=== PATIENT | male | born 1955 | race Caucasian/White ===

== ENCOUNTER → 2016-12-01 | Outpatient (CLI) | payer OTHER ==
[~2016-12-01] MED LIST: ASPCH81X PO; AZIT-57 PO; CLBCRM30 TOP; FLUT0.15 NAE; FLUT1INH INH; GUAI1TAB75 PO; IPRA1AER2 INH; IPRASOL4 INH; LPT40 PO; MOME200A INH; MONT1TAB3 PO; MULT-884 PO; OMEG10007 PO; OXGN; PRD10 PO; SYMIN INH
--- NOTE | 2016-12-01 14:07 | DIAGNOSTIC IMAGING REPORT ---
CT LUNG SCREENING, LOW DOSE WITH COMPUTER-AIDED DETECTION (CAD) CLINICAL HISTORY: LOW DOSE LUNG SCREENING Tobacco history. COMPARISON STUDY: Chest x-ray dated 12/19/2015. Chest CT dated 10/26/2011. CT DOSE: 80.53 mGycm TECHNIQUE: Low-dose helical CT was acquired without intravenous contrast from lung apices to bases and reconstructed at 2.5 mm every 2 mm. CAD was utilized for this study. FINDINGS: Thyroid: Imaged portions of the thyroid gland are normal in appearance. Thoracic aorta: There is mild atherosclerotic calcification of the thoracic aorta, with is normal in caliber and demonstrates standard 3 vessel arch anatomy. Heart: The heart is enlarged and without pericardial effusion. The mitral annulus is densely calcified. The pulmonary trunk is dilated suggesting pulmonary artery hypertension. Lungs and pleural spaces: Mild emphysematous change is identified. There is no airspace consolidation or pleural effusion. Linear atelectasis versus scarring is noted in the right middle lobe. A punctate calcified granuloma is seen in the right upper lobe. No concerning pulmonary lesion is seen. The trachea and central airways are patent. Mediastinum: There is no mediastinal lymphadenopathy. Michelle: Not well assessed without IV contrast. Axilla: Clear. Upper abdomen: Upper abdominal viscera is not well assessed due to significant streak artifact. A large cyst is again seen arising from the upper pole of the left kidney. A tiny hiatal hernia is identified Skeletal structures: There are no lytic or blastic osseous lesions. IMPRESSION: 1. Cardiomegaly and mild emphysema. 2. No airspace consolidation or pleural effusion is identified. 3. No concerning pulmonary lesion is seen. See below. CAD FINDINGS: Overall Lung RADS Category: 1 Lung RADS Management Recommendation: Lung-RADS 1: Continue annual screening in 12 months. Lung RADS Follow Up Date: 2017-12-01 Electronically signed by: Phill Peña M.D. 12/01/2016 2:05 PM Dictated Date/Time: 12/01/2016 1:53 PM
== END | disposition home or self-care (01) ==
LOC: C.CTS 13:09
PROVIDERS: ATTEND Internal Medicine
DX: I51.7 Cardiomegaly (principal); Z87.891 Personal history of nicotine dependence

== ENCOUNTER → 2017-01-07 | Outpatient (CLI) | payer OTHER ==
[2017-01-07 16:09] LABS: ARTERIAL BLD GAS O2 SATURATION 89.3 % (90-95); ARTERIAL BLOOD GAS BASE EXCESS 5.9 mEq/L (-9-1.8); ARTERIAL BLOOD GAS HCO3 32 mmol/L (19-24); ARTERIAL BLOOD GAS PO2 58 mm/Hg (80-95); ARTERIAL BLOOD GAS pH 7.42 (7.35-7.45)
[2017-01-07 16:12] LABS: ALLEN TEST POS (POS); O2 ADMINISTRATION ROOM AIR
== END | disposition home or self-care (01) ==
LOC: C.LAB 15:44
PROVIDERS: ATTEND Internal Medicine Pulmonary Disease
DX: Z11.59 Encounter for screening for other viral diseases (principal); J44.9 Chronic obstructive pulmonary disease, unspecified

== ENCOUNTER 2017-03-26 10:15 | Inpatient (IN) | payer OTHER ==
[~2017-03-26] VITALS: Ht 180.3 cm; Wt 110.2 kg
[2017-03-26] VITALS (40 sets, daily range): BP systolic 91–146; BP diastolic 50–86; PULSE 64–81; TEMP 36.8–37; O2SAT 88–97; Ht 180.3 cm; Wt 110.2 kg
[~2017-03-26 10:15] MED LIST changes: -AZIT-57 PO; -FLUT1INH INH; -OXGN; -PRD10 PO; -SYMIN INH
[2017-03-26] MEDS ORDERED: FLUT1INH INH (10:45)
[2017-03-26 10:47] LABS: ISTAT CREATININE 0.7 mg/dl (0.6-1.3); ISTAT HEMOGLOBIN 18.4 g/dl (14.0-18.0); ISTAT IONIZED CALCIUM 1.07 mmol/l (1.12-1.32)
[2017-03-26 11:18] LABS: BASO % 0.3 %; BASO ABS # 0.04 K/uL (0-0.2); COMPLETE YES; EOS % 1.1 %; HEMATOCRIT 49.5 % (42-52); IG% 0.2 %; LYMPH % 19.3 %; MEAN CELL VOLUME 101.4 fL (80-100); MEAN CORPUSCULAR HGB CONC 31.5 g/dl (32-36); MEAN PLATELET VOLUME 9.6 fL (7.4-10.4); MONO % 14.3 %; NEUT % 64.8 %; PLATELET COUNT 270 K/uL (130-400); RED BLOOD COUNT 4.88 M/uL (4.7-6.1)
[2017-03-26 11:26] LABS: BUN/CREATININE RATIO 13.3 (10-20); CALCIUM 8.4 mg/dl (8.5-10.1); CREATININE 0.67 mg/dl (0.60-1.40); POTASSIUM 5.3 mmol/L (3.5-5.1)
[2017-03-26 11:29] LABS: INR 1.2 (0.9-1.1); PARTIAL THROMBOPLASTIN RATIO 1.2; PROTHROMBIN TIME (PATIENT) 12.7 SECONDS (9.0-12.0)
--- NOTE | 2017-03-26 11:33 | DIAGNOSTIC IMAGING REPORT ---
SINGLE VIEW CHEST CLINICAL HISTORY: Dyspnea. FINDINGS: An AP, portable, upright chest radiograph is compared to study dated 12/19/2015 and correlated with chest CT dated 12/01/2016. The examination is degraded by portable technique and patient rotation. The heart is markedly enlarged and there is atherosclerotic calcification of the thoracic aorta. There is pulmonary vascular congestion. Bibasilar atelectasis is noted. No large pleural effusion or pneumothorax is seen. The skeletal structures are osteopenic. The bony thorax is grossly intact. IMPRESSION: Cardiomegaly with evidence of congestive failure. Electronically signed by: Phill Peña M.D. 03/26/2017 11:32 AM Dictated Date/Time: 03/26/2017 11:31 AM
[2017-03-26 11:35] LABS: ALB/GLOB RATIO 0.9 (0.9-2)
[2017-03-26] MEDS ORDERED: FUROSEMIDE 40 MG/4 ML VIAL IV STA (11:36)
--- NOTE | 2017-03-26 12:02 | DIAGNOSTIC IMAGING REPORT ---
CT SCAN OF THE BRAIN WITHOUT IV CONTRAST CLINICAL HISTORY: Change in mental status. COMPARISON STUDY: No priors. TECHNIQUE: Unenhanced axial CT scan of the brain is performed from the vertex to the skull base. The patient was scanned twice due to motion artifact. The examination is significantly motion compromised. CT DOSE: 1124.11 mGy.cm FINDINGS: Brain parenchyma: There is minimal subcortical and periventricular microangiopathic change. There is no evidence of hemorrhage, mass effect, or acute territorial ischemia by CT criteria. Mcelroy-white matter is preserved. No extra-axial fluid collection is seen. Ventricles, sulci, cisterns: Prominent secondary to involutional change. Intracranial vasculature: There is atherosclerotic calcification of the cavernous carotid arteries. Calvarium: Unremarkable. Sinuses and mastoids: Mucosal thickening/fluid is seen within the right maxillary antrum, the right frontal sinus, and the ethmoid sinuses. The mastoid air cells are well pneumatized. Orbits: The bony orbits are grossly intact. IMPRESSION: There is no clear evidence of hemorrhage, mass effect, or acute territorial ischemia by CT criteria noting a significantly motion compromised examination. Electronically signed by: Phill Peña M.D. 03/26/2017 12:00 PM Dictated Date/Time: 03/26/2017 11:57 AM
[2017-03-26 12:34] LABS: ARTERIAL BLD GAS O2 SATURATION 92.3 % (90-95); ARTERIAL BLOOD GAS BASE EXCESS 7.6 mEq/L (-9-1.8); ARTERIAL BLOOD GAS HCO3 39 mmol/L (19-24); ARTERIAL BLOOD GAS PO2 72 mm/Hg (80-95); ARTERIAL BLOOD GAS pH 7.24 (7.35-7.45)
[2017-03-26 12:40] LABS: URINE APPEARANCE CLEAR (CLEAR); URINE BILIRUBIN NEG (NEG); URINE COLOR YELLOW; URINE EPITHELIAL CELL AUTO 0-5 /lpf (0-5); URINE NITRITE NEG (NEG); URINE SPECIFIC GRAVITY 1.015 (1.000-1.030); UROBILINOGEN NEG (NEG); ZZUR CULT IF INDIC CLEAN CATCH NO
[2017-03-26 12:40] LABS: ALLEN TEST POSITIVE (POS); O2 ADMINISTRATION 5 LITERS
[2017-03-26 12:41] LABS: MANUAL MICROSCOPIC REQUIRED? NO; REVIEW REQ? NO
--- NOTE | 2017-03-26 13:13 | DIAGNOSTIC IMAGING REPORT ---
(CHEST) THORAX WITHOUT CLINICAL HISTORY: acute respiratory failure with hypoxia and hypercapnia COMPARISON STUDY: 12/01/2016 CT DOSE: 686.10 mGy.cm TECHNIQUE: CT of the thorax was performed from the thoracic inlet to the lung bases. Images are reviewed in the axial, sagittal, and coronal planes. IV contrast was not administered for this examination. A dose lowering technique was utilized adhering to the principles of ALARA. FINDINGS: Thyroid: Imaged portions of the thyroid gland are normal in appearance. Thoracic aorta: The thoracic aorta is normal in course and caliber, noting standard 3 vessel arch anatomy. Heart: The heart is enlarged. There is enlargement of the central pulmonary arteries. Shunt vascularity cannot be excluded. Correlation with an echo if not diffusely performed is recommended. Lungs and pleural spaces: There is respiratory motion artifact. There is no focal pulmonary consolidation. There are dependent atelectatic changes. Mediastinum: There is no evidence of pathologic adenopathy by size criteria. Michelle: There is no evidence of pathologic adenopathy given the limitations of a noncontrast study Axilla: There is no evidence of pathologic adenopathy Upper abdomen: There is a 6.4 cm partially visualized left renal cyst. Skeletal structures: There are no lytic or blastic osseous lesions. A cortical step-off involving the sternum, likely is secondary to motion artifact given the absence of a traumatic history. IMPRESSION: 1. Cardiomegaly and dilated pulmonary arteries. An intracardiac shunt cannot be excluded. Correlation with echocardiography if not performed is recommended 2. No evidence of focal pulmonary consolidation. 3. Mild dependent atelectasis Electronically signed by: Gadiel Reddy M.D. 03/26/2017 1:12 PM Dictated Date/Time: 03/26/2017 1:01 PM
[2017-03-26] MEDS ORDERED: CEFTRIAXONE SOD INJ 1 GM in DEXTROSE 5% ADD-VANTAGE 50ML 50 ML IV STA (14:09)
[2017-03-26] MEDS ORDERED: METHYLPREDNISOLONE 125 MG VIAL IV STA (14:10)
[2017-03-26] MEDS ORDERED: LEVAQUIN 750MG / 150ML D5W IV ONE (14:15)
[2017-03-26] MEDS ORDERED: HEPARIN SOD 5000 UNIT/0.5 ML CARP SQ SCH (14:30)
[2017-03-26] MEDS ORDERED: LORAZEPAM 2 MG/ML 1 ML VIAL IV PRN (14:30)
[2017-03-26] MEDS ORDERED: MoRPHine SULFATE 2 MG/ML CARP IV PRN (14:30)
[2017-03-26] MEDS ORDERED: NITROGLYCERIN 0.4 MG SL PER TAB CHARGE SL PRN (14:30)
[2017-03-26] MEDS ORDERED: ENOXAPARIN 40 MG/0.4 ML SYR SQ SCH (14:30)
[2017-03-26] MEDS ORDERED: ACETAMINOPHEN 325 MG TAB PO PRN (14:30)
[2017-03-26] MEDS ORDERED: MIDAZOLAM 125MG/250ML D5W 250 ML IV PRN (14:33)
[2017-03-26] MEDS ORDERED: SUCCINYLCHOLINE CHLORIDE 20 MG/ML 10 ML VIAL IV STA (14:33)
[2017-03-26] MEDS ORDERED: FENTANYL CITRATE INJ 50 MCG/1 ML 2 ML VIAL ONE (14:36)
[2017-03-26] MEDS ORDERED: MIDAZOLAM HCL 5 MG/ML 2ML VIAL ONE (14:36)
[2017-03-26 14:37] LABS: ISTAT ARTERIAL BLOOD GAS HCO3 41 meq/L (19-24); ISTAT ARTERIAL BLOOD GAS PCO2 103 mmHg (35-46); ISTAT ARTERIAL BLOOD GAS PO2 84 mmHg (80-95); ISTAT ARTERIAL BLOOD GAS pH 7.21 (7.35-7.45); ISTAT CARBON DIOXIDE > 40 mEq/l (24-31)
[2017-03-26] MEDS ORDERED: RAPID SEQUENCE INDUCTION BAG ONE (14:37)
--- NOTE | 2017-03-26 14:43 | Medical Student: [facility] ---
Med Student History & Physical Date & Time of Service: Mar 26, 2017 at 14:43 Chief Complaint: Shortness Of Breath Primary Care Physician: Aristeo Vicente M.D. History of Present Illness Source: patient, family, hospital records Mr. Gaytan is a 61yo male, current 1 ppd smoker, with a history of COPD requiring home oxygen and diastolic heart failure who was sent to the ED by his PCP for shortness of breath. Oxygen saturation at his PCP office was 55%. Over the past 2 weeks he has been feeling generally unwell with difficulty breathing , fatigue and decreased appetite. His shortness of breath and fatigue worsened further over the past 2 days. He has copious sputum at baseline. He denies recent change in sputum. He denies fever, chills, headache, lightheadedness, cp , abdominal pain, diarrhea, numbness/tingling. No sick contacts. 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 He presents today with his sister at bedside. 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) Immunizations History of Influenza Vaccine: Yes Influenza Vaccine Date: Aug 04, 2011 History of Tetanus Vaccine?: Yes Tetanus Immunization Date: Aug 04, 2011 History of Pneumococcal: Yes Pneumococcal Date: Aug 04, 2011 History of Hepatitis B Vaccine: Unknown Allergies Coded Allergies: No Known Allergies (Verified , 04/29/16) Medications Aspirin (Aspirin Chewable), 81 MG PO QPM Atorvastatin (Atorvastatin Calcium), 40 MG PO HS Clobetasol Propionate (Clobetasol Propionate Cream 0.05%), 1 APPLN TOP BID Fish Oil (Gwinn-3), 1 CAP PO BID Fluticasone Furoate-Vilanterol (Breo Ellipta), 1 PUFF INH DAILY Fluticasone Propionate (Nasal) (Flonase Allergy Relief), 2 SPRAY RODRIGO QAM Guaifenesin La (Guaifenesin Er), 600 MG PO Q12H Ipratropium-Albuterol (Combivent Respimat), 2 PUFFS INH QID PRN for Shortness of Breath Ipratropium-Albuterol (Duoneb), 1 TREATMENT INH Q4H PRN for Shortness of Breath Mometasone Furoate-Formoterol (Dulera 200/5 Mcg), 2 PUFFS INH BID Montelukast Sodium (Singulair), 10 MG PO QPM Multiple Vitamin (Multi Vitamin Daily), 1 TAB PO QAM Review of Systems Constitutional: + sweats, + fatigue, No fever, No chills Eyes: No eye pain, No diplopia ENT: No sore throat, No trouble swallowing Respiratory: + cough, + sputum, + shortness of breath, No hemoptysis Cardiovascular: No chest pain, No orthopnea, No edema, No palpitations Abdomen: No pain, No nausea, No vomiting, No diarrhea, No constipation Musculoskeletal: No swelling, No calf pain Genitourinary - Male: No urinary frequency, No urinary incontinence Neurologic: No paralysis, No numbness/tingling Integumentary: No rash, No new/changing skin lesions Physical Exam Vital Signs (24 Hours) Date Time Temp Pulse Resp B/P (MAP) Pulse Ox O2 Delivery O2 Flow Rate FiO2 03/26/17 14:20 93 BiPAP 15.0 100 03/26/17 14:20 75 24 93 BiPAP 15.0 100 03/26/17 14:16 133/91 03/26/17 14:05 76 36 95 03/26/17 14:00 79 17 145/89 96 03/26/17 13:55 81 21 95 03/26/17 13:52 93 BiPAP 5.0 50 03/26/17 13:50 76 25 94 03/26/17 13:45 78 22 95 03/26/17 13:40 92 26 96 03/26/17 13:35 84 26 93 BiPAP 03/26/17 13:31 150/82 03/26/17 13:30 75 21 94 03/26/17 13:27 139/82 03/26/17 13:25 81 27 93 03/26/17 13:20 77 20 94 03/26/17 13:15 81 20 95 03/26/17 13:12 77 03/26/17 13:10 75 22 94 03/26/17 13:05 79 22 95 03/26/17 12:45 79 27 88 03/26/17 12:40 76 96 50 03/26/17 12:40 86 27 88 03/26/17 12:35 84 24 03/26/17 12:33 81 136/88 91 Nasal Cannula 5.0 03/26/17 12:30 76 16 136/88 87 03/26/17 12:25 78 26 86 03/26/17 12:20 76 23 89 03/26/17 12:15 82 26 86 03/26/17 12:10 84 28 87 03/26/17 12:05 84 19 93 03/26/17 12:00 73 25 127/82 89 03/26/17 11:43 74 14 145/90 90 Nasal Cannula 5.0 03/26/17 11:40 83 27 90 03/26/17 11:35 80 27 88 03/26/17 11:31 145/90 03/26/17 11:30 78 31 90 03/26/17 11:25 83 28 90 03/26/17 11:20 80 34 91 03/26/17 11:15 77 25 90 03/26/17 11:14 90 Nasal Cannula 5.0 03/26/17 11:13 90 Nasal Cannula 5.0 03/26/17 11:10 80 23 88 03/26/17 11:05 76 20 87 03/26/17 11:01 143/90 03/26/17 11:00 80 9 85 03/26/17 11:00 77 22 143/90 90 Nasal Cannula 5.0 03/26/17 10:55 74 9 85 03/26/17 10:50 79 25 90 03/26/17 10:45 81 18 90 03/26/17 10:40 80 25 91 03/26/17 10:35 77 31 93 03/26/17 10:33 94 Nasal Cannula 5.0 03/26/17 10:30 94 Nasal Cannula 5.0 03/26/17 10:30 85 29 94 03/26/17 10:29 156/93 03/26/17 10:29 80 03/26/17 10:26 37.2 83 24 156/93 85 Room Air General Appearance: + severe distress (diaphoretic, coughing frequently, unable to speak in full sentences), + obese Head: normocephalic, atraumatic Eyes: normal inspection, PERRL, EOMI ENT: + pertinent finding (dry mucus membranes, nasal cannula) Neck: supple, no adenopathy, no carotid bruits Respiratory/Chest: + respiratory distress, + crackles (all lung au), + wheezing, + pertinent finding (prolonged expiratory phase) Cardiovascular: normal peripheral pulses, + abnormal rhythm (abnormal irregular rhythm, unable to determine relationship to respiration) Abdomen/GI: normal bowel sounds, + distended Extremities/Musculoskelatal: no calf tenderness, normal capillary refill, + pedal edema (2+) Neurologic/Psych: + disoriented (unable to converse, frequently falls asleep) Skin: + rash (erythematous facial rash at forehead/upper orbits) Diagnostics Laboratory Results Results Past 24 Hours Test 03/26/17 10:25 03/26/17 10:34 03/26/17 11:14 03/26/17 12:10 Range/Units White Blood Count 11.90 4.8-10.8 K/uL Red Blood Count 4.88 4.7-6.1 M/uL Hemoglobin 15.6 14.0-18.0 g/dL Hematocrit 49.5 42-52 % Mean Corpuscular Volume 101.4 80-100 fL Mean Corpuscular Hemoglobin 32.0 25-34 pg Mean Corpuscular Hemoglobin Concent 31.5 32-36 g/dl Platelet Count 270 130-400 K/uL Mean Platelet Volume 9.6 7.4-10.4 fL Neutrophils (%) (Auto) 64.8 % Lymphocytes (%) (Auto) 19.3 % Monocytes (%) (Auto) 14.3 % Eosinophils (%) (Auto) 1.1 % Basophils (%) (Auto) 0.3 % Neutrophils # (Auto) 7.71 1.4-6.5 K/uL Lymphocytes # (Auto) 2.30 1.2-3.4 K/uL Monocytes # (Auto) 1.70 0.11-0.59 K/uL Eosinophils # (Auto) 0.13 0-0.5 K/uL Basophils # (Auto) 0.04 0-0.2 K/uL RDW Standard Deviation 55.4 36.4-46.3 fL RDW Coefficient of Variation 15.0 11.5-14.5 % Immature Granulocyte % (Auto) 0.2 % Immature Granulocyte # (Auto) 0.02 0.00-0.02 K/uL Prothrombin Time 12.7 9.0-12.0 SECONDS Prothromb Time International Ratio 1.2 0.9-1.1 Activated Partial Thromboplast Time 30.1 21.0-31.0 SECONDS Partial Thromboplastin Ratio 1.2 Sodium Level 128 136-145 mmol/L Potassium Level 5.3 3.5-5.1 mmol/L Chloride Level 90 98-107 mmol/L Carbon Dioxide Level 37 21-32 mmol/L Anion Gap 1.0 12.0 16-25 mmol/L Blood Urea Nitrogen 9 7-18 mg/dl Creatinine 0.67 0.60-1.40 mg/dl Est Creatinine Clear Calc Drug Dose 153.5 ml/min Estimated GFR () 121.0 Estimated GFR (Non- 104.4 BUN/Creatinine Ratio 13.3 10-20 Random Glucose 105 70-99 mg/dl Osmolality 273 280-300 mOsm/kg Calcium Level 8.4 8.5-10.1 mg/dl Total Bilirubin 1.3 0.2-1 mg/dl Aspartate Amino Transf (AST/SGOT) 21 15-37 U/L Alanine Aminotransferase (ALT/SGPT) 29 12-78 U/L Alkaline Phosphatase 102 45-117 U/L Troponin I < 0.015 0-0.045 ng/ml Pro-B-Type Natriuretic Peptide 423 0-900 pg/ml Total Protein 6.7 6.4-8.2 gm/dl Albumin 3.1 3.4-5.0 gm/dl Globulin 3.6 2.5-4.0 gm/dl Albumin/Globulin Ratio 0.9 0.9-2 Lyme Disease IgG Antibody NEG NEG Bedside Hemoglobin 18.4 14.0-18.0 g/dl Bedside Hematocrit 54 42-52 % Bedside Sodium 127 135-144 mEq/L Bedside Potassium 5.3 3.3-5.0 mEq/L Bedside Chloride 86 101-112 mEq/L Bedside Total CO2 35 24-31 mEq/l Bedside Blood Urea Nitrogen 10 7-18 mg/dl Bedside Creatinine 0.7 0.6-1.3 mg/dl Bedside Glucose (other) 110 70-99 mg/dl Bedside Ionized Calcium (Tamera) 1.07 1.12-1.32 mmol/l Bedside Troponin I < 0.030 0-0.045 ng/ml Urine Color YELLOW Urine Appearance CLEAR CLEAR Urine pH 6.0 4.5-7.5 Urine Specific [place] 1.015 1.000-1.030 Urine Protein NEG NEG Urine Glucose (UA) NEG NEG Urine Ketones NEG NEG Urine Occult Blood NEG NEG Urine Nitrite NEG NEG Urine Bilirubin NEG NEG Urine Urobilinogen NEG NEG Urine Leukocyte Esterase NEG NEG Urine WBC (Auto) 1-5 0-5 /hpf Urine RBC (Auto) 0-4 0-4 /hpf Urine Hyaline Casts (Auto) 1-5 0-5 /lpf Urine Epithelial Cells (Auto) 0-5 0-5 /lpf Urine Bacteria (Auto) NEG NEG Urine Osmolality 448 500-800 mOms/kg Test 03/26/17 12:13 03/26/17 14:23 Range/Units Arterial Blood pH 7.24 7.35-7.45 Arterial Blood Partial Pressure CO2 93 35-46 mmHg Arterial Blood Partial Pressure O2 72 80-95 mm/Hg Arterial Blood HCO3 39 19-24 mmol/L Arterial Blood Oxygen Saturation 92.3 90-95 % Arterial Blood Base Excess 7.6 -9-1.8 mEq/L Arterial Blood Gas Delivery 5 LITERS Primitivo Test POSITIVE POS Bedside Blood Gas pH (LAB) 7.21 7.35-7.45 Bedside Blood Gas pCO2 (LAB) 103 35-46 mmHg Bedside Blood Gas pO2 (LAB) 84 80-95 mmHg Bedside Blood Gas HCO3 (LAB) 41 19-24 meq/L Bedside Blood Gas Total CO2 > 40 24-31 mEq/l Bedside Blood Gas Base Excess (LAB) 13.0 -9-1.8 meq/L Bedside Blood Gas O2 Saturation 92.0 90-95 % Diagnostic Radiology (CHEST) THORAX WITHOUT CLINICAL HISTORY: acute respiratory failure with hypoxia and hypercapnia COMPARISON STUDY: 12/01/2016 CT DOSE: 686.10 mGy.cm TECHNIQUE: CT of the thorax was performed from the thoracic inlet to the lung bases. Images are reviewed in the axial, sagittal, and coronal planes. IV contrast was not administered for this examination. A dose lowering technique was utilized adhering to the principles of ALARA. FINDINGS: Thyroid: Imaged portions of the thyroid gland are normal in appearance. Thoracic aorta: The thoracic aorta is normal in course and caliber, noting standard 3 vessel arch anatomy. Heart: The heart is enlarged. There is enlargement of the central pulmonary arteries. Shunt vascularity cannot be excluded. Correlation with an echo if not diffusely performed is recommended. Lungs and pleural spaces: There is respiratory motion artifact. There is no focal pulmonary consolidation. There are dependent atelectatic changes. Mediastinum: There is no evidence of pathologic adenopathy by size criteria. Michelle: There is no evidence of pathologic adenopathy given the limitations of a noncontrast study Axilla: There is no evidence of pathologic adenopathy Upper abdomen: There is a 6.4 cm partially visualized left renal cyst. Skeletal structures: There are no lytic or blastic osseous lesions. A cortical step-off involving the sternum, likely is secondary to motion artifact given the absence of a traumatic history. IMPRESSION: 1. Cardiomegaly and dilated pulmonary arteries. An intracardiac shunt cannot be excluded. Correlation with echocardiography if not performed is recommended 2. No evidence of focal pulmonary consolidation. 3. Mild dependent atelectasis Electronically signed by: Gadiel Reddy M.D. 03/26/2017 1:12 PM Dictated Date/Time: 03/26/2017 1:01 PM SINGLE VIEW CHEST CLINICAL HISTORY: Dyspnea. FINDINGS: An AP, portable, upright chest radiograph is compared to study dated 12/19/2015 and correlated with chest CT dated 12/01/2016. The examination is degraded by portable technique and patient rotation. The heart is markedly enlarged and there is atherosclerotic calcification of the thoracic aorta. There is pulmonary vascular congestion. Bibasilar atelectasis is noted. No large pleural effusion or pneumothorax is seen. The skeletal structures are osteopenic. The bony thorax is grossly intact. IMPRESSION: Cardiomegaly with evidence of congestive failure. Electronically signed by: Phill Peña M.D. 03/26/2017 11:32 AM Dictated Date/Time: 03/26/2017 11:31 AM Impression Assessment and Plan This is a 61yo male, current 1 ppd smoker, with a history of COPD requiring home oxygen and diastolic heart failure who was sent to the ED by his PCP for worsening shortness of breath. CXR shows increased pulmonary markings and diffuse infiltrate. Chest CT corroborates with pulmonary hypertension found on CXR and is negative for signs of pulmonary infectious process. BNP 423 wnl. Troponins negative. Serum osm 248 and Na 127 indicating fluid overload. At this time patient will be admitted to telemetry for management of acute COPD exacerbation in the context of diastolic heart failure and possible pulmonary infection, yet undefined. Further pulmonary and cardiac workup will be done. Differential includes: exposure lung diseases such as sleeping bag filler's lung and zimmerman's lung as well as infectious lung diseases such as bird fancier's lung, histoplasmosis, blastomycosis, aspergillosis, cryptococcal pneumonia, and atypical bacterial pneumonia such as mycoplasma (facial rash) and legionella ( hyponatremia). Plan: Precautions: Fall 1. COPD exacerbation, current O2sat 93% on 5L NC (low of 55% at PCP office this AM) w/ associated pulmonary HTN -Admit to telemetry, high risk for arrhythmia -OOB with assistance only -vitals q2h -nebs q4h -consult ID -consult cardiology -consult pulmonology -BiPAP PEEP 7, FiO2 50%, Pinsp 14 -IV solumedrol, 60mg q6h (2mg/kg per day) -IV ceftriaxone 2g -IV levofloxacin 500mg -magnesium sulfate 2g -repeat ABG -AM CBC w/ diff -AM renal profile -AM magnesium level -consider diagnostic bronchoalveolar lavage -echocardiogram pending -nicotine patch -smoking cessation education -flu vaccine -pneumovax 2.DVT prophylaxis -lovenox 40mg SQ q24 3. Disposition -Location: home -Date:TBD Level of Care Telemetry Advanced Directives Existing Living Will: No Existing Power of Business Unit Controller: No DVT Prophylaxis enoxaparin (Lovenox) SQ, SCDs Social Service Consult None Apply
[2017-03-26] MEDS ORDERED: FENTANYL CITRATE INJ 50 MCG/1 ML 2 ML VIAL IV ONE (14:45)
--- NOTE | 2017-03-26 15:12 | EMERGENCY ROOM VISIT NOTE ---
History Report prepared by Eileen: Arlin Morgan Under the Supervision of: Dr. Wilton Deutsch D.O. First contact with patient: 11:14 Chief Complaint: SHORTNESS OF BREATH Stated Complaint: SHORTNESS OF BREATH History of Present Illness The patient is a 61 year old male who presents to the Emergency Room with complaints of worsening fatigue starting 2 weeks ago. [place] with his [place]. He is here with his sister. For the past 2 weeks, he has been fatigued and unable to work. He seems to have worsened last night and today. He saw his PCP today who sent him to the ED. The patient has had a rash on his head starting about when he started feeling unwell. He thought the rash and fatigue was due to the humidity and sweating outside. He denies any vomiting , cough, chest pain, SOB, or headache. His sister states that he does seem SOB. He denies any recent falls. The patient has not been eating well recently. He does smoke and has a history of COPD. He uses oxygen at night. The patient is not on Lasix. Source of History: patient, sibling Onset: 2 weeks ago Position: other (global) Quality: other (fatigue) Timing: worsening Associated Symptoms: + SOB, + rash, No headache, No cough, No chest pain, No vomiting Review of Systems See HPI for pertinent positives & negatives. A total of 10 systems reviewed and were otherwise negative. Past Medical & Surgical Medical Problems: (1) Acute respiratory failure with hypoxia and hypercapnia (2) COPD (chronic obstructive pulmonary disease) (3) COPD exacerbation (4) Emphysema of lung (5) Hyperlipidemia Surgical Problems: (1) [place] teeth extracted Family History Heart disease Hypertension Lung disease Social History Smoking Status: Current Every Day Smoker Drug Use: none Marital Status: single Housing Status: lives with family Occupation Status: employed Current/Historical Medications Scheduled Aspirin (Aspirin Chewable), 81 MG PO QPM Atorvastatin (Atorvastatin Calcium), 40 MG PO HS Clobetasol Propionate (Clobetasol Propionate Cream 0.05%), 1 APPLN TOP BID Fish Oil ([place]-3), 1 CAP PO BID Fluticasone Furoate-Vilanterol (Breo Ellipta), 1 PUFF INH DAILY Fluticasone Propionate (Nasal) (Flonase Allergy Relief), 2 SPRAY RODRIGO QAM Guaifenesin La (Guaifenesin Er), 600 MG PO Q12H Mometasone Furoate-Formoterol (Dulera 200/5 Mcg), 2 PUFFS INH BID Montelukast Sodium (Singulair), 10 MG PO QPM Multiple Vitamin (Multi Vitamin Daily), 1 TAB PO QAM Scheduled PRN Ipratropium-Albuterol (Combivent Respimat), 2 PUFFS INH QID PRN for Shortness of Breath Ipratropium-Albuterol (Duoneb), 1 TREATMENT INH Q4H PRN for Shortness of Breath Allergies Coded Allergies: No Known Allergies (Verified , 04/29/16) Physical Exam Vital Signs Date Time Temp Pulse Resp B/P (MAP) Pulse Ox O2 Delivery O2 Flow Rate FiO2 03/26/17 14:20 93 BiPAP 15.0 100 03/26/17 14:20 75 24 93 BiPAP 15.0 100 03/26/17 14:16 133/91 03/26/17 14:05 76 36 95 03/26/17 14:00 79 17 145/89 96 03/26/17 13:55 81 21 95 03/26/17 13:52 93 BiPAP 5.0 50 03/26/17 13:50 76 25 94 03/26/17 13:45 78 22 95 03/26/17 13:40 92 26 96 03/26/17 13:35 84 26 93 BiPAP 03/26/17 13:31 150/82 03/26/17 13:30 75 21 94 03/26/17 13:27 139/82 03/26/17 13:25 81 27 93 03/26/17 13:20 77 20 94 03/26/17 13:15 81 20 95 03/26/17 13:12 77 03/26/17 13:10 75 22 94 03/26/17 13:05 79 22 95 03/26/17 12:45 79 27 88 03/26/17 12:40 76 96 50 03/26/17 12:40 86 27 88 03/26/17 12:35 84 24 03/26/17 12:33 81 136/88 91 Nasal Cannula 5.0 03/26/17 12:30 76 16 136/88 87 03/26/17 12:25 78 26 86 03/26/17 12:20 76 23 89 03/26/17 12:15 82 26 86 03/26/17 12:10 84 28 87 03/26/17 12:05 84 19 93 03/26/17 12:00 73 25 127/82 89 03/26/17 11:43 74 14 145/90 90 Nasal Cannula 5.0 03/26/17 11:40 83 27 90 03/26/17 11:35 80 27 88 03/26/17 11:31 145/90 03/26/17 11:30 78 31 90 03/26/17 11:25 83 28 90 03/26/17 11:20 80 34 91 03/26/17 11:15 77 25 90 03/26/17 11:14 90 Nasal Cannula 5.0 03/26/17 11:13 90 Nasal Cannula 5.0 03/26/17 11:10 80 23 88 03/26/17 11:05 76 20 87 03/26/17 11:01 143/90 03/26/17 11:00 80 9 85 03/26/17 11:00 77 22 143/90 90 Nasal Cannula 5.0 03/26/17 10:55 74 9 85 03/26/17 10:50 79 25 90 03/26/17 10:45 81 18 90 03/26/17 10:40 80 25 91 03/26/17 10:35 77 31 93 03/26/17 10:33 94 Nasal Cannula 5.0 03/26/17 10:30 94 Nasal Cannula 5.0 03/26/17 10:30 85 29 94 03/26/17 10:29 156/93 03/26/17 10:29 80 03/26/17 10:26 37.2 83 24 156/93 85 Room Air Physical Exam CONSTITUTIONAL/VITAL SIGNS: Reviewed / noted above. GENERAL: Non-toxic in appearance. Arouses with verbal stimuli but falls asleep quickly and easily. INTEGUMENTARY: There is a rash in the bilateral forehead area just above the eyes with edema to the left eyelid. HEAD: Normocephalic. EYES: without scleral icterus or trauma. ENT/OROPHARYNX: clear and moist. LYMPHADENOPATHY/NECK: Is supple without lymphadenopathy or meningismus. RESPIRATORY: Lungs clear and equal. CARDIOVASCULAR: Regular rate and rhythm. GI/ABDOMEN: Soft and nontender. No organomegaly or pulsatile mass. No rebound or guarding. Normal bowel sounds. EXTREMITIES: Warm and well perfused. BACK: No CVA tenderness. NEUROLOGICAL: Intact without focal deficits. PSYCHIATRIC: normal affect. MUSCULOSKELETAL: Normally developed with good muscle tone. Medical Decision & Procedures ER Provider Diagnostic Interpretation: X ray results and stated below per my interpretation and radiology interpretation. Radiology results as stated below per my review and radiologist interpretation: SINGLE VIEW CHEST CLINICAL HISTORY: Dyspnea. FINDINGS: An AP, portable, upright chest radiograph is compared to study dated 12/19/2015 and correlated with chest CT dated 12/01/2016. The examination is degraded by portable technique and patient rotation. The heart is markedly enlarged and there is atherosclerotic calcification of the thoracic aorta. There is pulmonary vascular congestion. Bibasilar atelectasis is noted. No large pleural effusion or pneumothorax is seen. The skeletal structures are osteopenic. The bony thorax is grossly intact. IMPRESSION: Cardiomegaly with evidence of congestive failure. Electronically signed by: Phill Peña M.D. 03/26/2017 11:32 AM Dictated Date/Time: 03/26/2017 11:[address] SCAN OF THE BRAIN WITHOUT IV CONTRAST CLINICAL HISTORY: Change in mental status. COMPARISON STUDY: No priors. TECHNIQUE: Unenhanced axial CT scan of the brain is performed from the vertex to the skull base. The patient was scanned twice due to motion artifact. The examination is significantly motion compromised. CT DOSE: 1124.11 mGy.cm FINDINGS: Brain parenchyma: There is minimal subcortical and periventricular microangiopathic change. There is no evidence of hemorrhage, mass effect, or acute territorial ischemia by CT criteria. Mcelroy-white matter is preserved. No extra-axial fluid collection is seen. Ventricles, sulci, cisterns: Prominent secondary to involutional change. Intracranial vasculature: There is atherosclerotic calcification of the cavernous carotid arteries. Calvarium: Unremarkable. Sinuses and mastoids: Mucosal thickening/fluid is seen within the right maxillary antrum, the right frontal sinus, and the ethmoid sinuses. The mastoid air cells are well pneumatized. Orbits: The bony orbits are grossly intact. IMPRESSION: There is no clear evidence of hemorrhage, mass effect, or acute territorial ischemia by CT criteria noting a significantly motion compromised examination. Electronically signed by: Phill Peña M.D. 03/26/2017 12:00 PM Dictated Date/Time: 03/26/2017 11:57 AM Laboratory Results 03/26/17 10:25 Red Blood Count 4.88, Mean Corpuscular Volume 101.4, Mean Corpuscular Hemoglobin 32.0, Mean Corpuscular Hemoglobin Concent 31.5, Mean Platelet Volume 9.6, Neutrophils (%) (Auto) 64.8, Lymphocytes (%) (Auto) 19.3, Monocytes (%) ( Auto) 14.3, Eosinophils (%) (Auto) 1.1, Basophils (%) (Auto) 0.3, Neutrophils # (Auto) 7.71, Lymphocytes # (Auto) 2.30, Monocytes # (Auto) 1.70, Eosinophils # ( Auto) 0.13, Basophils # (Auto) 0.04 03/26/17 10:25 Test 03/26/17 10:25 03/26/17 10:34 03/26/17 11:14 03/26/17 12:10 White Blood Count 11.90 K/uL (4.8-10.8) Red Blood Count 4.88 M/uL (4.7-6.1) Hemoglobin 15.6 g/dL (14.0-18.0) Hematocrit 49.5 % (42-52) Mean Corpuscular Volume 101.4 fL (80-100) Mean Corpuscular Hemoglobin 32.0 pg (25-34) Mean Corpuscular Hemoglobin Concent 31.5 g/dl (32-36) Platelet Count 270 K/uL (130-400) Mean Platelet Volume 9.6 fL (7.4-10.4) Neutrophils (%) (Auto) 64.8 % Lymphocytes (%) (Auto) 19.3 % Monocytes (%) (Auto) 14.3 % Eosinophils (%) (Auto) 1.1 % Basophils (%) (Auto) 0.3 % Neutrophils # (Auto) 7.71 K/uL (1.4-6.5) Lymphocytes # (Auto) 2.30 K/uL (1.2-3.4) Monocytes # (Auto) 1.70 K/uL (0.11-0.59) Eosinophils # (Auto) 0.13 K/uL (0-0.5) Basophils # (Auto) 0.04 K/uL (0-0.2) RDW Standard Deviation 55.4 fL (36.4-46.3) RDW Coefficient of Variation 15.0 % (11.5-14.5) Immature Granulocyte % (Auto) 0.2 % Immature Granulocyte # (Auto) 0.02 K/uL (0.00-0.02) Prothrombin Time 12.7 SECONDS (9.0-12.0) Prothromb Time International Ratio 1.2 (0.9-1.1) Activated Partial Thromboplast Time 30.1 SECONDS (21.0-31.0) Partial Thromboplastin Ratio 1.2 Est Creatinine Clear Calc Drug Dose 153.5 ml/min Estimated GFR () 121.0 Estimated GFR (Non- 104.4 BUN/Creatinine Ratio 13.3 (10-20) Osmolality 273 mOsm/kg (280-300) Calcium Level 8.4 mg/dl (8.5-10.1) Total Bilirubin 1.3 mg/dl (0.2-1) Aspartate Amino Transf (AST/SGOT) 21 U/L (15-37) Alanine Aminotransferase (ALT/SGPT) 29 U/L (12-78) Alkaline Phosphatase 102 U/L (45-117) Troponin I < 0.015 ng/ml (0-0.045) Pro-B-Type Natriuretic Peptide 423 pg/ml (0-900) Total Protein 6.7 gm/dl (6.4-8.2) Albumin 3.1 gm/dl (3.4-5.0) Globulin 3.6 gm/dl (2.5-4.0) Albumin/Globulin Ratio 0.9 (0.9-2) Lyme Disease IgG Antibody NEG (NEG) Bedside Hemoglobin 18.4 g/dl (14.0-18.0) Bedside Hematocrit 54 % (42-52) Bedside Sodium 127 mEq/L (135-144) Bedside Potassium 5.3 mEq/L (3.3-5.0) Bedside Chloride 86 mEq/L (101-112) Bedside Total CO2 35 mEq/l (24-31) Anion Gap 12.0 mmol/L (16-25) Bedside Blood Urea Nitrogen 10 mg/dl (7-18) Bedside Creatinine 0.7 mg/dl (0.6-1.3) Bedside Glucose (other) 110 mg/dl (70-99) Bedside Ionized Calcium ([place]) 1.07 mmol/l (1.12-1.32) Bedside Troponin I < 0.030 ng/ml (0-0.045) Urine Color YELLOW Urine Appearance CLEAR (CLEAR) Urine pH 6.0 (4.5-7.5) Urine Specific [place] 1.015 (1.000-1.030) Urine Protein NEG (NEG) Urine Glucose (UA) NEG (NEG) Urine Ketones NEG (NEG) Urine Occult Blood NEG (NEG) Urine Nitrite NEG (NEG) Urine Bilirubin NEG (NEG) Urine Urobilinogen NEG (NEG) Urine Leukocyte Esterase NEG (NEG) Urine WBC (Auto) 1-5 /hpf (0-5) Urine RBC (Auto) 0-4 /hpf (0-4) Urine Hyaline Casts (Auto) 1-5 /lpf (0-5) Urine Epithelial Cells (Auto) 0-5 /lpf (0-5) Urine Bacteria (Auto) NEG (NEG) Urine Osmolality 448 mOms/kg (500-800) Test 03/26/17 12:13 03/26/17 14:23 Arterial Blood pH 7.24 (7.35-7.45) Arterial Blood Partial Pressure CO2 93 mmHg (35-46) Arterial Blood Partial Pressure O2 72 mm/Hg (80-95) Arterial Blood HCO3 39 mmol/L (19-24) Arterial Blood Oxygen Saturation 92.3 % (90-95) Arterial Blood Base Excess 7.6 mEq/L (-9-1.8) Arterial Blood Gas Delivery 5 LITERS Primitivo Test POSITIVE (POS) Bedside Blood Gas pH (LAB) 7.21 (7.35-7.45) Bedside Blood Gas pCO2 (LAB) 103 mmHg (35-46) Bedside Blood Gas pO2 (LAB) 84 mmHg (80-95) Bedside Blood Gas HCO3 (LAB) 41 meq/L (19-24) Bedside Blood Gas Total CO2 > 40 mEq/l (24-31) Bedside Blood Gas Base Excess (LAB) 13.0 meq/L (-9-1.8) Bedside Blood Gas O2 Saturation 92.0 % (90-95) Laboratory results as stated above per my review. Medications Administered Medications (Trade) Dose Ordered Sig/Les Route Start Time Stop Time Status Last Admin Dose Admin Furosemide (Lasix Inj) 40 mg NOW STAT IV 03/26/17 11:36 03/26/17 11:37 DC 03/26/17 11:43 40 MG Miscellaneous (Rapid Sequence Induction Bag) 1 ea STK-MED ONCE N/A 03/26/17 14:37 03/26/17 14:38 DC 03/26/17 14:37 1 EA Midazolam HCl 250 ml @ 0 mls/hr Q0M PRN IV 03/26/17 14:33 04/25/17 14:32 03/26/17 15:03 1 MLS/HR ECG Indication: SOB/dyspnea Rate (beats per minute): 80 Rhythm: sinus rhythm Findings: PAC, other (no acute injury) ED Course 1126: Previous medical records were reviewed. The patient was evaluated in room A4B. A complete history and physical examination was performed. 1136: Furosemide 40 mg IV. 1220: On reevaluation, the patient is stable. I discussed the results and findings with him and his sister. They verbalized agreement of the treatment plan. The patient will be evaluated for further management and care. 1239: I discussed the patient's case with Dr. Patton, [facility] hospitalist. The patient will be evaluated for further treatment and disposition. 1244: CPAP was ordered for the patient. Medical Decision Differential includes acute coronary syndrome, myocardial infarction, CVA, TIA, anemia, infection, pneumonia, UTI, pyelonephritis, poor nutrition, dehydration, electrolyte disturbance,hypoglycemia. This is a 61-year-old male who presents to the ED with a chief complaint of decreased energy and weakness. The patient has a history of COPD and high cholesterol. The patient is a every day smoker. 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 The patient does eyes any specific complaints although he falls asleep easily during conversation. His sister reports decreased by mouth intake, decreased energy and fatigue over the past couple of weeks. Patient is otherwise a poor historian because of his drowsiness. His vital signs are stable. Blood pressure was slightly elevated. The patient's exam is noted above. He has diminished breath sounds bilaterally. He has poor respiratory effort. The patient has a rash to the forehead area as well as some edema to the upper eyelids more so on the left. CBC was unremarkable. Sodium was 127. Potassium was 5.3. Troponin is negative. Chest x-ray reveals cardiomegaly and congestive heart failure. EKG shows a sinus rhythm at a rate of 80 with PACs. Lyme was negative. CT scan the brain was negative for acute disease. ABG reveals a respiratory acidosis with a PCO2 of 93 and a acid-base status of 7.24. The patient was placed on BiPAP. I spoke with Dr. Elaine, who will see the patient for further inpatient evaluation and care. He was given IV Lasix as well. 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 Decision was made to intubate the patient because of worsening. Medication Reconcilliation Current Medication List: was personally reviewed by me Blood Pressure Screening Patient's blood pressure: Normal blood pressure Blood pressure disposition: Did not require urgent referral Consults Time Called: 1230 Consulting Physician: Dr. Patton, [facility] hospitalist Returned Call: [phone] Discussed the patient's case. The patient will be evaluated for further treatment and disposition. Impression Primary Impression: Respiratory failure Additional Impressions: Hypercarbia Respiratory acidosis Hyponatremia CHF (congestive heart failure) Critical Care I have personally spent 30 minutes of critical care time in the direct management of this patient. This includes bedside care, interpretation of diagnostic studies, and testing, discussion with consultants, patient, and family members, and other required patient management activities. Scribe Attestation The scribe's documentation has been prepared under my direction and personally reviewed by me in its entirety. I confirm that the note above accurately reflects all work, treatment, procedures, and medical decision making performed by me. Departure Information Dispostion Being Evaluated By Hospitalist Referrals Aristeo Vicente M.D. (PCP) Patient Instructions My [facility] Problem Qualifiers
[2017-03-26] MEDS ORDERED: CEFTRIAXONE SOD INJ 1 GM ADDVIAL IV STA (15:15)
--- NOTE | 2017-03-26 15:15 | DIAGNOSTIC IMAGING REPORT ---
CHEST ONE VIEW PORTABLE CLINICAL HISTORY: copd exacerbation RESPIRATORY FAILURE COMPARISON STUDY: 03/26/2017 FINDINGS: The heart remains enlarged. There is stable vascular prominence.. There is no focal pulmonary consolidation. There is been interval placement of the endotracheal tube 38 mm above the joel.[ No significant pleural effusions are visualized. IMPRESSION: Interval placement of an endotracheal tube 38 mm above the joel. Persistent cardiomegaly and vascular prominence. Electronically signed by: Gadiel Reddy M.D. 03/26/2017 3:13 PM Dictated Date/Time: 03/26/2017 3:12 PM
--- NOTE | 2017-03-26 15:16 | Procedure Note ---
Procedure Note Procedure Date Mar 26, 2017. (Stephane Bustillos PA-C) I was present and assisted during the entire procedure. I achieved a grade 2 view with MAC-4 blade during second attempt. (Zaheer Wright D.ORuchi) Procedure Description Procedure Name: Endotracheal Intubation with Direct Visualization Procedure time out: patient ID confirmed, correct procedure Consent obtained: written, emergent consent implied Time of procedure: 14:30 Performed by: attending, physician external grinder Indications: therapeutic Contraindications: none Description: A timeout was completed their find correct patient, procedure, site, and position. Patient was evaluated and required intubation for acute hypercarbic respiratory failure. Sedative agents used: 100 g Fentanyl, 4 mg Versed. Paralysis agent used: 30 mg Succinylcholine. The patient was prepped in the appropriate fashion. A Mac 4 was used for direct visualization. On initial attempt, there was difficulty visualizing the cords and 8.0 [place] endotracheal tube would not pass. My attending physician was able to visualize anterior airway and place a 0.0 [place] endotracheal tube under direct visualization to 27 cm at the lip. Balloon inflated with 10 cc of air. Positive colorimetric change. Breath sounds appreciated bilaterally. Patient tolerated procedure well. No complications were met. Chest x-ray confirms placement of endotracheal tube 3.8 cm above the joel. Complications: none Patient tolerated procedure: well Post-procedure vital signs: reviewed and stable (Stephane Bustillos, BRYANT)
--- NOTE | 2017-03-26 15:44 | Cardiology Consultation ---
Cardiology Consultation Date of Consultation: Mar 26, 2017. Requesting Physician: Dr. Patton Reason for Consultation: Cardiomegaly, CHF Pt evaluation today including: conversation w/ patient, physical exam, lab review, review of studies, review of inpatient medication list, conversation w/ attending History of Present Illness This is a 61-year-old male who has a history of COPD but to my knowledge no cardiovascular history. He does smoke. He had an echocardiogram done 09/13/2015 which showed normal left ventricular size with mild left ventricular hypertrophy and hyperdynamic left ventricular function. He did have grade 2 diastolic dysfunction and a mildly dilated right ventricle with normal systolic function. His PA pressures were about 35 mmHg systolic based on echo measurements. He presented today with progressive difficulty with exertion which was worse in the last day or 2. History is of breath was observed by his family. In the emergency room he was hypoxic, and required intubation. As part of his evaluation chest x-ray suggested some congestive heart failure and on the portable chest x-rays cardiac size appeared enlarged, CT scanning suggested cardiac abnormalities as well. Electrocardiography was relatively unremarkable with no significant change from prior studies. Past Medical/Surgical History (1) COPD (chronic obstructive pulmonary disease) (2) Hyperlipidemia Family History Heart disease Hypertension Lung disease Social History Smoking Status: Current Every Day Smoker History of Alcohol Use: No Review of Systems Constitutional: No fever, No weight loss, No weakness Respiratory: + see HPI, + cough, + shortness of breath Cardiac: No chest pain, No orthopnea, No PND, No edema, No palpitations Abdomen: No pain, No nausea, No vomiting, No diarrhea, No GI bleeding Male : No urinary frequency, No nocturia more than once/night, No slowing stream, No sexual dysfunction Neurologic: No paralysis, No weakness, No numbness/tingling, No balance problems Heme: No abnormal bleeding/bruising, No clotting problems Endo: No fatigue Skin: No problem reported Review of systems is from the chart and family, the patient is intubated and cannot provide history All Other Systems: Reviewed and Negative Allergies Coded Allergies: No Known Allergies (Verified , 04/29/16) Medications Current Inpatient Medications Medications (Trade) Dose Ordered Sig/Les Route Start Time Stop Time Status Last Admin Dose Admin Ceftriaxone Sodium 1 gm/ Dextrose 50 ml @ 100 mls/hr ONE STAT IV 03/26/17 14:09 03/26/17 14:38 UNV Heparin Sodium (Porcine) (Heparin Sq 5000 Unit/0.5ml) 5,000 unit Q8H SQ 03/26/17 14:30 04/25/17 14:29 UNV Acetaminophen (Tylenol Tab) 650 mg Q4H PRN PO 03/26/17 14:30 04/25/17 14:29 Nitroglycerin (Nitrostat Tab) 0.4 mg UD PRN SL 03/26/17 14:30 04/25/17 14:29 Enoxaparin Sodium (Lovenox Inj) 40 mg Q24H SQ 03/26/17 14:30 04/25/17 14:29 UNV Lorazepam (Ativan Inj) 0.5 mg Q4H PRN IV 03/26/17 14:30 04/25/17 14:29 UNV Morphine Sulfate (MoRPHine SULFATE INJ) 2 mg Q2H PRN IV 03/26/17 14:30 04/09/17 14:29 UNV Midazolam HCl 250 ml @ 0 mls/hr Q0M PRN IV 03/26/17 14:33 04/25/17 14:32 Physical Exam Vital Signs Past 12 Hours Date Time Temp Pulse Resp B/P (MAP) Pulse Ox O2 Delivery O2 Flow Rate FiO2 03/26/17 14:20 93 BiPAP 15.0 100 03/26/17 14:20 75 24 93 BiPAP 15.0 100 03/26/17 14:16 133/91 03/26/17 14:05 76 36 95 03/26/17 14:00 79 17 145/89 96 03/26/17 13:55 81 21 95 03/26/17 13:52 93 BiPAP 5.0 50 03/26/17 13:50 76 25 94 03/26/17 13:45 78 22 95 03/26/17 13:40 92 26 96 03/26/17 13:35 84 26 93 BiPAP 03/26/17 13:31 150/82 03/26/17 13:30 75 21 94 03/26/17 13:27 139/82 03/26/17 13:25 81 27 93 03/26/17 13:20 77 20 94 03/26/17 13:15 81 20 95 03/26/17 13:12 77 03/26/17 13:10 75 22 94 03/26/17 13:05 79 22 95 03/26/17 12:45 79 27 88 03/26/17 12:40 76 96 50 03/26/17 12:40 86 27 88 03/26/17 12:35 84 24 03/26/17 12:33 81 136/88 91 Nasal Cannula 5.0 03/26/17 12:30 76 16 136/88 87 03/26/17 12:25 78 26 86 03/26/17 12:20 76 23 89 03/26/17 12:15 82 26 86 03/26/17 12:10 84 28 87 03/26/17 12:05 84 19 93 03/26/17 12:00 73 25 127/82 89 03/26/17 11:43 74 14 145/90 90 Nasal Cannula 5.0 03/26/17 11:40 83 27 90 03/26/17 11:35 80 27 88 03/26/17 11:31 145/90 03/26/17 11:30 78 31 90 03/26/17 11:25 83 28 90 03/26/17 11:20 80 34 91 03/26/17 11:15 77 25 90 03/26/17 11:14 90 Nasal Cannula 5.0 03/26/17 11:13 90 Nasal Cannula 5.0 03/26/17 11:10 80 23 88 03/26/17 11:05 76 20 87 03/26/17 11:01 143/90 03/26/17 11:00 80 9 85 03/26/17 11:00 77 22 143/90 90 Nasal Cannula 5.0 03/26/17 10:55 74 9 85 03/26/17 10:50 79 25 90 03/26/17 10:45 81 18 90 03/26/17 10:40 80 25 91 03/26/17 10:35 77 31 93 03/26/17 10:33 94 Nasal Cannula 5.0 03/26/17 10:30 94 Nasal Cannula 5.0 03/26/17 10:30 85 29 94 03/26/17 10:29 156/93 03/26/17 10:29 80 03/26/17 10:26 37.2 83 24 156/93 85 Room Air Constitutional: Level of Distress: acutely ill Head: normocephalic Eyes: EOM: EOMI Neck: supple, no masses Lungs: Respiratory effort: no dyspnea, good air movement Auscultation: breath sounds normal, no wheezing, decreased breath sounds Cardiovascular: Heart Auscultation: RRR, no murmurs, no rubs, no gallops Peripheral Pulses: Bruits: none appreciated Abdomen: Bowel Sounds: normal Inspection & Palpation: soft, no tenderness, guarding & rebound, no masses Extremities: no edema Patient is intubated Data Laboratory Results: Last 24 Hours Test 03/26/17 10:25 03/26/17 10:34 03/26/17 11:14 03/26/17 12:10 White Blood Count 11.90 K/uL Red Blood Count 4.88 M/uL Hemoglobin 15.6 g/dL Hematocrit 49.5 % Mean Corpuscular Volume 101.4 fL Mean Corpuscular Hemoglobin 32.0 pg Mean Corpuscular Hemoglobin Concent 31.5 g/dl Platelet Count 270 K/uL Mean Platelet Volume 9.6 fL Neutrophils (%) (Auto) 64.8 % Lymphocytes (%) (Auto) 19.3 % Monocytes (%) (Auto) 14.3 % Eosinophils (%) (Auto) 1.1 % Basophils (%) (Auto) 0.3 % Neutrophils # (Auto) 7.71 K/uL Lymphocytes # (Auto) 2.30 K/uL Monocytes # (Auto) 1.70 K/uL Eosinophils # (Auto) 0.13 K/uL Basophils # (Auto) 0.04 K/uL RDW Standard Deviation 55.4 fL RDW Coefficient of Variation 15.0 % Immature Granulocyte % (Auto) 0.2 % Immature Granulocyte # (Auto) 0.02 K/uL Prothrombin Time 12.7 SECONDS Prothromb Time International Ratio 1.2 Activated Partial Thromboplast Time 30.1 SECONDS Partial Thromboplastin Ratio 1.2 Sodium Level 128 mmol/L Potassium Level 5.3 mmol/L Chloride Level 90 mmol/L Carbon Dioxide Level 37 mmol/L Anion Gap 1.0 mmol/L 12.0 mmol/L Blood Urea Nitrogen 9 mg/dl Creatinine 0.67 mg/dl Est Creatinine Clear Calc Drug Dose 153.5 ml/min Estimated GFR () 121.0 Estimated GFR (Non- 104.4 BUN/Creatinine Ratio 13.3 Random Glucose 105 mg/dl Osmolality 273 mOsm/kg Calcium Level 8.4 mg/dl Total Bilirubin 1.3 mg/dl Aspartate Amino Transf (AST/SGOT) 21 U/L Alanine Aminotransferase (ALT/SGPT) 29 U/L Alkaline Phosphatase 102 U/L Troponin I < 0.015 ng/ml Pro-B-Type Natriuretic Peptide 423 pg/ml Total Protein 6.7 gm/dl Albumin 3.1 gm/dl Globulin 3.6 gm/dl Albumin/Globulin Ratio 0.9 Lyme Disease IgG Antibody NEG Bedside Hemoglobin 18.4 g/dl Bedside Hematocrit 54 % Bedside Sodium 127 mEq/L Bedside Potassium 5.3 mEq/L Bedside Chloride 86 mEq/L Bedside Total CO2 35 mEq/l Bedside Blood Urea Nitrogen 10 mg/dl Bedside Creatinine 0.7 mg/dl Bedside Glucose (other) 110 mg/dl Bedside Ionized Calcium (Tamera) 1.07 mmol/l Bedside Troponin I < 0.030 ng/ml Urine Color YELLOW Urine Appearance CLEAR Urine pH 6.0 Urine Specific [place] 1.015 Urine Protein NEG Urine Glucose (UA) NEG Urine Ketones NEG Urine Occult Blood NEG Urine Nitrite NEG Urine Bilirubin NEG Urine Urobilinogen NEG Urine Leukocyte Esterase NEG Urine WBC (Auto) 1-5 /hpf Urine RBC (Auto) 0-4 /hpf Urine Hyaline Casts (Auto) 1-5 /lpf Urine Epithelial Cells (Auto) 0-5 /lpf Urine Bacteria (Auto) NEG Urine Osmolality 448 mOms/kg Test 03/26/17 12:13 03/26/17 14:23 Arterial Blood pH 7.24 Arterial Blood Partial Pressure CO2 93 mmHg Arterial Blood Partial Pressure O2 72 mm/Hg Arterial Blood HCO3 39 mmol/L Arterial Blood Oxygen Saturation 92.3 % Arterial Blood Base Excess 7.6 mEq/L Arterial Blood Gas Delivery 5 LITERS Primitivo Test POSITIVE Bedside Blood Gas pH (LAB) 7.21 Bedside Blood Gas pCO2 (LAB) 103 mmHg Bedside Blood Gas pO2 (LAB) 84 mmHg Bedside Blood Gas HCO3 (LAB) 41 meq/L Bedside Blood Gas Total CO2 > 40 mEq/l Bedside Blood Gas Base Excess (LAB) 13.0 meq/L Bedside Blood Gas O2 Saturation 92.0 % Imaging: Chest x-ray shows cardiomegaly, possible congestive heart failure EKG: Sinus rhythm, probable left ventricular hypertrophy Telemetry reviewed: Sinus rhythm, no significant arrhythmia Echocardiogram reviewed at bedside: Formal interpretation pending. By my review at the bedside it appears to be left ventricular hypertrophy, normal left ventricular systolic function, right side appears normal, bubble injection shows no right to left shunt. Assessment & Plan #1. Congestive heart failure: He may have mild diastolic congestive heart failure, but there is no evidence that he has systolic heart failure and his left ventricular ejection fraction is normal. Diuresis would not be unreasonable , however I don't think that is a major component of his presentation. #2. Suggestion of intracardiac shunt: There is no evidence to support this, bubble study does not show any right to left shunt. Chamber sizes are not remarkable. I would not pursue this further. Thank you for allowing me to participate in his care.
--- NOTE | 2017-03-26 16:02 | Critical Care Consultation ---
Critical Care Consultation Date of Consultation: Mar 26, 2017. Attending Physician: Zaheer Wright MD Reason for Consultation: Acute Hypercapnic Resp. Failure History of Present Illness 61 yo M tobacco user, w. hx of COPD , on home Oxygen who presents with hx significant for worsening fatigue. Information taken from family and chart review. Patient was unable to give history to his severe drowsiness. For the last 2wks , patients had fatigue and SOB. He went into PCP today to be seen and according to family was sent immediately to ED for further evaluation and management. Patient arrived at Emergency Dept afebrile with oxygen saturation of 85%. He was initially placed on nasal cannula hand saturation improved. ABG was performed showing respiratory acidosis with PCO2 of 93, HCO3 of 39 PH of 7.24. Patient was subsequently placed on Bipap followed by Critical care consultation. Past Medical/Surgical History Past MedHx: COPD HLD PastSurgHX [place] teeth extraction Family History Heart disease Hypertension Lung disease Heart disease Hypertension Lung disease Social History Smoking Status: Current Every Day Smoker Drug Use: none Marital Status: single Housing Status: lives with family Occupation Status: employed Allergies Coded Allergies: No Known Allergies (Verified , 04/29/16) Home Medications Scheduled Aspirin (Aspirin Chewable), 81 MG PO QPM Atorvastatin (Atorvastatin Calcium), 40 MG PO HS Clobetasol Propionate (Clobetasol Propionate Cream 0.05%), 1 APPLN TOP BID Fish Oil ([place]ie-3), 1 CAP PO BID Fluticasone Furoate-Vilanterol (Breo Ellipta), 1 PUFF INH DAILY Fluticasone Propionate (Nasal) (Flonase Allergy Relief), 2 SPRAY RODRIGO QAM Guaifenesin La (Guaifenesin Er), 600 MG PO Q12H Mometasone Furoate-Formoterol (Dulera 200/5 Mcg), 2 PUFFS INH BID Montelukast Sodium (Singulair), 10 MG PO QPM Multiple Vitamin (Multi Vitamin Daily), 1 TAB PO QAM Scheduled PRN Ipratropium-Albuterol (Combivent Respimat), 2 PUFFS INH QID PRN for Shortness of Breath Ipratropium-Albuterol (Duoneb), 1 TREATMENT INH Q4H PRN for Shortness of Breath Current Inpatient Medications Current Inpatient Medications Medications (Trade) Dose Ordered Sig/Les Route Start Time Stop Time Status Last Admin Dose Admin Heparin Sodium (Porcine) (Heparin Sq 5000 Unit/0.5ml) 5,000 unit Q8H SQ 03/26/17 14:30 04/25/17 14:29 UNV Acetaminophen (Tylenol Tab) 650 mg Q4H PRN PO 03/26/17 14:30 04/25/17 14:29 Nitroglycerin (Nitrostat Tab) 0.4 mg UD PRN SL 03/26/17 14:30 04/25/17 14:29 Enoxaparin Sodium (Lovenox Inj) 40 mg Q24H SQ 03/26/17 14:30 04/25/17 14:29 UNV Lorazepam (Ativan Inj) 0.5 mg Q4H PRN IV 03/26/17 14:30 04/25/17 14:29 Morphine Sulfate (MoRPHine SULFATE INJ) 2 mg Q2H PRN IV 03/26/17 14:30 04/09/17 14:29 Midazolam HCl 250 ml @ 0 mls/hr Q0M PRN IV 03/26/17 14:33 04/25/17 14:32 03/26/17 15:03 1 MLS/HR Fentanyl Citrate (Fentanyl Inj) 100 mcg Q2H PRN IV 03/26/17 15:15 04/09/17 15:14 Review of Systems unable to assess ROS due to patient's level of consciousness Physical Exam Date Time Temp Pulse Resp B/P (MAP) Pulse Ox O2 Delivery O2 Flow Rate FiO2 03/26/17 14:20 93 BiPAP 15.0 100 03/26/17 14:20 75 24 93 BiPAP 15.0 100 03/26/17 14:16 133/91 03/26/17 14:05 76 36 95 03/26/17 14:00 79 17 145/89 96 03/26/17 13:55 81 21 95 03/26/17 13:52 93 BiPAP 5.0 50 03/26/17 13:50 76 25 94 03/26/17 13:45 78 22 95 03/26/17 13:40 92 26 96 03/26/17 13:35 84 26 93 BiPAP 03/26/17 13:31 150/82 03/26/17 13:30 75 21 94 03/26/17 13:27 139/82 03/26/17 13:25 81 27 93 03/26/17 13:20 77 20 94 03/26/17 13:15 81 20 95 03/26/17 13:12 77 03/26/17 13:10 75 22 94 03/26/17 13:05 79 22 95 03/26/17 12:45 79 27 88 03/26/17 12:40 76 96 50 03/26/17 12:40 86 27 88 03/26/17 12:35 84 24 03/26/17 12:33 81 136/88 91 Nasal Cannula 5.0 03/26/17 12:30 76 16 136/88 87 03/26/17 12:25 78 26 86 03/26/17 12:20 76 23 89 03/26/17 12:15 82 26 86 03/26/17 12:10 84 28 87 03/26/17 12:05 84 19 93 03/26/17 12:00 73 25 127/82 89 03/26/17 11:43 74 14 145/90 90 Nasal Cannula 5.0 03/26/17 11:40 83 27 90 03/26/17 11:35 80 27 88 03/26/17 11:31 145/90 03/26/17 11:30 78 31 90 03/26/17 11:25 83 28 90 03/26/17 11:20 80 34 91 03/26/17 11:15 77 25 90 03/26/17 11:14 90 Nasal Cannula 5.0 03/26/17 11:13 90 Nasal Cannula 5.0 03/26/17 11:10 80 23 88 03/26/17 11:05 76 20 87 03/26/17 11:01 143/90 03/26/17 11:00 80 9 85 03/26/17 11:00 77 22 143/90 90 Nasal Cannula 5.0 03/26/17 10:55 74 9 85 03/26/17 10:50 79 25 90 03/26/17 10:45 81 18 90 03/26/17 10:40 80 25 91 03/26/17 10:35 77 31 93 03/26/17 10:33 94 Nasal Cannula 5.0 03/26/17 10:30 94 Nasal Cannula 5.0 03/26/17 10:30 85 29 94 03/26/17 10:29 156/93 03/26/17 10:29 80 03/26/17 10:26 37.2 83 24 156/93 85 Room Air GENERAL: sedated well nourished, no distress, non-toxic EYE EXAM: normal conjunctiva, PERRL and EOM's grossly intact OROPHARYNX: s/p ET intubation NECK: supple, no nuchal rigidity, no adenopathy, non-tender LUNGS: Clear to auscultation. Normal chest wall mechanics HEART: no murmurs, S1 normal and S2 normal ABDOMEN: abdomen soft, non-tender, normo-active bowel sounds, no masses, no rebound or guarding. SKIN: no rashes and no bruising UPPER EXTREMITIES: palpable radial pulses yaron. upper extremities are grossly normal. LOWER EXTREMITIES: Cold, dec'd pulses (Dorsalis pedis, post. tibial) NEURO EXAM: sedated/intubated, could not complete Laboratory Results Last 24 Hours Test 03/26/17 10:25 03/26/17 10:34 03/26/17 11:14 03/26/17 12:10 White Blood Count 11.90 K/uL Red Blood Count 4.88 M/uL Hemoglobin 15.6 g/dL Hematocrit 49.5 % Mean Corpuscular Volume 101.4 fL Mean Corpuscular Hemoglobin 32.0 pg Mean Corpuscular Hemoglobin Concent 31.5 g/dl Platelet Count 270 K/uL Mean Platelet Volume 9.6 fL Neutrophils (%) (Auto) 64.8 % Lymphocytes (%) (Auto) 19.3 % Monocytes (%) (Auto) 14.3 % Eosinophils (%) (Auto) 1.1 % Basophils (%) (Auto) 0.3 % Neutrophils # (Auto) 7.71 K/uL Lymphocytes # (Auto) 2.30 K/uL Monocytes # (Auto) 1.70 K/uL Eosinophils # (Auto) 0.13 K/uL Basophils # (Auto) 0.04 K/uL RDW Standard Deviation 55.4 fL RDW Coefficient of Variation 15.0 % Immature Granulocyte % (Auto) 0.2 % Immature Granulocyte # (Auto) 0.02 K/uL Prothrombin Time 12.7 SECONDS Prothromb Time International Ratio 1.2 Activated Partial Thromboplast Time 30.1 SECONDS Partial Thromboplastin Ratio 1.2 Sodium Level 128 mmol/L Potassium Level 5.3 mmol/L Chloride Level 90 mmol/L Carbon Dioxide Level 37 mmol/L Anion Gap 1.0 mmol/L 12.0 mmol/L Blood Urea Nitrogen 9 mg/dl Creatinine 0.67 mg/dl Est Creatinine Clear Calc Drug Dose 153.5 ml/min Estimated GFR () 121.0 Estimated GFR (Non- 104.4 BUN/Creatinine Ratio 13.3 Random Glucose 105 mg/dl Osmolality 273 mOsm/kg Calcium Level 8.4 mg/dl Total Bilirubin 1.3 mg/dl Aspartate Amino Transf (AST/SGOT) 21 U/L Alanine Aminotransferase (ALT/SGPT) 29 U/L Alkaline Phosphatase 102 U/L Troponin I < 0.015 ng/ml Pro-B-Type Natriuretic Peptide 423 pg/ml Total Protein 6.7 gm/dl Albumin 3.1 gm/dl Globulin 3.6 gm/dl Albumin/Globulin Ratio 0.9 Procalcitonin < 0.05 ng/ml Lyme Disease IgG Antibody NEG Bedside Hemoglobin 18.4 g/dl Bedside Hematocrit 54 % Bedside Sodium 127 mEq/L Bedside Potassium 5.3 mEq/L Bedside Chloride 86 mEq/L Bedside Total CO2 35 mEq/l Bedside Blood Urea Nitrogen 10 mg/dl Bedside Creatinine 0.7 mg/dl Bedside Glucose (other) 110 mg/dl Bedside Ionized Calcium (Tamera) 1.07 mmol/l Bedside Troponin I < 0.030 ng/ml Urine Color YELLOW Urine Appearance CLEAR Urine pH 6.0 Urine Specific [place] 1.015 Urine Protein NEG Urine Glucose (UA) NEG Urine Ketones NEG Urine Occult Blood NEG Urine Nitrite NEG Urine Bilirubin NEG Urine Urobilinogen NEG Urine Leukocyte Esterase NEG Urine WBC (Auto) 1-5 /hpf Urine RBC (Auto) 0-4 /hpf Urine Hyaline Casts (Auto) 1-5 /lpf Urine Epithelial Cells (Auto) 0-5 /lpf Urine Bacteria (Auto) NEG Urine Osmolality 448 mOms/kg Test 03/26/17 12:13 03/26/17 14:23 Arterial Blood pH 7.24 Arterial Blood Partial Pressure CO2 93 mmHg Arterial Blood Partial Pressure O2 72 mm/Hg Arterial Blood HCO3 39 mmol/L Arterial Blood Oxygen Saturation 92.3 % Arterial Blood Base Excess 7.6 mEq/L Arterial Blood Gas Delivery 5 LITERS Primitivo Test POSITIVE Bedside Blood Gas pH (LAB) 7.21 Bedside Blood Gas pCO2 (LAB) 103 mmHg Bedside Blood Gas pO2 (LAB) 84 mmHg Bedside Blood Gas HCO3 (LAB) 41 meq/L Bedside Blood Gas Total CO2 > 40 mEq/l Bedside Blood Gas Base Excess (LAB) 13.0 meq/L Bedside Blood Gas O2 Saturation 92.0 % Assessment & Plan 61 yo M smoker with hx of COPD presenting with worsening fatigue hyopoxia with ABG consistent with Hypercapnic resp failure likely secondary to COPD exacerbation [employer] HAND/Neuro: Pupils: Pinpoint, reactive, Sedation/pain control: Fentanyl, Versed during intubation/PRN Morphine for pain CT head dated 03/26/17: unremarkable Respiratory: Hypercapnic Resp Failure likely secondary to COPD exacerbation PH 7.24 CO2 93, HCO3 39 initially placed on non-nvasive BIPAP subsequently intubated with ET tube in the ED Vent Settings: BIPAP, rate 22, tidal volume 400, PEEP 5, FiO2 80% Chest X-ray: Cardiomegaly with evidence of congestive heart failure Repeat CXR confirmed ET tube placement Cardiovascular: Cardiomegaly consistent with CHF however BNP unremarkable. unlikely to be primary contributor to respiratory failure. CV drips: off vasoactive medications Rhythm: Sinus EKG: NS with PAC's 03/26/17 ECHO: Echo dated 2014 : EF >70% RV dilated, RV systolic fxn nl, mild RVH mod. concentric LVH Bedside Echo Today: Nrml LV, Norml RV, no R to L shunt present Fluids/Renal: IV Fluids: Fluids from intravenous medications Meyer: Present GI/Nutrition: Feeding: NPO Endocrine: Last 24 hour glucose: 105 Hematology: Hemoglobin 15.6 DVT prophylaxis: Heparin 5000 3 times a day Infectious Disease/Immunology: Tmax: 37.2 Antimicrobials: day 1 Rocephin day 08/29 Levaquin day 08/27 DVT prophylaxis: Heparin q8H Resident Physician Supervision Note: Dr. Zarco was resident physician during care of patient. I separately evaluated patient and did history and exam. I discussed the case with the resident and generally agree with the findings and plan. Resp: Nebs, A-line, possible bronchoscopy. 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 This is a life/limb threatening event. This includes time spent evaluating patient, direct bedside care, chart review, placing orders, interpretation of diagnostic studies, discussion with consultants, patient, and family members, as well as other required patient management activities. This time is exclusive of all separately billable procedures, and teaching time and separate from and in addition to any other critical care service time. Documented By: Zaheer Wright DO
[2017-03-26] MEDS ORDERED: CEFTRIAXONE SOD INJ 1000 MG in DEXTROSE 5% 50ML IV ONE (16:30)
[2017-03-26] MEDS ORDERED: METHYLPREDNISOLONE 125 MG in SYRINGE 0 ML IV ONE (16:30)
[2017-03-26] MEDS ORDERED: LEVOFLOXACIN 750MG / D5W IV ONE (16:30)
[2017-03-26] MEDS ORDERED: SODIUM CHLORIDE 0.9% 1000ML 1,000 ML IV ONE (17:30)
[2017-03-26] MEDS: FENTANYL CITRATE INJ 50 MCG/1 ML 2 ML VIAL IV PRN ×2 (17:43→20:43)
[2017-03-26 19:46] LABS: CALCIUM 8.4 mg/dl (8.5-10.1); CREATININE 0.84 mg/dl (0.60-1.40); MAGNESIUM 1.9 mg/dl (1.8-2.4); PHOSPHORUS 4.1 mg/dl (2.5-4.9); POTASSIUM 5.2 mmol/L (3.5-5.1)
--- NOTE | 2017-03-26 19:49 | History and Physical ---
History & Physical Date & Time of Service: Mar 26, 2017 at 19:49 Chief Complaint: Copd Exacerbation Primary Care Physician: Aristeo Vicente M.D. History of Present Illness Source: patient, family, hospital records The patient is a 61-year-old male who presents emergency department with worsening fatigue and shortness of breath that began about 2 weeks ago, and particular worsening over the past 24 hours. His sister is with him and emergency department, and provides the history of present illness, is a patient who was initially responsive for staph became unresponsive. She reports that he has not been able to work over the past few weeks due to being so fatigued and short of breath, and has not had any interval such as this before. When initially presents emergency department he was able to indicate part of the above symptoms and had denied any vomiting, cough, chest pain, headache, change in bowel or bladder function, blood in urine or stool, lightheadedness, dizziness, rash, recent travel or sick exposures. He does smoke, has history of COPD, and uses oxygen at nighttime. His sister also reports that the patient has not been eating well recently. 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) Immunizations History of Influenza Vaccine: Yes Influenza Vaccine Date: Aug 04, 2011 History of Tetanus Vaccine?: Yes Tetanus Immunization Date: Aug 04, 2011 History of Pneumococcal: Yes Pneumococcal Date: Aug 04, 2011 History of Hepatitis B Vaccine: Unknown Multi-Drug Resistant Organisms History of MDRO: No Allergies Coded Allergies: No Known Allergies (Verified , 04/29/16) Home Medications Scheduled Aspirin (Aspirin Chewable), 81 MG PO QPM Atorvastatin (Atorvastatin Calcium), 40 MG PO HS Clobetasol Propionate (Clobetasol Propionate Cream 0.05%), 1 APPLN TOP BID Fish Oil ([place]-3), 1 CAP PO BID Fluticasone Furoate-Vilanterol (Breo Ellipta), 1 PUFF INH DAILY Fluticasone Propionate (Nasal) (Flonase Allergy Relief), 2 SPRAY RODRIGO QAM Guaifenesin La (Guaifenesin Er), 600 MG PO Q12H Mometasone Furoate-Formoterol (Dulera 200/5 Mcg), 2 PUFFS INH BID Montelukast Sodium (Singulair), 10 MG PO QPM Multiple Vitamin (Multi Vitamin Daily), 1 TAB PO QAM Scheduled PRN Ipratropium-Albuterol (Combivent Respimat), 2 PUFFS INH QID PRN for Shortness of Breath Ipratropium-Albuterol (Duoneb), 1 TREATMENT INH Q4H PRN for Shortness of Breath Review of Systems His review of systems is primarily completed by his sister as noted above, at the time of my visit, as the patient has become more lethargic and nonresponsive while wearing a BiPAP mask that I had ordered remotely when her to the patient's changing status. Physical Exam Vital Signs Date Time Temp Pulse Resp B/P (MAP) Pulse Ox O2 Delivery O2 Flow Rate FiO2 03/26/17 18:50 78 22 116/68 (84) 91 03/26/17 18:45 81 22 112/73 (86) 93 03/26/17 18:44 79 16 94 03/26/17 18:40 75 22 117/82 (94) 95 03/26/17 18:35 72 22 128/75 (92) 95 03/26/17 18:30 75 22 133/80 (97) 95 03/26/17 18:15 71 22 123/83 (89) 94 03/26/17 18:00 75 22 129/76 (90) 95 03/26/17 17:45 75 22 141/82 (97) 89 03/26/17 17:30 72 22 127/80 (89) 90 03/26/17 17:15 75 22 128/77 (88) 95 03/26/17 16:46 71 22 112/63 (67) 90 03/26/17 16:30 79 19 142/86 (99) 88 03/26/17 16:29 80 03/26/17 16:15 69 22 109/60 (74) 94 03/26/17 16:01 75 23 91/50 (72) 95 03/26/17 16:00 80 03/26/17 16:00 Mechanical Ventilator 80 03/26/17 16:00 37.0 03/26/17 15:59 37.2 92 16 101/62 95 03/26/17 15:25 92 95 Mechanical Ventilator 80 03/26/17 15:20 62 16 94 03/26/17 15:16 79/67 03/26/17 15:15 71 18 96 03/26/17 15:10 73 22 95 03/26/17 15:09 80 03/26/17 15:05 78 22 95 03/26/17 15:01 113/76 03/26/17 15:00 78 12 95 03/26/17 14:55 77 21 96 03/26/17 14:50 80 95 03/26/17 14:45 73 146/92 96 03/26/17 14:40 81 96 03/26/17 14:35 74 96 03/26/17 14:30 76 150/83 96 03/26/17 14:25 74 96 03/26/17 14:20 93 BiPAP 15.0 100 03/26/17 14:20 75 24 93 BiPAP 15.0 100 03/26/17 14:16 133/91 03/26/17 14:05 76 36 95 03/26/17 14:00 79 17 145/89 96 03/26/17 13:55 81 21 95 03/26/17 13:52 93 BiPAP 5.0 50 03/26/17 13:50 76 25 94 03/26/17 13:45 78 22 95 03/26/17 13:40 92 26 96 03/26/17 13:35 84 26 93 BiPAP 03/26/17 13:31 150/82 03/26/17 13:30 75 21 94 03/26/17 13:27 139/82 03/26/17 13:25 81 27 93 03/26/17 13:20 77 20 94 03/26/17 13:15 81 20 95 03/26/17 13:12 77 8 13:10 75 22 94 03/26/17 13:05 79 22 95 03/26/17 12:45 79 27 88 03/26/17 12:40 76 96 50 03/26/17 12:40 86 27 88 03/26/17 12:35 84 24 03/26/17 12:33 81 136/88 91 Nasal Cannula 5.0 03/26/17 12:30 76 16 136/88 87 03/26/17 12:25 78 26 86 03/26/17 12:20 76 23 89 03/26/17 12:15 82 26 86 03/26/17 12:10 84 28 87 03/26/17 12:05 84 19 93 03/26/17 12:00 73 25 127/82 89 03/26/17 11:43 74 14 145/90 90 Nasal Cannula 5.0 03/26/17 11:40 83 27 90 03/26/17 11:35 80 27 88 03/26/17 11:31 145/90 03/26/17 11:30 78 31 90 03/26/17 11:25 83 28 90 03/26/17 11:20 80 34 91 03/26/17 11:15 77 25 90 03/26/17 11:14 90 Nasal Cannula 5.0 03/26/17 11:13 90 Nasal Cannula 5.0 03/26/17 11:10 80 23 88 03/26/17 11:05 76 20 87 03/26/17 11:01 143/90 03/26/17 11:00 80 9 85 03/26/17 11:00 77 22 143/90 90 Nasal Cannula 5.0 03/26/17 10:55 74 9 85 03/26/17 10:50 79 25 90 03/26/17 10:45 81 18 90 03/26/17 10:40 80 25 91 03/26/17 10:35 77 31 93 03/26/17 10:33 94 Nasal Cannula 5.0 03/26/17 10:30 94 Nasal Cannula 5.0 03/26/17 10:30 85 29 94 03/26/17 10:29 156/93 03/26/17 10:29 80 03/26/17 10:26 37.2 83 24 156/93 85 Room Air The patient is nonresponsive, has BiPAP mask in place, with moderate respiratory distress and accessory muscle use. HEENT--PERRL, mucous membranes and oropharynx dry. Neck--supple, + JVD , no bruits. thyroid normal, trachea midline, no adenopathy. Heart--normal S1 and S2, with PACs. no murmurs, rubs or gallops. Lungs--coarse breath sounds and wheezes bilaterally, moderate respiratory distress and accessory muscle use. Abdomen--normal bowel sounds and soft, nontender and nondistended, no hernias or masses, no organomegaly. Extremities--no cyanosis, clubbing. There is bilaterally pretibially 1+ pitting edema. There are good distal pulses b/l. Dermatologic--normal skin turgor, normal color, warm and dry, no abnormal lymph nodes, no rash. Neurologic--cranial nerves II through XII grossly intact. Rheumatologic--deferred due to nonresponsive state Psychiatric--nonresponsive Diagnostics Laboratory Results Results Past 24 Hours Test 03/26/17 10:25 03/26/17 10:34 03/26/17 11:14 03/26/17 12:10 Range/Units White Blood Count 11.90 4.8-10.8 K/uL Red Blood Count 4.88 4.7-6.1 M/uL Hemoglobin 15.6 14.0-18.0 g/dL Hematocrit 49.5 42-52 % Mean Corpuscular Volume 101.4 80-100 fL Mean Corpuscular Hemoglobin 32.0 25-34 pg Mean Corpuscular Hemoglobin Concent 31.5 32-36 g/dl Platelet Count 270 130-400 K/uL Mean Platelet Volume 9.6 7.4-10.4 fL Neutrophils (%) (Auto) 64.8 % Lymphocytes (%) (Auto) 19.3 % Monocytes (%) (Auto) 14.3 % Eosinophils (%) (Auto) 1.1 % Basophils (%) (Auto) 0.3 % Neutrophils # (Auto) 7.71 1.4-6.5 K/uL Lymphocytes # (Auto) 2.30 1.2-3.4 K/uL Monocytes # (Auto) 1.70 0.11-0.59 K/uL Eosinophils # (Auto) 0.13 0-0.5 K/uL Basophils # (Auto) 0.04 0-0.2 K/uL RDW Standard Deviation 55.4 36.4-46.3 fL RDW Coefficient of Variation 15.0 11.5-14.5 % Immature Granulocyte % (Auto) 0.2 % Immature Granulocyte # (Auto) 0.02 0.00-0.02 K/uL Prothrombin Time 12.7 9.0-12.0 SECONDS Prothromb Time International Ratio 1.2 0.9-1.1 Activated Partial Thromboplast Time 30.1 21.0-31.0 SECONDS Partial Thromboplastin Ratio 1.2 Sodium Level 128 136-145 mmol/L Potassium Level 5.3 3.5-5.1 mmol/L Chloride Level 90 98-107 mmol/L Carbon Dioxide Level 37 21-32 mmol/L Anion Gap 1.0 12.0 16-25 mmol/L Blood Urea Nitrogen 9 7-18 mg/dl Creatinine 0.67 0.60-1.40 mg/dl Est Creatinine Clear Calc Drug Dose 153.5 ml/min Estimated GFR () 121.0 Estimated GFR (Non- 104.4 BUN/Creatinine Ratio 13.3 10-20 Random Glucose 105 70-99 mg/dl Osmolality 273 280-300 mOsm/kg Calcium Level 8.4 8.5-10.1 mg/dl Total Bilirubin 1.3 0.2-1 mg/dl Aspartate Amino Transf (AST/SGOT) 21 15-37 U/L Alanine Aminotransferase (ALT/SGPT) 29 12-78 U/L Alkaline Phosphatase 102 45-117 U/L Troponin I < 0.015 0-0.045 ng/ml Pro-B-Type Natriuretic Peptide 423 0-900 pg/ml Total Protein 6.7 6.4-8.2 gm/dl Albumin 3.1 3.4-5.0 gm/dl Globulin 3.6 2.5-4.0 gm/dl Albumin/Globulin Ratio 0.9 0.9-2 Procalcitonin < 0.05 0-0.5 ng/ml Lyme Disease IgG Antibody NEG NEG Bedside Hemoglobin 18.4 14.0-18.0 g/dl Bedside Hematocrit 54 42-52 % Bedside Sodium 127 135-144 mEq/L Bedside Potassium 5.3 3.3-5.0 mEq/L Bedside Chloride 86 101-112 mEq/L Bedside Total CO2 35 24-31 mEq/l Bedside Blood Urea Nitrogen 10 7-18 mg/dl Bedside Creatinine 0.7 0.6-1.3 mg/dl Bedside Glucose (other) 110 70-99 mg/dl Bedside Ionized Calcium ([place]) 1.07 1.12-1.32 mmol/l Bedside Troponin I < 0.030 0-0.045 ng/ml Urine Color YELLOW Urine Appearance CLEAR CLEAR Urine pH 6.0 4.5-7.5 Urine Specific [place] 1.015 1.000-1.030 Urine Protein NEG NEG Urine Glucose (UA) NEG NEG Urine Ketones NEG NEG Urine Occult Blood NEG NEG Urine Nitrite NEG NEG Urine Bilirubin NEG NEG Urine Urobilinogen NEG NEG Urine Leukocyte Esterase NEG NEG Urine WBC (Auto) 1-5 0-5 /hpf Urine RBC (Auto) 0-4 0-4 /hpf Urine Hyaline Casts (Auto) 1-5 0-5 /lpf Urine Epithelial Cells (Auto) 0-5 0-5 /lpf Urine Bacteria (Auto) NEG NEG Urine Osmolality 448 500-800 mOms/kg Test 03/26/17 12:13 03/26/17 14:23 03/26/17 17:10 03/26/17 19:09 Range/Units Arterial Blood pH 7.24 7.35-7.45 Arterial Blood Partial Pressure CO2 93 35-46 mmHg Arterial Blood Partial Pressure O2 72 80-95 mm/Hg Arterial Blood HCO3 39 19-24 mmol/L Arterial Blood Oxygen Saturation 92.3 90-95 % Arterial Blood Base Excess 7.6 -9-1.8 mEq/L Arterial Blood Gas Delivery 5 LITERS Primitivo Test POSITIVE POS Bedside Blood Gas pH (LAB) 7.21 7.35-7.45 Bedside Blood Gas pCO2 (LAB) 103 35-46 mmHg Bedside Blood Gas pO2 (LAB) 84 80-95 mmHg Bedside Blood Gas HCO3 (LAB) 41 19-24 meq/L Bedside Blood Gas Total CO2 > 40 24-31 mEq/l Bedside Blood Gas Base Excess (LAB) 13.0 -9-1.8 meq/L Bedside Blood Gas O2 Saturation 92.0 90-95 % Bedside Glucose 125 70-99 mg/dl Sodium Level 129 136-145 mmol/L Potassium Level 5.2 3.5-5.1 mmol/L Chloride Level 89 98-107 mmol/L Carbon Dioxide Level 38 21-32 mmol/L Anion Gap 2.0 3-11 mmol/L Blood Urea Nitrogen 13 7-18 mg/dl Creatinine 0.84 0.60-1.40 mg/dl Est Creatinine Clear Calc Drug Dose 123.3 ml/min Estimated GFR () 110.3 Estimated GFR (Non- 95.2 BUN/Creatinine Ratio 16.0 10-20 Random Glucose 129 70-99 mg/dl Calcium Level 8.4 8.5-10.1 mg/dl Phosphorus Level 4.1 2.5-4.9 mg/dl Magnesium Level 1.9 1.8-2.4 mg/dl Microbiology Results 03/26/17 Fungal Smear, Received Pending 03/26/17 Fungal Culture, Received Pending 03/26/17 Acid Fast Stain, Received Pending 03/26/17 Mycobacterial Culture, Received Pending 03/26/17 Gram Stain, Received Pending 03/26/17 Bronchoalveolar Lavage Culture, Received Pending Diagnostic Radiology Patient Name: ROBERTO ADAMS Unit Number: [id number] Dictated: 03/26/171130 Transcribed: 03/26/171130 EV Printed Date/Time: [~ rep prt dt]/[~ rep prt tm] [~ rep ct labl] - [~ rep ct ivnm] [facility] [place] [address] Dictated: 03/26/171130 Transcribed: 03/26/171130 EV Printed Date/Time: [~ rep prt dt]/[~ rep prt tm] [~ rep ct labl] - [~ rep ct ivnm] SINGLE VIEW CHEST CLINICAL HISTORY: Dyspnea. FINDINGS: An AP, portable, upright chest radiograph is compared to study dated 12/19/2015 and correlated with chest CT dated 12/01/2016. The examination is degraded by portable technique and patient rotation. The heart is markedly enlarged and there is atherosclerotic calcification of the thoracic aorta. There is pulmonary vascular congestion. Bibasilar atelectasis is noted. No large pleural effusion or pneumothorax is seen. The skeletal structures are osteopenic. The bony thorax is grossly intact. IMPRESSION: Cardiomegaly with evidence of congestive failure. Electronically signed by: Phill Peña M.D. 03/26/2017 11:32 AM Dictated Date/Time: 03/26/2017 11:31 AM The status of this report is Signed. Draft = Not yet reviewed or approved by Radiologist. Signed = Reviewed and approved by Radiologist. <AttendingPhy></AttendingPhy> <FamilyPhy>Aristeo Vicente M.D.</FamilyPhy > <PrimaryPhy>Aristeo Vicente M.D.</PrimaryPhy> <UnitNumber>[id number]</ UnitNumber> <VisitNumber>[id number]</VisitNumber> <PatientName>WILLYHERSONLevyROBERTO</PatientName> <DateOfBirth>1955</DateOfBirth> <Location>[facility]</ Location> <ServiceDate>03/26/17</ServiceDate> <MNE>ESINDI</MNE> <OrderingPhy>ED , PROTOCOL</OrderingPhy> <OrderingPhyMNE>f rep ord dr dillon</OrderingPhyMNE> < DictatingPhyMNE>f rep dict dr dillon</DictatingPhyMNE> <CCListMNE>f rep ct mne</ CCListMNE> <AdmittingPhyMNE>f pt admit dr dillon</AdmittingPhyMNE> <AttendingPhyMNE >f pt attend dr dillon</AttendingPhyMNE> <ConsultingPhyMNE>f pt consult dr dillon</ConsultingPhyMNE> <FamilyPhyMNE>f pt fam dr dillon</FamilyPhyMNE> <OtherPhyMNE>f pt other dr dillon</OtherPhyMNE> < PrimaryPhyMNE>f pt prim care dr dillon</PrimaryPhyMNE> <ReferringPhyMNE>f pt referring dr dillon</ReferringPhyMNE> Patient Name: BRYANROBERTO Perez Unit Number: [id number] Dictated: 03/26/171156 Transcribed: 03/26/171156 EV Printed Date/Time: [~ rep prt dt]/[~ rep prt tm] [~ rep ct labl] - [~ rep ct ivnm] [facility] [place] [address] Dictated: 03/26/171156 Transcribed: 03/26/171156 EV Printed Date/Time: [~ rep prt dt]/[~ rep prt tm] [~ rep ct labl] - [~ rep ct ivnm] [~ rep ct add3]] CT SCAN OF THE BRAIN WITHOUT IV CONTRAST CLINICAL HISTORY: Change in mental status. COMPARISON STUDY: No priors. TECHNIQUE: Unenhanced axial CT scan of the brain is performed from the vertex to the skull base. The patient was scanned twice due to motion artifact. The examination is significantly motion compromised. CT DOSE: 1124.11 mGy.cm FINDINGS: Brain parenchyma: There is minimal subcortical and periventricular microangiopathic change. There is no evidence of hemorrhage, mass effect, or acute territorial ischemia by CT criteria. Mcelroy-white matter is preserved. No extra-axial fluid collection is seen. Ventricles, sulci, cisterns: Prominent secondary to involutional change. Intracranial vasculature: There is atherosclerotic calcification of the cavernous carotid arteries. Calvarium: Unremarkable. Sinuses and mastoids: Mucosal thickening/fluid is seen within the right maxillary antrum, the right frontal sinus, and the ethmoid sinuses. The mastoid air cells are well pneumatized. Orbits: The bony orbits are grossly intact. IMPRESSION: There is no clear evidence of hemorrhage, mass effect, or acute territorial ischemia by CT criteria noting a significantly motion compromised examination. Electronically signed by: Phill Peña M.D. 03/26/2017 12:00 PM Dictated Date/Time: 03/26/2017 11:57 AM The status of this report is Signed. Draft = Not yet reviewed or approved by Radiologist. Signed = Reviewed and approved by Radiologist. <AttendingPhy></AttendingPhy> <FamilyPhy>Aristeo Vicente M.D.</FamilyPhy > <PrimaryPhy>Aristeo Vicente M.D.</PrimaryPhy> <UnitNumber>[id number]</ UnitNumber> <VisitNumber>[id number]</VisitNumber> <PatientName>ROBERTO ADAMS</PatientName> <DateOfBirth>1955</DateOfBirth> <Location>[facility]</ Location> <ServiceDate>03/26/17</ServiceDate> <MNE>ESINDI</MNE> <OrderingPhy> Wilton Deutsch D.O.</OrderingPhy> <OrderingPhyMNE>f rep ord dr dillon</ OrderingPhyMNE> <DictatingPhyMNE>f rep dict dr dillon</DictatingPhyMNE> <CCListMNE> f rep ct mne</CCListMNE> <AdmittingPhyMNE>f pt admit dr dillon</AdmittingPhyMNE> < AttendingPhyMNE>f pt attend dr dillon</AttendingPhyMNE> <ConsultingPhyMNE>f pt consult dr dillon</ConsultingPhyMNE> <FamilyPhyMNE>f pt fam dr dillon</FamilyPhyMNE> <OtherPhyMNE>f pt other dr dillon</OtherPhyMNE> < PrimaryPhyMNE>f pt prim care dr dillon</PrimaryPhyMNE> <ReferringPhyMNE>f pt referring dr dillon</ReferringPhyMNE> Patient Name: ROBERTO ADAMS Unit Number: [id number] Dictated: 03/26/171300 Transcribed: 03/26/171300 ARG Printed Date/Time: [~ rep prt dt]/[~ rep prt tm] [~ rep ct labl] - [~ rep ct ivnm] [facility] [place] [address] Dictated: 03/26/171300 Transcribed: 03/26/171300 ARG Printed Date/Time: [~ rep prt dt]/[~ rep prt tm] [~ rep ct labl] - [~ rep ct ivnm] [~ rep ct add3]] (CHEST) THORAX WITHOUT CLINICAL HISTORY: acute respiratory failure with hypoxia and hypercapnia COMPARISON STUDY: 12/01/2016 CT DOSE: 686.10 mGy.cm TECHNIQUE: CT of the thorax was performed from the thoracic inlet to the lung bases. Images are reviewed in the axial, sagittal, and coronal planes. IV contrast was not administered for this examination. A dose lowering technique was utilized adhering to the principles of ALARA. FINDINGS: Thyroid: Imaged portions of the thyroid gland are normal in appearance. Thoracic aorta: The thoracic aorta is normal in course and caliber, noting standard 3 vessel arch anatomy. Heart: The heart is enlarged. There is enlargement of the central pulmonary arteries. Shunt vascularity cannot be excluded. Correlation with an echo if not diffusely performed is recommended. Lungs and pleural spaces: There is respiratory motion artifact. There is no focal pulmonary consolidation. There are dependent atelectatic changes. Mediastinum: There is no evidence of pathologic adenopathy by size criteria. Michelle: There is no evidence of pathologic adenopathy given the limitations of a noncontrast study Axilla: There is no evidence of pathologic adenopathy Upper abdomen: There is a 6.4 cm partially visualized left renal cyst. Skeletal structures: There are no lytic or blastic osseous lesions. A cortical step-off involving the sternum, likely is secondary to motion artifact given the absence of a traumatic history. IMPRESSION: 1. Cardiomegaly and dilated pulmonary arteries. An intracardiac shunt cannot be excluded. Correlation with echocardiography if not performed is recommended 2. No evidence of focal pulmonary consolidation. 3. Mild dependent atelectasis Electronically signed by: Gadiel Reddy M.D. 03/26/2017 1:12 PM Dictated Date/Time: 03/26/2017 1:01 PM The status of this report is Signed. Draft = Not yet reviewed or approved by Radiologist. Signed = Reviewed and approved by Radiologist. <AttendingPhy></AttendingPhy> <FamilyPhy>Aristeo Vicente M.D.</FamilyPhy > <PrimaryPhy>Aristeo Vicente M.D.</PrimaryPhy> <UnitNumber>[id number]</ UnitNumber> <VisitNumber>[id number]</VisitNumber> <PatientName>ROBERTO ADAMS</PatientName> <DateOfBirth>1955</DateOfBirth> <Location>[facility]</ Location> <ServiceDate>03/26/17</ServiceDate> <MNE>ESINDI</MNE> <OrderingPhy> Chuck Patton M.D.</OrderingPhy> <OrderingPhyMNE>f rep ord dr dillon</ OrderingPhyMNE> <DictatingPhyMNE>f rep dict dr dillon</DictatingPhyMNE> <CCListMNE> f rep ct kime</CCListMNE> <AdmittingPhyMNE>f pt admit dr dillon</AdmittingPhyMNE> < AttendingPhyMNE>f pt attend dr dillon</AttendingPhyMNE> <ConsultingPhyMNE>f pt consult dr dillon</ConsultingPhyMNE> <FamilyPhyMNE>f pt fam dr dillon</FamilyPhyMNE> <OtherPhyMNE>f pt other dr dillon</OtherPhyMNE> < PrimaryPhyMNE>f pt prim care dr dillon</PrimaryPhyMNE> <ReferringPhyMNE>f pt referring dr dillon</ReferringPhyMNE> EKG EKG shows normal sinus rhythm at 80 bpm, PACs, no acute ST-T changes. Impression Assessment and Plan Acute respiratory failure with hypoxia and hypercapnia secondary to acute CHF, pneumonia and COPD exacerbation--patient will be admitted to ICU. His ABG shows a pH is 7.2, PCO2 of 93 and PO2 of 73, and the patient become less responsive while emergency department. Dr. Wright from the ICU was contacted , for possible admission, and he agreed that the patient should be brought to the ICU, however, he was first intubated while emergency department. Acute CHF patient did receive Lasix 40 mg IV in the emergency department, and with an albumin of 3.1, could receive combination of albumin with Lasix doses if need be. Acute COPD exacerbation/pneumonia--the patient is a former, so would be concerned regarding the usual organisms but also would like into testing for Legionella, mycoplasma, chlamydia, histoplasmosis and chlamydia psittacaie. His selection of antibiotics and possible antifungal medications will be left up to the ICU team. Level of Care Critical Care Advanced Directives Existing Advance Directive: No Existing Living Will: No Existing Power of Molding Sander: No Resuscitation Status FULL RESUSCITATION VTE Prophylaxis VTE Risk Assessment Done? Y/N: Yes Risk Level: Moderate Given or contraindicated: Enoxaparin (Lovenox)SQ, SCD's Note Total Time: Critical Care 30 - 74 minutes
[2017-03-26] MEDS: NORMOSOL R 1,000 ML IV SCH (20:16)
[2017-03-26] MEDS: ENOXAPARIN 40 MG/0.4 ML SYR SQ SCH (20:17)
[2017-03-26] MEDS: METHYLPREDNISOLONE IV 40 MG in SYRINGE 0 ML IV SCH (23:43)
[2017-03-27] VITALS (19 sets, daily range): BP systolic 93–161; BP diastolic 47–98; PULSE 70–105; TEMP 36.2–36.9; O2SAT 87–98
[2017-03-27] MEDS: NORMOSOL R 1,000 ML IV SCH ×2 (03:50→15:22)
[2017-03-27] MEDS ORDERED: NURSING VERBAL MED ORDER ONE (05:00)
[2017-03-27] MEDS: PANTOprazole INJ 40 MG in SYRINGE 0 ML IV SCH ×2 (05:19→20:08)
[2017-03-27 06:02] LABS: COMPLETE YES; EOS % 0.1 %; HEMATOCRIT 50.3 % (42-52); IG% 0.1 %; LYMPH % 10.5 %; LYMPH ABS # 0.71 K/uL (1.2-3.4); MEAN CELL VOLUME 97.9 fL (80-100); MEAN CORPUSCULAR HEMOGLOBIN 31.7 pg (25-34); MEAN CORPUSCULAR HGB CONC 32.4 g/dl (32-36); MONO % 4.9 %; NEUT % 84.4 %; PLATELET COUNT 270 K/uL (130-400); RED BLOOD COUNT 5.14 M/uL (4.7-6.1); WHITE BLOOD COUNT 6.78 K/uL (4.8-10.8)
[2017-03-27 06:20] LABS: INR 1.3 (0.9-1.1); PARTIAL THROMBOPLASTIN RATIO 1.1; PROTHROMBIN TIME (PATIENT) 14.2 SECONDS (9.0-12.0)
[2017-03-27 06:24] LABS: ISTAT ALLEN TEST Pass; ISTAT ARTERIAL BLOOD GAS HCO3 41 meq/L (19-24); ISTAT ARTERIAL BLOOD GAS PCO2 68 mmHg (35-46); ISTAT ARTERIAL BLOOD GAS PO2 82 mmHg (80-95); ISTAT ARTERIAL BLOOD GAS pH 7.38 (7.35-7.45); ISTAT CARBON DIOXIDE > 40 mEq/l (24-31); ISTAT DELIVERY SYSTEM Ventilator; ISTAT FIO2 60 %; ISTAT PEEP 8; ISTAT SITE R Radial
[2017-03-27 06:40] LABS: ALT/SGPT 24 U/L (12-78); AST/SGOT 17 U/L (15-37); BLOOD UREA NITROGEN 19 mg/dl (7-18); BUN/CREATININE RATIO 23.6 (10-20); CALCIUM 8.5 mg/dl (8.5-10.1); CARBON DIOXIDE 37 mmol/L (21-32); CHLORIDE 88 mmol/L (98-107); GLUCOSE 118 mg/dl (70-99); POTASSIUM 4.2 mmol/L (3.5-5.1); SODIUM 130 mmol/L (136-145)
[2017-03-27 06:42] LABS: ALKALINE PHOSPHATASE 98 U/L (45-117); CKMB/CK RATIO 2.9 (0-3.0); PHOSPHORUS 3.8 mg/dl (2.5-4.9)
--- NOTE | 2017-03-27 07:24 | DIAGNOSTIC IMAGING REPORT ---
CHEST ONE VIEW PORTABLE CLINICAL HISTORY: respiratory failure COMPARISON STUDY: 03/26/2017 FINDINGS: The endotracheal tube is 24 mm above the joel. The heart is mildly enlarged. There is suspected mild pulmonary venous hypertension. There are bibasilar opacities, likely atelectatic.[ IMPRESSION: Endotracheal tube 24 mm above the joel. Mild bibasal atelectasis. Cardiomegaly and suspected pulmonary venous hypertension Electronically signed by: Gadiel Reddy M.D. 03/27/2017 7:22 AM Dictated Date/Time: 03/27/2017 7:22 AM
[2017-03-27] MEDS: METHYLPREDNISOLONE IV 40 MG in SYRINGE 0 ML IV SCH ×3 (08:17→23:45)
--- NOTE | 2017-03-27 08:39 | Critical Care Progress Note ---
Critical Care Progress Note Date of Service Mar 27, 2017. ICU Day ICU Day Number: [address] Wright Subjective CPAP trial was attempted overnight but patient did not awaken sufficiently for NIF. ABG performed this morning showing, improved pH 7.38 Bicarb of 41 pCO2 of 68. He was placed back on AC subsequently. Patient is sedated. Objective GENERAL: sedated, intubated EYE EXAM: PERRL OROPHARYNX: s/p intubation NECK: supple, no nuchal rigidity, no adenopathy, non-tender LUNGS: Clear to auscultation. Normal chest wall mechanics HEART: no murmurs, S1 normal and S2 normal ABDOMEN: abdomen soft, non-tender, normo-active bowel sounds, no masses, no rebound or guarding. SKIN: erythematous macular rash on forehead UPPER EXTREMITIES: upper extremities are grossly normal. LOWER EXTREMITIES: palpable distal pulses. No pitting edema. 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 Pupils: Pinpoint, reactive, Sedation/pain control: Hold Sedation today prior to weening trial CT head dated 03/26/17: unremarkable Respiratory: Hypercapnic Resp Failure likely secondary to COPD exacerbation in the setting of Chronic Resp acidosis PH 7.38 CO2 68, HCO3 41 PO2 82 8/: initially placed on non-nvasive BIPAP subsequently intubated with ET tube in the ED Had CPAP trial overnight, patient was unable to arouse sufficiently for NIF , placed back on CPAP Current Vent Settings:AC, rate 22, tidal volume 600, PEEP 8, FiO2 80% Chest X-ray: Cardiomegaly with evidence of congestive heart failure Repeat CXR confirmed ET tube placement Plan to reattempt weening trial today Hold sedation Continue IV Solumedrol, Duo nebs, IV Levaquin, Ceftriaxone s/p Bronchioalveolar lavage 03/27, Pending cx's Hx Tobacco use: Nicotine patch orders Cardiovascular: Cardiomegaly consistent with CHF however BNP unremarkable, LVH on Echo, less likely to be a major contributor to resp distress CV drips: off vasoactive medications Rhythm: Sinus EKG: NS with PAC's 03/26/17 ECHO: Echo dated 2014 : EF >70% RV dilated, RV systolic fxn nl, mild RVH mod. concentric LVH Bedside Echo 03/26: Nrml LV, Nrml RV, no R to L shunt present Fluids/Renal: Hyponatremia likely euvolemic, hypervolemia possible though unlikely given level of Hb (16.3) F/u Urine NA, calculate FENA IV Fluids: Fluids from intravenous medications Meyer: Present GI/Nutrition: Feeding: NPO 700 ml output from NG tube Endocrine: Last 24 hour glucose: 105 -129 F/u cortisol Hematology: Hemoglobin 16.3 DVT prophylaxis: Lovenox 40 q24 INR 1.3 Infectious Disease/Immunology: Tmax: 36.7, While ct resolved. Antimicrobials: day 2 D/C Rocephin Levaquin day 2/5 Facial rash: suspected Tinea V., Start PO Ketoconazole x1 300 mg, will need repeat dose in 3 wks F/u Bronchial washing cx's Resident Physician Supervision Note: Dr. Mi Justin was resident physician during care of patient. I separately evaluated patient and did history and exam. I discussed the case with the resident and generally agree with the findings and plan. Documented By: Zaheer Wright DO Reason Critically Ill: Acute on chronic hypercarbic respiratory failure PLAN: Neuro: Sedation held, was able to follow complex commands and was successfully extubated Resp: COPD, unclear what severity, chronic retention secondary to bicarbonate elevation in mid 30s CV: No evidence of cardiac shunting, troponin and BMP largely unremarkable, upper limit normal of H&H likely euvolemic Fluids/Renal: Hyponatremia, check TSH and cortisol, secondary to dehydration versus hypervolemia versus reset osmostat ID: Discontinued Rocephin, continue Levaquin, procalcitonin unremarkable GI/Nutrition: May allow food later this afternoon Heme: Lovenox for prophylaxis Endocrine: On steroids presently, trend blood sugars Skin: Patient's sister reports that he has had a recently appearing rash on the face. It is consistent with red macules appearing most consistent with tinea versicolor. I will treat with 300 mg ketoconazole 1 patient should follow-up in 2 weeks with primary care provider for repeat treatment. I have personally spent 40 minutes of critical care time in the direct management of this patient. This is a life/limb threatening event. This includes time spent evaluating patient, direct bedside care, chart review, placing orders, interpretation of diagnostic studies, discussion with consultants, patient, and family members, as well as other required patient management activities. This time is exclusive of all separately billable procedures, and teaching time and separate from and in addition to any other critical care service time. Consults & Procedures Consultants: Cardiology Procedures: Intubation Bronchoscopy Data Medications: Current Inpatient Medications Medications (Trade) Dose Ordered Sig/Les Route Start Time Stop Time Status Last Admin Dose Admin Acetaminophen (Tylenol Tab) 650 mg Q4H PRN PO 03/26/17 14:30 04/25/17 14:29 Nitroglycerin (Nitrostat Tab) 0.4 mg UD PRN SL 03/26/17 14:30 04/25/17 14:29 Lorazepam (Ativan Inj) 0.5 mg Q4H PRN IV 03/26/17 14:30 04/25/17 14:29 Morphine Sulfate (MoRPHine SULFATE INJ) 2 mg Q2H PRN IV 03/26/17 14:30 04/09/17 14:29 Midazolam HCl 250 ml @ 0 mls/hr Q0M PRN IV 03/26/17 14:33 04/25/17 14:32 03/26/17 15:03 1 MLS/HR Fentanyl Citrate (Fentanyl Inj) 100 mcg Q2H PRN IV 03/26/17 15:15 04/09/17 15:14 03/26/17 20:43 100 MCG Enoxaparin Sodium (Lovenox Inj) 40 mg Q24H SQ 03/26/17 21:00 04/25/17 20:59 03/26/17 20:17 40 MG Levofloxacin 750 mg/Prmx 150 ml @ 100 mls/hr Q24H IV 03/27/17 16:00 04/01/17 17:29 Ceftriaxone Sodium 1 gm/ Dextrose 50 ml @ 100 mls/hr Q24H IV 03/27/17 16:00 04/01/17 16:29 Methylprednisolone Sodium Succinate 40 mg/Syringe 0.64 ml @ 1.5 mls/min Q8H IV 03/27/17 00:00 04/26/17 00:00 03/26/17 23:43 1.5 MLS/MIN Parenteral Electrolyte Solution 1,000 ml @ 100 mls/hr Q10H IV 03/26/17 18:15 04/25/17 18:14 03/27/17 03:50 100 MLS/HR Pantoprazole Sodium 40 mg/ Syringe 10 ml @ 5 mls/min BID@09,21 IV 03/27/17 05:15 04/26/17 05:14 03/27/17 05:19 5 MLS/MIN Vital Signs: Date Time Temp Pulse Resp B/P (MAP) Pulse Ox O2 Delivery O2 Flow Rate FiO2 03/27/17 07:35 50 03/27/17 06:16 80 03/27/17 06:00 93 18 141/94 (110) 96 03/27/17 05:27 50 03/27/17 05:00 91 22 137/89 (105) 93 03/27/17 04:00 80 03/27/17 04:00 95 Mechanical Ventilator 15.0 80 03/27/17 04:00 36.7 90 22 146/91 (109) 92 03/27/17 03:00 80 03/27/17 03:00 86 22 149/95 (113) 92 03/27/17 02:00 74 22 145/90 (108) 97 03/27/17 01:00 82 22 148/87 (107) 97 03/27/17 00:30 80 03/27/17 00:00 36.5 70 22 145/86 (105) 96 03/27/17 00:00 80 03/27/17 00:00 95 Mechanical Ventilator 15.0 80 03/26/17 23:00 72 22 141/81 (101) 96 03/26/17 22:00 68 22 146/84 (104) 96 03/26/17 21:00 69 22 128/85 (99) 97 03/26/17 20:30 67 22 129/73 (91) 96 03/26/17 20:25 69 22 132/79 (96) 96 03/26/17 20:20 71 22 132/77 (95) 96 03/26/17 20:15 65 22 136/73 (94) 96 03/26/17 20:10 64 22 134/71 (92) 95 03/26/17 20:05 64 22 120/76 (91) 95 03/26/17 20:00 36.8 65 22 127/76 (93) 95 03/26/17 20:00 80 03/26/17 20:00 95 Mechanical Ventilator 15.0 80 03/26/17 19:55 71 22 130/74 (92) 95 03/26/17 19:50 70 22 133/75 (94) 95 03/26/17 19:45 67 22 121/73 (89) 95 03/26/17 19:40 71 23 118/72 (87) 94 03/26/17 19:35 67 22 121/71 (88) 93 03/26/17 19:30 76 22 123/69 (87) 94 03/26/17 19:25 68 22 115/73 (87) 93 03/26/17 19:20 65 22 128/70 (89) 92 03/26/17 19:15 70 22 121/74 (90) 93 03/26/17 19:10 75 22 130/71 (90) 92 03/26/17 19:05 75 22 122/77 (92) 92 03/26/17 19:00 80 03/26/17 19:00 76 23 118/70 (86) 92 03/26/17 18:50 78 22 116/68 (84) 91 03/26/17 18:45 81 22 112/73 (86) 93 03/26/17 18:44 79 16 94 03/26/17 18:40 75 22 117/82 (94) 95 03/26/17 18:35 72 22 128/75 (92) 95 03/26/17 18:30 75 22 133/80 (97) 95 03/26/17 18:15 71 22 123/83 (89) 94 03/26/17 18:00 75 22 129/76 (90) 95 03/26/17 17:45 75 22 141/82 (97) 89 03/26/17 17:30 72 22 127/80 (89) 90 03/26/17 17:15 75 22 128/77 (88) 95 03/26/17 16:46 71 22 112/63 (67) 90 03/26/17 16:30 79 19 142/86 (99) 88 03/26/17 16:29 80 03/26/17 16:15 69 22 109/60 (74) 94 03/26/17 16:01 75 23 91/50 (72) 95 03/26/17 16:00 80 03/26/17 16:00 Mechanical Ventilator 80 03/26/17 16:00 37.0 03/26/17 15:59 37.2 92 16 101/62 95 03/26/17 15:25 92 95 Mechanical Ventilator 80 03/26/17 15:20 62 16 94 03/26/17 15:16 79/67 03/26/17 15:15 71 18 96 03/26/17 15:10 73 22 95 03/26/17 15:09 80 03/26/17 15:05 78 22 95 03/26/17 15:01 113/76 03/26/17 15:00 78 12 95 03/26/17 14:55 77 21 96 03/26/17 14:50 80 95 03/26/17 14:45 73 146/92 96 03/26/17 14:40 81 96 03/26/17 14:35 74 96 03/26/17 14:30 76 150/83 96 03/26/17 14:25 74 96 03/26/17 14:20 93 BiPAP 15.0 100 03/26/17 14:20 75 24 93 BiPAP 15.0 100 03/26/17 14:16 133/91 03/26/17 14:05 76 36 95 03/26/17 14:00 79 17 145/89 96 03/26/17 13:55 81 21 95 03/26/17 13:52 93 BiPAP 5.0 50 03/26/17 13:50 76 25 94 03/26/17 13:45 78 22 95 03/26/17 13:40 92 26 96 03/26/17 13:35 84 26 93 BiPAP 03/26/17 13:31 150/82 03/26/17 13:30 75 21 94 03/26/17 13:27 139/82 03/26/17 13:25 81 27 93 03/26/17 13:20 77 20 94 03/26/17 13:15 81 20 95 03/26/17 13:12 77 03/26/17 13:10 75 22 94 03/26/17 13:05 79 22 95 03/26/17 12:45 79 27 88 03/26/17 12:40 76 96 50 03/26/17 12:40 86 27 88 03/26/17 12:35 84 24 03/26/17 12:33 81 136/88 91 Nasal Cannula 5.0 03/26/17 12:30 76 16 136/88 87 03/26/17 12:25 78 26 86 03/26/17 12:20 76 23 89 03/26/17 12:15 82 26 86 03/26/17 12:10 84 28 87 03/26/17 12:05 84 19 93 03/26/17 12:00 73 25 127/82 89 03/26/17 11:43 74 14 145/90 90 Nasal Cannula 5.0 03/26/17 11:40 83 27 90 03/26/17 11:35 80 27 88 03/26/17 11:31 145/90 03/26/17 11:30 78 31 90 03/26/17 11:25 83 28 90 03/26/17 11:20 80 34 91 03/26/17 11:15 77 25 90 03/26/17 11:14 90 Nasal Cannula 5.0 03/26/17 11:13 90 Nasal Cannula 5.0 03/26/17 11:10 80 23 88 03/26/17 11:05 76 20 87 03/26/17 11:01 143/90 03/26/17 11:00 80 9 85 03/26/17 11:00 77 22 143/90 90 Nasal Cannula 5.0 03/26/17 10:55 74 9 85 03/26/17 10:50 79 25 90 03/26/17 10:45 81 18 90 03/26/17 10:40 80 25 91 03/26/17 10:35 77 31 93 03/26/17 10:33 94 Nasal Cannula 5.0 03/26/17 10:30 94 Nasal Cannula 5.0 03/26/17 10:30 85 29 94 03/26/17 10:29 156/93 03/26/17 10:29 80 03/26/17 10:26 37.2 83 24 156/93 85 Room Air Laboratory Results: Last 24 Hours Test 03/26/17 10:25 03/26/17 10:34 03/26/17 11:14 03/26/17 12:10 White Blood Count 11.90 K/uL Red Blood Count 4.88 M/uL Hemoglobin 15.6 g/dL Hematocrit 49.5 % Mean Corpuscular Volume 101.4 fL Mean Corpuscular Hemoglobin 32.0 pg Mean Corpuscular Hemoglobin Concent 31.5 g/dl Platelet Count 270 K/uL Mean Platelet Volume 9.6 fL Neutrophils (%) (Auto) 64.8 % Lymphocytes (%) (Auto) 19.3 % Monocytes (%) (Auto) 14.3 % Eosinophils (%) (Auto) 1.1 % Basophils (%) (Auto) 0.3 % Neutrophils # (Auto) 7.71 K/uL Lymphocytes # (Auto) 2.30 K/uL Monocytes # (Auto) 1.70 K/uL Eosinophils # (Auto) 0.13 K/uL Basophils # (Auto) 0.04 K/uL RDW Standard Deviation 55.4 fL RDW Coefficient of Variation 15.0 % Immature Granulocyte % (Auto) 0.2 % Immature Granulocyte # (Auto) 0.02 K/uL Prothrombin Time 12.7 SECONDS Prothromb Time International Ratio 1.2 Activated Partial Thromboplast Time 30.1 SECONDS Partial Thromboplastin Ratio 1.2 Sodium Level 128 mmol/L Potassium Level 5.3 mmol/L Chloride Level 90 mmol/L Carbon Dioxide Level 37 mmol/L Anion Gap 1.0 mmol/L 12.0 mmol/L Blood Urea Nitrogen 9 mg/dl Creatinine 0.67 mg/dl Est Creatinine Clear Calc Drug Dose 153.5 ml/min Estimated GFR () 121.0 Estimated GFR (Non- 104.4 BUN/Creatinine Ratio 13.3 Random Glucose 105 mg/dl Osmolality 273 mOsm/kg Calcium Level 8.4 mg/dl Total Bilirubin 1.3 mg/dl Aspartate Amino Transf (AST/SGOT) 21 U/L Alanine Aminotransferase (ALT/SGPT) 29 U/L Alkaline Phosphatase 102 U/L Troponin I < 0.015 ng/ml Pro-B-Type Natriuretic Peptide 423 pg/ml Total Protein 6.7 gm/dl Albumin 3.1 gm/dl Globulin 3.6 gm/dl Albumin/Globulin Ratio 0.9 Procalcitonin < 0.05 ng/ml Lyme Disease IgG Antibody NEG Bedside Hemoglobin 18.4 g/dl Bedside Hematocrit 54 % Bedside Sodium 127 mEq/L Bedside Potassium 5.3 mEq/L Bedside Chloride 86 mEq/L Bedside Total CO2 35 mEq/l Bedside Blood Urea Nitrogen 10 mg/dl Bedside Creatinine 0.7 mg/dl Bedside Glucose (other) 110 mg/dl Bedside Ionized Calcium ([place]) 1.07 mmol/l Bedside Troponin I < 0.030 ng/ml Urine Color YELLOW Urine Appearance CLEAR Urine pH 6.0 Urine Specific [place] 1.015 Urine Protein NEG Urine Glucose (UA) NEG Urine Ketones NEG Urine Occult Blood NEG Urine Nitrite NEG Urine Bilirubin NEG Urine Urobilinogen NEG Urine Leukocyte Esterase NEG Urine WBC (Auto) 1-5 /hpf Urine RBC (Auto) 0-4 /hpf Urine Hyaline Casts (Auto) 1-5 /lpf Urine Epithelial Cells (Auto) 0-5 /lpf Urine Bacteria (Auto) NEG Urine Osmolality 448 mOms/kg Test 03/26/17 12:13 03/26/17 14:23 03/26/17 17:10 03/26/17 19:09 Arterial Blood pH 7.24 Arterial Blood Partial Pressure CO2 93 mmHg Arterial Blood Partial Pressure O2 72 mm/Hg Arterial Blood HCO3 39 mmol/L Arterial Blood Oxygen Saturation 92.3 % Arterial Blood Base Excess 7.6 mEq/L Arterial Blood Gas Delivery 5 LITERS Primitivo Test POSITIVE Bedside Blood Gas pH (LAB) 7.21 Bedside Blood Gas pCO2 (LAB) 103 mmHg Bedside Blood Gas pO2 (LAB) 84 mmHg Bedside Blood Gas HCO3 (LAB) 41 meq/L Bedside Blood Gas Total CO2 > 40 mEq/l Bedside Blood Gas Base Excess (LAB) 13.0 meq/L Bedside Blood Gas O2 Saturation 92.0 % Bedside Glucose 125 mg/dl Sodium Level 129 mmol/L Potassium Level 5.2 mmol/L Chloride Level 89 mmol/L Carbon Dioxide Level 38 mmol/L Anion Gap 2.0 mmol/L Blood Urea Nitrogen 13 mg/dl Creatinine 0.84 mg/dl Est Creatinine Clear Calc Drug Dose 123.3 ml/min Estimated GFR () 110.3 Estimated GFR (Non- 95.2 BUN/Creatinine Ratio 16.0 Random Glucose 129 mg/dl Calcium Level 8.4 mg/dl Phosphorus Level 4.1 mg/dl Magnesium Level 1.9 mg/dl Test 03/26/17 21:05 03/26/17 22:25 03/27/17 05:08 03/27/17 05:51 Total Creatine Kinase 113 U/L 105 U/L Creatine Kinase MB 3.4 ng/ml 3.0 ng/ml Creatine Kinase MB Ratio 3.0 2.9 Troponin I < 0.015 ng/ml < 0.015 ng/ml White Blood Count 6.78 K/uL Red Blood Count 5.14 M/uL Hemoglobin 16.3 g/dL Hematocrit 50.3 % Mean Corpuscular Volume 97.9 fL Mean Corpuscular Hemoglobin 31.7 pg Mean Corpuscular Hemoglobin Concent 32.4 g/dl Platelet Count 270 K/uL Mean Platelet Volume 10.0 fL Neutrophils (%) (Auto) 84.4 % Lymphocytes (%) (Auto) 10.5 % Monocytes (%) (Auto) 4.9 % Eosinophils (%) (Auto) 0.1 % Basophils (%) (Auto) 0.0 % Neutrophils # (Auto) 5.72 K/uL Lymphocytes # (Auto) 0.71 K/uL Monocytes # (Auto) 0.33 K/uL Eosinophils # (Auto) 0.01 K/uL Basophils # (Auto) 0.00 K/uL RDW Standard Deviation 53.3 fL RDW Coefficient of Variation 14.8 % Immature Granulocyte % (Auto) 0.1 % Immature Granulocyte # (Auto) 0.01 K/uL Nucleated RBC Absolute Count (auto) 0.02 K/uL Nucleated Red Blood Cells % 0.3 % Prothrombin Time 14.2 SECONDS Prothromb Time International Ratio 1.3 Activated Partial Thromboplast Time 28.2 SECONDS Partial Thromboplastin Ratio 1.1 Sodium Level 130 mmol/L Potassium Level 4.2 mmol/L Chloride Level 88 mmol/L Carbon Dioxide Level 37 mmol/L Anion Gap 5.0 mmol/L Blood Urea Nitrogen 19 mg/dl Creatinine 0.80 mg/dl Est Creatinine Clear Calc Drug Dose 126.6 ml/min Estimated GFR () 112.5 Estimated GFR (Non- 97.1 BUN/Creatinine Ratio 23.6 Random Glucose 118 mg/dl Calcium Level 8.5 mg/dl Phosphorus Level 3.8 mg/dl Magnesium Level 2.0 mg/dl Total Bilirubin 1.4 mg/dl Direct Bilirubin 0.3 mg/dl Aspartate Amino Transf (AST/SGOT) 17 U/L Alanine Aminotransferase (ALT/SGPT) 24 U/L Alkaline Phosphatase 98 U/L Total Protein 6.4 gm/dl Albumin 2.8 gm/dl Bedside Glucose 125 mg/dl Test 03/27/17 06:09 Blood Gas Sample Site R Radial Bedside Blood Gas pH (LAB) 7.38 Bedside Blood Gas pCO2 (LAB) 68 mmHg Bedside Blood Gas pO2 (LAB) 82 mmHg Bedside Blood Gas HCO3 (LAB) 41 meq/L Bedside Blood Gas Total CO2 > 40 mEq/l Bedside Blood Gas Base Excess (LAB) 16.0 meq/L Bedside Blood Gas O2 Saturation 96.0 % Primitivo Test Pass Oxygen Delivery Device Ventilator Bedside FiO2 60 % Blood Gas PEEP 8 Resident Tracking Resident Involvement: Resident Care Provided Care Provided: Adult Hospital Medicine
--- NOTE | 2017-03-27 10:16 | Cardiology Follow-Up ---
Subjective Date of Service: Mar 27, 2017. Pt evaluation today including: conversation w/ patient, conversation w/ family , physical exam, lab review, review of studies, review of inpatient medication list History of Present Illness This is a 61-year-old male who has a history of COPD but to my knowledge no cardiovascular history. He does smoke. He had an echocardiogram done 09/13/2015 which showed normal left ventricular size with mild left ventricular hypertrophy and hyperdynamic left ventricular function. He did have grade 2 diastolic dysfunction and a mildly dilated right ventricle with normal systolic function. His PA pressures were about 35 mmHg systolic based on echo measurements. He presented today with progressive difficulty with exertion which was worse in the prior day or 2. History is of shortness breath was observed by his family. In the emergency room he was hypoxic, and required intubation. As part of his evaluation chest x-ray suggested some congestive heart failure and on the portable chest x-rays cardiac size appeared enlarged, CT scanning suggested cardiac abnormalities as well. Electrocardiography was relatively unremarkable with no significant change from prior studies. Echocardiography on admission also suggested normal cardiac function with no intracardiac shunt. He remains intubated and sedated. Social History Smoking Status: Current Every Day Smoker (1+ppd) History of Alcohol Use: No Review of Systems Respiratory: + see HPI, + cough, + shortness of breath Cardiac: No chest pain, No orthopnea, No PND, No edema, No palpitations Review of systems is from the chart and family, the patient is intubated and cannot provide history Medications Cardiovascular: Item Value Date Time Enoxaparin Sodium 40 mg 03/26/17 2100 (Lovenox Inj) Q24H/SQ 03/26/172016 Objective Vital Signs Past 12 Hours Date Time Temp Pulse Resp B/P (MAP) Pulse Ox O2 Delivery O2 Flow Rate FiO2 03/27/17 10:00 84 22 148/92 (110) 94 Mechanical Ventilator 60 03/27/17 08:00 92 Mechanical Ventilator 60 03/27/17 08:00 60 03/27/17 08:00 36.9 96 22 153/92 (112) 92 Mechanical Ventilator 60 03/27/17 07:35 50 03/27/17 06:16 80 03/27/17 06:00 93 18 141/94 (110) 96 03/27/17 05:27 50 03/27/17 05:00 91 22 137/89 (105) 93 8/5/17 04:00 80 03/27/17 04:00 95 Mechanical Ventilator 15.0 80 03/27/17 04:00 36.7 90 22 146/91 (109) 92 03/27/17 03:00 80 03/27/17 03:00 86 22 149/95 (113) 92 03/27/17 02:00 74 22 145/90 (108) 97 03/27/17 01:00 82 22 148/87 (107) 97 03/27/17 00:30 80 03/27/17 00:00 36.5 70 22 145/86 (105) 96 03/27/17 00:00 80 03/27/17 00:00 95 Mechanical Ventilator 15.0 80 03/26/17 23:00 72 22 141/81 (101) 96 Last Recorded Weight-Kilograms: 115.000 Physical Exam Constitutional: Level of Distress: acutely ill Lungs: Auscultation: breath sounds normal, no wheezing, decreased breath sounds Cardiovascular: Heart Auscultation: RRR, no murmurs, no rubs, no gallops Peripheral Pulses: Bruits: none appreciated Extremities: no edema Patient is intubated Data Laboratory Results: Last 24 Hours Test 03/26/17 10:25 03/26/17 10:34 03/26/17 11:14 03/26/17 12:10 White Blood Count 11.90 K/uL Red Blood Count 4.88 M/uL Hemoglobin 15.6 g/dL Hematocrit 49.5 % Mean Corpuscular Volume 101.4 fL Mean Corpuscular Hemoglobin 32.0 pg Mean Corpuscular Hemoglobin Concent 31.5 g/dl Platelet Count 270 K/uL Mean Platelet Volume 9.6 fL Neutrophils (%) (Auto) 64.8 % Lymphocytes (%) (Auto) 19.3 % Monocytes (%) (Auto) 14.3 % Eosinophils (%) (Auto) 1.1 % Basophils (%) (Auto) 0.3 % Neutrophils # (Auto) 7.71 K/uL Lymphocytes # (Auto) 2.30 K/uL Monocytes # (Auto) 1.70 K/uL Eosinophils # (Auto) 0.13 K/uL Basophils # (Auto) 0.04 K/uL RDW Standard Deviation 55.4 fL RDW Coefficient of Variation 15.0 % Immature Granulocyte % (Auto) 0.2 % Immature Granulocyte # (Auto) 0.02 K/uL Prothrombin Time 12.7 SECONDS Prothromb Time International Ratio 1.2 Activated Partial Thromboplast Time 30.1 SECONDS Partial Thromboplastin Ratio 1.2 Sodium Level 128 mmol/L Potassium Level 5.3 mmol/L Chloride Level 90 mmol/L Carbon Dioxide Level 37 mmol/L Anion Gap 1.0 mmol/L 12.0 mmol/L Blood Urea Nitrogen 9 mg/dl Creatinine 0.67 mg/dl Est Creatinine Clear Calc Drug Dose 153.5 ml/min Estimated GFR () 121.0 Estimated GFR (Non- 104.4 BUN/Creatinine Ratio 13.3 Random Glucose 105 mg/dl Osmolality 273 mOsm/kg Calcium Level 8.4 mg/dl Total Bilirubin 1.3 mg/dl Aspartate Amino Transf (AST/SGOT) 21 U/L Alanine Aminotransferase (ALT/SGPT) 29 U/L Alkaline Phosphatase 102 U/L Troponin I < 0.015 ng/ml Pro-B-Type Natriuretic Peptide 423 pg/ml Total Protein 6.7 gm/dl Albumin 3.1 gm/dl Globulin 3.6 gm/dl Albumin/Globulin Ratio 0.9 Procalcitonin < 0.05 ng/ml Lyme Disease IgG Antibody NEG Bedside Hemoglobin 18.4 g/dl Bedside Hematocrit 54 % Bedside Sodium 127 mEq/L Bedside Potassium 5.3 mEq/L Bedside Chloride 86 mEq/L Bedside Total CO2 35 mEq/l Bedside Blood Urea Nitrogen 10 mg/dl Bedside Creatinine 0.7 mg/dl Bedside Glucose (other) 110 mg/dl Bedside Ionized Calcium (Tamera) 1.07 mmol/l Bedside Troponin I < 0.030 ng/ml Urine Color YELLOW Urine Appearance CLEAR Urine pH 6.0 Urine Specific [place] 1.015 Urine Protein NEG Urine Glucose (UA) NEG Urine Ketones NEG Urine Occult Blood NEG Urine Nitrite NEG Urine Bilirubin NEG Urine Urobilinogen NEG Urine Leukocyte Esterase NEG Urine WBC (Auto) 1-5 /hpf Urine RBC (Auto) 0-4 /hpf Urine Hyaline Casts (Auto) 1-5 /lpf Urine Epithelial Cells (Auto) 0-5 /lpf Urine Bacteria (Auto) NEG Urine Osmolality 448 mOms/kg Test 03/26/17 12:13 03/26/17 14:23 03/26/17 17:10 03/26/17 19:09 Arterial Blood pH 7.24 Arterial Blood Partial Pressure CO2 93 mmHg Arterial Blood Partial Pressure O2 72 mm/Hg Arterial Blood HCO3 39 mmol/L Arterial Blood Oxygen Saturation 92.3 % Arterial Blood Base Excess 7.6 mEq/L Arterial Blood Gas Delivery 5 LITERS Primitivo Test POSITIVE Bedside Blood Gas pH (LAB) 7.21 Bedside Blood Gas pCO2 (LAB) 103 mmHg Bedside Blood Gas pO2 (LAB) 84 mmHg Bedside Blood Gas HCO3 (LAB) 41 meq/L Bedside Blood Gas Total CO2 > 40 mEq/l Bedside Blood Gas Base Excess (LAB) 13.0 meq/L Bedside Blood Gas O2 Saturation 92.0 % Bedside Glucose 125 mg/dl Sodium Level 129 mmol/L Potassium Level 5.2 mmol/L Chloride Level 89 mmol/L Carbon Dioxide Level 38 mmol/L Anion Gap 2.0 mmol/L Blood Urea Nitrogen 13 mg/dl Creatinine 0.84 mg/dl Est Creatinine Clear Calc Drug Dose 123.3 ml/min Estimated GFR () 110.3 Estimated GFR (Non- 95.2 BUN/Creatinine Ratio 16.0 Random Glucose 129 mg/dl Calcium Level 8.4 mg/dl Phosphorus Level 4.1 mg/dl Magnesium Level 1.9 mg/dl Test 03/26/17 21:05 03/26/17 22:25 03/27/17 05:08 03/27/17 05:51 Total Creatine Kinase 113 U/L 105 U/L Creatine Kinase MB 3.4 ng/ml 3.0 ng/ml Creatine Kinase MB Ratio 3.0 2.9 Troponin I < 0.015 ng/ml < 0.015 ng/ml White Blood Count 6.78 K/uL Red Blood Count 5.14 M/uL Hemoglobin 16.3 g/dL Hematocrit 50.3 % Mean Corpuscular Volume 97.9 fL Mean Corpuscular Hemoglobin 31.7 pg Mean Corpuscular Hemoglobin Concent 32.4 g/dl Platelet Count 270 K/uL Mean Platelet Volume 10.0 fL Neutrophils (%) (Auto) 84.4 % Lymphocytes (%) (Auto) 10.5 % Monocytes (%) (Auto) 4.9 % Eosinophils (%) (Auto) 0.1 % Basophils (%) (Auto) 0.0 % Neutrophils # (Auto) 5.72 K/uL Lymphocytes # (Auto) 0.71 K/uL Monocytes # (Auto) 0.33 K/uL Eosinophils # (Auto) 0.01 K/uL Basophils # (Auto) 0.00 K/uL RDW Standard Deviation 53.3 fL RDW Coefficient of Variation 14.8 % Immature Granulocyte % (Auto) 0.1 % Immature Granulocyte # (Auto) 0.01 K/uL Nucleated RBC Absolute Count (auto) 0.02 K/uL Nucleated Red Blood Cells % 0.3 % Prothrombin Time 14.2 SECONDS Prothromb Time International Ratio 1.3 Activated Partial Thromboplast Time 28.2 SECONDS Partial Thromboplastin Ratio 1.1 Sodium Level 130 mmol/L Potassium Level 4.2 mmol/L Chloride Level 88 mmol/L Carbon Dioxide Level 37 mmol/L Anion Gap 5.0 mmol/L Blood Urea Nitrogen 19 mg/dl Creatinine 0.80 mg/dl Est Creatinine Clear Calc Drug Dose 126.6 ml/min Estimated GFR () 112.5 Estimated GFR (Non- 97.1 BUN/Creatinine Ratio 23.6 Random Glucose 118 mg/dl Calcium Level 8.5 mg/dl Phosphorus Level 3.8 mg/dl Magnesium Level 2.0 mg/dl Total Bilirubin 1.4 mg/dl Direct Bilirubin 0.3 mg/dl Aspartate Amino Transf (AST/SGOT) 17 U/L Alanine Aminotransferase (ALT/SGPT) 24 U/L Alkaline Phosphatase 98 U/L Total Protein 6.4 gm/dl Albumin 2.8 gm/dl Bedside Glucose 125 mg/dl Test 03/27/17 06:09 Blood Gas Sample Site R Radial Bedside Blood Gas pH (LAB) 7.38 Bedside Blood Gas pCO2 (LAB) 68 mmHg Bedside Blood Gas pO2 (LAB) 82 mmHg Bedside Blood Gas HCO3 (LAB) 41 meq/L Bedside Blood Gas Total CO2 > 40 mEq/l Bedside Blood Gas Base Excess (LAB) 16.0 meq/L Bedside Blood Gas O2 Saturation 96.0 % Primitivo Test Pass Oxygen Delivery Device Ventilator Bedside FiO2 60 % Blood Gas PEEP 8 Telemetry reviewed: Sinus rhythm with premature atrial beats, controlled heart rate Assessment and Plan #1. Congestive heart failure: He may have mild diastolic congestive heart failure, but there is no evidence that he has systolic heart failure and his left ventricular ejection fraction is normal. Diuresis would not be unreasonable , however I don't think that is a major component of his presentation. #2. Suggestion of intracardiac shunt: There is no evidence to support this, bubble study does not show any right to left shunt. Chamber sizes are not remarkable. If this remains a consideration we can do a transesophageal echocardiogram when he is improved, but this point I do not seen any indication to do so. Thank you for allowing me to participate in his care.
--- NOTE | 2017-03-27 10:30 | Progress Note ---
Subjective Date of Service: Mar 27, 2017. Subjective Pt evaluation today including: conversation w/ patient (no HPI or ROS obtainable) sedated in ICU on vent. inside sales consultant input appreciated. management primarily by ICU team at this time Problem List Medical Problems: (1) Blood bacterial culture positive Status: Acute (2) CHF (congestive heart failure) Status: Acute (3) Hypercarbia Status: Acute (4) Hyponatremia Status: Acute (5) Respiratory acidosis Status: Acute (6) Respiratory failure Status: Acute Review of Systems ROS otherwise unobtainable except for as above Objective Vital Signs Date Time Temp Pulse Resp B/P (MAP) Pulse Ox O2 Delivery O2 Flow Rate FiO2 03/27/17 10:00 84 22 148/92 (110) 94 Mechanical Ventilator 60 03/27/17 08:00 92 Mechanical Ventilator 60 03/27/17 08:00 60 03/27/17 08:00 36.9 96 22 153/92 (112) 92 Mechanical Ventilator 60 03/27/17 07:35 50 03/27/17 06:16 80 03/27/17 06:00 93 18 141/94 (110) 96 03/27/17 05:27 50 03/27/17 05:00 91 22 137/89 (105) 93 03/27/17 04:00 80 03/27/17 04:00 95 Mechanical Ventilator 15.0 80 03/27/17 04:00 36.7 90 22 146/91 (109) 92 03/27/17 03:00 80 03/27/17 03:00 86 22 149/95 (113) 92 03/27/17 02:00 74 22 145/90 (108) 97 03/27/17 01:00 82 22 148/87 (107) 97 03/27/17 00:30 80 03/27/17 00:00 36.5 70 22 145/86 (105) 96 03/27/17 00:00 80 03/27/17 00:00 95 Mechanical Ventilator 15.0 80 03/26/17 23:00 72 22 141/81 (101) 96 03/26/17 22:00 68 22 146/84 (104) 96 03/26/17 21:00 69 22 128/85 (99) 97 03/26/17 20:30 67 22 129/73 (91) 96 03/26/17 20:25 69 22 132/79 (96) 96 03/26/17 20:20 71 22 132/77 (95) 96 03/26/17 20:15 65 22 136/73 (94) 96 03/26/17 20:10 64 22 134/71 (92) 95 03/26/17 20:05 64 22 120/76 (91) 95 03/26/17 20:00 36.8 65 22 127/76 (93) 95 03/26/17 20:00 80 03/26/17 20:00 95 Mechanical Ventilator 15.0 80 03/26/17 19:55 71 22 130/74 (92) 95 03/26/17 19:50 70 22 133/75 (94) 95 03/26/17 19:45 67 22 121/73 (89) 95 03/26/17 19:40 71 23 118/72 (87) 94 03/26/17 19:35 67 22 121/71 (88) 93 03/26/17 19:30 76 22 123/69 (87) 94 03/26/17 19:25 68 22 115/73 (87) 93 03/26/17 19:20 65 22 128/70 (89) 92 03/26/17 19:15 70 22 121/74 (90) 93 03/26/17 19:10 75 22 130/71 (90) 92 03/26/17 19:05 75 22 122/77 (92) 92 03/26/17 19:00 80 03/26/17 19:00 76 23 118/70 (86) 92 03/26/17 18:50 78 22 116/68 (84) 91 03/26/17 18:45 81 22 112/73 (86) 93 03/26/17 18:44 79 16 94 03/26/17 18:40 75 22 117/82 (94) 95 03/26/17 18:35 72 22 128/75 (92) 95 03/26/17 18:30 75 22 133/80 (97) 95 03/26/17 18:15 71 22 123/83 (89) 94 03/26/17 18:00 75 22 129/76 (90) 95 03/26/17 17:45 75 22 141/82 (97) 89 03/26/17 17:30 72 22 127/80 (89) 90 03/26/17 17:15 75 22 128/77 (88) 95 03/26/17 16:46 71 22 112/63 (67) 90 03/26/17 16:30 79 19 142/86 (99) 88 03/26/17 16:29 80 03/26/17 16:15 69 22 109/60 (74) 94 03/26/17 16:01 75 23 91/50 (72) 95 03/26/17 16:00 80 03/26/17 16:00 Mechanical Ventilator 80 03/26/17 16:00 37.0 03/26/17 15:59 37.2 92 16 101/62 95 03/26/17 15:25 92 95 Mechanical Ventilator 80 03/26/17 15:20 62 16 94 03/26/17 15:16 79/67 03/26/17 15:15 71 18 96 03/26/17 15:10 73 22 95 03/26/17 15:09 80 03/26/17 15:05 78 22 95 03/26/17 15:01 113/76 03/26/17 15:00 78 12 95 03/26/17 14:55 77 21 96 03/26/17 14:50 80 95 03/26/17 14:45 73 146/92 96 03/26/17 14:40 81 96 03/26/17 14:35 74 96 03/26/17 14:30 76 150/83 96 03/26/17 14:25 74 96 03/26/17 14:20 93 BiPAP 15.0 100 03/26/17 14:20 75 24 93 BiPAP 15.0 100 03/26/17 14:16 133/91 03/26/17 14:05 76 36 95 03/26/17 14:00 79 17 145/89 96 03/26/17 13:55 81 21 95 03/26/17 13:52 93 BiPAP 5.0 50 03/26/17 13:50 76 25 94 03/26/17 13:45 78 22 95 03/26/17 13:40 92 26 96 03/26/17 13:35 84 26 93 BiPAP 03/26/17 13:31 150/82 03/26/17 13:30 75 21 94 03/26/17 13:27 139/82 03/26/17 13:25 81 27 93 03/26/17 13:20 77 20 94 03/26/17 13:15 81 20 95 03/26/17 13:12 77 03/26/17 13:10 75 22 94 03/26/17 13:05 79 22 95 03/26/17 12:45 79 27 88 03/26/17 12:40 76 96 50 03/26/17 12:40 86 27 88 03/26/17 12:35 84 24 03/26/17 12:33 81 136/88 91 Nasal Cannula 5.0 03/26/17 12:30 76 16 136/88 87 03/26/17 12:25 78 26 86 03/26/17 12:20 76 23 89 03/26/17 12:15 82 26 86 03/26/17 12:10 84 28 87 03/26/17 12:05 84 19 93 03/26/17 12:00 73 25 127/82 89 03/26/17 11:43 74 14 145/90 90 Nasal Cannula 5.0 03/26/17 11:40 83 27 90 03/26/17 11:35 80 27 88 03/26/17 11:31 145/90 03/26/17 11:30 78 31 90 03/26/17 11:25 83 28 90 03/26/17 11:20 80 34 91 03/26/17 11:15 77 25 90 03/26/17 11:14 90 Nasal Cannula 5.0 03/26/17 11:13 90 Nasal Cannula 5.0 03/26/17 11:10 80 23 88 03/26/17 11:05 76 20 87 03/26/17 11:01 143/90 03/26/17 11:00 80 9 85 03/26/17 11:00 77 22 143/90 90 Nasal Cannula 5.0 03/26/17 10:55 74 9 85 03/26/17 10:50 79 25 90 03/26/17 10:45 81 18 90 03/26/17 10:40 80 25 91 03/26/17 10:35 77 31 93 03/26/17 10:33 94 Nasal Cannula 5.0 Physical Exam General Appearance: no apparent distress (sedated on ventilator) Respiratory/Chest: no respiratory distress, no accessory muscle use, + pertinent finding (coarse but overall clear on vent) Cardiovascular: regular rate, rhythm 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 (no focal deficits) Skin: normal color, warm/dry Laboratory Results Last 24 Hours Test 03/26/17 10:34 03/26/17 11:14 03/26/17 12:10 03/26/17 12:13 Bedside Hemoglobin 18.4 g/dl Bedside Hematocrit 54 % Bedside Sodium 127 mEq/L Bedside Potassium 5.3 mEq/L Bedside Chloride 86 mEq/L Bedside Total CO2 35 mEq/l Anion Gap 12.0 mmol/L Bedside Blood Urea Nitrogen 10 mg/dl Bedside Creatinine 0.7 mg/dl Bedside Glucose (other) 110 mg/dl Bedside Ionized Calcium (Tamera) 1.07 mmol/l Bedside Troponin I < 0.030 ng/ml Urine Color YELLOW Urine Appearance CLEAR Urine pH 6.0 Urine Specific [place] 1.015 Urine Protein NEG Urine Glucose (UA) NEG Urine Ketones NEG Urine Occult Blood NEG Urine Nitrite NEG Urine Bilirubin NEG Urine Urobilinogen NEG Urine Leukocyte Esterase NEG Urine WBC (Auto) 1-5 /hpf Urine RBC (Auto) 0-4 /hpf Urine Hyaline Casts (Auto) 1-5 /lpf Urine Epithelial Cells (Auto) 0-5 /lpf Urine Bacteria (Auto) NEG Urine Osmolality 448 mOms/kg Arterial Blood pH 7.24 Arterial Blood Partial Pressure CO2 93 mmHg Arterial Blood Partial Pressure O2 72 mm/Hg Arterial Blood HCO3 39 mmol/L Arterial Blood Oxygen Saturation 92.3 % Arterial Blood Base Excess 7.6 mEq/L Arterial Blood Gas Delivery 5 LITERS Primitivo Test POSITIVE Test 03/26/17 14:23 03/26/17 17:10 03/26/17 19:09 03/26/17 21:05 Bedside Blood Gas pH (LAB) 7.21 Bedside Blood Gas pCO2 (LAB) 103 mmHg Bedside Blood Gas pO2 (LAB) 84 mmHg Bedside Blood Gas HCO3 (LAB) 41 meq/L Bedside Blood Gas Total CO2 > 40 mEq/l Bedside Blood Gas Base Excess (LAB) 13.0 meq/L Bedside Blood Gas O2 Saturation 92.0 % Bedside Glucose 125 mg/dl Sodium Level 129 mmol/L Potassium Level 5.2 mmol/L Chloride Level 89 mmol/L Carbon Dioxide Level 38 mmol/L Anion Gap 2.0 mmol/L Blood Urea Nitrogen 13 mg/dl Creatinine 0.84 mg/dl Est Creatinine Clear Calc Drug Dose 123.3 ml/min Estimated GFR () 110.3 Estimated GFR (Non- 95.2 BUN/Creatinine Ratio 16.0 Random Glucose 129 mg/dl Calcium Level 8.4 mg/dl Phosphorus Level 4.1 mg/dl Magnesium Level 1.9 mg/dl Test 03/26/17 22:25 03/27/17 05:08 03/27/17 05:51 03/27/17 06:09 Total Creatine Kinase 113 U/L 105 U/L Creatine Kinase MB 3.4 ng/ml 3.0 ng/ml Creatine Kinase MB Ratio 3.0 2.9 Troponin I < 0.015 ng/ml < 0.015 ng/ml White Blood Count 6.78 K/uL Red Blood Count 5.14 M/uL Hemoglobin 16.3 g/dL Hematocrit 50.3 % Mean Corpuscular Volume 97.9 fL Mean Corpuscular Hemoglobin 31.7 pg Mean Corpuscular Hemoglobin Concent 32.4 g/dl Platelet Count 270 K/uL Mean Platelet Volume 10.0 fL Neutrophils (%) (Auto) 84.4 % Lymphocytes (%) (Auto) 10.5 % Monocytes (%) (Auto) 4.9 % Eosinophils (%) (Auto) 0.1 % Basophils (%) (Auto) 0.0 % Neutrophils # (Auto) 5.72 K/uL Lymphocytes # (Auto) 0.71 K/uL Monocytes # (Auto) 0.33 K/uL Eosinophils # (Auto) 0.01 K/uL Basophils # (Auto) 0.00 K/uL RDW Standard Deviation 53.3 fL RDW Coefficient of Variation 14.8 % Immature Granulocyte % (Auto) 0.1 % Immature Granulocyte # (Auto) 0.01 K/uL Nucleated RBC Absolute Count (auto) 0.02 K/uL Nucleated Red Blood Cells % 0.3 % Prothrombin Time 14.2 SECONDS Prothromb Time International Ratio 1.3 Activated Partial Thromboplast Time 28.2 SECONDS Partial Thromboplastin Ratio 1.1 Sodium Level 130 mmol/L Potassium Level 4.2 mmol/L Chloride Level 88 mmol/L Carbon Dioxide Level 37 mmol/L Anion Gap 5.0 mmol/L Blood Urea Nitrogen 19 mg/dl Creatinine 0.80 mg/dl Est Creatinine Clear Calc Drug Dose 126.6 ml/min Estimated GFR () 112.5 Estimated GFR (Non- 97.1 BUN/Creatinine Ratio 23.6 Random Glucose 118 mg/dl Calcium Level 8.5 mg/dl Phosphorus Level 3.8 mg/dl Magnesium Level 2.0 mg/dl Total Bilirubin 1.4 mg/dl Direct Bilirubin 0.3 mg/dl Aspartate Amino Transf (AST/SGOT) 17 U/L Alanine Aminotransferase (ALT/SGPT) 24 U/L Alkaline Phosphatase 98 U/L Total Protein 6.4 gm/dl Albumin 2.8 gm/dl Bedside Glucose 125 mg/dl Blood Gas Sample Site R Radial Bedside Blood Gas pH (LAB) 7.38 Bedside Blood Gas pCO2 (LAB) 68 mmHg Bedside Blood Gas pO2 (LAB) 82 mmHg Bedside Blood Gas HCO3 (LAB) 41 meq/L Bedside Blood Gas Total CO2 > 40 mEq/l Bedside Blood Gas Base Excess (LAB) 16.0 meq/L Bedside Blood Gas O2 Saturation 96.0 % Primitivo Test Pass Oxygen Delivery Device Ventilator Bedside FiO2 60 % Blood Gas PEEP 8 Test 03/27/17 10:20 Assessment and Plan Acute respiratory failure with hypoxia and hypercapnia secondary to acute CHF, pneumonia and COPD exacerbation-- -on ventilator -continue supportive care -continue levaquin for presumed pneumonia -continue steroids -ongoing diuresis when/if needed DVT proph -lovenox nutrition -TPN started
[2017-03-27 11:06] LABS: THYROID STIMULATING HORMONE 0.436 uIu/ml (0.300-4.500)
[2017-03-27] MEDS ORDERED: SODIUM CHLORIDE 0.9% 10ML FLUSH IV ONE (14:33)
[2017-03-27] MEDS ORDERED: SUCCINYLCHOLINE CHLORIDE 20 MG/ML 10 ML VIAL IV ONE (14:33)
[2017-03-27] MEDS ORDERED: FENTANYL CITRATE 100 MCG 2 ML CARP IV ONE (14:33)
--- NOTE | 2017-03-27 15:11 | ECHOCARDIOGRAM REPORT ---
*NOTICE TO RECEIVING LIBERTARIAN AGENCY This information is strictly Confidential and protected under [place] law. [place] law prohibits you from making any further disclosure of this information unless further disclosure is expressly permitted by the written consent of the person to whom it pertains or is authorized by law. A general authorization for the release of medical or other information is not sufficient for this purpose. Hospital accepts no responsibility if the information is made available to any other person, INCLUDING THE PATIENT. Interpretation Summary * Name: ROBERTO ADAMS Study Date: 03/26/2017 04:28 PM BP: 101/62 mmHg * Patient Location: .[facility]\S\E109\S\1 HR: 57 * : 1955 (M/d/yyy) Gender: Male Height: 71 in * Age: 61 yrs Ethnicity: CA Weight: 264 lb * Ordering Physician: Chuck Patton * Referring Physician: Self, Referred * Performed By: Bambi Meyers RCS * * Reason For Study: PULMONARY HTN * BSA: 2.4 m2 * -- Conclusions -- * Left ventricular systolic function is normal. * No regional wall motion abnormalities noted. * Ejection Fraction = 65-70%. * There is mild tricuspid regurgitation. * Right ventricular systolic pressure is elevated at 30-40mmHg. * Dilated inferior vena cava with reduced collapsability with sniff indicates an elevated right atrial pressure of 15 mmHg * Grade I diastolic dysfunction, (abnormal relaxation pattern). Procedure Details * A complete two-dimensional transthoracic echocardiogram was performed (2D, M-mode, Doppler and color flow Doppler). * A saline contrast injection was performed to assess for cardiac shunting. * The injection was performed through an intravenous line in the right arm. * The attending nurse who injected the saline contrast was SCOTT KOTHARI RN. * A total of 30 cc of agitated saline was given. * A contrast injection of Definity was performed to improve assessment of LV function. * Contrast was injected into an intravenous site in the right arm. * One vial of Definity ultrasound contrast was diluted in normal saline to a total volume of 10 ml. A total of '2' ml of solution was administered during imaging. * Lot # [id number] of Definity utilized for procedure. * Expiration date APR 09. * The attending nurse who injected the contrast agent was SCOTT KOTHARI RN. * The study was technically difficult. * There were technical limitations due to patient'ssupine positioning while on mechanical ventilation Left Ventricle * The left ventricle is normal in size. * There is moderate concentric left ventricular hypertrophy. * Left ventricular systolic function is normal. * Ejection Fraction = 65-70%. * No regional wall motion abnormalities noted. Right Ventricle * The right ventricle is normal size. * The right ventricular systolic function is normal as assessed by tricuspid annular plane systolic excursion (TAPSE) (normal >1.5 cm). Atria * The left atrium is mildly dilated. * The right atrium is mildly dilated. * Injection of contrast documented no interatrial shunt. Mitral Valve * The mitral valve is grossly normal. * There is no mitral valve stenosis. * Significant mitral regurgitation is absent. Tricuspid Valve * The tricuspid valve is not well visualized, but is grossly normal. * There is mild tricuspid regurgitation. * Right ventricular systolic pressure is elevated at 30-40mmHg. Aortic Valve * The aortic valve is not well visualized. * The aortic valve opens well. * No hemodynamically significant valvular aortic stenosis. * There is no significant aortic regurgitation. Pulmonic Valve * The pulmonary valve is not well seen, but the Doppler examination is normal without significant regurgitation or stenosis. Great Vessels * The aortic root is normal size. * The pulmonary is not well visualized. Pericardium/Pleural * There is no pericardial effusion. Great Vessels * Dilated inferior vena cava with reduced collapsability with sniff indicates an elevated right atrial pressure of 15 mmHg Left Ventricular Diastolic Function * Grade I diastolic dysfunction, (abnormal relaxation pattern). MMode 2D Measurements and Calculations IVSd 1.9 cm IVSs 2.3 cm LVIDd 5.5 cm LVIDs 3.9 cm LVPWd 2.0 cm LVPWs 1.8 cm IVS/LVPW 0.98 FS 29.3 % EDV(Teich) 146.6 ml ESV(Teich) 65.1 ml EF(Teich) 55.6 % EDV(cubed) 165.1 ml ESV(cubed) 58.4 ml EF(cubed) 64.6 % % IVS thick 19.2 % % LVPW thick -7.98 % LV mass(C)d 558.0 grams LV mass(C)dI 235.1 grams/m\S\2 LV mass(C)s 382.2 grams LV mass(C)sI 161.1 grams/m\S\2 SV(Teich) 81.5 ml SI(Teich) 34.3 ml/m\S\2 SV(cubed) 106.8 ml SI(cubed) 45.0 ml/m\S\2 Ao root diam 3.8 cm Ao root area 11.2 cm\S\2 ACS 1.8 cm LA dimension 3.5 cm LA/Ao 0.92 LVOT diam 2.1 cm LVOT area 3.4 cm\S\2 Doppler Measurements and Calculations MV E max christainne 77.4 cm/sec MV A max christianne 84.2 cm/sec MV E/A 0.92 MV P1/2t max christianne 78.8 cm/sec MV P1/2t 67.8 msec MVA(P1/2t) 3.2 cm\S\2 MV dec slope 340.2 cm/sec\S\2 MV dec time 0.25 sec Ao V2 max 123.6 cm/sec Ao max PG 6.1 mmHg Ao max PG (full) 3.3 mmHg SIRI(V,A) 2.3 cm\S\2 SIRI(V,D) 2.3 cm\S\2 LV V1 max PG 2.8 mmHg LV V1 max 83.2 cm/sec PA V2 max 122.4 cm/sec PA max PG 6.0 mmHg PI max christianne 233.1 cm/sec PI max PG 21.7 mmHg PI dec slope 135.3 cm/sec\S\2 PI P1/2t 504.6 msec TR max christianne 253.7 cm/sec
[2017-03-27] MEDS: LEVOFLOXACIN / D5W 750 MG in PREMIXED IN D5W 150 ML IV SCH (15:30)
[2017-03-27] MEDS: NICOTINE 14 MG/24 HR TDSY TD SCH (15:30)
[2017-03-27] MEDS ORDERED: CEFTRIAXONE SOD INJ 1 GM in DEXTROSE 5% ADD-VANTAGE 50ML 50 ML IV SCH (16:00)
[2017-03-27] MEDS: ENOXAPARIN 40 MG/0.4 ML SYR SQ SCH (20:08)
[2017-03-28] VITALS (24 sets, daily range): BP systolic 119–154; BP diastolic 68–100; PULSE 79–95; TEMP 36.6–37.7; O2SAT 88–98
[2017-03-28 05:17] LABS: ISTAT ALLEN TEST Pass; ISTAT ARTERIAL BLOOD GAS HCO3 44 meq/L (19-24); ISTAT ARTERIAL BLOOD GAS PCO2 63 mmHg (35-46); ISTAT ARTERIAL BLOOD GAS PO2 46 mmHg (80-95); ISTAT ARTERIAL BLOOD GAS pH 7.45 (7.35-7.45); ISTAT CARBON DIOXIDE > 40 mEq/l (24-31); ISTAT DELIVERY SYSTEM Room Air; ISTAT SITE L Radial
[2017-03-28 05:56] LABS: BASO % 0.1 %; BASO ABS # 0.01 K/uL (0-0.2); HEMATOCRIT 49.6 % (42-52); IG% 0.2 %; LYMPH % 3.6 %; LYMPH ABS # 0.53 K/uL (1.2-3.4); MEAN CORPUSCULAR HEMOGLOBIN 32.3 pg (25-34); MEAN CORPUSCULAR HGB CONC 32.3 g/dl (32-36); MEAN PLATELET VOLUME 9.5 fL (7.4-10.4); MONO % 3.5 %; NEUT % 92.6 %; PLATELET COUNT 277 K/uL (130-400); RED BLOOD COUNT 4.96 M/uL (4.7-6.1); WHITE BLOOD COUNT 14.65 K/uL (4.8-10.8)
[2017-03-28 06:07] LABS: INR 1.3 (0.9-1.1); PARTIAL THROMBOPLASTIN RATIO 1.1; PROTHROMBIN TIME (PATIENT) 14.5 SECONDS (9.0-12.0)
[2017-03-28 06:21] LABS: BUN/CREATININE RATIO 23.5 (10-20); CALCIUM 8.4 mg/dl (8.5-10.1); CREATININE 0.76 mg/dl (0.60-1.40); MAGNESIUM 2.4 mg/dl (1.8-2.4); POTASSIUM 4.7 mmol/L (3.5-5.1)
[2017-03-28 06:23] LABS: PHOSPHORUS 3.7 mg/dl (2.5-4.9)
[2017-03-28 06:26] LABS: COMPLETE YES
[2017-03-28] MEDS: METHYLPREDNISOLONE IV 40 MG in SYRINGE 0 ML IV SCH ×3 (07:51→23:51)
[2017-03-28] MEDS: PANTOprazole INJ 40 MG in SYRINGE 0 ML IV SCH (07:52)
--- NOTE | 2017-03-28 08:53 | DIAGNOSTIC IMAGING REPORT ---
CHEST ONE VIEW PORTABLE HISTORY: respiratory failure COMPARISON: Chest 03/27/2017. FINDINGS: The endotracheal tube is been removed. The heart remains mildly enlarged. No pleural effusions. No pneumothorax. Mild pulmonary vascular congestion without overt edema. Left retrocardiac opacity is again noted. IMPRESSION: 1. Mild pulmonary vascular congestion without overt edema. 2. No change in the left retrocardiac airspace opacity. This may represent atelectasis or pneumonia. Electronically signed by: Deniz Barkley M.D. 03/28/2017 8:51 AM Dictated Date/Time: 03/28/2017 8:50 AM
[2017-03-28] MEDS ORDERED: KETOCONAZOLE 200 MG TAB PO ONE (09:00)
--- NOTE | 2017-03-28 10:57 | Critical Care Progress Note ---
Critical Care Progress Note Date of Service Mar 28, 2017. Attending Dr. Wright Subjective Patient reports cough with difficulty bringing up mucus despite feeling congested. He denies SOB, CP, fevers, chills, N/V Patient was taken off bipap and repeat ABG showed Objective GENERAL: awake, extubated EYE EXAM: PERRL OROPHARYNX: s/p Extubation NECK: supple, no nuchal rigidity, no adenopathy, non-tender LUNGS: Clear to auscultation. Normal chest wall mechanics HEART: no murmurs, S1 normal and S2 normal ABDOMEN: abdomen soft, non-tender, normo-active bowel sounds, no masses, no rebound or guarding. SKIN: erythematous macular rash on forehead UPPER EXTREMITIES: upper extremities are grossly normal. LOWER EXTREMITIES: palpable distal pulses. No pitting edema. 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 Pupils: Pinpoint, reactive, Sedation/pain control: off sedation, s/p extubation CT head dated 03/26/17: unremarkable Respiratory: Hypercapnic Resp Failure likely secondary to COPD exacerbation in the setting of Chronic Resp acidosis , pH normalized after taken off bipap however PO2 dec'd significantly to 46 , HCO3 44, PCo2 63 03/27: PH 7.458 CO2 68, HCO3 41 PO2 82 will likely need home bipap along with Oxygen, F/u with Case management Convert Solumedrol to PO Prednisone daily 40 mg , Duo nebs, IV Levaquin, s/p Bronchioalveolar lavage 03/27, Pending cx's Hx Tobacco use: Nicotine patch orders Cardiovascular: Cardiomegaly consistent with CHF however BNP unremarkable, LVH on Echo, less likely to be a major contributor to resp distress CV drips: off vasoactive medications Rhythm: Sinus EKG: NS with PAC's 03/26/17 ECHO: Echo dated 2014 : EF >70% RV dilated, RV systolic fxn nl, mild RVH mod. concentric LVH Bedside Echo 03/26: Nrml LV, Nrml RV, no R to L shunt present CXR today: mild pulm vasc congestion, w/o overt edema, Echo today Fluids/Renal: Hyponatremia likely euvolemic, hypervolemia possible though unlikely given level of Hb (16) Na level improved Urine Na 24 Serum Cr .76 Serum Na 133, F/u Urine Cr IV Fluids: Fluids from intravenous medications Meyer: D/C today GI/Nutrition: Feeding:AHA diet Endocrine: Last 24 hour glucose: 118-144 cortisol: 15 Hematology: Hemoglobin 16.3 DVT prophylaxis: Lovenox 40 q24 INR 1.3 Infectious Disease/Immunology: Tmax: 36.8, While ct resolved. Antimicrobials: day 3 Levaquin day 10/25 Facial rash: suspected Tinea V., s/p PO Ketoconazole x1 300 mg on 03/27 , will need repeat dose in 3 wks Bronchial washing showing normal zeferino, f/u acid fast and fungal cx Resident Physician Supervision Note: Dr. Justin was resident physician during care of patient. I separately evaluated patient and did history and exam. I discussed the case with the resident and generally agree with the findings and plan. Patient remained stable overnight, case management working on approval of BiPAP for home use. Stable for downgraded out of ICU Documented By: Zaheer Wright DO Consults & Procedures Consultants: Cardiology Procedures: Intubation Bronchoscopy Data Medications: Current Inpatient Medications Medications (Trade) Dose Ordered Sig/Les Route Start Time Stop Time Status Last Admin Dose Admin Acetaminophen (Tylenol Tab) 650 mg Q4H PRN PO 03/26/17 14:30 04/25/17 14:29 Nitroglycerin (Nitrostat Tab) 0.4 mg UD PRN SL 03/26/17 14:30 04/25/17 14:29 Lorazepam (Ativan Inj) 0.5 mg Q4H PRN IV 03/26/17 14:30 04/25/17 14:29 Morphine Sulfate (MoRPHine SULFATE INJ) 2 mg Q2H PRN IV 03/26/17 14:30 04/09/17 14:29 Enoxaparin Sodium (Lovenox Inj) 40 mg Q24H SQ 03/26/17 21:00 04/25/17 20:59 03/27/17 20:08 40 MG Levofloxacin 750 mg/Prmx 150 ml @ 100 mls/hr Q24H IV 03/27/17 16:00 04/01/17 17:29 03/27/17 15:30 100 MLS/HR Methylprednisolone Sodium Succinate 40 mg/Syringe 0.64 ml @ 1.5 mls/min Q8H IV 03/27/17 00:00 04/26/17 00:00 03/28/17 07:51 1.5 MLS/MIN Nicotine (Nicoderm Cq 14MG Patch) 1 patch QAM TD 03/28/17 09:00 04/27/17 08:59 03/27/17 15:30 1 PATCH Miscellaneous (Remove Nicoderm Patch) 1 ea HS N/A 03/27/17 21:00 04/26/17 20:59 03/27/17 20:09 1 EA Vital Signs: Date Time Temp Pulse Resp B/P (MAP) Pulse Ox O2 Delivery O2 Flow Rate FiO2 03/28/17 10:00 95 22 123/76 (92) 88 Nasal Cannula 6.0 03/28/17 08:00 92 Nasal Cannula 6.0 03/28/17 08:00 36.8 93 22 133/88 (103) 92 Nasal Cannula 6.0 03/28/17 06:00 86 17 147/96 (113) 92 03/28/17 05:00 87 18 123/78 (93) 89 03/28/17 04:05 98 Oxyhood 9.0 03/28/17 04:00 36.7 85 23 133/70 (91) 93 03/28/17 03:00 88 20 126/73 (90) 93 03/28/17 02:00 85 17 119/68 (85) 92 BiPAP 81 03/28/17 01:00 81 23 130/78 (95) 93 BiPAP 85 03/28/17 00:21 98 Oxyhood 9.0 03/28/17 00:00 36.6 88 16 125/83 (97) 94 BiPAP 03/27/17 23:00 92 12 125/77 (93) 94 BiPAP 03/27/17 22:09 75 94 50 03/27/17 22:00 92 19 134/83 (100) 92 03/27/17 21:00 92 28 119/65 (83) 87 Oxyhood 03/27/17 20:00 36.7 89 20 143/77 (99) 98 Oxyhood 03/27/17 20:00 98 Oxyhood 9.0 03/27/17 19:00 92 22 128/79 (95) 96 Oxyhood 03/27/17 18:00 95 22 93/47 (62) 93 Oxyhood 9.0 03/27/17 16:00 89 Oxyhood 9.0 03/27/17 16:00 36.2 94 22 118/69 (85) 89 Oxyhood 9.0 03/27/17 14:00 105 22 133/84 (100) 92 Oxyhood 9.0 03/27/17 12:00 36.8 102 20 161/98 (119) 92 Oxyhood 9.0 03/27/17 12:00 92 Oxymask 9.0 Laboratory Results: Last 24 Hours Test 03/28/17 05:05 03/28/17 05:41 Blood Gas Sample Site L Radial Bedside Blood Gas pH (LAB) 7.45 Bedside Blood Gas pCO2 (LAB) 63 mmHg Bedside Blood Gas pO2 (LAB) 46 mmHg Bedside Blood Gas HCO3 (LAB) 44 meq/L Bedside Blood Gas Total CO2 > 40 mEq/l Bedside Blood Gas Base Excess (LAB) 20.0 meq/L Bedside Blood Gas O2 Saturation 83.0 % Primitivo Test Pass Oxygen Delivery Device Room Air White Blood Count 14.65 K/uL Red Blood Count 4.96 M/uL Hemoglobin 16.0 g/dL Hematocrit 49.6 % Mean Corpuscular Volume 100.0 fL Mean Corpuscular Hemoglobin 32.3 pg Mean Corpuscular Hemoglobin Concent 32.3 g/dl Platelet Count 277 K/uL Mean Platelet Volume 9.5 fL Neutrophils (%) (Auto) 92.6 % Lymphocytes (%) (Auto) 3.6 % Monocytes (%) (Auto) 3.5 % Eosinophils (%) (Auto) 0.0 % Basophils (%) (Auto) 0.1 % Neutrophils # (Auto) 13.57 K/uL Lymphocytes # (Auto) 0.53 K/uL Monocytes # (Auto) 0.51 K/uL Eosinophils # (Auto) 0.00 K/uL Basophils # (Auto) 0.01 K/uL RDW Standard Deviation 54.9 fL RDW Coefficient of Variation 14.9 % Immature Granulocyte % (Auto) 0.2 % Immature Granulocyte # (Auto) 0.03 K/uL Red Blood Cell Morphology Unremarkable Prothrombin Time 14.5 SECONDS Prothromb Time International Ratio 1.3 Activated Partial Thromboplast Time 27.3 SECONDS Partial Thromboplastin Ratio 1.1 Sodium Level 133 mmol/L Potassium Level 4.7 mmol/L Chloride Level 92 mmol/L Carbon Dioxide Level 40 mmol/L Anion Gap 1.0 mmol/L Blood Urea Nitrogen 18 mg/dl Creatinine 0.76 mg/dl Est Creatinine Clear Calc Drug Dose 130.5 ml/min Estimated GFR () 114.9 Estimated GFR (Non- 99.2 BUN/Creatinine Ratio 23.5 Random Glucose 144 mg/dl Calcium Level 8.4 mg/dl Phosphorus Level 3.7 mg/dl Magnesium Level 2.4 mg/dl Total Bilirubin 1.2 mg/dl Direct Bilirubin 0.3 mg/dl Aspartate Amino Transf (AST/SGOT) 17 U/L Alanine Aminotransferase (ALT/SGPT) 24 U/L Alkaline Phosphatase 94 U/L Total Protein 6.2 gm/dl Albumin 2.7 gm/dl Resident Tracking Resident Involvement: Resident Care Provided Care Provided: Adult Hospital Medicine
[2017-03-28] MEDS: LEVOFLOXACIN / D5W 750 MG in PREMIXED IN D5W 150 ML IV SCH (15:34)
--- NOTE | 2017-03-28 17:34 | Progress Note ---
Subjective Date of Service: Mar 28, 2017. Subjective Pt evaluation today including: conversation w/ patient, conversation w/ family , physical exam, chart review, lab review, conversation w/ exchange consultant, review of inpatient medication list feeling better breathing better no f/c/s oob in chair, RN weaning O2 Problem List Medical Problems: (1) Blood bacterial culture positive Status: Acute (2) CHF (congestive heart failure) Status: Acute (3) Hypercarbia Status: Acute (4) Hyponatremia Status: Acute (5) Respiratory acidosis Status: Acute (6) Respiratory failure Status: Acute Review of Systems all other ROS otherwise negative except for as above Objective Vital Signs Date Time Temp Pulse Resp B/P (MAP) Pulse Ox O2 Delivery O2 Flow Rate FiO2 03/28/17 16:00 37.7 79 20 126/76 (93) 92 Nasal Cannula 6.0 03/28/17 16:00 92 Nasal Cannula 6.0 03/28/17 14:00 87 18 133/81 (98) 93 Nasal Cannula 6.0 03/28/17 12:00 90 Nasal Cannula 6.0 03/28/17 12:00 37.1 89 20 132/81 (98) 90 Nasal Cannula 6.0 03/28/17 10:00 95 22 123/76 (92) 88 Nasal Cannula 6.0 03/28/17 08:00 92 Nasal Cannula 6.0 03/28/17 08:00 36.8 93 22 133/88 (103) 92 Nasal Cannula 6.0 03/28/17 06:00 86 17 147/96 (113) 92 03/28/17 05:00 87 18 123/78 (93) 89 03/28/17 04:05 98 Oxyhood 9.0 03/28/17 04:00 36.7 85 23 133/70 (91) 93 03/28/17 03:00 88 20 126/73 (90) 93 03/28/17 02:00 85 17 119/68 (85) 92 BiPAP 81 03/28/17 01:00 81 23 130/78 (95) 93 BiPAP 85 03/28/17 00:21 98 Oxyhood 9.0 03/28/17 00:00 36.6 88 16 125/83 (97) 94 BiPAP 03/27/17 23:00 92 12 125/77 (93) 94 BiPAP 03/27/17 22:09 75 94 50 03/27/17 22:00 92 19 134/83 (100) 92 03/27/17 21:00 92 28 119/65 (83) 87 Oxyhood 03/27/17 20:00 36.7 89 20 143/77 (99) 98 Oxyhood 03/27/17 20:00 98 Oxyhood 9.0 03/27/17 19:00 92 22 128/79 (95) 96 Oxyhood 03/27/17 18:00 95 22 93/47 (62) 93 Oxyhood 9.0 Physical Exam General Appearance: no apparent distress Eyes: EOMI ENT: hearing grossly normal Neck: trachea midline Respiratory/Chest: no respiratory distress, no accessory muscle use, + decreased breath sounds (faint base rale L>R) Cardiovascular: regular rate, rhythm Extremities: normal range of motion, no pedal edema, no calf tenderness 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, alert, normal mood/affect Skin: normal color, warm/dry Laboratory Results Last 24 Hours Test 03/28/17 05:05 03/28/17 05:41 03/28/17 11:40 Blood Gas Sample Site L Radial Bedside Blood Gas pH (LAB) 7.45 Bedside Blood Gas pCO2 (LAB) 63 mmHg Bedside Blood Gas pO2 (LAB) 46 mmHg Bedside Blood Gas HCO3 (LAB) 44 meq/L Bedside Blood Gas Total CO2 > 40 mEq/l Bedside Blood Gas Base Excess (LAB) 20.0 meq/L Bedside Blood Gas O2 Saturation 83.0 % Primitivo Test Pass Oxygen Delivery Device Room Air White Blood Count 14.65 K/uL Red Blood Count 4.96 M/uL Hemoglobin 16.0 g/dL Hematocrit 49.6 % Mean Corpuscular Volume 100.0 fL Mean Corpuscular Hemoglobin 32.3 pg Mean Corpuscular Hemoglobin Concent 32.3 g/dl Platelet Count 277 K/uL Mean Platelet Volume 9.5 fL Neutrophils (%) (Auto) 92.6 % Lymphocytes (%) (Auto) 3.6 % Monocytes (%) (Auto) 3.5 % Eosinophils (%) (Auto) 0.0 % Basophils (%) (Auto) 0.1 % Neutrophils # (Auto) 13.57 K/uL Lymphocytes # (Auto) 0.53 K/uL Monocytes # (Auto) 0.51 K/uL Eosinophils # (Auto) 0.00 K/uL Basophils # (Auto) 0.01 K/uL RDW Standard Deviation 54.9 fL RDW Coefficient of Variation 14.9 % Immature Granulocyte % (Auto) 0.2 % Immature Granulocyte # (Auto) 0.03 K/uL Red Blood Cell Morphology Unremarkable Prothrombin Time 14.5 SECONDS Prothromb Time International Ratio 1.3 Activated Partial Thromboplast Time 27.3 SECONDS Partial Thromboplastin Ratio 1.1 Sodium Level 133 mmol/L Potassium Level 4.7 mmol/L Chloride Level 92 mmol/L Carbon Dioxide Level 40 mmol/L Anion Gap 1.0 mmol/L Blood Urea Nitrogen 18 mg/dl Creatinine 0.76 mg/dl Est Creatinine Clear Calc Drug Dose 130.5 ml/min Estimated GFR () 114.9 Estimated GFR (Non- 99.2 BUN/Creatinine Ratio 23.5 Random Glucose 144 mg/dl Calcium Level 8.4 mg/dl Phosphorus Level 3.7 mg/dl Magnesium Level 2.4 mg/dl Total Bilirubin 1.2 mg/dl Direct Bilirubin 0.3 mg/dl Aspartate Amino Transf (AST/SGOT) 17 U/L Alanine Aminotransferase (ALT/SGPT) 24 U/L Alkaline Phosphatase 94 U/L Total Protein 6.2 gm/dl Albumin 2.7 gm/dl Urine Random Creatinine 45.0 mg/dl Assessment and Plan Acute respiratory failure with hypoxia and hypercapnia secondary to acute CHF, pneumonia and COPD exacerbation-- -off vent, O2 being weaned -continue supportive care -continue levaquin for presumed pneumonia -continue steroids wean as possible -ongoing diuresis when/if needed - appearing reasonably well compensated now possible OHS/LAMAR -will need to follow overnight pulse ox and ABG vs if needed get arminda outpt sleep study DVT proph -lovenox
[2017-03-28] MEDS: ENOXAPARIN 40 MG/0.4 ML SYR SQ SCH (20:27)
[2017-03-29] VITALS (22 sets, daily range): BP systolic 116–142; BP diastolic 62–85; PULSE 54–108; TEMP 36.6–37; O2SAT 89–96
[2017-03-29 05:45] LABS: COMPLETE YES; HEMATOCRIT 51.9 % (42-52); IG% 0.2 %; LYMPH % 3.8 %; LYMPH ABS # 0.55 K/uL (1.2-3.4); MEAN CORPUSCULAR HEMOGLOBIN 30.3 pg (25-34); MEAN CORPUSCULAR HGB CONC 30.3 g/dl (32-36); MEAN PLATELET VOLUME 9.6 fL (7.4-10.4); MONO % 4.4 %; NEUT % 91.6 %; PLATELET COUNT 272 K/uL (130-400); RED BLOOD COUNT 5.19 M/uL (4.7-6.1); WHITE BLOOD COUNT 14.48 K/uL (4.8-10.8)
[2017-03-29 05:57] LABS: INR 1.3 (0.9-1.1); PROTHROMBIN TIME (PATIENT) 13.9 SECONDS (9.0-12.0)
[2017-03-29 06:20] LABS: BUN/CREATININE RATIO 27.1 (10-20); CALCIUM 8.2 mg/dl (8.5-10.1); CREATININE 0.7 mg/dl (0.60-1.40); MAGNESIUM 2.5 mg/dl (1.8-2.4); POTASSIUM 4.9 mmol/L (3.5-5.1)
[2017-03-29 06:22] LABS: PHOSPHORUS 3.5 mg/dl (2.5-4.9)
--- NOTE | 2017-03-29 07:25 | Progress Note ---
Subjective Date of Service: Mar 29, 2017. 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, still with high oxygen requirements Problem List Medical Problems: (1) Blood bacterial culture positive Status: Acute (2) CHF (congestive heart failure) Status: Acute (3) Hypercarbia Status: Acute (4) Hyponatremia Status: Acute (5) Respiratory acidosis Status: Acute (6) Respiratory failure Status: Acute Review of Systems Constitutional: + fever, + chills, + weakness Respiratory: + shortness of breath, + dyspnea on exertion, No cough, No sputum , No wheezing Cardiac: No chest pain, No orthopnea Abdomen: No pain, No nausea Musculoskeletal: No joint pain, No muscle pain Neurologic: No memory loss, No paralysis Psychiatric: No depression symptoms, No anhedonism Objective Vital Signs Date Time Temp Pulse Resp B/P (MAP) Pulse Ox O2 Delivery O2 Flow Rate FiO2 03/29/17 06:00 67 17 142/85 (104) 94 03/29/17 05:01 36.8 61 15 126/66 (86) 94 03/29/17 05:00 77 15 94 03/29/17 04:03 92 Nasal Cannula 6.0 03/29/17 04:00 64 19 129/81 (97) 93 03/29/17 03:00 65 16 123/73 (90) 93 03/29/17 02:00 64 17 129/69 (89) 94 03/29/17 01:00 68 15 122/66 (84) 95 03/29/17 00:50 92 Nasal Cannula 6.0 03/29/17 00:00 36.6 79 14 116/76 (89) 93 78 03/28/17 23:01 81 15 119/70 (86) 94 81 03/28/17 23:00 88 16 95 88 03/28/17 22:01 85 18 146/100 (115) 94 03/28/17 22:00 80 15 94 03/28/17 22:00 80 94 50 03/28/17 21:12 21 152/94 (113) 91 03/28/17 21:00 19 93 03/28/17 20:30 19 154/95 (114) 92 03/28/17 20:00 92 Nasal Cannula 6.0 8/6/17 20:00 37.3 20 93 03/28/17 19:01 22 134/94 (107) 03/28/17 19:00 19 03/28/17 18:00 86 20 92 Nasal Cannula 6.0 03/28/17 16:00 37.7 79 20 126/76 (93) 92 Nasal Cannula 6.0 03/28/17 16:00 92 Nasal Cannula 6.0 03/28/17 14:00 87 18 133/81 (98) 93 Nasal Cannula 6.0 03/28/17 12:00 90 Nasal Cannula 6.0 03/28/17 12:00 37.1 89 20 132/81 (98) 90 Nasal Cannula 6.0 03/28/17 10:00 95 22 123/76 (92) 88 Nasal Cannula 6.0 03/28/17 08:00 92 Nasal Cannula 6.0 03/28/17 08:00 36.8 93 22 133/88 (103) 92 Nasal Cannula 6.0 Physical Exam General Appearance: WD/WN, + mild distress Eyes: PERRL, EOMI Neck: supple, no JVD Respiratory/Chest: chest non-tender, lungs clear, normal breath sounds Cardiovascular: regular rate, rhythm, no murmur Abdomen: normal bowel sounds, non tender, soft Extremities: no pedal edema, no calf tenderness Neurologic/Psychiatric: alert, oriented x 3 Laboratory Results Last 24 Hours Test 03/28/17 11:40 03/29/17 05:32 Urine Random Creatinine 45.0 mg/dl White Blood Count 14.48 K/uL Red Blood Count 5.19 M/uL Hemoglobin 15.7 g/dL Hematocrit 51.9 % Mean Corpuscular Volume 100.0 fL Mean Corpuscular Hemoglobin 30.3 pg Mean Corpuscular Hemoglobin Concent 30.3 g/dl Platelet Count 272 K/uL Mean Platelet Volume 9.6 fL Neutrophils (%) (Auto) 91.6 % Lymphocytes (%) (Auto) 3.8 % Monocytes (%) (Auto) 4.4 % Eosinophils (%) (Auto) 0.0 % Basophils (%) (Auto) 0.0 % Neutrophils # (Auto) 13.27 K/uL Lymphocytes # (Auto) 0.55 K/uL Monocytes # (Auto) 0.63 K/uL Eosinophils # (Auto) 0.00 K/uL Basophils # (Auto) 0.00 K/uL RDW Standard Deviation 54.9 fL RDW Coefficient of Variation 15.0 % Immature Granulocyte % (Auto) 0.2 % Immature Granulocyte # (Auto) 0.03 K/uL Nucleated RBC Absolute Count (auto) 0.03 K/uL Nucleated Red Blood Cells % 0.2 % Prothrombin Time 13.9 SECONDS Prothromb Time International Ratio 1.3 Activated Partial Thromboplast Time 26.0 SECONDS Partial Thromboplastin Ratio 1.0 Sodium Level 136 mmol/L Potassium Level 4.9 mmol/L Chloride Level 96 mmol/L Carbon Dioxide Level 39 mmol/L Anion Gap 1.0 mmol/L Blood Urea Nitrogen 19 mg/dl Creatinine 0.70 mg/dl Est Creatinine Clear Calc Drug Dose 142.0 ml/min Estimated GFR () 118.9 Estimated GFR (Non- 102.6 BUN/Creatinine Ratio 27.1 Random Glucose 128 mg/dl Calcium Level 8.2 mg/dl Phosphorus Level 3.5 mg/dl Magnesium Level 2.5 mg/dl Total Bilirubin 1.2 mg/dl Direct Bilirubin 0.3 mg/dl Aspartate Amino Transf (AST/SGOT) 14 U/L Alanine Aminotransferase (ALT/SGPT) 24 U/L Alkaline Phosphatase 82 U/L Total Protein 5.7 gm/dl Albumin 2.7 gm/dl Assessment and Plan 61 M with Acute hypoxic and hypercarbic respiratory failure, pneumonia and acute on chronic diastolic heart failure Acute respiratory failure, extubated, weaning oxygen as needed, not clear if underlying lung diffusion issue to require high oxygen supplementation Pneumonia, appears atypical in pattern, will use levaquin to cover atypical and gram negative organisms as has history of copd COPD exacerbation, steroids wean as possible, inhaled medications Acute on chronic diastolic heart failure-ongoing diuresis as needed possible OHS/LAMAR, nocturnal oxymetry to determine if oxygen is needed, outpt sleep study DVT proph -lovenox
--- NOTE | 2017-03-29 09:11 | Cardiology Follow-Up ---
Subjective Date of Service: Mar 29, 2017. Pt evaluation today including: conversation w/ patient, physical exam, lab review, review of studies, review of inpatient medication list History of Present Illness This is a 61-year-old male who has a history of COPD but to my knowledge no cardiovascular history. He does smoke. He had an echocardiogram done 09/13/2015 which showed normal left ventricular size with mild left ventricular hypertrophy and hyperdynamic left ventricular function. He did have grade 2 diastolic dysfunction and a mildly dilated right ventricle with normal systolic function. His PA pressures were about 35 mmHg systolic based on echo measurements. He presented today with progressive difficulty with exertion which was worse in the prior day or two. History is of shortness breath was observed by his family. In the emergency room he was hypoxic, and required intubation. As part of his evaluation chest x-ray suggested some congestive heart failure and on the portable chest x-rays cardiac size appeared enlarged, CT scanning suggested cardiac abnormalities as well. Electrocardiography was relatively unremarkable with no significant change from prior studies. Echocardiography on admission also suggested normal cardiac function with no intracardiac shunt. He is now extubated, feels considerably better and has no cardiovascular complaints.. Social History Smoking Status: Current Every Day Smoker (1+ppd) History of Alcohol Use: No Review of Systems Respiratory: + see HPI, + cough, + shortness of breath Cardiac: No chest pain, No orthopnea, No PND, No edema, No palpitations Review of systems is from the chart and family, the patient is intubated and cannot provide history Medications Cardiovascular: Item Value Date Time Enoxaparin Sodium 40 mg 03/26/17 2100 (Lovenox Inj) Q24H/SQ 03/28/172026 Objective Vital Signs Past 12 Hours Date Time Temp Pulse Resp B/P (MAP) Pulse Ox O2 Delivery O2 Flow Rate FiO2 03/29/17 08:01 36.9 92 24 120/80 (93) 92 Nasal Cannula 6.0 03/29/17 08:00 Nasal Cannula 6.0 03/29/17 06:00 67 17 142/85 (104) 94 03/29/17 05:01 36.8 61 15 126/66 (86) 94 03/29/17 05:00 77 15 94 03/29/17 04:03 92 Nasal Cannula 6.0 03/29/17 04:00 64 19 129/81 (97) 93 03/29/17 03:00 65 16 123/73 (90) 93 03/29/17 02:00 64 17 129/69 (89) 94 03/29/17 01:00 68 15 122/66 (84) 95 03/29/17 00:50 92 Nasal Cannula 6.0 03/29/17 00:00 36.6 79 14 116/76 (89) 93 78 03/28/17 23:01 81 15 119/70 (86) 94 81 03/28/17 23:00 88 16 95 88 03/28/17 22:01 85 18 146/100 (115) 94 03/28/17 22:00 80 15 94 03/28/17 22:00 80 94 50 03/28/17 21:12 21 152/94 (113) 91 Last Recorded Weight-Kilograms: 110.700 Physical Exam Constitutional: Level of Distress: mild distress Lungs: Auscultation: breath sounds normal, decreased breath sounds, inspiratory wheezing, expiratory wheezing Cardiovascular: Heart Auscultation: RRR, no murmurs, no rubs, no gallops Peripheral Pulses: Bruits: none appreciated Extremities: no edema Data Laboratory Results: Last 24 Hours Test 03/28/17 11:40 03/29/17 05:32 Urine Random Creatinine 45.0 mg/dl White Blood Count 14.48 K/uL Red Blood Count 5.19 M/uL Hemoglobin 15.7 g/dL Hematocrit 51.9 % Mean Corpuscular Volume 100.0 fL Mean Corpuscular Hemoglobin 30.3 pg Mean Corpuscular Hemoglobin Concent 30.3 g/dl Platelet Count 272 K/uL Mean Platelet Volume 9.6 fL Neutrophils (%) (Auto) 91.6 % Lymphocytes (%) (Auto) 3.8 % Monocytes (%) (Auto) 4.4 % Eosinophils (%) (Auto) 0.0 % Basophils (%) (Auto) 0.0 % Neutrophils # (Auto) 13.27 K/uL Lymphocytes # (Auto) 0.55 K/uL Monocytes # (Auto) 0.63 K/uL Eosinophils # (Auto) 0.00 K/uL Basophils # (Auto) 0.00 K/uL RDW Standard Deviation 54.9 fL RDW Coefficient of Variation 15.0 % Immature Granulocyte % (Auto) 0.2 % Immature Granulocyte # (Auto) 0.03 K/uL Nucleated RBC Absolute Count (auto) 0.03 K/uL Nucleated Red Blood Cells % 0.2 % Prothrombin Time 13.9 SECONDS Prothromb Time International Ratio 1.3 Activated Partial Thromboplast Time 26.0 SECONDS Partial Thromboplastin Ratio 1.0 Sodium Level 136 mmol/L Potassium Level 4.9 mmol/L Chloride Level 96 mmol/L Carbon Dioxide Level 39 mmol/L Anion Gap 1.0 mmol/L Blood Urea Nitrogen 19 mg/dl Creatinine 0.70 mg/dl Est Creatinine Clear Calc Drug Dose 142.0 ml/min Estimated GFR () 118.9 Estimated GFR (Non- 102.6 BUN/Creatinine Ratio 27.1 Random Glucose 128 mg/dl Calcium Level 8.2 mg/dl Phosphorus Level 3.5 mg/dl Magnesium Level 2.5 mg/dl Total Bilirubin 1.2 mg/dl Direct Bilirubin 0.3 mg/dl Aspartate Amino Transf (AST/SGOT) 14 U/L Alanine Aminotransferase (ALT/SGPT) 24 U/L Alkaline Phosphatase 82 U/L Total Protein 5.7 gm/dl Albumin 2.7 gm/dl Telemetry reviewed: Sinus rhythm, frequent PACs, no significant arrhythmia Assessment and Plan #1. Congestive heart failure: He may have mild diastolic congestive heart failure, but there is no evidence that he has systolic heart failure and his left ventricular ejection fraction is normal. I believe he has had some diuresis , although I don't think his weights can be trusted, they show a 10 kg weight loss since admission but his eye now has been negative as well so perhaps it is true. #2. Suggestion of intracardiac shunt: There is no evidence to support this, bubble study does not show any right to left shunt. Chamber sizes are not remarkable. If this remains a consideration we can do a transesophageal echocardiogram when he is improved, but this point I do not seen any indication to do so. I don't think he has a significant cardiac abnormality therefore I will sign off , however have be happy to see him if I can be any further help in his care. Thank you for allowing me to participate in his care.
[2017-03-29] MEDS: METHYLPREDNISOLONE IV 40 MG in SYRINGE 0 ML IV SCH ×3 (09:15→20:23)
[2017-03-29] MEDS: NICOTINE 14 MG/24 HR TDSY TD SCH (09:15)
[2017-03-29 11:07] LABS: LEGIONELLA ANTIGEN NOT DETECTED (NOT DETECTED)
[2017-03-29] MEDS: ALBUT/IPRATROP 3MG/0.5MG NEB 3 ML VIAL INH SCH ×3 (11:35→19:36)
--- NOTE | 2017-03-29 11:57 | Critical Care Progress Note ---
Critical Care Progress Note Date of Service Mar 29, 2017. ICU Day ICU Day Number: [address] Ruano Subjective Overnight Patient awakened while on BIPAP requesting its removal. HE was then placed on 6L NC , then Saturation dropped to 86 % after which he was placed on 9L oxymask. He is current back on 6L NC and maintaining saturation >90%. HE reports productive cough and reports occasional use of incentive spirometry Objective GENERAL: awake, alert EYE EXAM: PERRL NECK: supple, no nuchal rigidity, no adenopathy, non-tender LUNGS: Inspiratory/Expiratory wheezing. Normal chest wall mechanics HEART: no murmurs, S1 normal and S2 normal ABDOMEN: abdomen soft, non-tender, normo-active bowel sounds, no masses, no rebound or guarding. SKIN: erythematous macular rash on forehead, improving UPPER EXTREMITIES: upper extremities are grossly normal. LOWER EXTREMITIES: palpable distal pulses. No pitting edema. 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, alert Pupils: Pinpoint, reactive, CT head dated 03/26/17: unremarkable Respiratory: Hypercapnic Resp Failure likely secondary to COPD exacerbation in the setting of Chronic Resp acidosis 03/27: PH 7.45 CO2 63, HCO3 44 PO2 46 ( on room air) will likely need home bipap along with Oxygen, F/u with Case management COPD/ Wheezing: Duo nebs, Consider conversion to PO Steroids, Start Symbicort s/p Bronchioalveolar lavage 03/27, Cx positive for Daja Albicans Hx Tobacco use: Nicotine patch orders D/c Levoquin, Start Azithromycin x 5 days Cardiovascular: Cardiomegaly consistent with CHF however BNP unremarkable, LVH on Echo, less likely to be a major contributor to resp distress CV drips: off vasoactive medications Rhythm: Sinus EKG: NS with PAC's 03/26/17 ECHO: Echo dated 2014 : EF >70% RV dilated, RV systolic fxn nl, mild RVH mod. concentric LVH, EF 65-70%, mild tricuspid regurg Bedside Echo 03/26: Nrml LV, Nrml RV, no R to L shunt present CXR 03/28: mild pulm vasc congestion, w/o overt edema, Fluids/Renal: Hyponatremia resolved IV Fluids: Fluids from intravenous medications Meyer: None GI/Nutrition: Feeding:AHA diet Endocrine: Last 24 hour glucose: 128-144 Hematology: Hemoglobin 15.7, stable DVT prophylaxis: Lovenox 40 q24 INR 1.3 Infectious Disease/Immunology: Tmax: 36.8, afebrile, While ct resolved. Antimicrobials: day 4 D/c'd Levaquin, Start Azithomycin x 5 days Facial rash: suspected Tinea V., s/p PO Ketoconazole x1 300 mg on 03/27 , will need repeat dose in 3 wks from medication Bronchial washing: positive: Daja Albicans Attending add, the pt seen and examined , Agree with Dr. Justin plan. 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 his resp status is more stable, sat 92 % on 6 lpm, no JVP. S1S2 RRR, lungs with scattered rhonchi. abdomen is benign, no edema. Echo and CXR and Ct chest all reviewed, significant for dilated PA, Tree in bud appearance, emphysematous changes, small basilar fibrotic changes. Plan: 1- continue with steroids and adjust the dose to 40 mg IV solu q6h. 2- change quinolone to Macrolides , ( myopathy while on steroids). 3- add LABA and Duoneb. 4- oral intake. 5- phlebotomize two units of blood. 6- although the pt has tree in bud appearance this could be related to MAC or just rutledge bronchiolitis. 7- no need to treat daja in the bronch specimen. 8- accept sat just above 85%. 9- appreciate Dr. Zhao acceptance of this case to the [facility]. case discussed with the staff on rounds, images reviewed personally, CCT 45 min. Consults & Procedures Consultants: Cardiology Procedures: Intubation Bronchoscopy Data Medications: Current Inpatient Medications Medications (Trade) Dose Ordered Sig/Les Route Start Time Stop Time Status Last Admin Dose Admin Acetaminophen (Tylenol Tab) 650 mg Q4H PRN PO 03/26/17 14:30 04/25/17 14:29 Nitroglycerin (Nitrostat Tab) 0.4 mg UD PRN SL 03/26/17 14:30 04/25/17 14:29 Lorazepam (Ativan Inj) 0.5 mg Q4H PRN IV 03/26/17 14:30 04/25/17 14:29 Morphine Sulfate (MoRPHine SULFATE INJ) 2 mg Q2H PRN IV 03/26/17 14:30 04/09/17 14:29 Enoxaparin Sodium (Lovenox Inj) 40 mg Q24H SQ 03/26/17 21:00 04/25/17 20:59 03/28/17 20:27 40 MG Nicotine (Nicoderm Cq 14MG Patch) 1 patch QAM TD 03/28/17 09:00 04/27/17 08:59 03/29/17 09:15 1 PATCH Miscellaneous (Remove Nicoderm Patch) 1 ea HS N/A 03/27/17 21:00 04/26/17 20:59 03/28/17 20:26 1 EA Methylprednisolone Sodium Succinate 40 mg/Syringe 0.64 ml @ 1.5 mls/min Q6H IV 03/29/17 14:00 04/28/17 13:59 Albuterol/ Ipratropium (Duoneb) 3 ml Q4RWA INH 03/29/17 12:00 04/28/17 11:59 Budesonide/ Formoterol Fumarate (Symbicort 160/ 4.5 Inh) 2 puffs BID INH 03/29/17 21:00 04/28/17 20:59 Azithromycin (Zithromax Tab) 500 mg QAM PO 03/30/17 09:00 04/03/17 05:00 Vital Signs: Date Time Temp Pulse Resp B/P (MAP) Pulse Ox O2 Delivery O2 Flow Rate FiO2 03/29/17 08:01 36.9 92 24 120/80 (93) 92 Nasal Cannula 6.0 03/29/17 08:00 Nasal Cannula 6.0 03/29/17 06:00 67 17 142/85 (104) 94 03/29/17 05:01 36.8 61 15 126/66 (86) 94 03/29/17 05:00 77 15 94 03/29/17 04:03 92 Nasal Cannula 6.0 03/29/17 04:00 64 19 129/81 (97) 93 03/29/17 03:00 65 16 123/73 (90) 93 03/29/17 02:00 64 17 129/69 (89) 94 03/29/17 01:00 68 15 122/66 (84) 95 03/29/17 00:50 92 Nasal Cannula 6.0 03/29/17 00:00 36.6 79 14 116/76 (89) 93 78 03/28/17 23:01 81 15 119/70 (86) 94 81 03/28/17 23:00 88 16 95 88 03/28/17 22:01 85 18 146/100 (115) 94 03/28/17 22:00 80 15 94 03/28/17 22:00 80 94 50 03/28/17 21:12 21 152/94 (113) 91 03/28/17 21:00 19 93 03/28/17 20:30 19 154/95 (114) 92 03/28/17 20:00 92 Nasal Cannula 6.0 03/28/17 20:00 37.3 20 93 03/28/17 19:01 22 134/94 (107) 03/28/17 19:00 19 03/28/17 18:00 86 20 92 Nasal Cannula 6.0 03/28/17 16:00 37.7 79 20 126/76 (93) 92 Nasal Cannula 6.0 03/28/17 16:00 92 Nasal Cannula 6.0 03/28/17 14:00 87 18 133/81 (98) 93 Nasal Cannula 6.0 03/28/17 12:00 90 Nasal Cannula 6.0 03/28/17 12:00 37.1 89 20 132/81 (98) 90 Nasal Cannula 6.0 Laboratory Results: Last 24 Hours Test 03/28/17 11:40 03/29/17 05:32 Urine Random Creatinine 45.0 mg/dl White Blood Count 14.48 K/uL Red Blood Count 5.19 M/uL Hemoglobin 15.7 g/dL Hematocrit 51.9 % Mean Corpuscular Volume 100.0 fL Mean Corpuscular Hemoglobin 30.3 pg Mean Corpuscular Hemoglobin Concent 30.3 g/dl Platelet Count 272 K/uL Mean Platelet Volume 9.6 fL Neutrophils (%) (Auto) 91.6 % Lymphocytes (%) (Auto) 3.8 % Monocytes (%) (Auto) 4.4 % Eosinophils (%) (Auto) 0.0 % Basophils (%) (Auto) 0.0 % Neutrophils # (Auto) 13.27 K/uL Lymphocytes # (Auto) 0.55 K/uL Monocytes # (Auto) 0.63 K/uL Eosinophils # (Auto) 0.00 K/uL Basophils # (Auto) 0.00 K/uL RDW Standard Deviation 54.9 fL RDW Coefficient of Variation 15.0 % Immature Granulocyte % (Auto) 0.2 % Immature Granulocyte # (Auto) 0.03 K/uL Nucleated RBC Absolute Count (auto) 0.03 K/uL Nucleated Red Blood Cells % 0.2 % Prothrombin Time 13.9 SECONDS Prothromb Time International Ratio 1.3 Activated Partial Thromboplast Time 26.0 SECONDS Partial Thromboplastin Ratio 1.0 Sodium Level 136 mmol/L Potassium Level 4.9 mmol/L Chloride Level 96 mmol/L Carbon Dioxide Level 39 mmol/L Anion Gap 1.0 mmol/L Blood Urea Nitrogen 19 mg/dl Creatinine 0.70 mg/dl Est Creatinine Clear Calc Drug Dose 142.0 ml/min Estimated GFR () 118.9 Estimated GFR (Non- 102.6 BUN/Creatinine Ratio 27.1 Random Glucose 128 mg/dl Calcium Level 8.2 mg/dl Phosphorus Level 3.5 mg/dl Magnesium Level 2.5 mg/dl Total Bilirubin 1.2 mg/dl Direct Bilirubin 0.3 mg/dl Aspartate Amino Transf (AST/SGOT) 14 U/L Alanine Aminotransferase (ALT/SGPT) 24 U/L Alkaline Phosphatase 82 U/L Total Protein 5.7 gm/dl Albumin 2.7 gm/dl Resident Tracking Resident Involvement: Resident Care Provided Care Provided: Adult [facility]
[2017-03-29] MEDS: BUDESONIDE/FORMOTEROL FUMARATE 160/4.5 60 PUFFS/INHALER INH SCH (20:23)
[2017-03-29] MEDS: ENOXAPARIN 40 MG/0.4 ML SYR SQ SCH (21:06)
[2017-03-30] VITALS (10 sets, daily range): BP systolic 123–160; BP diastolic 75–89; PULSE 61–120; TEMP 36.3–37.5; O2SAT 92–95
[2017-03-30] MEDS: METHYLPREDNISOLONE IV 40 MG in SYRINGE 0 ML IV SCH ×4 (02:00→20:33)
[2017-03-30] MEDS: ALBUT/IPRATROP 3MG/0.5MG NEB 3 ML VIAL INH SCH ×4 (07:10→20:17)
[2017-03-30] MEDS: AZITHROMYCIN 250 MG TAB PO SCH (08:16)
[2017-03-30 08:17] LABS: COMPLETE YES; HEMATOCRIT 49.5 % (42-52); IG% 0.2 %; LYMPH % 4.4 %; LYMPH ABS # 0.58 K/uL (1.2-3.4); MEAN CELL VOLUME 99.8 fL (80-100); MEAN CORPUSCULAR HEMOGLOBIN 31.7 pg (25-34); MEAN CORPUSCULAR HGB CONC 31.7 g/dl (32-36); MEAN PLATELET VOLUME 9.6 fL (7.4-10.4); MONO % 4.4 %; PLATELET COUNT 277 K/uL (130-400); RED BLOOD COUNT 4.96 M/uL (4.7-6.1)
[2017-03-30] MEDS: BUDESONIDE/FORMOTEROL FUMARATE 160/4.5 60 PUFFS/INHALER INH SCH ×2 (08:17→20:32)
[2017-03-30] MEDS: NICOTINE 14 MG/24 HR TDSY TD SCH (08:17)
[2017-03-30 08:27] LABS: INR 1.2 (0.9-1.1); PROTHROMBIN TIME (PATIENT) 13.3 SECONDS (9.0-12.0)
[2017-03-30 08:42] LABS: BUN/CREATININE RATIO 22.4 (10-20); CALCIUM 8.7 mg/dl (8.5-10.1); CREATININE 0.79 mg/dl (0.60-1.40); MAGNESIUM 2.5 mg/dl (1.8-2.4)
--- NOTE | 2017-03-30 16:22 | Progress Note ---
Subjective Date of Service: Mar 30, 2017. Subjective pt is slowly getting better each day, still with cough and don Problem List Medical Problems: (1) Blood bacterial culture positive Status: Acute (2) CHF (congestive heart failure) Status: Acute (3) Hypercarbia Status: Acute (4) Hyponatremia Status: Acute (5) Respiratory acidosis Status: Acute (6) Respiratory failure Status: Acute Review of Systems Constitutional: No fever, No chills Respiratory: + cough, + shortness of breath, + dyspnea on exertion, No sputum Cardiac: No chest pain, No edema Abdomen: No pain, No nausea, No vomiting, No diarrhea Neurologic: No memory loss, No paralysis Psychiatric: No depression symptoms, No anhedonism, No anxiety Objective Vital Signs Date Time Temp Pulse Resp B/P (MAP) Pulse Ox O2 Delivery O2 Flow Rate FiO2 03/30/17 16:03 37.5 98 18 149/79 (102) 94 Nasal Cannula 4.0 03/30/17 15:24 72 18 94 Nasal Cannula 4.0 03/30/17 14:33 101 20 160/86 (110) 95 Nasal Cannula 4.0 03/30/17 14:14 74 137/84 (101) 94 Room Air 03/30/17 14:00 61 123/89 (100) 03/30/17 13:55 153/76 (101) 03/30/17 11:26 72 18 93 Nasal Cannula 4.0 03/30/17 08:20 Nasal Cannula 5.0 03/30/17 07:25 36.3 120 16 129/75 (93) 93 BiPAP 03/30/17 07:10 100 18 92 Nasal Cannula 4.0 03/30/17 00:25 Nasal Cannula 5.0 03/29/17 23:58 36.8 70 18 127/71 (89) 96 Room Air 03/29/17 22:14 62 94 50 03/29/17 19:38 54 18 91 Nasal Cannula 5.0 Physical Exam General Appearance: WD/WN, + moderate distress Neck: supple, no JVD Respiratory/Chest: + decreased breath sounds, + accessory muscle use, + rales, + rhonchi Cardiovascular: regular rate, rhythm, no murmur Abdomen: normal bowel sounds, non tender, soft Extremities: no pedal edema, no calf tenderness Neurologic/Psychiatric: alert, oriented x 3 Laboratory Results Last 24 Hours Test 03/30/17 07:22 White Blood Count 13.30 K/uL Red Blood Count 4.96 M/uL Hemoglobin 15.7 g/dL Hematocrit 49.5 % Mean Corpuscular Volume 99.8 fL Mean Corpuscular Hemoglobin 31.7 pg Mean Corpuscular Hemoglobin Concent 31.7 g/dl Platelet Count 277 K/uL Mean Platelet Volume 9.6 fL Neutrophils (%) (Auto) 91.0 % Lymphocytes (%) (Auto) 4.4 % Monocytes (%) (Auto) 4.4 % Eosinophils (%) (Auto) 0.0 % Basophils (%) (Auto) 0.0 % Neutrophils # (Auto) 12.11 K/uL Lymphocytes # (Auto) 0.58 K/uL Monocytes # (Auto) 0.59 K/uL Eosinophils # (Auto) 0.00 K/uL Basophils # (Auto) 0.00 K/uL RDW Standard Deviation 55.0 fL RDW Coefficient of Variation 15.1 % Immature Granulocyte % (Auto) 0.2 % Immature Granulocyte # (Auto) 0.02 K/uL Prothrombin Time 13.3 SECONDS Prothromb Time International Ratio 1.2 Activated Partial Thromboplast Time 25.2 SECONDS Partial Thromboplastin Ratio 1.0 Sodium Level 136 mmol/L Potassium Level 5.0 mmol/L Chloride Level 95 mmol/L Carbon Dioxide Level 39 mmol/L Anion Gap 2.0 mmol/L Blood Urea Nitrogen 18 mg/dl Creatinine 0.79 mg/dl Est Creatinine Clear Calc Drug Dose 125.9 ml/min Estimated GFR () 113.1 Estimated GFR (Non- 97.6 BUN/Creatinine Ratio 22.4 Random Glucose 124 mg/dl Calcium Level 8.7 mg/dl Phosphorus Level 4.0 mg/dl Magnesium Level 2.5 mg/dl Total Bilirubin 1.6 mg/dl Direct Bilirubin 0.3 mg/dl Aspartate Amino Transf (AST/SGOT) 15 U/L Alanine Aminotransferase (ALT/SGPT) 28 U/L Alkaline Phosphatase 75 U/L Total Protein 6.2 gm/dl Albumin 2.9 gm/dl Assessment and Plan 61 M with Acute hypoxic and hypercarbic respiratory failure, pneumonia and acute on chronic diastolic heart failure Acute respiratory failure, unable to completely wean oxygen, not clear if underlying lung diffusion issue to require high oxygen supplementation, will need pulmonary follow up Pneumonia, appears atypical in pattern, improving with levaquin COPD exacerbation, continue to wean steroids as possible Acute on chronic diastolic heart failure stable possible OHS/LAMAR, nocturnal oxymetry and 5 am abg to see if qualifies for trilogy or to determine if oxygen is needed, consider outpt sleep study DVT proph -lovenox
[2017-03-30 17:39] LABS: LEGIONELLA PNEUMOPHILA IGG AB <1:64 TITER
[2017-03-30] MEDS: ENOXAPARIN 40 MG/0.4 ML SYR SQ SCH (20:34)
[2017-03-31 00:13] VITALS: BP 118/70; PULSE 84; TEMP 37; O2SAT 94
[2017-03-31] MEDS: METHYLPREDNISOLONE IV 40 MG in SYRINGE 0 ML IV SCH ×2 (02:21→08:18)
[2017-03-31 07:14] LABS: ARTERIAL BLD GAS O2 SATURATION 94.1 % (90-95); ARTERIAL BLOOD GAS BASE EXCESS 5.2 mEq/L (-9-1.8); ARTERIAL BLOOD GAS HCO3 31 mmol/L (19-24); ARTERIAL BLOOD GAS PO2 72 mm/Hg (80-95); ARTERIAL BLOOD GAS pH 7.41 (7.35-7.45)
[2017-03-31 07:21] LABS: ALLEN TEST POS (POS)
[2017-03-31 07:24] LABS: O2 ADMINISTRATION 2 LITERS
[2017-03-31 07:26] VITALS: PULSE 63; O2SAT 96
[2017-03-31] MEDS: ALBUT/IPRATROP 3MG/0.5MG NEB 3 ML VIAL INH SCH ×2 (07:26→11:07)
[2017-03-31 07:40] LABS: BUN/CREATININE RATIO 25.8 (10-20); CALCIUM 8.4 mg/dl (8.5-10.1); CREATININE 0.65 mg/dl (0.60-1.40); MAGNESIUM 2.4 mg/dl (1.8-2.4); POTASSIUM 4.6 mmol/L (3.5-5.1)
[2017-03-31 07:42] LABS: PHOSPHORUS 3.5 mg/dl (2.5-4.9)
[2017-03-31 08:15] VITALS: BP 157/74; PULSE 91; TEMP 36.7; O2SAT 92
[2017-03-31] MEDS: BUDESONIDE/FORMOTEROL FUMARATE 160/4.5 60 PUFFS/INHALER INH SCH (08:18)
[2017-03-31] MEDS: AZITHROMYCIN 250 MG TAB PO SCH (08:18)
[2017-03-31 08:22] LABS: INR 1.3 (0.9-1.1); PARTIAL THROMBOPLASTIN RATIO 0.9; PROTHROMBIN TIME (PATIENT) 13.5 SECONDS (9.0-12.0)
[2017-03-31] MEDS: NICOTINE 14 MG/24 HR TDSY TD SCH (08:22)
[2017-03-31 11:08] VITALS: PULSE 75; O2SAT 95
[2017-03-31 11:10] VITALS: O2SAT 92
[2017-03-31] MEDS ORDERED: IPRA1AER2 INH (12:18)
[2017-03-31] MEDS ORDERED: PRD10 PO (12:18)
[2017-03-31] MEDS ORDERED: IPRASOL4 INH (12:18)
[2017-03-31] MEDS ORDERED: FLUT1INH INH (12:18)
[2017-03-31] MEDS ORDERED: ZTHM250 PO (12:18)
[2017-03-31] MEDS ORDERED: OXGN ×2 (12:19→13:39)
--- NOTE | 2017-03-31 12:20 | Discharge Instructions ---
Discharge Instructions Date of Service Mar 31, 2017. Admission Reason for Admission: Copd Exacerbation Discharge Discharge Diagnosis / Problem: copd exacerbation requiring mechanical ventilation Discharge Goals Goal(s): Diagnostic testing, Therapeutic intervention Activity Recommendations Activity Limitations: resume your previous activity Lifting Limitations: gradually increase as tolerated . Current Hospital Diet Patient's current hospital diet: AHA Diet (Heart Healthy) Discharge Diet Recommended Diet: Regular Diet Pending Studies Studies pending at discharge: no Medical Emergencies . Who to Call and When: Medical Emergencies: If at any time you feel your situation is an emergency, please call 911 immediately. . Non-Emergent Contact Non-Emergency issues call your: Primary Care Provider Call Non-Emergent contact if: temperature is above 101, your pain is unusual for you . . "Provider Documentation" section prepared by Art Zhao. . VTE Core Measure Inpt VTE Proph given/why not?: Enoxaparin (Lovenox)SQ, SCD's
[2017-03-31] MEDS ORDERED: SYMIN INH (13:39)
[2017-03-31 14:17] VITALS: BP 157/74; PULSE 75; TEMP 36.7; O2SAT 92
--- NOTE | 2017-04-01 08:01 | Discharge Summary ---
Discharge Summary Date of Service Mar 31, 2017. Discharge Summary Admission Date: Mar 26, 2017 at 14:31 Discharge Date: Mar 31, 2017 Discharge Disposition: Home Principal Diagnosis: copd exacerbation, ventilator support Immunizations: Have You Had Influenza Vaccine: Yes Influenza Vaccine Date: Aug 04, 2011 History of Tetanus Vaccine?: Yes Tetanus Immunization Date: Aug 04, 2011 History of Pneumococcal: Yes Pneumococcal Date: Aug 04, 2011 History of Hepatitis B Vaccine: Unknown Medication Reconciliation New Medications: Home O2 Therapy (Oxygen) Gas 2 LITERS NA UD PRN for Shortness of Breath, #1 pt requires 2 liters with exertion, please supply concentration unit Prednisone (Prednisone) 10 Mg Tab 10 MG PO UD, #42 DOSE 4 pills a day x 4 days then 3 pills a day x 4 days then 2 pills a day x 4 days then 1 pill a day Azithromycin (Azithromycin) 250 Mg Tab 500 MG PO QAM, #6 TAB Budesonide/Formoterol Fumarate (Symbicort 160-4.5 Mcg/Act) 60 Puffs/Inhaler Aero 2 PUFFS INH BID, #1 INHA 3 Refills Changed Medications: Ipratropium-Albuterol (Combivent Respimat) 1 Aer Aer 2 PUFFS INH QID PRN for Shortness of Breath, #1 INH 2 Refills (Changed from: Refills: ) j44.1 Ipratropium-Albuterol (Duoneb) 3 Ml Nebu 1 TREATMENT INH QID, #120 INHA 4 Refills (Changed from: Q4H; Removed Reason; Refills: ) j44.1 Continued Medications: Aspirin (Aspirin Chewable) 81 Mg Chew 81 MG PO QPM Atorvastatin (Atorvastatin Calcium) 40 Mg Tab 40 MG PO HS Clobetasol Propionate (Clobetasol Propionate Cream 0.05%) 90 Appln/30 Gm Cr 1 APPLN TOP BID, 0 Refills USE DIRECTED ON HANDS Fish Oil ([place]-3) 1 Ea Cap 1 CAP PO BID, CAP Fluticasone Furoate-Vilanterol (Breo Ellipta) 1 Inh Inh 1 PUFF INH DAILY, #1 INHALER 2 Refills (This prescription has been renewed) Fluticasone Propionate (Nasal) (Flonase Allergy Relief) 50 Mcg/Act Spr 2 SPRAY RODRIGO QAM Guaifenesin La (Guaifenesin Er) 600 Mg Tabcr 600 MG PO Q12H, TAB Montelukast Sodium (Singulair) 10 Mg Tab 10 MG PO QPM, TAB Multiple Vitamin (Multi Vitamin Daily) 1 Tab Tab 1 TAB PO QAM Discontinued Medications: Mometasone Furoate-Formoterol (Dulera 200/5 Mcg) 1 Aer Aer 2 PUFFS INH BID for 30 Days, #13 GM 5 Refills Discharge Exam Review of Systems: Constitutional: No fever, No chills Respiratory: No cough, No sputum, No shortness of breath, No dyspnea on exertion Abdomen: No pain, No nausea Physical Exam: General Appearance: WD/WN, no apparent distress Neck: supple, no JVD Respiratory/Chest: chest non-tender, lungs clear, normal breath sounds Cardiovascular: regular rate, rhythm, no murmur Hospital Course 61 M with Acute hypoxic and hypercarbic respiratory failure, pneumonia and acute on chronic diastolic heart failure Acute respiratory failure, able to completely wean oxygen, 2 step did not show need for supplemental oxygen, will need pulmonary follow up Pneumonia,will complete home azithromycin COPD exacerbation, taper po steroids, use home nebulizer, switch to symbicort Acute on chronic diastolic heart failure stable DVT proph -lovenox Total Time Spent: Greater than 30 minutes This includes examination of the patient, discharge planning, medication reconciliation, and communication with other providers. Discharge Instructions Please refer to the electronic Patient Visit Report (Discharge Instructions) for additional information.
--- NOTE | 2017-04-16 05:40 | EDITING REQUIRED CODING QUERY ---
CODING QUERY To promote full compliance with coding requirements relating to patient care, provider participation is requested in all cases of icd 9 coder uncertainty. Please assist us with the question(s) below: Coding Question: I see documentation and a path report that a bronchial lavage was done on 03/26, but I don't see a report on the procedure. Can you please dictate a procedure if it was done? Thank you so much for your help! Physician's Response(s): done 04/19/17 Thank you! Becca Luque Principal Diagnosis: "_that condition established after study, to be chiefly responsible for occasioning the admission of the patient to the hospital for care." Co-Existing Principal Diagnosis: "_when two or more diagnoses equally meet the criteria for principal diagnosis as determined by the circumstances of admission, diagnostic work up, and/or therapy provided, and the Alphabetic Index, Tabular List, or another coding guideline does not provide sequencing direction, any one of the diagnoses may be sequenced first." "When the physician has documented what appears to be a current diagnosis in the body of the record, but has not included the diagnosis in the final diagnostic statement, the physician should be asked whether the diagnosis should be added." (Source Coding Clinic 2 QTR90. p3-4)
--- NOTE | 2017-04-19 06:48 | Procedure Note ---
Procedure Note Date of Service Mar 26, 2017. delayed chart entry Procedure Note Procedure date: 03/26/2017 Procedure: fiberoptic bronchoscopy Pre-procedure Diagnosis: respiratory failure Post-procedure Diagnosis: same as above Prior to Procedure: Informed Consent: The risks, benefits, indications, potential complications, and alternatives were explained to the patient/family and informed consent obtained. Attending Staff: Red Wright DO Resident/APC: Rose Marie Bustillos Skin Prep: Not applicable Anesthesia: IV sedation and 1% lidocaine Indications: Patient is a 61 y/o male with longstanding COPD and hx of MAC would required intubation for acute respiratory failure. The identity of the patient was confirmed and a bedside time out was performed. Description of Procedure: Fiberoptic bronchoscopy was performed via endotracheal tube. Bronchioalveolar lavage of the right middle lobe was performed. Findings included: minimal muco-purulent secreations Complications: None Specimens: Bronchial washings sent for culture and Gram stain, cytology, fungal elements, and AFB stain and culture. Estimated blood loss: Zero
== END 2017-03-31 14:41 | disposition home or self-care (01) | DRG 166 ==
LOC: EDBD 10:15 → C.EDA 10:17 → C.MSICU 14:31 → ENRESERV 14:45 → C.4E 03-29 12:32
PROVIDERS: ADMIT Hospitalist; ATTEND Internal Medicine
PROC: 0B9D8ZX Drainage of Right Middle Lung Lobe, Via Natural or Artificial Opening Endoscopic, Diagnostic (ICD-10-PCS; principal; 2017-03-26)
PROC: 5A1935Z Respiratory Ventilation, Less than 24 Consecutive Hours (ICD-10-PCS; principal; 2017-03-26)
PROC: 0BH17EZ Insertion of Endotracheal Airway into Trachea, Via Natural or Artificial Opening (ICD-10-PCS; principal; 2017-03-26)
DX: J96.02 Acute respiratory failure with hypercapnia (principal); J18.9 Pneumonia, unspecified organism; I50.33 Acute on chronic diastolic (congestive) heart failure; J44.1 Chronic obstructive pulmonary disease with (acute) exacerbation; E87.2 Acidosis; E87.1 Hypo-osmolality and hyponatremia; J96.01 Acute respiratory failure with hypoxia; R21 Rash and other nonspecific skin eruption; E78.5 Hyperlipidemia, unspecified; F17.200 Nicotine dependence, unspecified, uncomplicated; Z79.82 Long term (current) use of aspirin; Z79.899 Other long term (current) drug therapy

== ENCOUNTER → 2017-05-18 | Outpatient (CLI) | payer OTHER ==
[~2017-05-18] MED LIST changes: +FLUT1INH INH; -MOME200A INH; +OXGN; +PRD10 PO; +SYMIN INH; +ZTHM250 PO
--- NOTE | 2017-05-25 15:46 | Sleep Study ---
Sleep Study Report Date of Service: 05/18/2017 Sleep Study Report Clinical data: The patient is a 61-year-old male with a history of severe COPD. He recently had respiratory failure. Sleep apnea was suspected. He had very high levels of pCO2. His BMI is 36.97. On the evening of 05/18/2017 the patient had a home sleep apnea test performed using a GetGlue type 3 monitor. Recording results: Total recording time was 10 hours. The estimated sleep time was 5.8 hours. Respiratory data: Patient had a total of 16 respiratory events including 1 central apnea and 15 hypopneas. Hypopneas were scored according to the 4 percent desaturation rule. The SIERRA was 2.8. This would be within the limits of normal. The maximum respiratory event was 29 seconds. Oximetry data: The mean saturation for the night was 85 percent. The minimum saturation was 66 percent. There were 314 minutes with saturations less than 89 percent. Heart rate data: The lowest heart rate was 43 beats per minute. The mean heart rate was 66 beats per minute. Snoring data: The patient snored throughout the night. Impressions: 1. No evidence of significant obstructive sleep apnea Comments: This study did not show definite evidence of obstructive sleep apnea. The study was somewhat limited. The manometer technician reported that it was a difficult test to score. The equipment was placed on by the patient at 12:28 a.m. but the pulse oximeter did not record properly until about 2:44 a.m.. The manometer technician does not believe the pulse oximeter was on the patient's finger optimally. The study did reveal very few hypopneas and apneas. Recommendations: 1. Consideration might be given to a repeat study done in the sleep lab if the patient were agreeable. In the past he has refused an in-lab sleep study. 2. The patient should continue wearing his nocturnal oxygen on a nightly basis. Copies To 1: Kavin Vogt DO; Aristeo Vicente M.D.; Poppy King PA -C
== END | disposition home or self-care (01) ==
LOC: C.NEUR 14:25
PROVIDERS: ATTEND Physician Assistant Medical
DX: G47.33 Obstructive sleep apnea (adult) (pediatric) (principal); J44.9 Chronic obstructive pulmonary disease, unspecified

== ENCOUNTER → 2017-05-31 | Outpatient (CLI) | payer OTHER ==
[2017-05-31 12:18] LABS: BASO % 0.5 %; BASO ABS # 0.05 K/uL (0-0.2); COMPLETE YES; EOS % 5.1 %; HEMATOCRIT 48.6 % (42-52); IG% 0.2 %; LYMPH % 27.6 %; LYMPH ABS # 2.76 K/uL (1.2-3.4); MEAN CELL VOLUME 96.6 fL (80-100); MEAN CORPUSCULAR HEMOGLOBIN 31.4 pg (25-34); MEAN CORPUSCULAR HGB CONC 32.5 g/dl (32-36); MEAN PLATELET VOLUME 10.2 fL (7.4-10.4); MONO % 11.1 %; NEUT % 55.5 %; PLATELET COUNT 223 K/uL (130-400); RED BLOOD COUNT 5.03 M/uL (4.7-6.1)
[2017-05-31 12:33] LABS: URINE APPEARANCE CLEAR (CLEAR); URINE BILIRUBIN NEG (NEG); URINE COLOR ORANGE; URINE EPITHELIAL CELL AUTO 0-5 /lpf (0-5); URINE NITRITE NEG (NEG); URINE SPECIFIC GRAVITY 1.015 (1.000-1.030); UROBILINOGEN NEG (NEG); ZZUR CULT IF INDIC CLEAN CATCH NO
[2017-05-31 12:36] LABS: MANUAL MICROSCOPIC REQUIRED? NO; REVIEW REQ? NO
[2017-05-31 13:23] LABS: ALT/SGPT 32 U/L (12-78); BLOOD UREA NITROGEN 9 mg/dl (7-18); BUN/CREATININE RATIO 11.7 (10-20); CALCIUM 9.1 mg/dl (8.5-10.1); CARBON DIOXIDE 29 mmol/L (21-32); CHLORIDE 102 mmol/L (98-107); CHOLESTEROL 99 mg/dl (0-200); CREATININE 0.78 mg/dl (0.60-1.40); GLUCOSE 100 mg/dl (70-99); POTASSIUM 4.4 mmol/L (3.5-5.1); SODIUM 137 mmol/L (136-145)
[2017-05-31 13:33] LABS: ALKALINE PHOSPHATASE 87 U/L (45-117); AST/SGOT 21 U/L (15-37); CHOLESTEROL/HDL RATIO 2.1; HDL CHOLESTEROL 47 mg/dl; LDL CHOLESTEROL CALCULATED 38 mg/dl; PROSTATE SPECIFIC ANTIGEN 0.352 ng/ml (0.000-4.000); TRIGLYCERIDES 71 mg/dl (0-150); VERY LOW DENSITY LIPOPROT CALC 14 mg/dl
== END | disposition home or self-care (01) ==
LOC: C.LABBFT 09:03
PROVIDERS: ATTEND Internal Medicine
DX: J44.9 Chronic obstructive pulmonary disease, unspecified (principal); E78.5 Hyperlipidemia, unspecified; N40.1 Benign prostatic hyperplasia with lower urinary tract symptoms

== ENCOUNTER → 2017-12-10 | Outpatient (CLI) | payer OTHER ==
[~2017-12-10] MED LIST changes: +AZIT-57 PO; -ZTHM250 PO
--- NOTE | 2017-12-10 14:45 | DIAGNOSTIC IMAGING REPORT ---
CT LUNG SCREENING, LOW DOSE WITH COMPUTER-AIDED DETECTION (CAD) CLINICAL HISTORY: Tobacco use. COMPARISON STUDY: Chest CT lung screening for 1117. CT DOSE: 79.39 mGycm TECHNIQUE: Low-dose helical CT was acquired without intravenous contrast from lung apices to bases and reconstructed at 2.5 mm every 2 mm. CAD was utilized for this study. A dose lowering technique was utilized adhering to the principles of ALARA. FINDINGS: Trace mucoid material within the bronchus intermedius. No pneumothorax. Mild emphysema. No suspicious pulmonary nodules. A few linear scarlike densities within the right middle lobe. No suspicious lytic or blastic osseous lesions. No mediastinal or hilar lymphadenopathy. Mitral annulus calcifications. A 6.4 cm hypodense lesion within the upper pole the left kidney is again noted. This is difficult to characterize on this low-dose noncontrast study. The visualized spleen and liver are unremarkable. Normal caliber thoracic aorta. IMPRESSION: No suspicious pulmonary nodules. CAD FINDINGS: Overall Lung RADS Category: 1 Lung RADS Management Recommendation: Continue annual lung cancer screening. Lung RADS Follow Up Date: 2018-12-10 Lung RADS Nodule ID: Electronically signed by: Deniz Barkley M.D. 12/10/2017 2:43 PM Dictated Date/Time: 12/10/2017 2:37 PM
== END | disposition home or self-care (01) ==
LOC: C.CTS 13:58
PROVIDERS: ATTEND Internal Medicine
DX: Z87.891 Personal history of nicotine dependence (principal)

== ENCOUNTER 2019-04-30 13:32 | Inpatient (IN) ==
[2019-04-30] MEDS ORDERED: methylPREDNISolone 125 MG/2 ML VIAL IV STA (13:49)
[2019-04-30] MEDS ORDERED: ALBUT/IPRATROP 3MG/0.5MG NEB 3 ML VIAL NEB ONE (13:49)
[2019-04-30 14:00] LABS: Basophils # (auto) 0.02 K/uL (0-0.2); Basophils % (auto) 0.2 %; Eosinophils # (auto) 0.18 K/uL (0-0.5); Eosinophils % (auto) 2.1 %; Hemoglobin 16.6 g/dL (14.0-18.0); Immature Granulocytes # (auto) 0.01 K/uL (0.00-0.02); Immature Granulocytes % (auto) 0.1 %; Lymphocytes # (auto) 2.05 K/uL (1.2-3.4); Lymphocytes % (auto) 23.9 %; Mean Corpuscular Hgb Conc 33.2 g/dL (32-36); Mean Corpuscular Volume 101.6 fL (80-100); Mean Platelet Volume 9.7 fL (7.4-10.4); Monocytes # (auto) 1.05 K/uL (0.11-0.59); Monocytes % (auto) 12.2 %; Neutrophils # (auto) 5.27 K/uL (1.4-6.5); Neutrophils % (auto) 61.5 %; Platelet Count 155 K/uL (130-400); RDW Coefficient of Variation 15.6 % (11.5-14.5); RDW Standard Deviation 57.9 fL (36.4-46.3); Red Blood Count 4.92 M/uL (4.7-6.1); White Blood Count 8.58 K/uL (4.8-10.8)
[2019-04-30 14:09] LABS: Base Excess VBG 6.1 mEq/L; Oxygen Saturation VBG 88.6 %; pH VBG 7.35 (7.36-7.41)
[2019-04-30 14:11] LABS: INR 1.3 (0.9-1.1); Partial Thromboplastin Ratio 1.2; Partial Thromboplastin Time 31.3 Seconds (21.0-31.0)
[2019-04-30 14:17] LABS: Alanine Aminotransferase 30 U/L (12-78); Albumin Level 3.2 gm/dl (3.4-5.0); Aspartate Aminotransferase 16 U/L (15-37); BUN Creatinine Ratio 10.3 (10-20); Blood Urea Nitrogen 8 mg/dl (7-18); Calcium 8.6 mg/dl (8.5-10.1); Carbon Dioxide 33 mmol/L (21-32); Chloride 99 mmol/L (98-107); Creatinine Clr Calc Pharmacy 126.2 ml/min; Est GFR (African American) 113.9; Est GFR (Non-African American) 98.3; Glucose 101 mg/dl (70-99); Magnesium 2.1 mg/dl (1.8-2.4); Potassium 4.7 mmol/L (3.5-5.1); Sodium 139 mmol/L (136-145)
[2019-04-30 14:22] LABS: Albumin Globulin Ratio 0.9 (0.9-2); Alkaline Phosphatase 89 U/L (45-117); Bilirubin,Total 1.3 mg/dl (0.2-1); Globulin 3.8 gm/dl (2.5-4.0); Troponin I < 0.015 ng/ml (0-0.045)
--- NOTE | 2019-04-30 14:28 | Emergency Department Note ---
Entered by Cynthia Rincon acting as a scribe for Kong Ernst DO History of Present Illness General Chief complaint: Shortness of Breath/Dyspnea Stated complaint: DIFFICULTY BREATHING- HX COPD Source: patient Limitations: no limitations History of Present Illness Provider complaint: Shortness of breath Onset (ago): day(s) 3 Location: chest Radiation: non-radiation Pain Consistency: + constant Maximum Pain Intensity: 0 Relieved By: + none Exacerbated By: + none Associated symptoms: + shortness of breath and + other (-weight gain, - lower ext swelling, -diarrhea); no chest pain and no fever/chills Treatments prior to arrival: other (oxygen) The patient is a 63-year-old male who presented to the emergency department for evaluation of shortness of breath. The patient noticed shortness of breath which was slowly progressed over the last 2 to 3 days. He does wear oxygen at night but does not wear oxygen 24 hours a day. The patient notices worsening shortness of breath with exertion. He is noticed a cough which is nonproducti ve. He has not noticed any hemoptysis or chest pain. The patient has not noticed any weight gain or lower extremity swelling. He does have some shortness of breath with lying flat but states that this is not new for him. The patient denies having any recent trips or procedures. The patient states that he has a history of COPD and 1 month ago was treated with a steroid as well as Levaquin. He has not seen a provider for this shortness of breath at this time. He denies having any abdominal pain. He denies having any recent diarrhea or recent febrile illnesses. The patient presented to the emergency department with his significant other. Home Medications Home Medications Medication Instructions Recorded Confirmed Type Breo Ellipta 1 inh INHALATION QAM 07/16/18 04/30/19 History Combivent Respimat 1 puff INHALATION QID PRN 07/16/18 04/30/19 History atorvastatin 40 mg PO HS 07/16/18 04/30/19 History clobetasol [Temovate] 1 applic TOPICAL BID 07/16/18 04/30/19 History montelukast 10 mg PO HS 07/16/18 04/30/19 History apixaban 5 mg tablet 5 mg PO BID #60 tab 04/05/19 04/30/19 History diltiazem CD 180 mg 360 mg PO QAM #180 cap 04/05/19 04/30/19 History capsule,extended release 24 hr fluticasone propionate 50 2 sprays INTRANASAL QAM #1 gm 04/05/19 04/30/19 History mcg/actuation nasal spray,suspension guaifenesin ER 600 mg tablet, 600 mg PO BID tab 04/05/19 04/30/19 History extended release 12 hr multivitamin with minerals tablet 1 tab PO QAM tab 04/05/19 04/30/19 History omega-3 fatty acids 1,000 mg 1,000 mg PO BID 04/05/19 04/30/19 History capsule ipratropium-albuterol 0.5 mg-3 3 ml INHALATION QID #180 ml 04/07/19 04/30/19 Rx mg(2.5 mg base)/3 mL nebulization soln Allergies Allergy/AdvReac Type Severity Reaction Status Date / Time No Known Allergies Allergy Verified 04/30/19 14:02 Past Med/Surg History Medical History Dependence on nocturnal oxygen therapy Atrial flutter with rapid ventricular response Current smoker Acute and chronic respiratory failure with hypoxia CHF (congestive heart failure) Atrial fibrillation, new onset (Acute) COPD (chronic obstructive pulmonary disease) (Chronic) Emphysema of lung (Chronic) Hyperlipidemia (Chronic) Chronic respiratory failure with hypercapnia (Chronic) Family History Father CHF (congestive heart failure) Social History Preferred Language: Kyrgyz Communication Ability: Effective Die Set Up Worker Required: No Beliefs That Will Affect Care: None Current Living Situation: Family Current Living Situation Comment: lives with sister Other Information That Helps Us Care for You: No Feels Safe at Home: Yes Safety Concerns: Feels Safe At This Time Smoking Status: Never smoker Tobacco Type: cigarettes ; Cigarettes Per Day: 10 ; Do You Dip or Chew Tobacco: No ; Second Hand Exposure: No ; Tobacco Cessation Education Requested by Patient: No Hx Alcohol Use: No Hx Substance Use: No Review of Systems See HPI for pertinent positives & negatives. and A total of 10 systems reviewed and were otherwise negative Physical Exam Vital Signs Vital Signs - 24 hr 04/30/19 16:10 04/30/19 16:20 04/30/19 16:30 Pulse Rate 94 H 95 H 112 H Pulse Rate from SpO2 Sensor 101 H 101 H 97 H Respiratory Rate 24 23 24 Blood Pressure 122/77 Blood Pressure Mean 92 Pulse Oximetry 92 90 89 L Oxygen Delivery Method Oxygen Flow Rate 04/30/19 16:40 04/30/19 16:50 04/30/19 17:00 Pulse Rate 89 93 H 86 Pulse Rate from SpO2 Sensor 91 H 97 H 90 Respiratory Rate 18 27 H 19 Blood Pressure Blood Pressure Mean Pulse Oximetry 90 90 89 L Oxygen Delivery Method Oxygen Flow Rate 04/30/19 17:10 04/30/19 17:20 04/30/19 17:30 Pulse Rate 88 91 H 99 H Pulse Rate from SpO2 Sensor 86 90 102 H Respiratory Rate 25 H 22 17 Blood Pressure 136/74 Blood Pressure Mean 94 Pulse Oximetry 90 90 93 Oxygen Delivery Method Nasal Cannula Oxygen Flow Rate 4 04/30/19 17:40 04/30/19 17:50 04/30/19 18:00 Pulse Rate 94 H 91 H 94 H Pulse Rate from SpO2 Sensor 90 94 H 93 H Respiratory Rate 23 12 25 H Blood Pressure 128/82 Blood Pressure Mean 97 Pulse Oximetry 90 91 89 L Oxygen Delivery Method Oxygen Flow Rate 04/30/19 18:10 04/30/19 18:20 04/30/19 18:30 Pulse Rate 107 H 96 H 108 H Pulse Rate from SpO2 Sensor 101 H Respiratory Rate 21 19 19 Blood Pressure 145/85 H Blood Pressure Mean 105 Pulse Oximetry 90 Oxygen Delivery Method Oxygen Flow Rate 04/30/19 18:40 Pulse Rate 99 H Pulse Rate from SpO2 Sensor 106 H Respiratory Rate 23 Blood Pressure Blood Pressure Mean Pulse Oximetry 91 Oxygen Delivery Method Nasal Cannula Oxygen Flow Rate 4 GENERAL: Patient is awake alert in no acute distress patient is resting comfortably and showing no signs of anxiety EYES: The conjunctivae are clear. The pupils are round and reactive. EARS, NOSE, MOUTH AND THROAT: The nose is without any evidence of any deformity. Mucous membranes are moist tongue is midline NECK: The neck is nontender and supple. RESPIRATORY: Diminished breath sounds were noted throughout. There was significant tachypnea and conversational dyspnea. There were rales at both bases. CARDIOVASCULAR: Regular rate and rhythm noted there no murmurs rubs or gallops normal S1 normal S2 GASTROINTESTINAL: The abdomen is soft. Bowel sounds are present in all quadrants. Abdomen is nontender MUSCULOSKELETAL/EXTREMITIES: There is no evidence of gross deformity full range of motion is noted in the hips and shoulders SKIN: There is no obvious evidence of any rash. Pedal edema was noted bilaterally peer NEUROLOGIC: Patient is awake alert and oriented x3. Course 1350: Medical records reviewed. The patient was seen in room C1B, a physical examination was performed. 1453: I spoke to Dr. Coon, [facility] Hospitalist, about the patients case and she agreed to accept the patient for further evaluation. 1500: The patient was admitted. Administered Medications Albuterol (Duoneb) 3 ml INH QIDR JAYLA Stop: 05/30/19 20:59 Last Admin: 05/01/19 15:59 Dose: 3 ml Documented by: [id number] Admin: 05/01/19 11:07 Dose: 3 ml Documented by: [id number] Admin: 05/01/19 07:06 Dose: 3 ml Documented by: [id number] Admin: 04/30/19 20:35 Dose: 3 ml Documented by: [id number] Albuterol (Combivent Respimat) 1 puffs INH QID PRN PRN Reason: Shortness Of Breath Stop: 05/30/19 19:37 Last Admin: 05/01/19 08:07 Dose: 1 puffs Documented by: [id number] Apixaban (Eliquis) 5 mg PO BID JAYLA Stop: 05/30/19 20:59 Last Admin: 05/01/19 08:06 Dose: 5 mg Documented by: [id number] Admin: 04/30/19 21:26 Dose: 5 mg Documented by: [id number] Atorvastatin Calcium (Lipitor) 40 mg PO HS JAYLA Stop: 05/30/19 20:59 Last Admin: 04/30/19 21:25 Dose: 40 mg Documented by: [id number] Diltiazem HCl (Cardizem Cd) 360 mg PO QAM JAYLA Stop: 05/31/19 08:59 Last Admin: 05/01/19 08:06 Dose: 360 mg Documented by: [id number] Doxycycline Hyclate (Vibramycin) 100 mg PO BID JAYLA Stop: 05/08/19 09:14 Last Admin: 05/01/19 10:29 Dose: 100 mg Documented by: [id number] Fish Oil (Camak-3 (Purified Fish Oil)) 1 gm PO BID JAYLA Stop: 05/30/19 20:59 Last Admin: 05/01/19 08:06 Dose: 1 gm Documented by: [id number] Admin: 04/30/19 21:26 Dose: 1 gm Documented by: [id number] Fluticasone Propionate (Flonase) 2 sprays NA QAM JAYLA Stop: 05/31/19 08:59 Last Admin: 05/01/19 08:07 Dose: 2 sprays Documented by: [id number] Guaifenesin (Mucinex) 600 mg PO BID JAYLA Stop: 05/30/19 20:59 Last Admin: 05/01/19 08:05 Dose: 600 mg Documented by: [id number] Admin: 04/30/19 21:25 Dose: 600 mg Documented by: [id number] Methylprednisolone 60 mg/ (Syringe) 0.96 mls @ 1.5 mls/min IV Q8H JAYLA Stop: 05/31/19 07:59 Last Admin: 05/01/19 08:39 Dose: 1.5 mls/min Documented by: [id number] Miscellaneous (Order Awaiting Action) 1 ea N/A QS [facility] Stop: 05/31/19 00:00 Last Admin: 05/01/19 01:34 Dose: Not Given Documented by: [id number] Miscellaneous (Order Awaiting Action) 1 ea N/A QS [facility] Stop: 05/31/19 00:00 Last Admin: 05/01/19 01:34 Dose: Not Given Documented by: [id number] Montelukast Sodium (Singulair) 10 mg PO HS JAYLA Stop: 05/30/19 20:59 Last Admin: 04/30/19 21:25 Dose: 10 mg Documented by: [id number] Multivitamins/Minerals (Multivitamin W/ Minerals Tab) 1 tab PO QAM JAYLA Stop: 05/31/19 08:59 Last Admin: 05/01/19 08:05 Dose: 1 tab Documented by: [id number] Discontinued Medications Albuterol (Duoneb) 12 ml NEB ONE ONE Stop: 04/30/19 13:50 Last Admin: 04/30/19 13:58 Dose: 12 ml Documented by: [id number] Aspirin (Aspirin Chew) 324 mg PO NOW STA Stop: 04/30/19 19:39 Last Admin: 04/30/19 21:28 Dose: 324 mg Documented by: [id number] Furosemide (Lasix) Confirm Administered Dose 40 mg IV .STK-MED ONE Stop: 04/30/19 15:23 Last Admin: 04/30/19 15:30 Dose: Not Given Documented by: [id number] Furosemide 20 mg/ Syringe 2 mls @ 4 mls/min IV ONE ONE Stop: 04/30/19 14:57 Last Admin: 04/30/19 15:30 Dose: 4 mls/min Documented by: [id number] Methylprednisolone (Solumedrol) 125 mg IV NOW STA Stop: 04/30/19 13:50 Last Admin: 04/30/19 14:04 Dose: 125 mg Documented by: [id number] Medical Decision Making Differential Diagnosis Etiologies such as pneumonia, COPD, reactive airway disease, CHF, cardiac ischemia, pulmonary embolism, pneumothorax, musculoskeletal, infections, gastrointestinal, as well as others were entertained. Medical Records Attestation: I reviewed the patient's medical records. Home Medications Current Medication List: was personally reviewed by me Laboratory Data Attestation: I reviewed the patient's lab results. Result diagrams: 05/01/19 07:27 05/01/19 07:27 Lab Results 04/30/19 04/30/19 04/30/19 Range/Units 13:52 13:52 13:52 WBC 8.58 (4.8-10.8) K/uL RBC 4.92 (4.7-6.1) M/uL Hgb 16.6 (14.0-18.0) g/dL Hct 50.0 (42-52) % MCV 101.6 H (80-100) fL MCH 33.7 (25-34) pg MCHC 33.2 (32-36) g/dL RDW Std Deviation 57.9 H (36.4-46.3) fL RDW Coeff of Malik 15.6 H (11.5-14.5) % Plt Count 155 (130-400) K/uL MPV 9.7 (7.4-10.4) fL Immature Gran % (Auto) 0.1 % Neut % (Auto) 61.5 % Lymph % (Auto) 23.9 % [place] % (Auto) 12.2 % Eos % (Auto) 2.1 % Baso % (Auto) 0.2 % Immature Gran # (Auto) 0.01 (0.00-0.02) K/uL Neut # (Auto) 5.27 (1.4-6.5) K/uL Lymph # (Auto) 2.05 (1.2-3.4) K/uL [place] # (Auto) 1.05 H (0.11-0.59) K/uL Eos # (Auto) 0.18 (0-0.5) K/uL Baso # (Auto) 0.02 (0-0.2) K/uL PT 13.0 H (9.0-12.0) Seconds INR 1.3 H (0.9-1.1) APTT 31.3 H (21.0-31.0) Seconds PTT Ratio 1.2 VBG pH (7.36-7.41) VBG pCO2 (38-50) mmHg VBG pO2 mmHg VBG HCO3 mmol/L VBG O2 Saturation % VBG Base Excess mEq/L Barometric Pressure mm/Hg Sodium 139 (136-145) mmol/L Potassium 4.7 (3.5-5.1) mmol/L Chloride 99 (98-107) mmol/L Carbon Dioxide 33 H (21-32) mmol/L Anion Gap 7.0 (3-11) BUN 8 (7-18) mg/dl Creatinine 0.75 (0.6-1.4) mg/dl Est Cr Clr Drug Dosing 126.2 ml/min Est GFR ( Amer) 113.9 Est GFR (Non-Af Amer) 98.3 BUN/Creatinine Ratio 10.3 (10-20) Glucose 101 H (70-99) mg/dl Calcium 8.6 (8.5-10.1) mg/dl Magnesium 2.1 (1.8-2.4) mg/dl Total Bilirubin 1.3 H (0.2-1) mg/dl AST 16 (15-37) U/L ALT 30 (12-78) U/L Alkaline Phosphatase 89 (45-117) U/L Troponin I < 0.015 (0-0.045) ng/ml Total Protein 7.0 (6.4-8.2) gm/dl Albumin 3.2 L (3.4-5.0) gm/dl Globulin 3.8 (2.5-4.0) gm/dl Albumin/Globulin Ratio 0.9 (0.9-2) Urine Color Urine Appearance (Clear) Urine pH (4.5-7.5) Ur Specific [place] (1.000-1.030) Urine Protein (Negative) Urine Glucose (UA) (Negative) Urine Ketones (Negative) Urine Blood (Negative) Urine Nitrite (Negative) Urine Bilirubin (Negative) Urine Urobilinogen (Negative) Ur Leukocyte Esterase (Negative) 04/30/19 04/30/19 Range/Units 14:00 15:32 WBC (4.8-10.8) K/uL RBC (4.7-6.1) M/uL Hgb (14.0-18.0) g/dL Hct (42-52) % MCV (80-100) fL MCH (25-34) pg MCHC (32-36) g/dL RDW Std Deviation (36.4-46.3) fL RDW Coeff of Malik (11.5-14.5) % Plt Count (130-400) K/uL MPV (7.4-10.4) fL Immature Gran % (Auto) % Neut % (Auto) % Lymph % (Auto) % [place] % (Auto) % Eos % (Auto) % Baso % (Auto) % Immature Gran # (Auto) (0.00-0.02) K/uL Neut # (Auto) (1.4-6.5) K/uL Lymph # (Auto) (1.2-3.4) K/uL [place] # (Auto) (0.11-0.59) K/uL Eos # (Auto) (0-0.5) K/uL Baso # (Auto) (0-0.2) K/uL PT (9.0-12.0) Seconds INR (0.9-1.1) APTT (21.0-31.0) Seconds PTT Ratio VBG pH 7.35 L (7.36-7.41) VBG pCO2 63 H (38-50) mmHg VBG pO2 56 mmHg VBG HCO3 34 mmol/L VBG O2 Saturation 88.6 % VBG Base Excess 6.1 mEq/L Barometric Pressure 733.7 mm/Hg Sodium (136-145) mmol/L Potassium (3.5-5.1) mmol/L Chloride (98-107) mmol/L Carbon Dioxide (21-32) mmol/L Anion Gap (3-11) BUN (7-18) mg/dl Creatinine (0.6-1.4) mg/dl Est Cr Clr Drug Dosing ml/min Est GFR ( Amer) Est GFR (Non-Af Amer) BUN/Creatinine Ratio (10-20) Glucose (70-99) mg/dl Calcium (8.5-10.1) mg/dl Magnesium (1.8-2.4) mg/dl Total Bilirubin (0.2-1) mg/dl AST (15-37) U/L ALT (12-78) U/L Alkaline Phosphatase (45-117) U/L Troponin I (0-0.045) ng/ml Total Protein (6.4-8.2) gm/dl Albumin (3.4-5.0) gm/dl Globulin (2.5-4.0) gm/dl Albumin/Globulin Ratio (0.9-2) Urine Color Yellow Urine Appearance Clear (Clear) Urine pH 7.5 (4.5-7.5) Ur Specific [place] 1.010 (1.000-1.030) Urine Protein Negative (Negative) Urine Glucose (UA) Negative (Negative) Urine Ketones Negative (Negative) Urine Blood Negative (Negative) Urine Nitrite Negative (Negative) Urine Bilirubin Negative (Negative) Urine Urobilinogen Negative (Negative) Ur Leukocyte Esterase Negative (Negative) Imaging Data Radiologist's Impression: Radiology results as stated below per my review and the radiologist's interpretation: SINGLE VIEW CHEST CLINICAL HISTORY: Dyspnea. FINDINGS: An AP, portable, upright chest radiograph is compared to study dated 04/05/2019. The heart is markedly enlarged noting atherosclerotic calcification of the thoracic aorta. There is pulmonary vascular congestion. No airspace consolidation or large pleural effusion is identified. There is bibasilar atelectasis. No pneumothorax is seen. The skeletal structures are osteopenic. The bony thorax is grossly intact. IMPRESSION: Cardiomegaly with evidence of mild congestive failure. Electronically signed by: Phill Peña M.D. 04/30/2019 2:30 PM ECG Data Attestation: I personally reviewed and interpreted this ECG as follows: Indication: SOB/dyspnea Rate (beats per minute): 98 Rhythm: atrial fibrillation Findings: + other (no acute ST segments); no PVC Comparison ECG Date: from (08/28/18) Change: no significant change Blood Pressure Blood Pressure Findings: Normal blood pressure MDM Narrative The patient is a 63-year-old male who presented to the emergency department for an evaluation of shortness of breath. The patient was hypoxic. His history and physical exam did appear to be consistent with his COPD given his lung sounds in his presentation. He was treated with bronchodilator therapy as well as IV steroids. He was placed on submental oxygen. The patient had significant improvement of his symptoms. I discussed the patient's laboratory and radiographic studies with him. Given his presentation I also discussed his case with the on-call [facility] hospitalist. They have agreed to evaluate the patient in the emergency department for further management disposition. At the request the patient was also treated with a small dose of IV Lasix. The patient was feeling much better on subsequent reevaluation. Impression & Plan COPD exacerbation, Hypoxia, MCMILLAN (dyspnea on exertion) Discharge Plan Visit Data *Final* Discharge Date/Time: 04/30/19 19:31 Chief Complaint: Shortness of Breath/Dyspnea Stated Complaint: DIFFICULTY BREATHING- HX COPD ED Provider: Kong Ernst Discharge Problem: COPD exacerbation, Hypoxia, MCMILLAN (dyspnea on exertion) Patient Disposition: Admitted As Inpatient Discharge Instructions Interventions: ED Discharge Assessment Last Done: 04/30/19 19:31 The scribe's documentation has been prepared under my direction and personally reviewed by me in its entirety. I confirm that the note above accurately reflects all work, treatment, procedures, and medical decision making performed by me.
--- NOTE | 2019-04-30 14:32 | XRay Report ---
SINGLE VIEW CHEST CLINICAL HISTORY: Dyspnea. FINDINGS: An AP, portable, upright chest radiograph is compared to study dated 04/05/2019. The heart i s markedly enlarged noting atherosclerotic calcification of the thoracic aorta. There is pulmonary va scular congestion. No airspace consolidation or large pleural effusion is identified. There is bibasi lar atelectasis. No pneumothorax is seen. The skeletal structures are osteopenic. The bony thorax is grossly intact. IMPRESSION: Cardiomegaly with evidence of mild congestive failure. Electronically signed by: Phill Peña M.D. 04/30/2019 2:30 PM
[2019-04-30] MEDS ORDERED: FUROSEMIDE 20 MG in SYRINGE 0 ML IV ONE (14:56)
[2019-04-30] MEDS ORDERED: FUROSEMIDE 40 MG/4 ML VIAL IV ONE (15:22)
[2019-04-30 16:27] LABS: Appearance Urine Clear (Clear); Bilirubin Urine Negative (Negative); Blood Urine Negative (Negative); Color Urine Yellow; Glucose Urine UA Negative (Negative); Ketones Urine Negative (Negative); Leukocyte Esterase Urine Negative (Negative); Nitrite Urine Negative (Negative); Protein Urine Negative (Negative); Urobilinogen Urine Negative (Negative); pH Urine 7.5 (4.5-7.5)
--- NOTE | 2019-04-30 18:39 | History & Physical Report ---
Date of Service April 30, 2019 Assessment & Plan (1) COPD exacerbation: Admit to PCU on telemetry for observation Vital signs every 4 hours BNP pending CBC CMP daily Troponin every 6 hours since ER physician was concerned about cardiomegaly EKG every 6 hours x2 Solu-Medrol 30 every 8 hours and taper down Duo nebs every 4 hours as needed for shortness of breath Started doxycycline IV 100 mg twice daily then switched to p.o. for COPD Present on Admission?: Yes (2) Hypoxia: On supplemental oxygen as needed especially at night at least 2 L. Patient required 5 L in the ER. Present on Admission?: Yes (3) Tobacco abuse: Patient recommended to stop smoking. Offered nicotine patch which he refused. Present on Admission?: Yes (4) Chronic diastolic congestive heart failure: Continue home medicine. Will do TTE tomorrow. Continue following on telemetry. Troponin every 6 hours x2. EKH x 2 Monitor in and out Daily weight Reassess patient if needs to repeat doses of Lasix. For now on Lasix 20 mg IV BNP pending For A. fib's continue with diltiazem 180 mg extended release, and apixaban 5 mg p.o. twice daily. Present on Admission?: Yes (5) Hyperlipidemia: Continue atorvastatin 40 mg p.o. nightly Present on Admission?: Yes (6) Cardiomegaly: We will do TTE Consider consulting cardiology to be seen TTE results Present on Admission?: Yes History of Present Illness Chief Complaint: Shortness of breath Primary Care Provider: Aristeo Vicente MD Patient is a 63 years old male with past medical history of COPD, congestive heart failure(chronic diastolic), atrial fibrillation, current smoker half pack per day, emphysema of the lungs, hyperlipidemia who presents to the emergency department for evaluation of shortness of breath. Patient noticed shortness of breath which was slowly progressed over the past 2 to 3days he does wear oxygen at night but does not wear 24 7. Patient said at night he was only 2 L of oxygen. Patient still smokes approximately half pack per day patient noticed worsening shortness of breath with exertion. His cough is nonproductive. Patient denies fever chills chest pain abdominal pain frequency hemoptysis hematemesis dysuria hematuria. Patient denies recent trips or procedure. Patient states that he has history of COPD and months ago he was treated with steroids as well as Levaquin. Labs are reviewed and shows: White blood cell 8.58 hemoglobin 16 hematocrit 50 platelets 155, PT 13 INR 1.3, APTT 31.3, sodium 139, potassium 4.7, chloride 99 anion gap 7 BUN 8 creatinine 0.75 GFR 98.3, magnesium 2.1 total bili 1.3, AST 16 ALT 30 alkaline phosphatase 89, albumin 3.2 troponin 0 0.015, urine clear, chest x-ray is cardiomegaly with evidence with mild congestive failure. BNP pending. Decision was made to admit patient for observation on telemetry and to rule out ACS. Allergies Allergy/AdvReac Type Severity Reaction Status Date / Time No Known Allergies Allergy Verified 04/30/19 14:02 Home Medications Home Medications Medication Instructions Recorded Confirmed Type Breo Ellipta 1 inh INHALATION QAM 07/16/18 04/30/19 History Combivent Respimat 1 puff INHALATION QID PRN 07/16/18 04/30/19 History atorvastatin 40 mg PO HS 07/16/18 04/30/19 History clobetasol [Temovate] 1 applic TOPICAL BID 07/16/18 04/30/19 History montelukast 10 mg PO HS 07/16/18 04/30/19 History apixaban 5 mg tablet 5 mg PO BID #60 tab 04/05/19 04/30/19 History diltiazem CD 180 mg 360 mg PO QAM #180 cap 04/05/19 04/30/19 History capsule,extended release 24 hr fluticasone propionate 50 2 sprays INTRANASAL QAM #1 gm 04/05/19 04/30/19 History mcg/actuation nasal spray,suspension guaifenesin ER 600 mg tablet, 600 mg PO BID tab 04/05/19 04/30/19 History extended release 12 hr multivitamin with minerals tablet 1 tab PO QAM tab 04/05/19 04/30/19 History omega-3 fatty acids 1,000 mg 1,000 mg PO BID 04/05/19 04/30/19 History capsule ipratropium-albuterol 0.5 mg-3 3 ml INHALATION QID #180 ml 04/07/19 04/30/19 Rx mg(2.5 mg base)/3 mL nebulization soln Past Med/Surg History Medical History Atrial flutter with rapid ventricular response Current smoker Acute and chronic respiratory failure with hypoxia CHF (congestive heart failure) Atrial fibrillation, new onset (Acute) COPD (chronic obstructive pulmonary disease) (Chronic) Emphysema of lung (Chronic) Hyperlipidemia (Chronic) Chronic respiratory failure with hypercapnia (Chronic) Family History Father CHF (congestive heart failure) Social History Preferred Language: Divehi Communication Ability: Effective [employer] Required: No Beliefs That Will Affect Care: None Current Living Situation: Family Current Living Situation Comment: lives with sister Feels Safe at Home: Yes Smoking Status: Current every day smoker Tobacco Type: cigarettes ; Cigarettes Per Day: 10 ; Second Hand Exposure: No ; Hx Alcohol Use: No Hx Substance Use: No Review of Systems Review of Systems: All systems reviewed & are unremarkable except as noted in HPI & below Physical Exam Constitutional: WD/WN, vitals as above well developed Eyes: PERRL, conjunctivae normal, anicteric sclerae ENMT: external ear and nose normal, oropharynx normal Neck: trachea midline, no thyromegaly Respiratory: Auscultation: + crackles and + wheezes Cardiovascular: Heart Sounds: normal S1 and normal S2 Palpation: + palpable S3 Vessels: + JVD and dorsalis pedis pulses present Extremities: + pedal edema Gastrointestinal (Abdomen): normal bowel sounds, soft, nontender, no hepatosplenomegaly Musculoskeletal: no cyanosis or clubbing, extremities motor strength 5/5 Skin: no rashes, warm and dry Neurologic: patellar DTR's 2+ bilat, sensation intact Psychiatric: A+Ox3, euthymic affect Lymphatic: no cervical or axillary lymphadenopathy Results & Data Vital Signs (Past 12 Hours) Vital Signs Temp Pulse Pulse Resp BP Pulse Ox 04/30/19 17:00 86 19 89 L 04/30/19 16:50 93 H 27 H 90 04/30/19 16:40 89 18 90 04/30/19 16:30 112 H 24 122/77 89 L 04/30/19 16:20 95 H 23 90 04/30/19 16:10 94 H 24 92 04/30/19 16:00 97 H 22 131/80 92 04/30/19 15:50 93 H 15 88 L 04/30/19 15:40 101 H 21 88 L 04/30/19 15:30 93 H 15 136/79 85 L 04/30/19 15:20 93 H 22 95 04/30/19 15:10 98 H 16 95 04/30/19 15:00 98 H 22 117/69 94 04/30/19 14:50 101 H 24 96 04/30/19 14:40 119 H 19 96 04/30/19 14:30 89 23 102/71 96 04/30/19 14:20 106 H 17 96 04/30/19 14:10 83 18 94 04/30/19 14:02 89 23 93 04/30/19 14:01 92 H 17 104/65 95 04/30/19 14:00 87 17 91 04/30/19 13:59 94 H 18 90 04/30/19 13:51 91 H 26 H 96/64 L 91 04/30/19 13:50 90 21 91 04/30/19 13:49 94 H 23 90 04/30/19 13:42 90 04/30/19 13:36 36.9 C 91 H 24 123/73 80 L Code Status & VTE Plan Code Status Full code VTE Prophylaxis Plan VTE Prophylaxis will be ordered: Yes PG Care Time/CCT Total # of Minutes Spent Total Time Spent with Patient: Total time spent is greater than 50% in coordination of care (as documented) at patient's floor/unit and/or counseling patient: (1) Hyperlipidemia Hyperlipidemia type: unspecified Qualified Code(s): E78.5 - Hyperlipidemia, unspecified
[2019-04-30] MEDS ORDERED: ACETAMINOPHEN 325 MG TAB PO PRN (19:38)
[2019-04-30] MEDS ORDERED: NITROGLYCERIN SL 0.4 MG/TAB TAB SL PRN (19:38)
[2019-04-30] MEDS ORDERED: IPRATROPIUM BROMIDE/ALBUTEROL respimat INH INH PRN (19:38)
[2019-04-30] MEDS ORDERED: ZOLPIDEM TARTRATE 5 MG TAB PO PRN (19:38)
[2019-04-30] MEDS ORDERED: ALUMINUM/MAGNESIUM SUSP 30 ML UDC PO PRN (19:38)
[2019-04-30] MEDS ORDERED: ASPIRIN 81 MG CHEW PO STA (19:38)
[2019-04-30] MEDS ORDERED: POLYETHYLENE (MIRALAX) 17 GM PACK PO PRN (19:38)
[2019-04-30] MEDS ORDERED: MAGNESIUM HYDROXIDE SUSP 30 ML UDC PO PRN (19:38)
[2019-04-30 20:29] LABS: NT Pro B Type Natriuretic Pept 635 pg/ml (0-900); Troponin I < 0.015 ng/ml (0-0.045)
[2019-04-30] MEDS: ALBUT/IPRATROP 3MG/0.5MG NEB 3 ML VIAL INH SCH (20:35)
[2019-04-30] MEDS: ATORVASTATIN 40 MG TAB PO SCH (21:25)
[2019-04-30] MEDS: guaiFENesin 600 MG TABCR PO SCH (21:25)
[2019-04-30] MEDS: MONTELUKAST SODIUM 10 MG TABLET PO SCH (21:25)
[2019-04-30] MEDS: APIXABAN 5 MG TABLET PO SCH (21:26)
[2019-04-30] MEDS: OMEGA-3 (PURIFIED FISH OIL) 1 GM CAP PO SCH (21:26)
[2019-05-01] MEDS: ALBUT/IPRATROP 3MG/0.5MG NEB 3 ML VIAL INH SCH ×4 (07:06→19:57)
[2019-05-01 07:57] LABS: Hematocrit (blood only) 51.6 % (42-52); Immature Granulocytes # (auto) 0.02 K/uL (0.00-0.02); Immature Granulocytes % (auto) 0.2 %; Lymphocytes # (auto) 0.81 K/uL (1.2-3.4); Lymphocytes % (auto) 8.4 %; Mean Corpuscular Hgb Conc 32.9 g/dL (32-36); Mean Corpuscular Volume 100.8 fL (80-100); Mean Platelet Volume 9.9 fL (7.4-10.4); Monocytes # (auto) 0.23 K/uL (0.11-0.59); Monocytes % (auto) 2.4 %; Neutrophils # (auto) 8.57 K/uL (1.4-6.5); Platelet Count 170 K/uL (130-400); RDW Coefficient of Variation 15.2 % (11.5-14.5); RDW Standard Deviation 55.6 fL (36.4-46.3); Red Blood Count 5.12 M/uL (4.7-6.1); White Blood Count 9.63 K/uL (4.8-10.8)
[2019-05-01] MEDS: guaiFENesin 600 MG TABCR PO SCH (08:05)
[2019-05-01] MEDS: CEROVITE ADV FORMULA TAB PO SCH (08:05)
[2019-05-01] MEDS: APIXABAN 5 MG TABLET PO SCH ×2 (08:06→20:16)
[2019-05-01] MEDS: dilTIAZem HCL 180 MG CAPCR PO SCH (08:06)
[2019-05-01] MEDS: OMEGA-3 (PURIFIED FISH OIL) 1 GM CAP PO SCH ×2 (08:06→20:15)
[2019-05-01] MEDS: FLUTICASONE PROPIONATE NA SPR 16 GM BTL SCH (08:07)
[2019-05-01 08:09] LABS: INR 1.3 (0.9-1.1); Partial Thromboplastin Ratio 1.1; Partial Thromboplastin Time 29.6 Seconds (21.0-31.0); Prothrombin Time 13.3 Seconds (9.0-12.0)
[2019-05-01] MEDS: methylPREDNISolone 60 MG in SYRINGE 0 ML IV SCH ×3 (08:39→23:14)
--- NOTE | 2019-05-01 09:12 | Family Medicine Progress Note ---
Date of Service May 01, 2019 Assessment & Plan (1) MCMILLAN (dyspnea on exertion): 63M here for MCMILLAN PMH inc atrial fibrillation on eliquis, BPH with obstruction/lower urinary tract symptoms, chronic respiratory failure, severe COPD GOLD 2, current tobacco use, history of MAC/IDA infection, hyperlipidemia, HFpEF, obstructive sleep apnea dependent on nocturnal O2. Recent outpatient records reviewed: COPD exac in March, and hospitalized for the same Aug 2018. 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 -scheduled duonebs, with PRN -doxy 100 BID for 10 day course. -cont home guiafenasin. -may req 2 step upon dc for proper adjustment of O2 script FEN/GI: cautious with fluids. HH, low sod diet DVT ppx: on eliquis CODE STATUS: FULL DISPO: med tele. Other ongoing medical issues: Atrial fibrillation: continue diltiazem and eliquis HLD: cont atorvastatin 40mg Allergic rhinitis: cont home singulair (2) Dependence on nocturnal oxygen therapy: (3) COPD exacerbation: (4) Hypoxia: (5) Cardiomegaly: (6) Tobacco abuse: (7) Chronic diastolic congestive heart failure: (8) Atrial fibrillation: Supervising Physician Co-Signing Physician Notes Attending attestation Pt seen and examined in concert with Dr. Truong. In agreement with the documented findings as noted in the resident documentation with any exceptions or additions as noted here. Gradual improvement in shortness of breath without other complaint at present. Strongly considering smoking cessation at present. On examination, S1/S2 nl, no MCG. Diffusely decreased breath sounds with rales and rhonchi. Shortness of breath - likely 2/2 COPD with exacerbation - monitor I/O/weights. Continue steroids IV with gradual taper, neb therapy. Patient of Dr. Vogt - partially, this admission is 2/2 broken nebulizer at home with exacerbation of sx, will need new neb prior to discharge. AF - rate controlled on diltiazem. Patrica for AC. Would eschew guaifenesin if possible. Else see resident documentation as noted. Subjective Examined pt at the bedside says he feels his breathing is easier this morning compared to yesterday tolerating po denies chest pain, productive cough, abdominal pain or dysuria Review of Systems Review of Systems: All systems reviewed & are unremarkable except as noted in HPI & below Physical Exam Physical Exam: Vitals noted and within normal limits. rate 91, 90% on 4L GENERAL: Awake, alert to person, place, and time, nontoxic-appearing, in no distress. HENT: Normocephalic, atraumatic. Nasal cannula in place. EYES: Normal conjunctiva. Sclera non-icteric. EOMI. NECK: Supple. Full range of motion. No JVD. RESPIRATORY: Clear to auscultation. Normal work of breathing. + end expiratory wheezing bilaterally LT>>RT CARDIAC: irregularly irregular rate rhythm, rate 90s. Extremities warm and well perfused, ABDOMEN: Soft, non-distended. No tenderness to palpation. Bowel sounds are normal. LOWER EXTREMITIES: Inspection of calves reveal equal size bilaterally. They are non-tender. No edema. No discoloration. NEURO: No gross focal motor deficits noted. Sensation in tact. CN II-XII grossly in tact. . SKIN: Rash not present. No jaundice noted. PSYCH: Appropriate mood and affect. Cooperative. Exam as done by Arianna Truong MD, [facility]. Results & Data Vital Signs (Past 12 Hours) Vital Signs Temp Pulse Resp BP Pulse Ox 05/01/19 07:15 36.4 C L 91 H 20 135/76 90 05/01/19 07:06 89 18 90 05/01/19 04:00 36.4 C L 92 H 20 130/82 93 05/01/19 00:06 36.6 C 89 16 135/80 91 Laboratory Results 05/01/19 05/01/19 05/01/19 Range/Units 07:27 07:27 07:27 WBC (4.8-10.8) K/uL RBC (4.7-6.1) M/uL Hgb (14.0-18.0) g/dL Hct (42-52) % MCV (80-100) fL MCH (25-34) pg MCHC (32-36) g/dL RDW Std Deviation (36.4-46.3) fL RDW Coeff of Malik (11.5-14.5) % Plt Count (130-400) K/uL MPV (7.4-10.4) fL Immature Gran % (Auto) % Neut % (Auto) % Lymph % (Auto) % [place] % (Auto) % Eos % (Auto) % Baso % (Auto) % Immature Gran # (Auto) (0.00-0.02) K/uL Neut # (Auto) (1.4-6.5) K/uL Lymph # (Auto) (1.2-3.4) K/uL [place] # (Auto) (0.11-0.59) K/uL Eos # (Auto) (0-0.5) K/uL Baso # (Auto) (0-0.2) K/uL PT 13.3 H (9.0-12.0) Seconds INR 1.3 H (0.9-1.1) APTT 29.6 (21.0-31.0) Seconds PTT Ratio 1.1 VBG pH (7.36-7.41) VBG pCO2 (38-50) mmHg VBG pO2 mmHg VBG HCO3 mmol/L VBG O2 Saturation % VBG Base Excess mEq/L Barometric Pressure mm/Hg Sodium Pending (136-145) mmol/L Potassium Pending (3.5-5.1) mmol/L Chloride Pending (98-107) mmol/L Carbon Dioxide Pending (21-32) mmol/L Anion Gap Pending (3-11) BUN Pending (7-18) mg/dl Creatinine Pending (0.6-1.4) mg/dl Est Cr Clr Drug Dosing Pending ml/min Est GFR ( Amer) Pending Est GFR (Non-Af Amer) Pending BUN/Creatinine Ratio Pending (10-20) Glucose Pending (70-99) mg/dl Calcium Pending (8.5-10.1) mg/dl Magnesium (1.8-2.4) mg/dl Total Bilirubin Pending (0.2-1) mg/dl AST Pending (15-37) U/L ALT Pending (12-78) U/L Alkaline Phosphatase Pending (45-117) U/L Troponin I (0-0.045) ng/ml NT-Pro-B Natriuret Pep (0-900) pg/ml Total Protein Pending (6.4-8.2) gm/dl Albumin Pending (3.4-5.0) gm/dl Globulin Pending (2.5-4.0) gm/dl Albumin/Globulin Ratio Pending (0.9-2) Urine Color Urine Appearance (Clear) Urine pH (4.5-7.5) Ur Specific [place] (1.000-1.030) Urine Protein (Negative) Urine Glucose (UA) (Negative) Urine Ketones (Negative) Urine Blood (Negative) Urine Nitrite (Negative) Urine Bilirubin (Negative) Urine Urobilinogen (Negative) Ur Leukocyte Esterase (Negative) Hepatitis C Ab Screen Pending 05/01/19 04/30/19 04/30/19 Range/Units 07:27 19:51 15:32 WBC 9.63 (4.8-10.8) K/uL RBC 5.12 (4.7-6.1) M/uL Hgb 17.0 (14.0-18.0) g/dL Hct 51.6 (42-52) % MCV 100.8 H (80-100) fL MCH 33.2 (25-34) pg MCHC 32.9 (32-36) g/dL RDW Std Deviation 55.6 H (36.4-46.3) fL RDW Coeff of Malik 15.2 H (11.5-14.5) % Plt Count 170 (130-400) K/uL MPV 9.9 (7.4-10.4) fL Immature Gran % (Auto) 0.2 % Neut % (Auto) 89.0 % Lymph % (Auto) 8.4 % [place] % (Auto) 2.4 % Eos % (Auto) 0.0 % Baso % (Auto) 0.0 % Immature Gran # (Auto) 0.02 (0.00-0.02) K/uL Neut # (Auto) 8.57 H (1.4-6.5) K/uL Lymph # (Auto) 0.81 L (1.2-3.4) K/uL [place] # (Auto) 0.23 (0.11-0.59) K/uL Eos # (Auto) 0.00 (0-0.5) K/uL Baso # (Auto) 0.00 (0-0.2) K/uL PT (9.0-12.0) Seconds INR (0.9-1.1) APTT (21.0-31.0) Seconds PTT Ratio VBG pH (7.36-7.41) VBG pCO2 (38-50) mmHg VBG pO2 mmHg VBG HCO3 mmol/L VBG O2 Saturation % VBG Base Excess mEq/L Barometric Pressure mm/Hg Sodium (136-145) mmol/L Potassium (3.5-5.1) mmol/L Chloride (98-107) mmol/L Carbon Dioxide (21-32) mmol/L Anion Gap (3-11) BUN (7-18) mg/dl Creatinine (0.6-1.4) mg/dl Est Cr Clr Drug Dosing ml/min Est GFR ( Amer) Est GFR (Non-Af Amer) BUN/Creatinine Ratio (10-20) Glucose (70-99) mg/dl Calcium (8.5-10.1) mg/dl Magnesium (1.8-2.4) mg/dl Total Bilirubin (0.2-1) mg/dl AST (15-37) U/L ALT (12-78) U/L Alkaline Phosphatase (45-117) U/L Troponin I < 0.015 (0-0.045) ng/ml NT-Pro-B Natriuret Pep 635 (0-900) pg/ml Total Protein (6.4-8.2) gm/dl Albumin (3.4-5.0) gm/dl Globulin (2.5-4.0) gm/dl Albumin/Globulin Ratio (0.9-2) Urine Color Yellow Urine Appearance Clear (Clear) Urine pH 7.5 (4.5-7.5) Ur Specific [place] 1.010 (1.000-1.030) Urine Protein Negative (Negative) Urine Glucose (UA) Negative (Negative) Urine Ketones Negative (Negative) Urine Blood Negative (Negative) Urine Nitrite Negative (Negative) Urine Bilirubin Negative (Negative) Urine Urobilinogen Negative (Negative) Ur Leukocyte Esterase Negative (Negative) Hepatitis C Ab Screen 04/30/19 04/30/19 04/30/19 Range/Units 14:00 13:52 13:52 WBC (4.8-10.8) K/uL RBC (4.7-6.1) M/uL Hgb (14.0-18.0) g/dL Hct (42-52) % MCV (80-100) fL MCH (25-34) pg MCHC (32-36) g/dL RDW Std Deviation (36.4-46.3) fL RDW Coeff of Malik (11.5-14.5) % Plt Count (130-400) K/uL MPV (7.4-10.4) fL Immature Gran % (Auto) % Neut % (Auto) % Lymph % (Auto) % [place] % (Auto) % Eos % (Auto) % Baso % (Auto) % Immature Gran # (Auto) (0.00-0.02) K/uL Neut # (Auto) (1.4-6.5) K/uL Lymph # (Auto) (1.2-3.4) K/uL [place] # (Auto) (0.11-0.59) K/uL Eos # (Auto) (0-0.5) K/uL Baso # (Auto) (0-0.2) K/uL PT 13.0 H (9.0-12.0) Seconds INR 1.3 H (0.9-1.1) APTT 31.3 H (21.0-31.0) Seconds PTT Ratio 1.2 VBG pH 7.35 L (7.36-7.41) VBG pCO2 63 H (38-50) mmHg VBG pO2 56 mmHg VBG HCO3 34 mmol/L VBG O2 Saturation 88.6 % VBG Base Excess 6.1 mEq/L Barometric Pressure 733.7 mm/Hg Sodium 139 (136-145) mmol/L Potassium 4.7 (3.5-5.1) mmol/L Chloride 99 (98-107) mmol/L Carbon Dioxide 33 H (21-32) mmol/L Anion Gap 7.0 (3-11) BUN 8 (7-18) mg/dl Creatinine 0.75 (0.6-1.4) mg/dl Est Cr Clr Drug Dosing 126.2 ml/min Est GFR ( Amer) 113.9 Est GFR (Non-Af Amer) 98.3 BUN/Creatinine Ratio 10.3 (10-20) Glucose 101 H (70-99) mg/dl Calcium 8.6 (8.5-10.1) mg/dl Magnesium 2.1 (1.8-2.4) mg/dl Total Bilirubin 1.3 H (0.2-1) mg/dl AST 16 (15-37) U/L ALT 30 (12-78) U/L Alkaline Phosphatase 89 (45-117) U/L Troponin I < 0.015 (0-0.045) ng/ml NT-Pro-B Natriuret Pep (0-900) pg/ml Total Protein 7.0 (6.4-8.2) gm/dl Albumin 3.2 L (3.4-5.0) gm/dl Globulin 3.8 (2.5-4.0) gm/dl Albumin/Globulin Ratio 0.9 (0.9-2) Urine Color Urine Appearance (Clear) Urine pH (4.5-7.5) Ur Specific [place] (1.000-1.030) Urine Protein (Negative) Urine Glucose (UA) (Negative) Urine Ketones (Negative) Urine Blood (Negative) Urine Nitrite (Negative) Urine Bilirubin (Negative) Urine Urobilinogen (Negative) Ur Leukocyte Esterase (Negative) Hepatitis C Ab Screen 04/30/19 Range/Units 13:52 WBC 8.58 (4.8-10.8) K/uL RBC 4.92 (4.7-6.1) M/uL Hgb 16.6 (14.0-18.0) g/dL Hct 50.0 (42-52) % MCV 101.6 H (80-100) fL MCH 33.7 (25-34) pg MCHC 33.2 (32-36) g/dL RDW Std Deviation 57.9 H (36.4-46.3) fL RDW Coeff of Malik 15.6 H (11.5-14.5) % Plt Count 155 (130-400) K/uL MPV 9.7 (7.4-10.4) fL Immature Gran % (Auto) 0.1 % Neut % (Auto) 61.5 % Lymph % (Auto) 23.9 % [place] % (Auto) 12.2 % Eos % (Auto) 2.1 % Baso % (Auto) 0.2 % Immature Gran # (Auto) 0.01 (0.00-0.02) K/uL Neut # (Auto) 5.27 (1.4-6.5) K/uL Lymph # (Auto) 2.05 (1.2-3.4) K/uL [place] # (Auto) 1.05 H (0.11-0.59) K/uL Eos # (Auto) 0.18 (0-0.5) K/uL Baso # (Auto) 0.02 (0-0.2) K/uL PT (9.0-12.0) Seconds INR (0.9-1.1) APTT (21.0-31.0) Seconds PTT Ratio VBG pH (7.36-7.41) VBG pCO2 (38-50) mmHg VBG pO2 mmHg VBG HCO3 mmol/L VBG O2 Saturation % VBG Base Excess mEq/L Barometric Pressure mm/Hg Sodium (136-145) mmol/L Potassium (3.5-5.1) mmol/L Chloride (98-107) mmol/L Carbon Dioxide (21-32) mmol/L Anion Gap (3-11) BUN (7-18) mg/dl Creatinine (0.6-1.4) mg/dl Est Cr Clr Drug Dosing ml/min Est GFR ( Amer) Est GFR (Non-Af Amer) BUN/Creatinine Ratio (10-20) Glucose (70-99) mg/dl Calcium (8.5-10.1) mg/dl Magnesium (1.8-2.4) mg/dl Total Bilirubin (0.2-1) mg/dl AST (15-37) U/L ALT (12-78) U/L Alkaline Phosphatase (45-117) U/L Troponin I (0-0.045) ng/ml NT-Pro-B Natriuret Pep (0-900) pg/ml Total Protein (6.4-8.2) gm/dl Albumin (3.4-5.0) gm/dl Globulin (2.5-4.0) gm/dl Albumin/Globulin Ratio (0.9-2) Urine Color Urine Appearance (Clear) Urine pH (4.5-7.5) Ur Specific [place] (1.000-1.030) Urine Protein (Negative) Urine Glucose (UA) (Negative) Urine Ketones (Negative) Urine Blood (Negative) Urine Nitrite (Negative) Urine Bilirubin (Negative) Urine Urobilinogen (Negative) Ur Leukocyte Esterase (Negative) Hepatitis C Ab Screen Medications Administered Current Inpatient Medications Acetaminophen (Tylenol) 650 mg PO Q4H PRN PRN Reason: Pain or Fever Stop: 05/30/19 19:37 Al Hydrox/Mg Hydrox/Simethicone (Maalox) 15 ml PO Q4H PRN PRN Reason: Dyspepsia Stop: 05/30/19 19:37 Albuterol (Duoneb) 3 ml INH QIDR [facility] Stop: 05/30/19 20:59 Last Admin: 05/01/19 07:06 Dose: 3 ml Documented by: Albuterol (Combivent Respimat) 1 puffs INH QID PRN PRN Reason: Shortness Of Breath Stop: 05/30/19 19:37 Last Admin: 05/01/19 08:07 Dose: 1 puffs Documented by: Apixaban (Eliquis) 5 mg PO BID [facility] Stop: 05/30/19 20:59 Last Admin: 05/01/19 08:06 Dose: 5 mg Documented by: Atorvastatin Calcium (Lipitor) 40 mg PO HS [facility] Stop: 05/30/19 20:59 Last Admin: 04/30/19 21:25 Dose: 40 mg Documented by: Diltiazem HCl (Cardizem Cd) 360 mg PO QAM [facility] Stop: 05/31/19 08:59 Last Admin: 05/01/19 08:06 Dose: 360 mg Documented by: Fish Oil ([place]-3 (Purified Fish Oil)) 1 gm PO BID [facility] Stop: 05/30/19 20:59 Last Admin: 05/01/19 08:06 Dose: 1 gm Documented by: Fluticasone Propionate (Flonase) 2 sprays NA QAM [facility] Stop: 05/31/19 08:59 Last Admin: 05/01/19 08:07 Dose: 2 sprays Documented by: Guaifenesin (Mucinex) 600 mg PO BID [facility] Stop: 05/30/19 20:59 Last Admin: 05/01/19 08:05 Dose: 600 mg Documented by: Methylprednisolone 60 mg/ (Syringe) 0.96 mls @ 1.5 mls/min IV Q8H JAYLA Stop: 05/31/19 07:59 Last Admin: 05/01/19 08:39 Dose: 1.5 mls/min Documented by: Magnesium Hydroxide (Milk Of Magnesia) 30 ml PO Q12H PRN PRN Reason: Constipation Stop: 05/30/19 19:37 Miscellaneous (Order Awaiting Action) 1 ea N/A QS JAYLA Stop: 05/31/19 00:00 Last Admin: 05/01/19 01:34 Dose: Not Given Documented by: Miscellaneous (Order Awaiting Action) 1 ea N/A QS JAYLA Stop: 05/31/19 00:00 Last Admin: 05/01/19 01:34 Dose: Not Given Documented by: Montelukast Sodium (Singulair) 10 mg PO HS JAYLA Stop: 05/30/19 20:59 Last Admin: 04/30/19 21:25 Dose: 10 mg Documented by: Multivitamins/Minerals (Multivitamin W/ Minerals Tab) 1 tab PO QAM JAYLA Stop: 05/31/19 08:59 Last Admin: 05/01/19 08:05 Dose: 1 tab Documented by: Nitroglycerin (Nitrostat) 0.4 mg SL UD PRN PRN Reason: Chest Pain Stop: 05/30/19 19:37 Polyethylene Glycol (Miralax Powder Packet) 17 gm PO DAILY PRN PRN Reason: Constipation Stop: 05/30/19 19:37 Zolpidem Tartrate (Ambien) 5 mg PO HS PRN PRN Reason: Sleep Stop: 05/30/19 19:37 PG Care Time/CCT Total # of Minutes Spent Total Time Spent with Patient: Total time spent is greater than 50% in coordination of care (as documented) at patient's floor/unit and/or counseling patient: Resident Activity Tracking Resident Involvement: Resident Care Provided Care Provided: Adult Hospital Medicine
[2019-05-01 09:15] LABS: Albumin Level 3.1 gm/dl (3.4-5.0); BUN Creatinine Ratio 15.8 (10-20); Calcium 8.4 mg/dl (8.5-10.1); Creatinine Clr Calc Pharmacy 116.1 ml/min; Est GFR (African American) 110.4; Est GFR (Non-African American) 95.3; Potassium 4.7 mmol/L (3.5-5.1)
[2019-05-01 09:17] LABS: Albumin Globulin Ratio 0.8 (0.9-2); Bilirubin,Total 1.6 mg/dl (0.2-1); Total Protein 7.1 gm/dl (6.4-8.2)
[2019-05-01] MEDS: DOXYCYCLINE HYCLATE 100 MG CAP PO SCH ×2 (10:29→20:16)
[2019-05-01] MEDS: MONTELUKAST SODIUM 10 MG TABLET PO SCH (20:15)
[2019-05-01] MEDS: ATORVASTATIN 40 MG TAB PO SCH (20:16)
[2019-05-02] MEDS: ALBUT/IPRATROP 3MG/0.5MG NEB 3 ML VIAL INH SCH ×2 (07:09→11:14)
[2019-05-02] MEDS: APIXABAN 5 MG TABLET PO SCH ×2 (08:47→21:30)
[2019-05-02] MEDS: methylPREDNISolone 60 MG in SYRINGE 0 ML IV SCH (08:47)
[2019-05-02] MEDS: CEROVITE ADV FORMULA TAB PO SCH (08:47)
[2019-05-02] MEDS: DOXYCYCLINE HYCLATE 100 MG CAP PO SCH ×2 (08:48→21:31)
[2019-05-02] MEDS: dilTIAZem HCL 180 MG CAPCR PO SCH (08:48)
[2019-05-02] MEDS: OMEGA-3 (PURIFIED FISH OIL) 1 GM CAP PO SCH ×2 (08:49→21:30)
[2019-05-02] MEDS: FLUTICASONE PROPIONATE NA SPR 16 GM BTL SCH (08:49)
[2019-05-02] MEDS ORDERED: ALBUT/IPRATROP 3MG/0.5MG NEB 3 ML VIAL INH PRN (13:46)
--- NOTE | 2019-05-02 13:48 | Family Medicine Progress Note ---
Date of Service May 02, 2019 Assessment & Plan (1) MCMILLAN (dyspnea on exertion): 63M here for MCMILLAN PMH inc atrial fibrillation on eliquis, BPH with obstruction/lower urinary tract symptoms, chronic respiratory failure, severe COPD GOLD 2, borderline 3, current tobacco use, history of MAC/IDA infection, hyperlipidemia, HFpEF, obstructive sleep apnea dependent on nocturnal O2. Recent outpatient records reviewed: COPD exac in March, and hospitalized for the same Aug 2018. 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 -switch duonebs to PRN -doxy 100 BID for 10 day course. -hold home guaiafenasin given minimal benefit in light of worsening arrhythmia. -will req 2 step upon dc for proper adjustment of O2 script FEN/GI: cautious with fluids. HH, low sod diet DVT ppx: on eliquis CODE STATUS: FULL DISPO: med tele. Other ongoing medical issues: Atrial fibrillation: continue diltiazem and eliquis HLD: cont atorvastatin 40mg Allergic rhinitis: cont home singulair (2) Dependence on nocturnal oxygen therapy: (3) COPD exacerbation: (4) Hypoxia: (5) Cardiomegaly: (6) Tobacco abuse: (7) Chronic diastolic congestive heart failure: (8) Atrial fibrillation: Supervising Physician Co-Signing Physician Notes Attending attestation Pt seen and examined in concert with Dr. Truong. In agreement with the documented findings as noted in the resident documentation with any exceptions or additions as noted here. 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 Smoking hx. On examination, improved but diminished lung sounds throughout with mild wheezing scattered throughout with forced expiration. COPD exacerbation - improvement. Continue steroid taper. Complete course of doxy (transition to PO). Duoneb therapy, and also for discharge. Will likely require O2 at home. Allergic rhinitis/bronchitis(?) - continue singulair Atrial fibrillation - continue diltiazem and eliquis. Currently on telemetry. Else see resident documentation as noted. Subjective Says he is breathing easier today, still on O2. Ambulating to the bathroom without significant dyspnea, denies chest pain. Tolerating PO. Remains afebrile. Review of Systems Review of Systems: All systems reviewed & are unremarkable except as noted in HPI & below Physical Exam Physical Exam: Vitals noted and within normal limits GENERAL: Awake, alert to person, place, and time, nontoxic-appearing, in no distress. HENT: Normocephalic, atraumatic. Nasal cannula in place. EYES: Normal conjunctiva. Sclera non-icteric. EOMI. NECK: Supple. Full range of motion. RESPIRATORY: Diminished breath sounds, no wheezing or rales. Normal work of breathing. CARDIAC: afib on monitor, rate in 80s-90s. Extremities warm and well perfused, ABDOMEN: Soft, non-distended. No tenderness to palpation. LOWER EXTREMITIES: Inspection of calves reveal equal size bilaterally. They are non-tender. No edema. No discoloration. NEURO: No gross focal motor deficits noted. Sensation in tact. CN II-XII grossly in tact. . SKIN: Rash not present. No jaundice noted. Significant lesions not present. PSYCH: Appropriate mood and affect. Cooperative. Exam as done by Arianna Truong MD, [employer]. Results & Data Vital Signs (Past 12 Hours) Vital Signs Temp Pulse Pulse Resp BP Pulse Ox 05/02/19 11:17 90 18 93 05/02/19 11:02 36.7 C 95 H 19 117/75 95 05/02/19 07:10 83 83 16 93 05/02/19 02:44 36.4 C L 89 20 118/80 92 Medications Administered Current Inpatient Medications Acetaminophen (Tylenol) 650 mg PO Q4H PRN PRN Reason: Pain or Fever Stop: 05/30/19 19:37 Al Hydrox/Mg Hydrox/Simethicone (Maalox) 15 ml PO Q4H PRN PRN Reason: Dyspepsia Stop: 05/30/19 19:37 Albuterol (Combivent Respimat) 1 puffs INH QID PRN PRN Reason: Shortness Of Breath Stop: 05/30/19 19:37 Last Admin: 05/01/19 08:07 Dose: 1 puffs Documented by: Albuterol (Duoneb) 3 ml INH Q4H PRN PRN Reason: Wheezing Stop: 06/01/19 13:43 Apixaban (Eliquis) 5 mg PO BID [facility] Stop: 05/30/19 20:59 Last Admin: 05/02/19 08:47 Dose: 5 mg Documented by: Atorvastatin Calcium (Lipitor) 40 mg PO HS [facility] Stop: 05/30/19 20:59 Last Admin: 05/01/19 20:16 Dose: 40 mg Documented by: Diltiazem HCl (Cardizem Cd) 360 mg PO QAM [facility] Stop: 05/31/19 08:59 Last Admin: 05/02/19 08:48 Dose: 360 mg Documented by: Doxycycline Hyclate (Vibramycin) 100 mg PO BID [facility] Stop: 05/08/19 09:14 Last Admin: 05/02/19 08:48 Dose: 100 mg Documented by: Fish Oil ([place]-3 (Purified Fish Oil)) 1 gm PO BID [facility] Stop: 05/30/19 20:59 Last Admin: 05/02/19 08:49 Dose: 1 gm Documented by: Fluticasone Propionate (Flonase) 2 sprays NA QAM [facility] Stop: 05/31/19 08:59 Last Admin: 05/02/19 08:49 Dose: 2 sprays Documented by: Guaifenesin (Mucinex) 600 mg PO BID [facility] Stop: 05/30/19 20:59 Last Admin: 05/01/19 08:05 Dose: 600 mg Documented by: Methylprednisolone 40 mg/ (Syringe) 0.64 mls @ 1.5 mls/min IV Q8H [facility] Stop: 06/01/19 15:59 Magnesium Hydroxide (Milk Of Magnesia) 30 ml PO Q12H PRN PRN Reason: Constipation Stop: 05/30/19 19:37 Miscellaneous (Order Awaiting Action) 1 ea N/A QS [facility] Stop: 05/31/19 00:00 Last Admin: 05/01/19 23:02 Dose: Not Given Documented by: Miscellaneous (Order Awaiting Action) 1 ea N/A QS [facility] Stop: 05/31/19 00:00 Last Admin: 05/01/19 23:02 Dose: Not Given Documented by: Montelukast Sodium (Singulair) 10 mg PO HS [facility] Stop: 05/30/19 20:59 Last Admin: 05/01/19 20:15 Dose: 10 mg Documented by: Multivitamins/Minerals (Multivitamin W/ Minerals Tab) 1 tab PO QAM [facility] Stop: 05/31/19 08:59 Last Admin: 05/02/19 08:47 Dose: 1 tab Documented by: Nitroglycerin (Nitrostat) 0.4 mg SL UD PRN PRN Reason: Chest Pain Stop: 05/30/19 19:37 Polyethylene Glycol (Miralax Powder Packet) 17 gm PO DAILY PRN PRN Reason: Constipation Stop: 05/30/19 19:37 Zolpidem Tartrate (Ambien) 5 mg PO HS PRN PRN Reason: Sleep Stop: 05/30/19 19:37 PG Care Time/CCT Total # of Minutes Spent Total Time Spent with Patient: Total time spent is greater than 50% in coordination of care (as documented) at patient's floor/unit and/or counseling patient: Resident Activity Tracking Resident Involvement: Resident Care Provided Care Provided: Adult Hospital Medicine
[2019-05-02] MEDS: methylPREDNISolone 40 MG in SYRINGE 0 ML IV SCH ×2 (16:20→23:58)
[2019-05-02] MEDS: MONTELUKAST SODIUM 10 MG TABLET PO SCH (21:30)
[2019-05-02] MEDS: ATORVASTATIN 40 MG TAB PO SCH (22:34)
[2019-05-03] MEDS: methylPREDNISolone 40 MG in SYRINGE 0 ML IV SCH (08:31)
[2019-05-03] MEDS: APIXABAN 5 MG TABLET PO SCH (08:32)
[2019-05-03] MEDS: CEROVITE ADV FORMULA TAB PO SCH (08:32)
[2019-05-03] MEDS: dilTIAZem HCL 180 MG CAPCR PO SCH (08:32)
[2019-05-03] MEDS: OMEGA-3 (PURIFIED FISH OIL) 1 GM CAP PO SCH (08:32)
[2019-05-03] MEDS: DOXYCYCLINE HYCLATE 100 MG CAP PO SCH (08:32)
[2019-05-03] MEDS: FLUTICASONE PROPIONATE NA SPR 16 GM BTL SCH (08:34)
[2019-05-03] MEDS ORDERED: ALBUT/IPRATROP 3MG/0.5MG NEB 3 ML VIAL INH SCH (11:00)
--- NOTE | 2019-05-03 12:20 | Discharge Summary ---
Date of Service May 03, 2019 Admission HPI Per Admitting Provider Patient is a 63 years old male with past medical history of COPD, congestive heart failure(chronic diastolic), atrial fibrillation, current smoker half pack per day, emphysema of the lungs, hyperlipidemia who presents to the emergency department for evaluation of shortness of breath. Patient noticed shortness of breath which was slowly progressed over the past 2 to 3days he does wear oxygen at night but does not wear 24 7. Patient said at night he was only 2 L of oxygen. Patient still smokes approximately half pack per day patient noticed worsening shortness of breath with exertion. His cough is nonproductive. Patient denies fever chills chest pain abdominal pain frequency hemoptysis hematemesis dysuria hematuria. Patient denies recent trips or procedure. Patient states that he has history of COPD and months ago he was treated with steroids as well as Levaquin. Labs are reviewed and shows: White blood cell 8.58 hemoglobin 16 hematocrit 50 platelets 155, PT 13 INR 1.3, APTT 31.3, sodium 139, potassium 4.7, chloride 99 anion gap 7 BUN 8 creatinine 0.75 GFR 98.3, magnesium 2.1 total bili 1.3, AST 16 ALT 30 alkaline phosphatase 89, albumin 3.2 troponin 0 0.015, urine clear, chest x-ray is cardiomegaly with evidence with mild congestive failure. BNP pending. Decision was made to admit patient for observation on telemetry and to rule out ACS. Principal Diagnosis COPD EXACERBATION Discharge Exam Vitals noted and within normal limits GENERAL: Awake, alert to person, place, and time, nontoxic-appearing, in no distress. HENT: Normocephalic, atraumatic. Nasal cannula in place. EYES: Normal conjunctiva. Sclera non-icteric. EOMI. NECK: Supple. Full range of motion. RESPIRATORY: Diminished breath sounds, no wheezing or rales. Normal work of breathing. CARDIAC: afib on monitor, rate in 80s-90s. Extremities warm and well perfused, ABDOMEN: Soft, non-distended. No tenderness to palpation. LOWER EXTREMITIES: Inspection of calves reveal equal size bilaterally. They are non-tender. No edema. No discoloration. NEURO: No gross focal motor deficits noted. Sensation in tact. CN II-XII grossly in tact. . SKIN: Rash not present. No jaundice noted. Significant lesions not present. PSYCH: Appropriate mood and affect. Cooperative. Exam as done by Arianna Truong MD, Super[employer]. Discharge Data Allergies Allergy/AdvReac Type Severity Reaction Status Date / Time No Known Allergies Allergy Verified 04/30/19 14:02 Consultations 04/30/19 14:50 ED Decision to Admit Stat Hospital Course (1) MCMILLAN (dyspnea on exertion): 63M here for MCMILLAN PMH inc atrial fibrillation on eliquis, BPH with obstruction/lower urinary tract symptoms, chronic respiratory failure, severe COPD GOLD 2, borderline 3, current tobacco use, history of MAC/IDA infection, hyperlipidemia, HFpEF, obstructive sleep apnea dependent on nocturnal O2. Recent outpatient records reviewed: COPD exac in March, and hospitalized for the same Aug 2018. 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 -duonebs scheduled and PRN -doxy 100 BID for 10 day course. -hold home guaiafenasin given minimal benefit in light of worsening arrhythmia. -2 step on discharge RECOMMEND: -CONTINUE NEBULIZER TREATMENTS FOUR TIMES A DAY FOR AT LEAST THE NEXT 2 WEEKS, AND THEN EVERY 2 HOURS NEEDED FOR WHEEZING OR COUGH OR SHORTNESS OF BREATH. ORDER SENT FOR NEBULIZER MACHINE TO BE REPLACED FORMER ONE REPORTEDLY DISFUNCTIONAL. -PER 2-STEP BY RESPIRATORY THERAPY, RECOMMEND OXYGEN WITH AMBULATION (2L). ORDER SENT FOR THIS. -FINISH DOXYCYCLINE -FINISH PREDNISONE TAPER -PLEASE REVIEW GUAIFENESIN USE PT HAS UNDERLYING ATRIAL FIBRILLATION WHICH MAY BE WORSENED BY THIS MEDICATION Other ongoing medical issues: Atrial fibrillation: continue diltiazem and eliquis HLD: cont atorvastatin 40mg Allergic rhinitis: cont home singulair (2) Dependence on nocturnal oxygen therapy: (3) COPD exacerbation: (4) Hypoxia: (5) Cardiomegaly: (6) Tobacco abuse: (7) Chronic diastolic congestive heart failure: (8) Atrial fibrillation: Total Time Total Time Spent Total Time Spent (In Minutes): 30 Discharge Plan Discharge Items Patient Disposition: Home - Self-Care Reason For Visit: COPD EXACERBATION Discharge Diagnosis: copd exacerbation Condition on Discharge: Good Activity: Per Instructions section Lifting: Gradually increase as tolerated Bathing: No limitations Exercise/Sports: Gradually increase as tolerated Non-emergency contact: Primary Care Provider and Microcomputer Support Specialist Call non-emergency contact if: you have any medication questions, your symptoms worsen and your temperature is above 101.5 Follow-up/Referrals: Peewee Vicente MD [Primary Care Provider] - 05/10/19 2:30 pm (Please, follow up with Dr. Vicente on WednesdayMay 10 at 2:30 pm. *If you you need to change this appointment, call the office at [phone].) Kavin Vogt DO [Physician] - 05/22/19 1:00 pm (Please, follow up at [facility] Pulmonology Office with Dr. Vogt's visual merchandising assistant, Tiera Chase PA-C, on WednesdayMay 22 at 1:00 pm. *If you need to change this appointment, call the office at [phone].) Diet: Heart Healthy Addtl Attending Provider Instructions: You were admitted due to breathing difficulties, and were found to have an acute flare up of your COPD lung disease. We treated this with steroids, antibiotics, nebulizer treatments and oxygen. Respiratory therapy worked with you, and by their evaluation, you need at least 2L of oxygen with any exercise or exertion. Please finish the DOXYCYCLINE as prescribed, and also the PREDNISONE. Take these medicines with food, and a full glass of water. The script for your oxygen is being arranged so that you have enough. Please wear it at any time you are exerting yourself. You will need to follow up with your lung doctor's office in the next 2-3 weeks as well. Addtl Supervisor Inspection Department Provider Instructions: see above. Pending Studies at Discharge: No Stand-Alone Forms: My [facility] Medications and DC Order Prescriptions: New doxycycline hyclate 100 mg Capsule 100 mg PO BID Qty: 6 RF: 0 prednisone 10 mg tablet 10 mg PO DAILY Qty: 100 RF: 0 Continued ipratropium-albuterol 0.5 mg-3 mg(2.5 mg base)/3 mL solution for nebulization 3 ml INHALATION QID Qty: 180 RF: 5 nebulizers [facility] [id number] .MEDSUPPLY Qty: 1 RF: 0 omega-3 fatty acids [Fish Oil Concentrate] 1,000 mg capsule 1,000 mg PO BID RF: 0 multivitamin with minerals [Men's One Daily] tablet 1 tab PO QAM RF: 0 guaifenesin 600 mg tablet extended release 12hr 600 mg PO BID RF: 0 apixaban 5 mg tablet 5 mg PO BID Qty: 60 RF: 0 diltiazem HCl 180 mg capsule,extended release 24hr 360 mg PO QAM Qty: 180 RF: 0 fluticasone propionate 50 mcg/actuation spray,suspension 2 sprays intranasal QAM Qty: 1 RF: 0 atorvastatin 40 mg Tablet 40 mg PO HS RF: 0 clobetasol [Temovate] 0.05 % cream 1 applic Topical BID RF: 0 montelukast 10 mg Tablet 10 mg PO HS RF: 0 Breo Ellipta 100-25 mcg/dose Blister With Device 1 inh INHALATION QAM RF: 0 Combivent Respimat 20-100 mcg/actuation Mist 1 puff INHALATION QID PRN (Reason: Shortness Of Breath) RF: 0 Discharge Orders: Discharge Order (Routine); Ordered 05/03/19 Ordered By: Arianna Truong Admission Data Admit Date/Time: 04/30/19 19:04 Attending Provider: Peewee Arreola Admit Provider: Davis Coon Primary Care Provider: Peewee Vicente Other Providers: Davis Coon ; Arianna Truong Other Interventions: Discharge Summary Assessment (RN) Last Done: 05/03/19 13:32 DC Date/Time DO NOT enter until pt leaves facility: 05/03/19 14:35 Supervising Physician Co-Signing Physician Notes Attending attestation Pt seen and examined in concert with Dr. Truong. In agreement with the documented findings as noted in the resident documentation with any exceptions or additions as noted here. Continuing improvement in SOB with no O2 at rest. Mild nonproductive cough. Contemplating smoking cessation. On examination, minimal scattered wheeze with diffusely decreased breath sounds. S1/S2 nl no MCG. CTAB COPD exacerbation - Complete steroid taper and course of PO doxycycline. Strongly encourage smoking cessation and work related exposure avoidance. Duoneb therapy, and also for discharge. Ambulatory O2 at home. Allergic rhinitis/bronchitis - continue singulair on discharge to prevent further exacerbation Atrial fibrillation - continue diltiazem and eliquis. Else see resident documentation as noted. Resident Activity Tracking Resident Involvement: Resident Care Provided Care Provided: Adult Hospital Medicine
== END 2019-05-03 14:35 | disposition home or self-care (01) | DRG 191 ==
LOC: ED 13:32 → 2S 19:04 → SUATTDRO 19:04 → 2S 19:31

== ENCOUNTER 2019-07-26 18:07 | Inpatient (IN) ==
[2019-07-26] MEDS ORDERED: methylPREDNISolone 125 MG/2 ML VIAL IV STA (18:36)
[2019-07-26] MEDS ORDERED: ALBUT/IPRATROP 3MG/0.5MG NEB 3 ML VIAL INH STA (18:36)
[2019-07-26 18:59] LABS: Basophils # (auto) 0.01 K/uL (0-0.2); Basophils % (auto) 0.1 %; Eosinophils # (auto) 0.12 K/uL (0-0.5); Eosinophils % (auto) 1.1 %; Hematocrit (blood only) 51.8 % (42-52); Hemoglobin 16.1 g/dL (14.0-18.0); Immature Granulocytes # (auto) 0.02 K/uL (0.00-0.02); Immature Granulocytes % (auto) 0.2 %; Lymphocytes # (auto) 1.59 K/uL (1.2-3.4); Lymphocytes % (auto) 15.2 %; Mean Corpuscular Hemoglobin 32.7 pg (25-34); Mean Corpuscular Hgb Conc 31.1 g/dL (32-36); Mean Corpuscular Volume 105.3 fL (80-100); Mean Platelet Volume 9.5 fL (7.4-10.4); Monocytes # (auto) 1.66 K/uL (0.11-0.59); Monocytes % (auto) 15.9 %; Neutrophils # (auto) 7.06 K/uL (1.4-6.5); Neutrophils % (auto) 67.5 %; Platelet Count 156 K/uL (130-400); RDW Coefficient of Variation 16.2 % (11.5-14.5); RDW Standard Deviation 62.3 fL (36.4-46.3); Red Blood Count 4.92 M/uL (4.7-6.1); White Blood Count 10.46 K/uL (4.8-10.8)
[2019-07-26 19:14] LABS: INR 1.3 (0.9-1.1); Partial Thromboplastin Time 27.9 Seconds (21.0-31.0); Prothrombin Time 13.4 Seconds (9.0-12.0)
[2019-07-26 19:17] LABS: Alanine Aminotransferase 35 U/L (12-78); Albumin Level 3.1 gm/dl (3.4-5.0); Aspartate Aminotransferase 12 U/L (15-37); BUN Creatinine Ratio 12.1 (10-20); Blood Urea Nitrogen 9 mg/dl (7-18); Calcium 8.9 mg/dl (8.5-10.1); Carbon Dioxide 36 mmol/L (21-32); Chloride 99 mmol/L (98-107); Est GFR (African American) 113.2; Est GFR (Non-African American) 97.6; Glucose 78 mg/dl (70-99); Potassium 4.4 mmol/L (3.5-5.1); Sodium 137 mmol/L (136-145)
[2019-07-26 19:20] LABS: Albumin Globulin Ratio 0.9 (0.9-2); Alkaline Phosphatase 75 U/L (45-117); Bilirubin,Total 1.7 mg/dl (0.2-1); Globulin 3.4 gm/dl (2.5-4.0); Total Protein 6.5 gm/dl (6.4-8.2)
[2019-07-26] MEDS ORDERED: MAGNESIUM SULFATE / D5W 1 GM/100 ML BAG IV ONE (20:54)
--- NOTE | 2019-07-26 23:13 | History & Physical Report ---
Date of Service July 26, 2019 Assessment & Plan (1) Acute and chronic respiratory failure with hypoxia: Admit to tele Oxymask - titrate or wean oxygen as needed. I am comfortable with 88% pox or above. Treat COPD exacerbation as below Consult pulmonology (2) COPD exacerbation: Duonebs Q6 scheduled Albuterol nebs Q 4 hours prn Loading Solu medrol in the ED 125mg I ordered 40mg IV Q 6 Rocephin and Zithromax to cover the usual offenders. Continue montelukast Smoking cessation strongly encouraged. (3) Atrial fibrillation: Continue Eliquis tele monitoring Continue Cardizem CD 360mg daily for rate control. (4) Hyperlipidemia: Continue atorvastatin History of Present Illness 64 y/o male presented to the ED with increasing SOB over the past 2 weeks. He has had a dry cough, but no F/C, chest pain, N/V/D, or flu-like symptoms. 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 He has reduced smoking, but is still at 1/4-1/3 PPD. He was actually to have a CXR ordered by his chief service observer and felt poorly and just came to the ED. He uses oxygen at home on a prn basis and through his CPAP at night. Primary Care Provider: Aristeo Vicente MD Allergies Allergy/AdvReac Type Severity Reaction Status Date / Time No Known Allergies Allergy Verified 07/26/19 21:26 Home Medications Home Medications Medication Instructions Recorded Confirmed Type Breo Ellipta 1 inh INHALATION QAM 07/16/18 07/26/19 History clobetasol [Temovate] 1 applic TOPICAL BID PRN 07/16/18 07/26/19 History apixaban 5 mg tablet 5 mg PO BID #60 tab 04/05/19 07/26/19 History diltiazem HCl 180 mg 360 mg PO QAM #180 cap 04/05/19 07/26/19 History capsule,extended release 24 hr guaifenesin 600 mg tablet, 600 mg PO BID tab 04/05/19 07/26/19 History extended release 12 hr multivitamin with minerals 1 tab PO QAM tab 04/05/19 07/26/19 History omega-3 fatty acids 1,000 mg 1,000 mg PO BID 04/05/19 07/26/19 History capsule nebulizers #1 ea 05/01/19 07/26/19 Rx BiPap Supplies #1 ea 05/22/19 07/26/19 Rx fluticasone propionate 50 2 sprays INTRANASAL DAILY #16 gm 06/19/19 07/26/19 Rx mcg/actuation nasal spray,suspension atorvastatin 40 mg tablet 40 mg PO HS #30 tab 07/10/19 07/26/19 Rx ipratropium-albuterol 0.5 mg-3 3 ml INHALATION QID #360 ml 07/12/19 07/26/19 Rx mg(2.5 mg base)/3 mL nebulization soln montelukast 10 mg tablet 10 mg PO HS #30 tab 07/12/19 07/26/19 Rx ipratropium 20 mcg-albuterol 100 1 puff INHALATION QID PRN #4 gm 07/18/19 07/26/19 Rx mcg/actuation mist for inhalation Past Med/Surg History Medical History Acute and chronic respiratory failure with hypoxia Atrial fibrillation, new onset (Acute) follows with Dr. Irwin--on eliquis daily Atrial flutter with rapid ventricular response CHF (congestive heart failure) Chronic respiratory failure with hypercapnia (Chronic) COPD (chronic obstructive pulmonary disease) (Chronic) inhaler daily/prn, nebulizer daily Current smoker Dependence on nocturnal oxygen therapy 2L at night through CPAP Emphysema of lung (Chronic) History of colon polyps Hyperlipidemia (Chronic) On anticoagulant therapy eliquis daily Surgical History History of bronchoscopy History of colonoscopy History of tooth extraction all top teeth and some lower teeth removed Family History Father CHF (congestive heart failure) Other No family history of adverse response to anesthesia Social History Preferred Language: Lao Communication Ability: Effective Pourer Off Required: No Beliefs That Will Affect Care: None Current Living Situation: Family Current Living Situation Comment: Sister and Mother Feels Safe at Home: Yes Smoking Status: Current every day smoker Tobacco Type: cigarettes ; packs per d ay: 0.25 ; Cigarettes Per Day: less than 10 a day ; Second Hand Exposure: Yes ; Tobacco Cessation Education Requested by Patient: No Hx Alcohol Use: No Hx Substance Use: No Review of Systems Review of Systems: All systems reviewed & are unremarkable except as noted in HPI & below Physical Exam Physical Exam: General- adult male, NAD. Head- atraumatic Eyes- PERRL, EOMI, anicteric ENT- oropharynx clear Neck- supple, no JVD, no adenopathy, no thyromegaly. Lungs- significantly decreased breath sounds at the bases b/l R>L with expiratory wheezes noted in the mid to upper lung au. Heart- regular rhythm; no murmur, no gallop, no rub appreciated Abdomen- normal bowel sounds, soft, nontender. Extremities- no pretibial edema, no calf tenderness; peripheral pulses intact Neuro- alert, oriented x 3; PERRL, EOMI; coding spec II-XII grossly intact, non-focal. Skin- warm & dry Results & Data Vital Signs (Past 12 Hours) Vital Signs Temp Pulse Pulse Resp BP Pulse Ox 07/26/19 23:00 104 H 14 128/99 89 L 07/26/19 22:00 96 H 23 184/98 H 90 07/26/19 21:50 107 H 18 89 L 07/26/19 21:40 106 H 19 88 L 07/26/19 21:30 102 H 23 154/85 H 87 L 07/26/19 21:20 103 H 20 87 L 07/26/19 21:10 111 H 18 87 L 07/26/19 21:01 91 H 20 86 L 07/26/19 21:00 104 H 20 168/101 H 86 L 07/26/19 20:50 103 H 21 07/26/19 20:40 103 H 18 91 07/26/19 20:30 99 H 23 152/91 H 86 L 07/26/19 20:20 105 H 17 94 07/26/19 20:10 98 H 24 94 07/26/19 20:00 95 H 23 178/104 H 94 07/26/19 19:30 89 32 H 145/91 H 96 07/26/19 19:20 95 H 26 H 96 07/26/19 19:10 99 H 19 96 07/26/19 19:01 95 H 12 94 07/26/19 19:00 93 H 24 150/89 H 93 07/26/19 18:51 99 H 20 90 07/26/19 18:50 99 H 12 90 07/26/19 18:49 94 07/26/19 18:47 87 16 122/84 07/26/19 18:40 97 H 19 94 07/26/19 18:39 92 H 13 94 07/26/19 18:24 37.2 C 101 H 30 H 133/79 73 L Laboratory Results Laboratory Results WBC 10.46 K/uL (4.8-10.8) 07/26/19 18:44 RBC 4.92 M/uL (4.7-6.1) 07/26/19 18:44 Hgb 16.1 g/dL (14.0-18.0) 07/26/19 18:44 Hct 51.8 % (42-52) 07/26/19 18:44 MCV 105.3 fL (80-100) H 07/26/19 18:44 MCH 32.7 pg (25-34) 07/26/19 18:44 MCHC 31.1 g/dL (32-36) L 07/26/19 18:44 RDW Std Deviation 62.3 fL (36.4-46.3) H 07/26/19 18:44 RDW Coeff of Malik 16.2 % (11.5-14.5) H 07/26/19 18:44 Plt Count 156 K/uL (130-400) 07/26/19 18:44 MPV 9.5 fL (7.4-10.4) 07/26/19 18:44 Immature Gran % (Auto) 0.2 % 07/26/19 18:44 Neut % (Auto) 67.5 % 07/26/19 18:44 Lymph % (Auto) 15.2 % 07/26/19 18:44 Hernando % (Auto) 15.9 % 07/26/19 18:44 Eos % (Auto) 1.1 % 07/26/19 18:44 Baso % (Auto) 0.1 % 07/26/19 18:44 Immature Gran # (Auto) 0.02 K/uL (0.00-0.02) 07/26/19 18:44 Neut # (Auto) 7.06 K/uL (1.4-6.5) H 07/26/19 18:44 Lymph # (Auto) 1.59 K/uL (1.2-3.4) 07/26/19 18:44 Hernando # (Auto) 1.66 K/uL (0.11-0.59) H 07/26/19 18:44 Eos # (Auto) 0.12 K/uL (0-0.5) 07/26/19 18:44 Baso # (Auto) 0.01 K/uL (0-0.2) 07/26/19 18:44 PT 13.4 Seconds (9.0-12.0) H 07/26/19 18:44 INR 1.3 (0.9-1.1) H 07/26/19 18:44 APTT 27.9 Seconds (21.0-31.0) 07/26/19 18:44 PTT Ratio 1.0 07/26/19 18:44 Sodium 137 mmol/L (136-145) 07/26/19 18:44 Potassium 4.4 mmol/L (3.5-5.1) 07/26/19 18:44 Chloride 99 mmol/L (98-107) 07/26/19 18:44 Carbon Dioxide 36 mmol/L (21-32) H 07/26/19 18:44 Anion Gap 2.0 (3-11) L 07/26/19 18:44 BUN 9 mg/dl (7-18) 07/26/19 18:44 Creatinine 0.75 mg/dl (0.6-1.4) 07/26/19 18:44 Est Cr Clr Drug Dosing Not Reportable 07/26/19 18:44 Est GFR ( Amer) 113.2 07/26/19 18:44 Est GFR (Non-Af Amer) 97.6 07/26/19 18:44 BUN/Creatinine Ratio 12.1 (10-20) 07/26/19 18:44 Glucose 78 mg/dl (70-99) 07/26/19 18:44 Calcium 8.9 mg/dl (8.5-10.1) 07/26/19 18:44 Total Bilirubin 1.7 mg/dl (0.2-1) H 07/26/19 18:44 AST 12 U/L (15-37) L 07/26/19 18:44 ALT 35 U/L (12-78) 07/26/19 18:44 Alkaline Phosphatase 75 U/L (45-117) 07/26/19 18:44 POC Troponin I < 0.03 ng/ml (0-0.045) 07/26/19 18:52 Total Protein 6.5 gm/dl (6.4-8.2) 07/26/19 18:44 Albumin 3.1 gm/dl (3.4-5.0) L 07/26/19 18:44 Globulin 3.4 gm/dl (2.5-4.0) 07/26/19 18:44 Albumin/Globulin Ratio 0.9 (0.9-2) 07/26/19 18:44 Code Status & VTE Plan VTE Prophylaxis Plan VTE Prophylaxis will be ordered: Yes PG Care Time/CCT Total # of Minutes Spent Total Time Spent: 55 Total Time Spent with Patient: Total time spent is greater than 50% in coordination of care (as documented) at patient's floor/unit and/or counseling patient: (1) Hyperlipidemia Hyperlipidemia type: unspecified Qualified Code(s): E78.5 - Hyperlipidemia, unspecified
[2019-07-27] MEDS ORDERED: ACETAMINOPHEN 325 MG TAB PO PRN (00:01)
[2019-07-27] MEDS ORDERED: ONDANSETRON INJ 2 MG/ML 2 ML VIAL IV PRN (00:01)
[2019-07-27] MEDS ORDERED: ALBUTEROL 0.083% NEBU SOLN 3 ML VIAL NEB PRN (00:01)
[2019-07-27] MEDS: cefTRIAXone SODIUM 2,000 MG in DEXTROSE 5% 50 ML/50 ML BAG IV SCH (00:36)
[2019-07-27] MEDS: ALBUT/IPRATROP 3MG/0.5MG NEB 3 ML VIAL NEB SCH ×4 (00:53→19:05)
--- NOTE | 2019-07-27 01:05 | Emergency Department Note ---
Entered by Phuong Thrasher acting as a scribe for Art Mccormack MD History of Present Illness General Chief complaint: Shortness of Breath/Dyspnea Stated complaint: HARD TIME BREATHING Time Seen by Provider: 07/26/19 18:31 Source: patient History of Present Illness Onset (ago): week(s) (2) Location: chest Pain Consistency: + other (worsening) Maximum Pain Intensity: 0 Quality: + other (shortness of breath) Associated symptoms: + denies other symptoms (leg swelling) and + cough; no chest pain, no fever/chills and no nausea/vomiting The patient is a 64 year old male who presents to the Emergency Room with complaints of worsening shortness of breath beginning about 2 weeks ago. The patient states the prednisone from his recent pulmonology visit helped a little. He reports a productive cough with clear phlegm. The patient denies fever, chest pain, vomiting, and leg swelling. The patient states he is on 2L of oxygen at night. He states he used a nebulizer twice today about 8 hours ago and then 4.5 hours ago. The patient reports smoking 1/4 to 1/2 pack of cigarettes per day, but states he is trying to quit. He was in radiology getting an x-ray of his chest which was ordered by his property underwriter. He did not feel well and so decided to come to the emergency department. Home Medications Home Medications Medication Instructions Recorded Confirmed Type Breo Ellipta 1 inh INHALATION QAM 07/16/18 07/26/19 History clobetasol [Temovate] 1 applic TOPICAL BID PRN 07/16/18 07/26/19 History apixaban 5 mg tablet 5 mg PO BID #60 tab 04/05/19 07/26/19 History diltiazem HCl 180 mg 360 mg PO QAM #180 cap 04/05/19 07/26/19 History capsule,extended release 24 hr guaifenesin 600 mg tablet, 600 mg PO BID tab 04/05/19 07/26/19 History extended release 12 hr multivitamin with minerals 1 tab PO QAM tab 04/05/19 07/26/19 History omega-3 fatty acids 1,000 mg 1,000 mg PO BID 04/05/19 07/26/19 History capsule nebulizers #1 ea 05/01/19 07/26/19 Rx BiPap Supplies #1 ea 05/22/19 07/26/19 Rx fluticasone propionate 50 2 sprays INTRANASAL DAILY #16 gm 06/19/19 07/26/19 Rx mcg/actuation nasal spray,suspension atorvastatin 40 mg tablet 40 mg PO HS #30 tab 07/10/19 07/26/19 Rx ipratropium-albuterol 0.5 mg-3 3 ml INHALATION QID #360 ml 07/12/19 07/26/19 Rx mg(2.5 mg base)/3 mL nebulization soln montelukast 10 mg tablet 10 mg PO HS #30 tab 07/12/19 07/26/19 Rx ipratropium 20 mcg-albuterol 100 1 puff INHALATION QID PRN #4 gm 07/18/19 07/26/19 Rx mcg/actuation mist for inhalation Allergies Allergy/AdvReac Type Severity Reaction Status Date / Time No Known Allergies Allergy Verified 07/26/19 21:26 Past Med/Surg History Medical History Acute and chronic respiratory failure with hypoxia Atrial fibrillation, new onset (Acute) follows with Dr. Irwin--on eliquis daily Atrial flutter with rapid ventricular response CHF (congestive heart failure) Chronic respiratory failure with hypercapnia (Chronic) COPD (chronic obstructive pulmonary disease) (Chronic) inhaler daily/prn, nebulizer daily Current smoker Dependence on nocturnal oxygen therapy 2L at night through CPAP Emphysema of lung (Chronic) History of colon polyps Hyperlipidemia (Chronic) On anticoagulant therapy eliquis daily Surgical History History of bronchoscopy History of colonoscopy History of tooth extraction all top teeth and some lower teeth removed Family History Father CHF (congestive heart failure) Other No family history of adverse response to anesthesia Social History Preferred Language: Slovak Communication Ability: Effective Acid Dipper Required: No Beliefs That Will Affect Care: None Current Living Situation: Family Current Living Situation Comment: Sister and Mother Feels Safe at Home: Yes Smoking Status: Current every day smoker Tobacco Type: cigarettes ; packs per day: 0.25 ; Cigarettes Per Day: less than 10 a day ; Second Hand Exposure: Yes ; Tobacco Cessation Education Requested by Patient: No Hx Alcohol Use: No Hx Substance Use: No Review of Systems See HPI for pertinent positives & negatives. and A total of 10 systems reviewed and were otherwise negative Physical Exam Vital Signs Vital Signs - 24 hr 07/26/19 18:24 07/26/19 18:39 07/26/19 18:40 Temperature 37.2 C Temperature Source Oral Pulse Rate 101 H 92 H 97 H Pulse Rate [Right Finger] Pulse Rate from SpO2 Sensor 93 H 98 H Pulse Rhythm Regular Pulse Strength Normal Respiratory Rate 30 H 13 19 Respiratory Effort / Characteristics Non-Labored Respiratory Depth Normal Respiratory Pattern Regular Blood Pressure 133/79 Blood Pressure Mean 97 Blood Pressure Position Sitting Pulse Oximetry 73 L 94 94 Oxygen Delivery Method Room Air Oxygen Flow Rate Sepsis Recent Fever Within 48 Hours No Sepsis Action Taken by Nursing No Action Required 07/26/19 18:47 07/26/19 18:49 07/26/19 18:50 Temperature Temperature Source Pulse Rate 87 99 H Pulse Rate [Right Finger] Pulse Rate from SpO2 Sensor 93 H Pulse Rhythm Pulse Strength Respiratory Rate 16 12 Respiratory Effort / Characteristics Respiratory Depth Respiratory Pattern Blood Pressure 122/84 Blood Pressure Mean 89 Blood Pressure Position Pulse Oximetry 94 90 Oxygen Delivery Method Oxymask Oxygen Flow Rate 4 Sepsis Recent Fever Within 48 Hours Sepsis Action Taken by Nursing 07/26/19 18:51 07/26/19 19:00 07/26/19 19:01 Temperature Temperature Source Pulse Rate 93 H 95 H Pulse Rate [Right Finger] 99 H Pulse Rate from SpO2 Sensor 94 H 96 H Pulse Rhythm Pulse Strength Respiratory Rate 20 24 12 Respiratory Effort / Characteristics Spontaneous Respiratory Depth Respiratory Pattern Blood Pressure 150/89 H Blood Pressure Mean 118 Blood Pressure Position Pulse Oximetry 90 93 94 Oxygen Delivery Method Oxymask Oxygen Flow Rate 4 Sepsis Recent Fever Within 48 Hours Sepsis Action Taken by Nursing 07/26/19 19:10 07/26/19 19:20 07/26/19 19:30 Temperature Temperature Source Pulse Rate 99 H 95 H 89 Pulse Rate [Right Finger] Pulse Rate from SpO2 Sensor 98 H 89 91 H Pulse Rhythm Pulse Strength Respiratory Rate 19 26 H 32 H Respiratory Effort / Characteristics Respiratory Depth Respiratory Pattern Blood Pressure 145/91 H Blood Pressure Mean 110 Blood Pressure Position Pulse Oximetry 96 96 96 Oxygen Delivery Method Oxygen Flow Rate Sepsis Recent Fever Within 48 Hours Sepsis Action Taken by Nursing 07/26/19 20:00 07/26/19 20:10 07/26/19 20:20 Temperature Temperature Source Pulse Rate 95 H 98 H 105 H Pulse Rate [Right Finger] Pulse Rate from SpO2 Sensor 98 H 97 H 101 H Pulse Rhythm Pulse Strength Respiratory Rate 23 24 17 Respiratory Effort / Characteristics Respiratory Depth Respiratory Pattern Blood Pressure 178/104 H Blood Pressure Mean 120 Blood Pressure Position Pulse Oximetry 94 94 94 Oxygen Delivery Method Nebulizer Oxygen Flow Rate Sepsis Recent Fever Within 48 Hours Sepsis Action Taken by Nursing 07/26/19 20:30 07/26/19 20:40 07/26/19 20:50 Temperature Temperature Source Pulse Rate 99 H 103 H 103 H Pulse Rate [Right Finger] Pulse Rate from SpO2 Sensor 148 H 107 H 108 H Pulse Rhythm Pulse Strength Respiratory Rate 23 18 21 Respiratory Effort / Characteristics Respiratory Depth Respiratory Pattern Blood Pressure 152/91 H Blood Pressure Mean 115 Blood Pressure Position Pulse Oximetry 86 L 91 Oxygen Delivery Method Oxygen Flow Rate Sepsis Recent Fever Within 48 Hours Sepsis Action Taken by Nursing 07/26/19 21:00 07/26/19 21:01 07/26/19 21:10 Temperature Temperature Source Pulse Rate 104 H 91 H 111 H Pulse Rate [Right Finger] Pulse Rate from SpO2 Sensor 102 H 93 H 108 H Pulse Rhythm Pulse Strength Respiratory Rate 20 20 18 Respiratory Effort / Characteristics Respiratory Depth Respiratory Pattern Blood Pressure 168/101 H Blood Pressure Mean 134 Blood Pressure Position Pulse Oximetry 86 L 86 L 87 L Oxygen Delivery Method Nasal Cannula Nasal Cannula Oxymask Oxygen Flow Rate 3 4 Sepsis Recent Fever Within 48 Hours Sepsis Action Taken by Nursing 07/26/19 21:20 07/26/19 21:30 07/26/19 21:40 Temperature Temperature Source Pulse Rate 103 H 102 H 106 H Pulse Rate [Right Finger] Pulse Rate from SpO2 Sensor 104 H 108 H 104 H Pulse Rhythm Pulse Strength Respiratory Rate 20 23 19 Respiratory Effort / Characteristics Respiratory Depth Respiratory Pattern Blood Pressure 154/85 H Blood Pressure Mean 116 Blood Pressure Position Pulse Oximetry 87 L 87 L 88 L Oxygen Delivery Method Oxygen Flow Rate Sepsis Recent Fever Within 48 Hours Sepsis Action Taken by Nursing 07/26/19 21:50 07/26/19 22:00 07/26/19 23:00 Temperature Temperature Source Pulse Rate 107 H 96 H 104 H Pulse Rate [Right Finger] Pulse Rate from SpO2 Sensor 106 H 105 H 105 H Pulse Rhythm Pulse Strength Respiratory Rate 18 23 14 Respiratory Effort / Characteristics Respiratory Depth Respiratory Pattern Blood Pressure 184/98 H 128/99 Blood Pressure Mean 117 106 Blood Pressure Position Pulse Oximetry 89 L 90 89 L Oxygen Delivery Method Oxymask Oxygen Flow Rate 4 Sepsis Recent Fever Within 48 Hours Sepsis Action Taken by Nursing Constitutional: Vital signs reviewed and showed tachypnea, tachycardia, heavy breathing. Eyes: Pupils are equal round reactive to light. Conjunctiva are noninjected. ENT: Pharynx is clear without erythema or exudate. Mucous membranes are moist. Neck supple without meningeal signs. Respiratory: Diminished breath sounds bilaterally. Poor air movement. Cardiovascular: Tachycardic rate of 101. Regular rhythm. No rubs or gallops. GI: Soft, nondistended and nontender. Bowel sounds are present. Musculoskeletal: No peripheral edema. No lower extremity tenderness. Integumentary: No cyanosis. Neurological: The patient is awake and alert. No focal deficits. Psychiatric: Normal affect. Course Course 1829: Past medical records reviewed. The patient was evaluated in room B11B. A complete history and physical exam was performed. 1845: Upon reevaluation, the patient's oxygen was titrated down to 4L via mask. Respiratory is on their way. I discussed his x-ray results with him. 1931: Upon reevaluation, the patient is feeling better. His air entry has improved on the nebulizer, but bilateral wheezing is still present. I discussed the test results with the patient. 2049: Upon reevaluation, the patient is feeling much better but is still wheezing. His O2 saturation drops quickly into the low 80s while off of oxygen. I recommended he stay. 2099: Upon reevaluation, I discussed findings and results with the patient. He verbalized agreement of the treatment plan. I spoke with Dr. Elizabeth of the [facility] Hospitalist Service. The patient will be evaluated for further management and care. 2109: Attempted to ween the patient down to a nasal cannula. The patient's O2 saturation is only 86% on nasal cannula. Administered Medications Albuterol (Duoneb) 3 ml NEB Q6R JAYLA Stop: 08/26/19 00:59 Last Admin: 07/27/19 00:53 Dose: 3 ml Documented by: [id number] Ceftriaxone Sodium 2,000 mg/ (Dextrose) 50 ml in 70 mls @ 100 mls/hr IV Q24H JAYLA Stop: 08/03/19 00:00 Last Admin: 07/27/19 00:36 Dose: 100 mls/hr Documented by: [id number] Discontinued Medications Albuterol (Duoneb) 12 ml INH ONE STA Stop: 07/26/19 18:37 Last Admin: 07/26/19 18:50 Dose: 12 ml Documented by: [id number] Magnesium Sulfate/Dextrose (Magnesium Sulfate / D5w) 1 gm in 100 mls @ 100 mls/hr IV ONE ONE Stop: 07/26/19 21:53 Last Infusion: 07/26/19 22:35 Dose: 0 mls/hr Documented by: [id number] Admin: 07/26/19 21:19 Dose: 100 mls/hr Documented by: [id number] Methylprednisolone (Solumedrol) 125 mg IV NOW STA Stop: 07/26/19 18:37 Last Admin: 07/26/19 18:56 Dose: 125 mg Documented by: [id number] Critical Care Time Critical Care Time: Yes Total Critical Care Time: 35 I have personally spent 35 minutes of critical care time in the direct management of this patient. This includes bedside care, interpretation of diagnostic studies, and testing, discussion with consultants, patient, and family members, and other required patient management activities. This 35 minutes is in excess of all separately billable procedures. Medical Decision Making Differential Diagnosis Differential diagnosis: COPD exacerbation, pneumothorax, pneumonia, hypercapnia, respiratory failure Medical Records Attestation: I reviewed the patient's medical records. I did perform a limited focused review of portions of the patient's old chart on the electronic medical record. The patient was seen by pulmonology on July 17 for COPD and was placed on prednisone for 5 days. The patient's chest x-ray from earlier today showed cardiomegaly, no evidence of lobar consolidation, and no pneumonia. Home Medications Current Medication List: was personally reviewed by me Laboratory Data Attestation: I reviewed the patient's lab results. Result diagrams: 07/26/19 18:44 07/26/19 18:44 Lab Results 07/26/19 07/26/19 07/26/19 Range/Units 18:44 18:44 18:44 WBC 10.46 (4.8-10.8) K/uL RBC 4.92 (4.7-6.1) M/uL Hgb 16.1 (14.0-18.0) g/dL Hct 51.8 (42-52) % MCV 105.3 H (80-100) fL MCH 32.7 (25-34) pg MCHC 31.1 L (32-36) g/dL RDW Std Deviation 62.3 H (36.4-46.3) fL RDW Coeff of Malik 16.2 H (11.5-14.5) % Plt Count 156 (130-400) K/uL MPV 9.5 (7.4-10.4) fL Immature Gran % (Auto) 0.2 % Neut % (Auto) 67.5 % Lymph % (Auto) 15.2 % Mccormick % (Auto) 15.9 % Eos % (Auto) 1.1 % Baso % (Auto) 0.1 % Immature Gran # (Auto) 0.02 (0.00-0.02) K/uL Neut # (Auto) 7.06 H (1.4-6.5) K/uL Lymph # (Auto) 1.59 (1.2-3.4) K/uL Mccormick # (Auto) 1.66 H (0.11-0.59) K/uL Eos # (Auto) 0.12 (0-0.5) K/uL Baso # (Auto) 0.01 (0-0.2) K/uL PT 13.4 H (9.0-12.0) Seconds INR 1.3 H (0.9-1.1) APTT 27.9 (21.0-31.0) Seconds PTT Ratio 1.0 Sodium 137 (136-145) mmol/L Potassium 4.4 (3.5-5.1) mmol/L Chloride 99 (98-107) mmol/L Carbon Dioxide 36 H (21-32) mmol/L Anion Gap 2.0 L (3-11) BUN 9 (7-18) mg/dl Creatinine 0.75 (0.6-1.4) mg/dl Est Cr Clr Drug Dosing Not Reportable Est GFR ( Amer) 113.2 Est GFR (Non-Af Amer) 97.6 BUN/Creatinine Ratio 12.1 (10-20) Glucose 78 (70-99) mg/dl Calcium 8.9 (8.5-10.1) mg/dl Total Bilirubin 1.7 H (0.2-1) mg/dl AST 12 L (15-37) U/L ALT 35 (12-78) U/L Alkaline Phosphatase 75 (45-117) U/L POC Troponin I (0-0.045) ng/ml Total Protein 6.5 (6.4-8.2) gm/dl Albumin 3.1 L (3.4-5.0) gm/dl Globulin 3.4 (2.5-4.0) gm/dl Albumin/Globulin Ratio 0.9 (0.9-2) 07/26/19 Range/Units 18:52 WBC (4.8-10.8) K/uL RBC (4.7-6.1) M/uL Hgb (14.0-18.0) g/dL Hct (42-52) % MCV (80-100) fL MCH (25-34) pg MCHC (32-36) g/dL RDW Std Deviation (36.4-46.3) fL RDW Coeff of Malik (11.5-14.5) % Plt Count (130-400) K/uL MPV (7.4-10.4) fL Immature Gran % (Auto) % Neut % (Auto) % Lymph % (Auto) % Mccormick % (Auto) % Eos % (Auto) % Baso % (Auto) % Immature Gran # (Auto) (0.00-0.02) K/uL Neut # (Auto) (1.4-6.5) K/uL Lymph # (Auto) (1.2-3.4) K/uL Mccormick # (Auto) (0.11-0.59) K/uL Eos # (Auto) (0-0.5) K/uL Baso # (Auto) (0-0.2) K/uL PT (9.0-12.0) Seconds INR (0.9-1.1) APTT (21.0-31.0) Seconds PTT Ratio Sodium (136-145) mmol/L Potassium (3.5-5.1) mmol/L Chloride (98-107) mmol/L Carbon Dioxide (21-32) mmol/L Anion Gap (3-11) BUN (7-18) mg/dl Creatinine (0.6-1.4) mg/dl Est Cr Clr Drug Dosing Est GFR ( Amer) Est GFR (Non-Af Amer) BUN/Creatinine Ratio (10-20) Glucose (70-99) mg/dl Calcium (8.5-10.1) mg/dl Total Bilirubin (0.2-1) mg/dl AST (15-37) U/L ALT (12-78) U/L Alkaline Phosphatase (45-117) U/L POC Troponin I < 0.03 (0-0.045) ng/ml Total Protein (6.4-8.2) gm/dl Albumin (3.4-5.0) gm/dl Globulin (2.5-4.0) gm/dl Albumin/Globulin Ratio (0.9-2) ECG Data Attestation: I personally reviewed and interpreted this ECG as follows: Indication: + SOB/dyspnea Rate (beats per minute): 92 Rhythm: + atrial fibrillation ECG Intervals/blocks: + Normal QRS (92 ms) ECG Findings: + Peaked T waves (in precordial leads ); no PVCs Comparison ECG Date: from (04/30/19) Change: no significant change Blood Pressure Blood Pressure Findings: Elevated blood pressure Blood Pressure Disposition: further management by hospitalist GUALBERTO Ya I did evaluate the patient as noted above. The patient is in respiratory distress with significant wheezing and poor air entry bilaterally. His O2 saturation in triage was only in the 70s. He was placed on an oxygen mask with 4 L and his O2 saturation was in the low 90s. IV access was established. The patient was placed on a continuous quality assurance monitor. Cardiac monitoring: Indication: Respiratory distress and tachycardia. Rate and rhythm: Atrial fibrillation with occasional RVR with a rate of 111. Occasional PVCs. No widening of the QRS or V. tach. I did treat the patient with an hour-long DuoNeb. He was also given Solu-Medrol IV. I did order and personally review the patient's 12-lead EKG as described above. He has atrial fibrillation. He has I did personally reviewed the images of the patient's outpatient chest x-ray as described above. He does not have a pneumonia. I did order and review the patient's blood work as noted in the electronic medical record. CBC is unremarkable without leukocytosis or anemia. Troponin is negative. I did reassess the patient several times. He does have progressive improvement of his symptoms with improvement of air entry and incr easingly audible wheezing. I did try to wean down his oxygen due to his COPD. He did not do well on nasal cannula and had to be placed back on an oxygen mask. I did treat him with IV magnesium. I did recommend hospitalization. I did discuss the case with the hospitalist and case maker. Impression & Plan Hypoxemia, COPD exacerbation, Anticoagulated Discharge Plan Visit Data *Final* Discharge Date/Time: 07/26/19 23:47 Chief Complaint: Shortness of Breath/Dyspnea Stated Complaint: HARD TIME BREATHING ED Provider: Art Mccormack Discharge Problem: Hypoxemia, COPD exacerbation, Anticoagulated Patient Disposition: Being Evaluated by Hospitalist Discharge Instructions Interventions: ED Discharge Assessment Last Done: 07/26/19 23:47 The scribe's documentation has been prepared under my direction and personally reviewed by me in its entirety. I confirm that the note above accurately reflects all work, treatment, procedures, and medical decision making performed by me.
[2019-07-27] MEDS: AZITHROMYCIN 500 MG in DEXTROSE 5% 250 ML IV SCH (01:09)
[2019-07-27] MEDS: methylPREDNISolone 40 MG in SYRINGE 0 ML IV SCH ×4 (03:31→19:28)
[2019-07-27 07:05] LABS: Hematocrit (blood only) 52.6 % (42-52); Hemoglobin 16.3 g/dL (14.0-18.0); Mean Corpuscular Hemoglobin 33.1 pg (25-34); Mean Corpuscular Volume 106.9 fL (80-100); Mean Platelet Volume 9.8 fL (7.4-10.4); Platelet Count 186 K/uL (130-400); RDW Coefficient of Variation 15.9 % (11.5-14.5); RDW Standard Deviation 62.1 fL (36.4-46.3); Red Blood Count 4.92 M/uL (4.7-6.1); White Blood Count 10.38 K/uL (4.8-10.8)
[2019-07-27 07:38] LABS: BUN Creatinine Ratio 15.1 (10-20); Calcium 8.5 mg/dl (8.5-10.1); Creatinine Clr Calc Pharmacy 123.1 ml/min; Est GFR (African American) 111.9; Est GFR (Non-African American) 96.6
[2019-07-27] MEDS: FLUTICASONE PROPIONATE NA SPR 16 GM BTL SCH (08:15)
[2019-07-27] MEDS: dilTIAZem HCL 180 MG CAPCR PO SCH (08:15)
[2019-07-27] MEDS: CEROVITE ADV FORMULA TAB PO SCH (08:16)
[2019-07-27] MEDS: guaiFENesin 600 MG TABCR PO SCH ×2 (08:16→19:28)
[2019-07-27] MEDS: OMEGA-3 (PURIFIED FISH OIL) 1 GM CAP PO SCH ×2 (08:16→19:29)
[2019-07-27] MEDS: PANTOprazole 40 MG TAB PO SCH (08:16)
[2019-07-27] MEDS: APIXABAN 5 MG TABLET PO SCH ×2 (08:16→19:28)
--- NOTE | 2019-07-27 09:27 | Hospitalist Progress Note ---
Date of Service July 27, 2019 Assessment & Plan (1) Acute and chronic respiratory failure with hypoxia: Felix Gaytan (Bill) is a 64 years old male with past medical history of COPD, congestive heart failure(chronic diastolic), atrial fibrillation, current smoker half pack per day, emphysema of the lungs, hyperlipidemia who presents for acute on chronic respiratory failure with hypoxia. - Counseled patient heavily on need for smoking cessation - Pulm was consulted on admission and will follow recs - Currently on Azithromycin and Rocephin with Methylprednisone - monitor pulse ox and provide supplemental oxygen as needed - Negative Procal here - continue scheduled Duonebs as ordered - Suspect component of fluid overload from diastolic CHF, will give Lasix 40mg IV x1 dose (2) COPD exacerbation: as above (3) Atrial fibrillation: continue with home Eliquis 5mg PO BID continue with rate control with Diltiazem 360mg qAM daily (4) Hyperlipidemia: c/w Atorvastatin 40mg PO qHS Supervising Physician Co-Signing Physician Notes Attending attestation Pt seen and examined in concert with Dr. Tomas. In agreement with the documented findings as noted in the resident documentation with any exceptions or additions as noted here. Still feeling SOB/tight but improved from initial presentation. Still smoking. 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 On examination, S1/S2 nl RRR no MCG, diffusely decreased breath sounds with sc attered wheeze. Acute on chronic respiratory failure w/ hypoxia in the setting of COPD exacerbation - pulmonology consultation - continue abx, likely d/c rocephin in AM. Continue nebs, prednsione and O2, taper as tolerated. Atrial fibrillation - continue apixaban and diltiazem Tobacco use - smoking cessation counseling daily, precontemplative. Else see resident documentation as noted. Subjective Mr. Gaytan notes no change in status this AM. He notes that it is hard for him to work because of shortness of breath with activity. He has no chest pain, nausea, vomiting, black/bloody stools. Physical Exam Constitutional: WD/WN, vitals as above Eyes: PERRL, conjunctivae normal, anicteric sclerae ENMT: external ear and nose normal, oropharynx normal Neck: normal visual inspection and trachea midline Respiratory: no respiratory distress Auscultation: + wheezes (diffuse expiratory) Cardiovascular: Rate/Rhythm: regular rate Extremities: no calf tenderness irregularly irregular Gastrointestinal (Abdomen): Inspection/Auscultation: normal bowel sounds Percussion/Palpation: abdomen nontender, no guarding and abdomen not rigid Musculoskeletal: Head/Neck/Chest: normocephalic and head atraumatic Skin: no rashes, warm and dry Neurologic: moves all extremities and awake Psychiatric: A+Ox3, euthymic affect Results & Data Vital Signs (Past 12 Hours) Vital Signs Temp Pulse Pulse Resp BP BP Pulse Ox 07/27/19 07:19 107 H 18 63 L 07/27/19 06:59 36.6 C 103 H 18 136/70 94 07/27/19 04:57 101 H 07/27/19 04:00 99 H 93 07/27/19 02:51 36.4 C L 107 H 20 116/81 95 07/27/19 00:53 114 H 16 90 07/27/19 00:02 36.9 C 108 H 22 104/76 86 L 07/26/19 23:47 104 H 26 H 134/96 89 L 07/26/19 23:00 104 H 14 128/99 89 L 07/26/19 22:00 96 H 23 184/98 H 90 07/26/19 21:50 107 H 18 89 L 07/26/19 21:40 106 H 19 88 L 07/26/19 21:30 102 H 23 154/85 H 87 L Laboratory Results Laboratory Results - last 24 hr 07/26/19 07/26/19 07/26/19 18:44 18:44 18:44 WBC 10.46 RBC 4.92 Hgb 16.1 Hct 51.8 MCV 105.3 H MCH 32.7 MCHC 31.1 L RDW Std Deviation 62.3 H RDW Coeff of Malik 16.2 H Plt Count 156 MPV 9.5 Immature Gran % (Auto) 0.2 Neut % (Auto) 67.5 Lymph % (Auto) 15.2 Noble % (Auto) 15.9 Eos % (Auto) 1.1 Baso % (Auto) 0.1 Immature Gran # (Auto) 0.02 Neut # (Auto) 7.06 H Lymph # (Auto) 1.59 Noble # (Auto) 1.66 H Eos # (Auto) 0.12 Baso # (Auto) 0.01 PT 13.4 H INR 1.3 H APTT 27.9 PTT Ratio 1.0 Sodium 137 Potassium 4.4 Chloride 99 Carbon Dioxide 36 H Anion Gap 2.0 L BUN 9 Creatinine 0.75 Est Cr Clr Drug Dosing Not Reportable Est GFR ( Amer) 113.2 Est GFR (Non-Af Amer) 97.6 BUN/Creatinine Ratio 12.1 Glucose 78 Calcium 8.9 Total Bilirubin 1.7 H AST 12 L ALT 35 Alkaline Phosphatase 75 POC Troponin I Total Protein 6.5 Albumin 3.1 L Globulin 3.4 Albumin/Globulin Ratio 0.9 Hepatitis C Ab Screen 07/26/19 07/27/19 07/27/19 18:52 06:24 06:24 WBC 10.38 RBC 4.92 Hgb 16.3 Hct 52.6 H MCV 106.9 H MCH 33.1 MCHC 31.0 L RDW Std Deviation 62.1 H RDW Coeff of Malik 15.9 H Plt Count 186 MPV 9.8 Immature Gran % (Auto) Neut % (Auto) Lymph % (Auto) Noble % (Auto) Eos % (Auto) Baso % (Auto) Immature Gran # (Auto) Neut # (Auto) Lymph # (Auto) Noble # (Auto) Eos # (Auto) Baso # (Auto) PT INR APTT PTT Ratio Sodium 136 Potassium 5.0 Chloride 96 L Carbon Dioxide 37 H Anion Gap 3.0 BUN 12 Creatinine 0.77 Est Cr Clr Drug Dosing 123.1 Est GFR ( Amer) 111.9 Est GFR (Non-Af Amer) 96.6 BUN/Creatinine Ratio 15.1 Glucose 146 H Calcium 8.5 Total Bilirubin AST ALT Alkaline Phosphatase POC Troponin I < 0.03 Total Protein Albumin Globulin Albumin/Globulin Ratio Hepatitis C Ab Screen 07/27/19 06:24 WBC RBC Hgb Hct MCV MCH MCHC RDW Std Deviation RDW Coeff of Malik Plt Count MPV Immature Gran % (Auto) Neut % (Auto) Lymph % (Auto) Noble % (Auto) Eos % (Auto) Baso % (Auto) Immature Gran # (Auto) Neut # (Auto) Lymph # (Auto) Noble # (Auto) Eos # (Auto) Baso # (Auto) PT INR APTT PTT Ratio Sodium Potassium Chloride Carbon Dioxide Anion Gap BUN Creatinine Est Cr Clr Drug Dosing Est GFR ( Amer) Est GFR (Non-Af Amer) BUN/Creatinine Ratio Glucose Calcium Total Bilirubin AST ALT Alkaline Phosphatase POC Troponin I Total Protein Albumin Globulin Albumin/Globulin Ratio Hepatitis C Ab Screen Neg Diagnostic Findings CXR Cardiomegaly with mild vascular and interstitial prominence. An element of mild pulmonary vascular congestion must be considered. No evidence of lobar consolida tion Medications Administered Albuterol (Duoneb) 3 ml NEB Q6R JAYLA Stop: 08/26/19 00:59 Last Admin: 07/27/19 07:17 Dose: 3 ml Documented by: [id number] Admin: 07/27/19 00:53 Dose: 3 ml Documented by: [id number] Apixaban (Eliquis) 5 mg PO BID JAYLA Stop: 08/26/19 08:59 Last Admin: 07/27/19 08:16 Dose: 5 mg Documented by: [id number] Diltiazem HCl (Cardizem Cd) 360 mg PO QAM JAYLA Stop: 08/26/19 08:59 Last Admin: 07/27/19 08:15 Dose: 360 mg Documented by: [id number] Fish Oil ([place]-3 (Purified Fish Oil)) 1 gm PO BID JAYLA Stop: 08/26/19 08:59 Last Admin: 07/27/19 08:16 Dose: 1 gm Documented by: [id number] Fluticasone Propionate (Flonase) 2 sprays NA DAILY JAYLA Stop: 08/26/19 08:59 Last Admin: 07/27/19 08:15 Dose: 2 sprays Documented by: [id number] Guaifenesin (Mucinex) 600 mg PO BID JAYLA Stop: 08/26/19 08:59 Last Admin: 07/27/19 08:16 Dose: 600 mg Documented by: [id number] Ceftriaxone Sodium 2,000 mg/ (Dextrose) 50 ml in 70 mls @ 100 mls/hr IV Q24H JAYLA Stop: 08/03/19 00:00 Last Infusion: 07/27/19 01:08 Dose: 0 mls/hr Documented by: [id number] Admin: 07/27/19 00:36 Dose: 100 mls/hr Documented by: [id number] Azithromycin 500 mg/ Dextrose 255 mls @ 125 mls/hr IV Q24H JAYLA Stop: 08/03/19 00:00 Last Infusion: 07/27/19 03:15 Dose: 0 mls/hr Documented by: [id number] Admin: 07/27/19 01:09 Dose: 125 mls/hr Documented by: [id number] Methylprednisolone 40 mg/ (Syringe) 0.64 mls @ 1.5 mls/min IV Q6H [facility] Stop: 08/26/19 02:59 Last Admin: 07/27/19 08:13 Dose: 1.5 mls/min Documented by: [id number] Admin: 07/27/19 03:31 Dose: 1.5 mls/min Documented by: [id number] Miscellaneous (Order Awaiting Action) 1 ea N/A QS [facility] Stop: 08/26/19 07:59 Last Admin: 07/27/19 12:53 Dose: Not Given Documented by: [id number] Multivitamins/Minerals (Multivitamin W/ Minerals Tab) 1 tab PO QAM [facility] Stop: 08/26/19 08:59 Last Admin: 07/27/19 08:16 Dose: 1 tab Documented by: [id number] Pantoprazole Sodium (Protonix) 40 mg PO QAM [facility] Stop: 07/30/19 09:01 Last Admin: 07/27/19 08:16 Dose: 40 mg Documented by: [id number] Resident Activity Tracking Resident Involvement: Resident Care Provided Care Provided: Adult Hospital Medicine (1) Hyperlipidemia Hyperlipidemia type: unspecified Qualified Code(s): E78.5 - Hyperlipidemia, unspecified
--- NOTE | 2019-07-27 11:48 | Pulmonary Consultation ---
Date of Consultation July 27, 2019 Assessment & Plan (1) Acute on chronic respiratory failure with hypoxia and hypercapnia: Patient with chronic respiratory failure with hypercapnia is proven in the past with polysomnography exam and labs Currently has BiPAP at home as listed above We will continue with current therapy using BiPAP, steroids, and antibiotics Patient follows in the pulmonary clinic and was most recently seen by Dr. Vazquez Continue outpatient follow-up (2) COPD exacerbation: Patient continues to be a 5 to 10 cigarettes/day smoker Home oxygen at bedtime 2 L/min via nasal cannula -continue supplemental O2 while inpatient as needed Home medications include Brio Ellipta, albuterol/ipratropium, fluticasone nasal spray, Singulair at bedtime, and nebulizer as needed Maintain SaO2 between 88 and 92% No significant sputum. Cough is better Continue treatment for COPD (3) Current smoker: Discussed smoking cessation with the patient -patient has been trying to decrease amount of smoke daily Currently smoking 5 to 7 cigarettes/day Is refusing NicoDerm patch Not interested in pulmonary rehab at this time Continue to encourage smoking cessation as an outpatient Thank you for including us in the care of this patient. We will continue to follow along with you. Please refer to Dr. De Los Santos's addendum for further recommendations. Supervising Physician Co-Signing Physician Notes Patient seen and examined. Images were independently reviewed. Discussed with INGA edwards and patient. Agree with assessment and plan as noted. History of Present Illness Attending Physician: Peewee Arreola MD History of Present Illness Attending: Dr. De Los Santos This is a 64-year-old male with a past medical history of COPD, nocturnal hypoxemia on chronic O2 at bedtime, hypercapnia, history of colonic polyps with no malignancy, atrial fibrillation on chronic anticoagulation with Eliquis, CHF, ongoing tobacco abuse, emphysema, obesity. The patient was admitted in April of this year with similar complaints and found to have a slight bump in his troponin. He was treated for COPD exacerbation with antibiotics and steroids. Echocardiogram was completed and was relatively within normal limits with a left ventricular ejection fraction was preserved at 60 to 65%. Although the tricuspid valve was not well visualized there was evidence of right ventricular systolic pressure of 30 to 40 mmHg. Patient was seen in the pulmonary clinic 05/22/2019 and received influenza vaccination and appear to be stable. Patient was seen in the pulmonary clinic by Dr. Vazquez on 07/17/2019 for shortness of breath. It was not felt that he had an infectious etiology at that time and was sent home with a 5-day burst of prednisone 40 mg p.o. daily with no antibiotics. The patient states that since that time he has had increasing shortness of breath that may be exacerbated by weather. 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 The patient does state that he continues to smoke cigarettes but is cut down to between 5 and 10 cigarettes daily. He was trying to limit to 1/4 pack/day. The patient does have a history of hypercapnia and has BiPAP at home i12/e6 with a back-up rate of 12. The patient most recently had interrogation of the equipment which revealed 28% compliance for 4 hours per night. Patient states that he is actively trying to use the equipment at least 4 hours nightly and continues to work on compliance. At the 05/22/2019 visit, a new mask was ordered. The patient states that he has not had time to set this mask up and is still using his old mask. Diagnosis of hypercapnia was made with home polysomnography established by Dr. Vogt in January 2017 with no evidence of sleep apnea. Medications use at home of Brio Ellipta, Combivent inhaler, DuoNeb, montelukast, and Mucinex. Patient uses 2 L/min of supplemental oxygen via nasal cannula at bedtime. PFTs 02/17/2019 were compared to PFTs from 02/04/2018 and showed no significant change. FEV1 36% of predicted FEV1/FVC 59% of predicted RV 136% of predicted TLC 96% of predicted DLCOunc 54% of predicted Polysomnography 05/18/2017: Home sleep study with [place] type III monitor 16 respiratory events including one central apnea and 15 hypopneas. Hypotony is were scored according to the 4% desaturation rule. SIERRA was 2.8. Mean saturation was 85% for the night. Minimum saturation was 66%. There were 314 minutes with saturations less than 89%. Patient snored throughout the night There is no evidence of sleep apnea. Allergies Allergy/AdvReac Type Severity Reaction Status Date / Time No Known Allergies Allergy Verified 07/26/19 21:26 Home Medications Home Medications Medication Instructions Recorded Confirmed Type Breo Ellipta 1 inh INHALATION QAM 07/16/18 07/26/19 History clobetasol [Temovate] 1 applic TOPICAL BID PRN 07/16/18 07/26/19 History apixaban 5 mg tablet 5 mg PO BID #60 tab 04/05/19 07/26/19 History diltiazem HCl 180 mg 360 mg PO QAM #180 cap 04/05/19 07/26/19 History capsule,extended release 24 hr guaifenesin 600 mg tablet, 600 mg PO BID tab 04/05/19 07/26/19 History extended release 12 hr multivitamin with minerals 1 tab PO QAM tab 04/05/19 07/26/19 History omega-3 fatty acids 1,000 mg 1,000 mg PO BID 04/05/19 07/26/19 History capsule nebulizers #1 ea 05/01/19 07/26/19 Rx BiPap Supplies #1 ea 05/22/19 07/26/19 Rx fluticasone propionate 50 2 sprays INTRANASAL DAILY #16 gm 06/19/19 07/26/19 Rx mcg/actuation nasal spray,suspension atorvastatin 40 mg tablet 40 mg PO HS #30 tab 07/10/19 07/26/19 Rx ipratropium-albuterol 0.5 mg-3 3 ml INHALATION QID #360 ml 07/12/19 07/26/19 Rx mg(2.5 mg base)/3 mL nebulization soln montelukast 10 mg tablet 10 mg PO HS #30 tab 07/12/19 07/26/19 Rx ipratropium 20 mcg-albuterol 100 1 puff INHALATION QID PRN #4 gm 07/18/19 07/26/19 Rx mcg/actuation mist for inhalation Patient History Medical History Acute and chronic respiratory failure with hypoxia Atrial fibrillation, new onset (Acute) follows with Dr. Irwin--on eliquis daily Atrial flutter with rapid ventricular response CHF (congestive heart failure) Chronic respiratory failure with hypercapnia (Chronic) COPD (chronic obstructive pulmonary disease) (Chronic) inhaler daily/prn, nebulizer daily Current smoker Dependence on nocturnal oxygen therapy 2L at night through CPAP Emphysema of lung (Chronic) History of colon polyps Hyperlipidemia (Chronic) On anticoagulant therapy eliquis daily Surgical History History of bronchoscopy History of colonoscopy History of tooth extraction all top teeth and some lower teeth removed Family History Father CHF (congestive heart failure) Other No family history of adverse response to anesthesia Social History Preferred Language: Danish Communication Ability: Effective Multimedia Educational Specialist Required: No Beliefs That Will Affect Care: None marital status: Single Current Living Situation: Family Current Living Situation Comment: Sister and Mother Feels Safe at Home: Yes Smoking Status: Current every day smoker Tobacco Type: cigarettes ; packs per day: 0.25 ; Cigarettes Per Day: less than 10 a day ; Second Hand Exposure: Yes ; Tobacco Cessation Education Requested by Patient: No Hx Alcohol Use: No Hx Substance Use: No Review of Systems Review of Systems: All systems reviewed & are unremarkable except as noted in HPI & below Physical Exam Physical Exam: GENERAL : No acute distress EYES: No icterus, gaze conjugate NOSE: No evidence of epistaxis MOUTH: No lesions or candidiasis NECK: Supple LUNGS: Scattered wheezes throughout with some fine rales at the bilateral bases. No rhonchi. Breath sounds are diminished. HEART: Irregular, irregular, rate in the 1-teens ABDOMEN: Soft, NT, ND, BS Present EXTREMITIES: No LE edema, pedal pulses intact NEURO: A&OX3 Results & Data Vital Signs (Past 12 Hours) Vital Signs Temp Pulse Pulse Resp BP BP Pulse Ox 07/27/19 07:19 107 H 18 63 L 07/27/19 06:59 36.6 C 103 H 18 136/70 94 07/27/19 04:57 101 H 07/27/19 04:00 99 H 93 07/27/19 02:51 36.4 C L 107 H 20 116/81 95 07/27/19 00:53 114 H 16 90 07/27/19 00:02 36.9 C 108 H 22 104/76 86 L 07/26/19 23:47 104 H 26 H 134/96 89 L Laboratory Results 07/27/19 06:24 07/27/19 06:24 Diagnostic Findings XR chest 2V PA/lateral CLINICAL HISTORY: R05 Cough COMPARISON STUDY: 05/22/2019 FINDINGS: The heart is enlarged. There is enlargement of central pulmonary arteries. There is mild vascular and interstitial prominence. There is no lobar consolidation. There are no significant pleural effusions[ IMPRESSION: Cardiomegaly with mild vascular and interstitial prominence. An element of mild pulmonary vascular congestion must be considered. No evidence of lobar consolidation Electronically signed by: Gadiel Reddy M.D. 07/26/2019 6:12 PM PG Care Time/CCT Total # of Minutes Spent Total Time Spent with Patient: Total time spent is greater than 50% in coordination of care (as documented) at patient's floor/unit and/or counseling patient: 65 minutes
[2019-07-27] MEDS ORDERED: NURSING DECISION MEDICATION ONE (13:29)
[2019-07-27] MEDS ORDERED: SODIUM CHLORIDE 0.65% NA SOLN 45 ML (OCEAN) PRN (13:35)
[2019-07-27] MEDS ORDERED: FUROSEMIDE 40 MG in SYRINGE 0 ML IV ONE (14:32)
[2019-07-27] MEDS: MONTELUKAST SODIUM 10 MG TABLET PO SCH (19:28)
[2019-07-27] MEDS: ATORVASTATIN 40 MG TAB PO SCH (19:29)
[2019-07-28] MEDS: cefTRIAXone SODIUM 2,000 MG in DEXTROSE 5% 50 ML/50 ML BAG IV SCH (00:20)
[2019-07-28] MEDS: ALBUT/IPRATROP 3MG/0.5MG NEB 3 ML VIAL NEB SCH ×4 (00:59→19:09)
[2019-07-28] MEDS: AZITHROMYCIN 500 MG in DEXTROSE 5% 250 ML IV SCH (01:18)
[2019-07-28] MEDS: methylPREDNISolone 40 MG in SYRINGE 0 ML IV SCH ×2 (03:32→08:23)
[2019-07-28 06:43] LABS: Hemoglobin 15.3 g/dL (14.0-18.0); Mean Corpuscular Hemoglobin 33.1 pg (25-34); Mean Corpuscular Hgb Conc 31.9 g/dL (32-36); Mean Corpuscular Volume 103.9 fL (80-100); Mean Platelet Volume 9.6 fL (7.4-10.4); Platelet Count 170 K/uL (130-400); RDW Coefficient of Variation 15.5 % (11.5-14.5); RDW Standard Deviation 59.1 fL (36.4-46.3); Red Blood Count 4.62 M/uL (4.7-6.1); White Blood Count 17.08 K/uL (4.8-10.8)
[2019-07-28] MEDS ORDERED: FUROSEMIDE 40 MG in SYRINGE 0 ML IV ONE (06:45)
[2019-07-28 07:16] LABS: BUN Creatinine Ratio 24.8 (10-20); Calcium 8.4 mg/dl (8.5-10.1); Est GFR (African American) 109.6; Est GFR (Non-African American) 94.6; Potassium 4.5 mmol/L (3.5-5.1)
[2019-07-28] MEDS: FLUTICASONE PROPIONATE NA SPR 16 GM BTL SCH (08:23)
[2019-07-28] MEDS: CEROVITE ADV FORMULA TAB PO SCH (08:23)
[2019-07-28] MEDS: APIXABAN 5 MG TABLET PO SCH ×2 (08:24→21:10)
[2019-07-28] MEDS: guaiFENesin 600 MG TABCR PO SCH ×2 (08:24→21:10)
[2019-07-28] MEDS: OMEGA-3 (PURIFIED FISH OIL) 1 GM CAP PO SCH ×2 (08:24→21:11)
[2019-07-28] MEDS: dilTIAZem HCL 180 MG CAPCR PO SCH (08:24)
[2019-07-28] MEDS: PANTOprazole 40 MG TAB PO SCH (08:24)
--- NOTE | 2019-07-28 09:12 | Pulmonology Progress Note ---
Date of Service July 28, 2019 Assessment & Plan (1) Acute on chronic respiratory failure with hypoxia and hypercapnia: Impression: 64-year-old male with history of tobacco abuse and COPD admitted with exacerbation. He appears clinically improved currently. Recommendations: 1. COPD exacerbation: Okay to transition to oral azithromycin/Ceftin and steroids. Would complete 5-day course of both. Continue Mucinex and Singulair. Patient should follow-up with the pulmonary clinic in 1 to 2 weeks. He has seen Dr. Vazquez in the past 2. Hypoxemia: Continue to wean oxygen as tolerated. Target saturations greater than 88%. The patient has home oxygen already available. If the patient is tolerating oral medications and feels appropriate for dismissal home, he can be dismissed from a pulmonary perspective. Additional medical issues per his admitting service (2) COPD exacerbation: Subjective Patient states that he feels better. He continues to remain on oxygen. He is coughing and expectorating small amounts of phlegm. No fevers chills or night sweats. He is tolerating his diet. He is asking about potential dismissal from the hospital. Review of Systems Review of Systems: Unchanged from prior Physical Exam Constitutional: WD/WN, vitals as above Neck: trachea midline, no thyromegaly Respiratory: Decreased breath sounds bilaterally. No wheezing Cardiovascular: RRR, no murmur, no edema Gastrointestinal (Abdomen): normal bowel sounds, soft, nontender, no hepatosplenomegaly Musculoskeletal: Extremities: extremities normal to inspection Skin: no rashes, warm and dry Neurologic: Nonfocal exam Lymphatic: no cervical lymphadenopathy Results & Data Vital Signs (Past 12 Hours) Vital Signs Temp Pulse Pulse Resp BP Pulse Ox 07/28/19 07:24 36.5 C 109 H 21 128/76 90 07/28/19 07:21 88 18 89 L 07/28/19 05:09 36.6 C 104 H 19 133/84 93 07/28/19 01:01 96 H 20 93 07/28/19 00:09 36.8 C 99 H 22 120/77 92 07/28/19 00:00 101 H PG Care Time/CCT Total # of Minutes Spent Total Time Spent with Patient: Total time spent is greater than 50% in coordination of care (as documented) at patient's floor/unit and/or counseling patient:
--- NOTE | 2019-07-28 09:53 | Hospitalist Progress Note ---
Date of Service July 28, 2019 Assessment & Plan (1) Acute and chronic respiratory failure with hypoxia: Felix Gaytan (Bill) is a 64 years old male with past medical history of COPD, congestive heart failure(chronic diastolic), atrial fibrillation, current smoker half pack per day, emphysema of the lungs, hyperlipidemia who presents for acute on chronic respiratory failure with hypoxia. - Counseled patient heavily on need for smoking cessation - Pulm was consulted on admission and has switched patient to PO Prednisone 40mg, Azithromycin 250mg PO, Ceftin 500mg PO BID. - monitor pulse ox and provide supplemental oxygen as needed - Negative Procal here - continue scheduled Duonebs as ordered - Suspect component of fluid overload from diastolic CHF, review of prior weights appear possibly at 108-109kg baseline; currently at 112kg down 2.5kg from admission; will give another Lasix 40mg IV x1 dose - 24 hour I&O = -1540mL - Anticipate discharge home this weekend, with completion of 5-day course of antibiotics and steroids, per Pulmonology recs. (2) COPD exacerbation: as above (3) Atrial fibrillation: continue with home Eliquis 5mg PO BID continue with rate control with Diltiazem 360mg qAM daily (4) Hyperlipidemia: c/w Atorvastatin 40mg PO qHS Supervising Physician Co-Signing Physician Notes Attending attestation I saw the patient with the resident physician confirmed castillo portions the history and physical lamination. I agree the impression and plan as noted the resident documentation. On examination, the patient is seated in his bed reading the newspaper. He tells me that he feels improved compared to yesterday although he started not at his baseline. On examination, lungs with globally decreased breath sounds but did not appreciate any wheezing. He does have a prolonged expiratory phase consistent with his known history of COPD. Acute on chronic respiratory failure w/ hypoxia in the setting of COPD exacerbation Atrial fibrillation Tobacco use Transition to oral steroids and antibiotics Counseled regarding tobacco cessation Consider discharge tomorrow if he continues to improve; discussed he will need to use his home oxygen more than he presently does. Subjective No acute events reported overnight. He states he feels improved with hopes to go home, but still requiring 4L NC. No complaints of chest pain, nausea, vomiting, diarrhea, fever, chills. Physical Exam Constitutional: WD/WN, vitals as above Eyes: PERRL, conjunctivae normal, anicteric sclerae ENMT: external ear and nose normal, oropharynx normal Neck: normal visual inspection and trachea midline Respiratory: no respiratory distress Auscultation: + diminished lung sounds; no crackles and no wheezes Cardiovascular: Rate/Rhythm: regular rate Extremities: no calf tenderness Gastrointestinal (Abdomen): Inspection/Auscultation: normal bowel sounds Percussion/Palpation: abdomen nontender, no guarding and abdomen not rigid Musculoskeletal: Head/Neck/Chest: normocephalic and head atraumatic Skin: no rashes, warm and dry Neurologic: moves all extremities and awake Psychiatric: A+Ox3, euthymic affect Results & Data Vital Signs (Past 12 Hours) Vital Signs Temp Pulse Pulse Resp BP Pulse Ox 07/28/19 07:24 36.5 C 109 H 21 128/76 90 07/28/19 07:21 88 18 89 L 07/28/19 05:09 36.6 C 104 H 19 133/84 93 07/28/19 01:01 96 H 20 93 07/28/19 00:09 36.8 C 99 H 22 120/77 92 07/28/19 00:00 101 H Laboratory Results Laboratory Results - last 24 hr 07/28/19 07/28/19 06:08 06:08 WBC 17.08 H RBC 4.62 L Hgb 15.3 Hct 48.0 MCV 103.9 H MCH 33.1 MCHC 31.9 L RDW Std Deviation 59.1 H RDW Coeff of Malik 15.5 H Plt Count 170 MPV 9.6 Sodium 133 L Potassium 4.5 Chloride 93 L Carbon Dioxide 38 H Anion Gap 2.0 L BUN 20 H D Creatinine 0.81 Est Cr Clr Drug Dosing 117.0 Est GFR ( Amer) 109.6 Est GFR (Non-Af Amer) 94.6 BUN/Creatinine Ratio 24.8 H Glucose 131 H Calcium 8.4 L Medications Administered Albuterol (Duoneb) 3 ml NEB Q6R [facility] Stop: 08/26/19 00:59 Last Admin: 07/28/19 14:08 Dose: 3 ml Documented by: [id number] Admin: 07/28/19 07:16 Dose: 3 ml Documented by: [id number] Admin: 07/28/19 00:59 Dose: 3 ml Documented by: [id number] Admin: 07/27/19 19:05 Dose: 3 ml Documented by: [id number] Admin: 07/27/19 13:49 Dose: 3 ml Documented by: [id number] Admin: 07/27/19 07:17 Dose: 3 ml Documented by: [id number] Admin: 07/27/19 00:53 Dose: 3 ml Documented by: [id number] Apixaban (Eliquis) 5 mg PO BID JAYLA Stop: 08/26/19 08:59 Last Admin: 07/28/19 08:24 Dose: 5 mg Documented by: [id number] Admin: 07/27/19 19:28 Dose: 5 mg Documented by: [id number] Admin: 07/27/19 08:16 Dose: 5 mg Documented by: [id number] Atorvastatin Calcium (Lipitor) 40 mg PO HS [facility] Stop: 08/26/19 20:59 Last Admin: 07/27/19 19:29 Dose: 40 mg Documented by: [id number] Diltiazem HCl (Cardizem Cd) 360 mg PO QAM JAYLA Stop: 08/26/19 08:59 Last Admin: 07/28/19 08:24 Dose: 360 mg Documented by: [id number] Admin: 07/27/19 08:15 Dose: 360 mg Documented by: [id number] Fish Oil (Prairie-3 (Purified Fish Oil)) 1 gm PO BID JAYLA Stop: 08/26/19 08:59 Last Admin: 07/28/19 08:24 Dose: 1 gm Documented by: [id number] Admin: 07/27/19 19:29 Dose: 1 gm Documented by: [id number] Admin: 07/27/19 08:16 Dose: 1 gm Documented by: [id number] Fluticasone Propionate (Flonase) 2 sprays NA DAILY JAYLA Stop: 08/26/19 08:59 Last Admin: 07/28/19 08:23 Dose: 2 sprays Documented by: [id number] Admin: 07/27/19 08:15 Dose: 2 sprays Documented by: [id number] Guaifenesin (Mucinex) 600 mg PO BID JAYLA Stop: 08/26/19 08:59 Last Admin: 07/28/19 08:24 Dose: 600 mg Documented by: [id number] Admin: 07/27/19 19:28 Dose: 600 mg Documented by: [id number] Admin: 07/27/19 08:16 Dose: 600 mg Documented by: [id number] Miscellaneous (Order Awaiting Action) 1 ea N/A QS [facility] Stop: 08/26/19 07:59 Last Admin: 07/28/19 08:25 Dose: Not Given Documented by: [id number] Admin: 07/28/19 01:21 Dose: Not Given Documented by: [id number] Admin: 07/27/19 17:22 Dose: Not Given Documented by: [id number] Admin: 07/27/19 12:53 Dose: Not Given Documented by: [id number] Montelukast Sodium (Singulair) 10 mg PO HS [facility] Stop: 08/26/19 20:59 Last Admin: 07/27/19 19:28 Dose: 10 mg Documented by: [id number] Multivitamins/Minerals (Multivitamin W/ Minerals Tab) [facility] Stop: 08/26/19 08:59 Last Admin: 07/28/19 08:23 Dose: 1 tab Documented by: [id number] Admin: 07/27/19 08:16 Dose: 1 tab Documented by: [id number] Pantoprazole Sodium (Protonix) 40 mg [facility] Stop: 07/30/19 09:01 Last Admin: 07/28/19 08:24 Dose: 40 mg Documented by: [id number] Admin: 07/27/19 08:16 Dose: 40 mg Documented by: [id number] Prednisone (Prednisone) 40 mg PO DAILY [facility] Stop: 08/27/19 09:14 Last Admin: 07/28/19 10:11 Dose: 40 mg Documented by: [id number] Sodium Chloride ([place] Nasal) 1 sprays NA PRN PRN PRN Reason: Dryness Stop: 08/26/19 13:34 Last Admin: 07/28/19 00:20 Dose: 1 sprays Documented by: [id number] Resident Activity Tracking Resident Involvement: Resident Care Provided Care Provided: Adult Hospital Medicine (1) Hyperlipidemia Hyperlipidemia type: unspecified Qualified Code(s): E78.5 - Hyperlipidemia, unspecified
[2019-07-28] MEDS: predniSONE 20 MG TAB PO SCH (10:11)
[2019-07-28] MEDS: cefUROXime axetil 500 MG TAB PO SCH (21:09)
[2019-07-28] MEDS: ATORVASTATIN 40 MG TAB PO SCH (21:10)
[2019-07-28] MEDS: MONTELUKAST SODIUM 10 MG TABLET PO SCH (21:11)
[2019-07-29] MEDS: ALBUT/IPRATROP 3MG/0.5MG NEB 3 ML VIAL NEB SCH ×3 (00:56→13:18)
[2019-07-29] MEDS: guaiFENesin 600 MG TABCR PO SCH (07:51)
[2019-07-29] MEDS: CEROVITE ADV FORMULA TAB PO SCH (07:51)
[2019-07-29] MEDS: OMEGA-3 (PURIFIED FISH OIL) 1 GM CAP PO SCH (07:51)
[2019-07-29] MEDS: dilTIAZem HCL 180 MG CAPCR PO SCH (07:51)
[2019-07-29] MEDS: FLUTICASONE PROPIONATE NA SPR 16 GM BTL SCH (07:52)
[2019-07-29] MEDS: PANTOprazole 40 MG TAB PO SCH (07:52)
[2019-07-29] MEDS: predniSONE 20 MG TAB PO SCH (07:52)
[2019-07-29] MEDS: APIXABAN 5 MG TABLET PO SCH (07:52)
[2019-07-29] MEDS: cefUROXime axetil 500 MG TAB PO SCH (07:53)
[2019-07-29] MEDS ORDERED: AZITHROMYCIN 250 MG TAB PO SCH (09:00)
--- NOTE | 2019-07-29 16:59 | Discharge Summary ---
Date of Service July 29, 2019 Admission HPI Per Admitting Provider 64 y/o male presented to the ED with increasing SOB over the past 2 weeks. He has had a dry cough, but no F/C, chest pain, N/V/D, or flu-like symptoms. 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 He has reduced smoking, but is still at 1/4-1/3 PPD. He was actually to have a CXR ordered by his adventure guide and felt poorly and just came to the ED. He uses oxygen at home on a prn basis and through his CPAP at night. Admission Exam Per Admitting Provider Physical Exam: General- adult male, NAD. Head- atraumatic Eyes- PERRL, EOMI, anicteric ENT- oropharynx clear Neck- supple, no JVD, no adenopathy, no thyromegaly. Lungs- significantly decreased breath sounds at the bases b/l R>L with expiratory wheezes noted in the mid to upper lung au. Heart- regular rhythm; no murmur, no gallop, no rub appreciated Abdomen- normal bowel sounds, soft, nontender. Extremities- no pretibial edema, no calf tenderness; peripheral pulses intact Neuro- alert, oriented x 3; PERRL, EOMI; steam press tender II-XII grossly intact, non-focal. Skin- warm & dry Principal Diagnosis COPD exacerbation Discharge Exam Constitutional WD/WN, vitals as above Eyes PERRL, conjunctivae normal, anicteric sclerae ENMT external ear and nose normal, oropharynx normal Neck trachea midline, no thyromegaly Respiratory + prolonged expiratory phase and + tripod positioning; no respiratory distress, no labored breathing and no retractions Auscultation: + diminished lung sounds; no crackles, no rales and no wheezes Cardiovascular Rate/Rhythm: + irregularly irregular Heart Sounds: no gallop and no cardiac rub Gastrointestinal (Abdomen) normal bowel sounds, soft, nontender, no hepatosplenomegaly Musculoskeletal no cyanosis or clubbing, extremities motor strength 5/5 Skin no rashes, warm and dry Neurologic PERRL, EOMI, accommodation nl, no face palsy, no dysarthria Psychiatric A+Ox3, euthymic affect Discharge Data Allergies Allergy/AdvReac Type Severity Reaction Status Date / Time No Known Allergies Allergy Verified 12/04/19 21:26 Consultations 07/26/19 20:54 ED Decision to Admit Stat 07/27/19 02:24 Consult Pulmonology Routine 07/29/19 14:[address] researcher Routine [phone] XRay Report Patient: FELIX GAYTAN Date: 07/26/19 MR#: [id number]: [address] [facility] Acct ID:[id number]: [facility] Zip: [place] [id number] Age: 64Location: [facility] Sex: M Room/Bed: Att Phy: Pankaj Vazquez MDDiagnosis: R05 Libby Phy: Aristeo Vicente, MDService Date: 07/26/19 Fam Phy:Interpreting Phy: Gadiel Reddy MD Admit Phy: Ordering Phy: Pankaj Vazquez MD cc: ~ XR chest 2V PA/lateral CLINICAL HISTORY: R05 Cough COMPARISON STUDY: 05/22/2019 FINDINGS: The heart is enlarged. There is enlargement of central pulmonary arteries. There is mild vascular and interstitial prominence. There is no lobar consolidation. There are no significant pleural effusions[ IMPRESSION: Cardiomegaly with mild vascular and interstitial prominence. An element of mild pulmonary vascular congestion must be considered. No evidence of lobar consolidation Electronically signed by: Gadiel Reddy M.D. 07/26/2019 6:12 PM Dictated: 07/26/191810 Transcribed: 07/26/19 181 Hospital Course (1) Acute and chronic respiratory failure with hypoxia: Felix Gaytan (Bill) is a 64 years old male with past medical history of COPD, congestive heart failure(chronic diastolic), atrial fibrillation, current smoker half pack per day, emphysema of the lungs, hyperlipidemia who presents for acute on chronic respiratory distress with hypoxia. Respiratory distress secondary to COPD exacerbation Evaluated by pulmonology recommended continue prednisone, antibiotics, home oxygen and BiPAP in the evenings No evidence of pneumonia on radiograph, afebrile, nonetheless we will cover for community acquired species and atypicalscontinue cefuroxime mean for 2 more days and azithromycin for 1 more day Patient will be taking prednisone 40 mg for 5 days and transition to 20 mg for additional 5 days Follow-up with PCP and pulmonology in the next 7 to 10 days (2) COPD exacerbation: as above (3) Atrial fibrillation: continue with home Eliquis 5mg PO BID continue with rate control with Diltiazem 360mg qAM daily (4) Hyperlipidemia: c/w Atorvastatin 40mg PO qHS Total Time Total Time Spent Total Time Spent (In Minutes): 35 minutes Total Time Includes: Communication With Other Providers Discharge Plan Discharge Items Patient Disposition: Home - Self-Care Reason For Visit: COPD EXACERBATION Discharge Diagnosis: COPD exacerbation Condition on Discharge: Good Activity: Resume your previous activity Non-emergency contact: Primary Care Provider Call non-emergency contact if: you have any medication questions Follow-up/Referrals: Peewee Vicente MD [Primary Care Provider] - Diet: Heart Healthy Addtl Attending Provider Instructions: You were admitted to the hospital with a respiratory distress and were found to have a COPD exacerbation. You are being sent home with the following medications and recommendations: 1. Antibiotics--Cefuroxime, twice daily for two more days. Azithromycin for one more day 2. Oral steroids--take prednisone 40 mg for 5 days and then 20 mg for 5 more days 3. Continue home COPD inhalers, oxygen and the BIPAP machine in the evenings 4. Follow up with your adventure guide and PCP Pending Studies at Discharge: No Stand-Alone Forms: My [facility], Smoking Cessation Medications and DC Order Prescriptions: New cefuroxime axetil 500 mg tablet 500 mg PO BID 2 Days Qty: 4 RF: 0 azithromycin 250 mg tablet 250 mg PO DAILY 1 Days Qty: 1 RF: 0 prednisone 20 mg tablet 20 mg PO DAILY Qty: 15 RF: 0 Continued (DME) nebulizers [facility] See Dose Instructions [id number] .MEDSUPPLY Qty: 1 RF: 0 fluticasone propionate 50 mcg/actuation spray,suspension 2 sprays intranasal DAILY Qty: 16 RF: 5 atorvastatin 40 mg tablet 40 mg PO HS Qty: 30 RF: 5 montelukast 10 mg tablet 10 mg PO HS Qty: 30 RF: 11 ipratropium-albuterol 0.5 mg-3 mg(2.5 mg base)/3 mL solution for nebulization 3 ml INHALATION QID Qty: 360 RF: 11 Combivent Respimat 20-100 mcg/actuation mist 1 puff INHALATION QID PRN (Reason: Shortness Of Breath) Qty: 4 RF: 5 omega-3 fatty acids [Fish Oil Concentrate] 1,000 mg capsule 1,000 mg PO BID RF: 0 multivitamin with minerals [Men's One Daily] tablet 1 tab PO QAM RF: 0 guaifenesin 600 mg tablet extended release 12hr 600 mg PO BID RF: 0 apixaban 5 mg tablet 5 mg PO BID Qty: 60 RF: 0 diltiazem HCl 180 mg capsule,extended release 24hr 360 mg PO QAM Qty: 180 RF: 0 (DME) BiPap Supplies Misc See Dose Instructions .ROUTE .MEDSUPPLY Qty: 1 RF: 0 clobetasol [Temovate] 0.05 % cream 1 applic Topical BID PRN (Reason: Rash) RF: 0 Breo Ellipta 100-25 mcg/dose Blister With Device 1 inh INHALATION QAM RF: 0 Discharge Orders: Discharge Order (Routine); Ordered 07/29/19 Ordered By: Jose Rangel/Other Patient Handouts: COPD, Disease Chronic Lung Prevent Infec, Disease Chronic Lung Quit Smoking, Oxygen Home Use, COPD Dc, Disease Chronic Lung Oxygen Admission Data Admit Date/Time: 07/26/19 23:10 Attending Provider: Delmer Mckinney Admit Provider: Christopher Elizabeth Primary Care Provider: Peewee Vicente Other Providers: Christopher Elizabeth ; Rony De Los Santos Other Interventions: Discharge Summary Assessment (RN) Last Done: 07/29/19 14:29 DC Date/Time DO NOT enter until pt leaves facility: 07/29/19 16:05 Supervising Physician Co-Signing Physician Notes Attending attestation I saw the patient with the resident physician confirmed castillo portions the history and physical lamination. I agree the impression and plan as noted the resident documentation. On examination, the patient is seated in his chair at bedside. He generally feels well and anticipates discharge. On examination, lungs with globally decreased breath sounds but did not appreciate any wheezing. He does have a prolonged expiratory phase consistent with his known history of COPD. I discussed with him that he may need his oxygen more frequently than he is accustomed to using at home. He tells me that he will frequently take his oxygen off when he is working outside, and I expect he will do this when he returns home following hospitalization. Reviewed the medications for discharge, and he understands the need to take as directed Acute on chronic respiratory failure w/ hypoxia in the setting of COPD exacerbation Atrial fibrillation Tobacco use Resident Activity Tracking Resident Involvement: Resident Care Provided Care Provided: Adult Hospital Medicine
== END 2019-07-29 16:05 | disposition home or self-care (01) | DRG 190 ==
LOC: ED 18:07 → 2S 23:10 → SUATTDRO 23:10 → 2S 23:47

== ENCOUNTER 2019-10-16 13:23 | Inpatient (IN) ==
[2019-10-16] MEDS ORDERED: methylPREDNISolone 125 MG/2 ML VIAL IV STA (13:35)
[2019-10-16] MEDS ORDERED: ALBUT/IPRATROP 3MG/0.5MG NEB 3 ML VIAL NEB ONE (13:35)
[2019-10-16] MEDS ORDERED: SODIUM CHLORIDE 0.9% 500 ML IV SCH (13:45)
--- NOTE | 2019-10-16 13:54 | Emergency Department Note ---
Entered by Sean Anand acting as a scribe for Kong Ernst DO History of Present Illness General Chief complaint: Shortness of Breath/Dyspnea Stated complaint: SOB Time Seen by Provider: 10/16/19 13:29 Source: patient Limitations: no limitations History of Present Illness Onset (ago): week(s) (2.5) Location: chest Pain Consistency: + other (worsening) Maximum Pain Intensity: 0 Quality: + constant Exacerbated By: + movement Associated symptoms: + denies other symptoms (weight gain); no chest pain and no fever/chills (fevers) Treatments prior to arrival: other (prednisone) The patient is a 64 year old male who presents to the Emergency Room with complaints of constant and worsening SOB starting 2.5 weeks ago. The patient states he has had increased leg swelling. He states he has COPD. He notes he has been having trouble getting around and his SOB is worse with exertion. He states he was prescribed Levaquin last week. He notes he finished prednisone this morning. He states he has been taking his medications and never had heart failure or a heart attack. He denies having a previous blood clot in his legs or lungs. The patient denies having chest pain, weight gain, fevers, and taking new medications. He states the last time his COPD got bad was two months ago. He notes he is a smoker. Home Medications Home Medications Medication Instructions Recorded Confirmed Type clobetasol [Temovate] 1 applic TOPICAL BID PRN 07/16/18 10/16/19 History diltiazem HCl 180 mg 360 mg PO QAM #180 cap 04/05/19 10/16/19 History capsule,extended release 24 hr guaifenesin 600 mg tablet, 600 mg PO BID tab 04/05/19 10/16/19 History extended release 12 hr multivitamin with minerals 1 tab PO QAM tab 04/05/19 10/16/19 History omega-3 fatty acids 1,000 mg 1,000 mg PO BID 04/05/19 10/16/19 History capsule nebulizers #1 ea 05/01/19 10/03/19 Rx BiPap Supplies #1 ea 05/22/19 10/03/19 Rx ipratropium 20 mcg-albuterol 100 1 puff INHALATION QID PRN #4 gm 07/18/19 10/16/19 Rx mcg/actuation mist for inhalation CPAP Machine #1 ea 08/30/19 10/03/19 Rx Portable Oxygen #1 ea 08/30/19 10/03/19 Rx fluticasone furoate 200 1 puffs INH Q24H #60 ea 08/30/19 10/16/19 Rx mcg-vilanterol 25 mcg/dose inhalation powder apixaban [Eliquis] 5 mg PO BID 10/16/19 10/16/19 History atorvastatin [Lipitor] 40 mg PO HS 10/16/19 10/16/19 History fluticasone propionate [Flonase 2 sprays INTRANASAL QAM 10/16/19 10/16/19 History Allergy Relief] ipratropium-albuterol 3 ml INHALATION QID PRN 10/16/19 10/16/19 History levofloxacin [Levaquin] 500 mg PO QAM 10/16/19 10/16/19 History montelukast [Singulair] 10 mg PO HS 10/16/19 10/16/19 History prednisone 40 mg PO QAM 10/16/19 10/16/19 History Allergies Allergy/AdvReac Type Severity Reaction Status Date / Time No Known Allergies Allergy Verified 10/16/19 14:44 Past Med/Surg History Medical History Acute and chronic respiratory failure with hypoxia Atrial fibrillation, new onset (Acute) follows with Dr. Irwin--on eliquis daily Atrial flutter with rapid ventricular response CHF (congestive heart failure) Chronic respiratory failure with hypercapnia (Chronic) COPD (chronic obstructive pulmonary disease) (Chronic) inhaler daily/prn, nebulizer daily Current smoker Dependence on nocturnal oxygen therapy 2L at night through CPAP Emphysema of lung (Chronic) History of colon polyps Hyperlipidemia (Chronic) On anticoagulant therapy eliquis daily Personal history of nicotine dependence Surgical History History of bronchoscopy History of colonoscopy History of tooth extraction all top teeth and some lower teeth removed [place] teeth extracted (Resolved) "3 wisdom teeth; 1996" Family History Father CHF (congestive heart failure) Other No family history of adverse response to anesthesia Social History Preferred Language: Arabic Communication Ability: Effective Mysql Database Administrator Required: No Beliefs That Will Affect Care: None marital status: Single Current Living Situation: Family Current Living Situation Comment: Sister and Mother Other Information That Helps Us Care for You: No Feels Safe at Home: Yes Safety Concerns: Feels Safe At This Time Smoking Status: Current every day smoker Tobacco Type: cigarettes ; packs per day: 0.25 ; Cigarettes Per Day: 5 ; Second Hand Exposure: Yes ; Hx Alcohol Use: No Hx Substance Use: No Review of Systems See HPI for pertinent positives & negatives. and A total of 10 systems reviewed and were otherwise negative Physical Exam Vital Signs Vital Signs - 24 hr 10/16/19 13:25 10/16/19 13:33 10/16/19 13:38 Temperature 37.1 C Temperature Source Oral Pulse Rate 105 H 90 89 Pulse Rate [Right Finger] Pulse Rate from SpO2 Sensor 89 85 Respiratory Rate 28 H 22 25 H Respiratory Effort / Characteristics Non-Labored Respiratory Depth Normal Blood Pressure 137/78 123/88 Blood Pressure Mean 97 99 Pulse Oximetry 73 L 96 97 Oxygen Delivery Method Oxygen Flow Rate Fraction of Inspired Oxygen Sepsis Recent Fever Within 48 Hours No Sepsis New/Unexplained Change in Mental Status No Sepsis Action Taken by Nursing No Action Required 10/16/19 13:39 10/16/19 13:56 10/16/19 14:00 Temperature Temperature Source Pulse Rate 87 98 H Pulse Rate [Right Finger] 101 H Pulse Rate from SpO2 Sensor 92 H Respiratory Rate 22 18 28 H Respiratory Effort / Characteristics Non-Labored Spontaneous Respiratory Depth Blood Pressure 141/89 H 129/85 Blood Pressure Mean 96 94 Pulse Oximetry 97 95 Oxygen Delivery Method Non-rebreather High Flow Nasal Cannula Oxygen Flow Rate 15 30 Fraction of Inspired Oxygen 50 Sepsis Recent Fever Within 48 Hours Sepsis New/Unexplained Change in Mental Status Sepsis Action Taken by Nursing 10/16/19 14:06 10/16/19 14:30 10/16/19 15:32 Temperature Temperature Source Pulse Rate 87 88 Pulse Rate [Right Finger] 92 H Pulse Rate from SpO2 Sensor 95 H 85 Respiratory Rate 18 16 13 Respiratory Effort / Characteristics Non-Labored Spontaneous Respiratory Depth Blood Pressure 143/78 H 133/71 Blood Pressure Mean 103 86 Pulse Oximetry 94 96 95 Oxygen Delivery Method High Flow Nasal Cannula Oxygen Flow Rate 30 Fraction of Inspired Oxygen 50 Sepsis Recent Fever Within 48 Hours Sepsis New/Unexplained Change in Mental Status Sepsis Action Taken by Nursing 10/16/19 16:00 10/16/19 16:30 10/16/19 17:00 Temperature Temperature Source Pulse Rate 96 H 90 93 H Pulse Rate [Right Finger] Pulse Rate from SpO2 Sensor 96 H 99 H Respiratory Rate 21 18 20 Respiratory Effort / Characteristics Respiratory Depth Blood Pressure 117/85 115/73 120/90 Blood Pressure Mean 97 95 93 Pulse Oximetry 92 98 Oxygen Delivery Method High Flow Nasal Cannula Oxygen Flow Rate Fraction of Inspired Oxygen Sepsis Recent Fever Within 48 Hours Sepsis New/Unexplained Change in Mental Status Sepsis Action Taken by Nursing 10/16/19 18:27 Temperature Temperature Source Pulse Rate 99 H Pulse Rate [Right Finger] Pulse Rate from SpO2 Sensor Respiratory Rate 20 Respiratory Effort / Characteristics Respiratory Depth Blood Pressure 122/90 Blood Pressure Mean Pulse Oximetry 94 Oxygen Delivery Method High Flow Nasal Cannula Oxygen Flow Rate 30 Fraction of Inspired Oxygen Sepsis Recent Fever Within 48 Hours Sepsis New/Unexplained Change in Mental Status Sepsis Action Taken by Nursing GENERAL: The patient is awake and alert. He is somewhat anxious appearing. EYES: The conjunctivae are clear. The pupils are round and reactive. EARS, NOSE, MOUTH AND THROAT: The nose is without any evidence of any deformity. Mucous membranes are moist. Tongue is midline. NECK: The neck is nontender and supple. RESPIRATORY: Shallow respirations were noted. There is conversational dyspnea noted. Diminished breath sounds are noted throughout with faint expiratory wheezing in both upper lung au. CARDIOVASCULAR: Tachycardic rate with regular rhythm was noted. There is no definite murmur GASTROINTESTINAL: The abdomen is soft. Abdomen is nontender. MUSCULOSKELETAL/EXTREMITIES: There is no evidence of gross deformity full range of motion is noted in the hips and shoulders. SKIN: There is no obvious evidence of any rash. Cyanosis was noted at the fingertips. Trace pedal edema was noted with no calf tenderness. NEUROLOGIC: Patient is awake alert and oriented x3. Course Course 1333: The patient was evaluated in room A11B, and a complete history and physical examination were performed. 1558: I discussed the patient's case with Dr. Tinsley - [facility] Hospitalist. He will evaluate the patient for further management. Administered Medications Discontinued Medications Albuterol (Duoneb) 12 ml NEB ONE ONE Stop: 10/16/19 13:36 Last Admin: 10/16/19 13:52 Dose: 12 ml Documented by: [id number] Sodium Chloride (Nss) 500 mls @ 999 mls/hr IV .Q31M JAYLA Stop: 10/16/19 14:15 Last Infusion: 10/16/19 16:05 Dose: 0 mls/hr Documented by: [id number] Admin: 10/16/19 14:07 Dose: 999 mls/hr Documented by: [id number] Levofloxacin/Dextrose (Levaquin/D5w) 750 mg in 150 mls @ 100 mls/hr IV NOW STA Stop: 10/16/19 16:48 Last Infusion: 10/16/19 17:43 Dose: 0 mls/hr Documented by: [id number] Admin: 10/16/19 16:05 Dose: 100 mls/hr Documented by: [id number] Methylprednisolone (Solumedrol) 125 mg IV NOW STA Stop: 10/16/19 13:36 Last Admin: 10/16/19 14:06 Dose: 125 mg Documented by: [id number] Critical Care Time Critical Care Time: Yes Total Critical Care Time: 60 I have personally spent greater than 60 minutes of critical care time in the direct management of this patient. This includes bedside care, interpretation of diagnostic studies, and testing, discussion with consultants, patient, and family members, and other required patient management activities. This 60 minutes is in excess of all separately billable procedures. Medical Decision Making Differential Diagnosis Differential diagnoses includes but is not limited to pneumonia, bronchitis, COPD/Asthma exacerbation, pneumothorax, pulmonary embolism, congestive heart failure, acute coronary syndrome Medical Records Attestation: I reviewed the patient's medical records. Home Medications Current Medication List: was personally reviewed by me Laboratory Data Attestation: I reviewed the patient's lab results. Result diagrams: 10/16/19 14:01 10/16/19 14:01 Lab Results 10/16/19 10/16/19 10/16/19 Range/Units 14:01 14:01 14:01 WBC 11.54 H (4.8-10.8) K/uL RBC 5.15 (4.7-6.1) M/uL Hgb 15.8 (14.0-18.0) g/dL Hct 51.2 (42-52) % MCV 99.4 (80-100) fL MCH 30.7 (25-34) pg MCHC 30.9 L (32-36) g/dL RDW Std Deviation 60.8 H (36.4-46.3) fL RDW Coeff of Malik 16.6 H (11.5-14.5) % Plt Count 187 (130-400) K/uL MPV 9.6 (7.4-10.4) fL Immature Gran % (Auto) 0.2 % Neut % (Auto) 91.0 % Lymph % (Auto) 4.9 % [place] % (Auto) 3.6 % Eos % (Auto) 0.2 % Baso % (Auto) 0.1 % Immature Gran # (Auto) 0.02 (0.00-0.02) K/uL Neut # (Auto) 10.50 H (1.4-6.5) K/uL Lymph # (Auto) 0.57 L (1.2-3.4) K/uL [place] # (Auto) 0.42 (0.11-0.59) K/uL Eos # (Auto) 0.02 (0-0.5) K/uL Baso # (Auto) 0.01 (0-0.2) K/uL PT 14.6 H (9.0-12.0) Seconds INR 1.5 H (0.9-1.1) APTT 28.5 (21.0-31.0) Seconds PTT Ratio 1.1 VBG pH (7.36-7.41) VBG pCO2 (38-50) mmHg VBG pO2 mmHg VBG HCO3 mmol/L VBG O2 Saturation % VBG Base Excess mEq/L Barometric Pressure mm/Hg Sodium 137 (136-145) mmol/L Potassium 4.7 (3.5-5.1) mmol/L Chloride 98 (98-107) mmol/L Carbon Dioxide 36 H (21-32) mmol/L Anion Gap 3.0 (3-11) BUN 12 (7-18) mg/dl Creatinine 0.77 (0.6-1.4) mg/dl Est Cr Clr Drug Dosing 125.9 ml/min Est GFR ( Amer) 111.9 Est GFR (Non-Af Amer) 96.6 BUN/Creatinine Ratio 15.5 (10-20) Glucose 101 H (70-99) mg/dl Calcium 8.4 L (8.5-10.1) mg/dl Magnesium 2.0 (1.8-2.4) mg/dl Total Bilirubin 1.7 H (0.2-1) mg/dl AST 19 (15-37) U/L ALT 40 (12-78) U/L Alkaline Phosphatase 70 (45-117) U/L Troponin I 0.020 (0-0.045) ng/ml Total Protein 6.5 (6.4-8.2) gm/dl Albumin 3.0 L (3.4-5.0) gm/dl Globulin 3.5 (2.5-4.0) gm/dl Albumin/Globulin Ratio 0.9 (0.9-2) 10/16/19 Range/Units 14:01 WBC (4.8-10.8) K/uL RBC (4.7-6.1) M/uL Hgb (14.0-18.0) g/dL Hct (42-52) % MCV (80-100) fL MCH (25-34) pg MCHC (32-36) g/dL RDW Std Deviation (36.4-46.3) fL RDW Coeff of Malik (11.5-14.5) % Plt Count (130-400) K/uL MPV (7.4-10.4) fL Immature Gran % (Auto) % Neut % (Auto) % Lymph % (Auto) % [place] % (Auto) % Eos % (Auto) % Baso % (Auto) % Immature Gran # (Auto) (0.00-0.02) K/uL Neut # (Auto) (1.4-6.5) K/uL Lymph # (Auto) (1.2-3.4) K/uL [place] # (Auto) (0.11-0.59) K/uL Eos # (Auto) (0-0.5) K/uL Baso # (Auto) (0-0.2) K/uL PT (9.0-12.0) Seconds INR (0.9-1.1) APTT (21.0-31.0) Seconds PTT Ratio VBG pH 7.33 L (7.36-7.41) VBG pCO2 73 H (38-50) mmHg VBG pO2 51 mmHg VBG HCO3 38 mmol/L VBG O2 Saturation 83.3 % VBG Base Excess 8.3 mEq/L Barometric Pressure 729.9 mm/Hg Sodium (136-145) mmol/L Potassium (3.5-5.1) mmol/L Chloride (98-107) mmol/L Carbon Dioxide (21-32) mmol/L Anion Gap (3-11) BUN (7-18) mg/dl Creatinine (0.6-1.4) mg/dl Est Cr Clr Drug Dosing ml/min Est GFR ( Amer) Est GFR (Non-Af Amer) BUN/Creatinine Ratio (10-20) Glucose (70-99) mg/dl Calcium (8.5-10.1) mg/dl Magnesium (1.8-2.4) mg/dl Total Bilirubin (0.2-1) mg/dl AST (15-37) U/L ALT (12-78) U/L Alkaline Phosphatase (45-117) U/L Troponin I (0-0.045) ng/ml Total Protein (6.4-8.2) gm/dl Albumin (3.4-5.0) gm/dl Globulin (2.5-4.0) gm/dl Albumin/Globulin Ratio (0.9-2) Imaging Data Radiologist's Impression: Radiology results as stated below per my review and the radiologist's interpretation: XR chest 1V portable CLINICAL HISTORY: Dyspnea COMPARISON STUDY: 07/26/2019 FINDINGS: The heart is enlarged. There is mild vascular and interstitial prominence similar to the prior study. Mild pulmonary vascular congestion must be considered. There is no focal pulmonary consolidation. There are no pleural effusions.[ IMPRESSION: No change from the prior study. Persistent cardiomegaly and mild vascular and interstitial prominence. No evidence of focal pulmonary consolidation ACT 112: Negative or not required by law. Electronically signed by: Gadiel Reddy M.D. 10/16/2019 1:54 PM ECG Data Attestation: I personally reviewed and interpreted this ECG as follows: Indication: + SOB/dyspnea Rate (beats per minute): 94 Rhythm: + atrial fibrillation ECG ST segments: no ST depression and no ST elevation ECG Findings: no PVCs Comparison ECG Date: from (07/26/19) Change: no significant change Blood Pressure Blood Pressure Findings: Elevated blood pressure Blood Pressure Disposition: further management by hospitalist GUALBERTO Ya The patient is a 64-year-old male who presented to the emergency department for an evaluation of difficulty breathing. The patient is a history of COPD. His history and physical exam appear to be consistent with a COPD exacerbation. He was treated with IV fluids and IV steroids. He was treated with an hour-long nebulizer as well as Vapotherm. He was reevaluated multiple times. His condition significantly improved while he was in the emergency department. He was also given IV antibiotics for presumed bronchitis as well. I discussed the patient's laboratory and radiographic studies with him. Because of his symptoms I also discussed his case with the on-call [facility] hospitalist group. They have agreed to evaluate the patient in the emergency department for further management and disposition. Impression & Plan Respiratory failure, COPD (chronic obstructive pulmonary disease), Hypoxia, Acute bronchitis Discharge Plan Visit Data Chief Complaint: Shortness of Breath/Dyspnea Stated Complaint: SOB ED Provider: Kong Ernst Discharge Problem: Respiratory failure, COPD (chronic obstructive pulmonary disease), Hypoxia, Acute bronchitis Discharge Instructions Interventions: ED Discharge Assessment Last Done: 10/16/19 18:27 Discharge Problem: Respiratory failure Qualifiers: Chronicity: unspecified Respiratory failure complication: hypoxia Qualified Code(s): J96.91 - Respiratory failure, unspecified with hypoxia COPD (chronic obstructive pulmonary disease) Qualifiers: COPD type: unspecified COPD Qualified Code(s): J44.9 - Chronic obstructive pulmonary disease, unspecified Acute bronchitis Qualifiers: Bronchitis organism: unspecified organism Qualified Code(s): J20.9 - Acute bronchitis, unspecified The scribe's documentation has been prepared under my direction and personally reviewed by me in its entirety. I confirm that the note above accurately reflects all work, treatment, procedures, and medical decision making performed by me.
--- NOTE | 2019-10-16 13:55 | XRay Report ---
XR chest 1V portable CLINICAL HISTORY: Dyspnea COMPARISON STUDY: 07/26/2019 FINDINGS: The heart is enlarged. There is mild vascular and interstitial prominence similar to the pr ior study. Mild pulmonary vascular congestion must be considered. There is no focal pulmonary consoli dation. There are no pleural effusions.[ IMPRESSION: No change from the prior study. Persistent cardiomegaly and mild vascular and interstitia l prominence. No evidence of focal pulmonary consolidation ACT 112: Negative or not required by law. Electronically signed by: Gadiel Reddy M.D. 10/16/2019 1:54 PM
[2019-10-16 14:29] LABS: Base Excess VBG 8.3 mEq/L; Basophils # (auto) 0.01 K/uL (0-0.2); Basophils % (auto) 0.1 %; Eosinophils # (auto) 0.02 K/uL (0-0.5); Eosinophils % (auto) 0.2 %; Hematocrit (blood only) 51.2 % (42-52); Hemoglobin 15.8 g/dL (14.0-18.0); Immature Granulocytes # (auto) 0.02 K/uL (0.00-0.02); Immature Granulocytes % (auto) 0.2 %; Lymphocytes # (auto) 0.57 K/uL (1.2-3.4); Lymphocytes % (auto) 4.9 %; Mean Corpuscular Hemoglobin 30.7 pg (25-34); Mean Corpuscular Hgb Conc 30.9 g/dL (32-36); Mean Corpuscular Volume 99.4 fL (80-100); Mean Platelet Volume 9.6 fL (7.4-10.4); Monocytes # (auto) 0.42 K/uL (0.11-0.59); Monocytes % (auto) 3.6 %; Oxygen Saturation VBG 83.3 %; Platelet Count 187 K/uL (130-400); RDW Coefficient of Variation 16.6 % (11.5-14.5); RDW Standard Deviation 60.8 fL (36.4-46.3); Red Blood Count 5.15 M/uL (4.7-6.1); White Blood Count 11.54 K/uL (4.8-10.8); pH VBG 7.33 (7.36-7.41)
[2019-10-16 14:38] LABS: INR 1.5 (0.9-1.1); Partial Thromboplastin Ratio 1.1; Partial Thromboplastin Time 28.5 Seconds (21.0-31.0); Prothrombin Time 14.6 Seconds (9.0-12.0)
[2019-10-16 14:45] LABS: BUN Creatinine Ratio 15.5 (10-20); Calcium 8.4 mg/dl (8.5-10.1); Creatinine Clr Calc Pharmacy 125.9 ml/min; Est GFR (African American) 111.9; Est GFR (Non-African American) 96.6; Potassium 4.7 mmol/L (3.5-5.1)
[2019-10-16 14:50] LABS: Albumin Globulin Ratio 0.9 (0.9-2); Bilirubin,Total 1.7 mg/dl (0.2-1); Globulin 3.5 gm/dl (2.5-4.0); Total Protein 6.5 gm/dl (6.4-8.2); Troponin I 0.02 ng/ml (0-0.045)
[2019-10-16] MEDS ORDERED: LEVOFLOXACIN/D5W 750 MG/150 ML BAG IV STA (15:19)
--- NOTE | 2019-10-16 16:53 | History & Physical Report ---
Date of Service October 16, 2019 Assessment & Plan (1) COPD exacerbation: Patient is likely having COPD exacerbation. I did review the chest x-ray personally and concerned about possible underlying pneumonia. Patient will be continued on high flow nasal cannula for his acute respiratory failure. Patient was given Levaquin in the emergency room, we will changes to Rocephin and Zithromax. She is also given a loading dose of steroids. We will continue this at 40 mg every 8 hours with rapid titration. Patient is known to Dr. Willis and will consult them for further recommendations. (2) Atrial fibrillation: Patient is currently rate controlled with diltiazem 360 mg daily and appropriately anticoagulated with Eliquis. (3) Hyperlipidemia: Patient is on 40 mg of Lipitor. We will continue this as per outpatient medication list. (4) CHF (congestive heart failure): Patient has a history of chronic diastolic CHF by history. Patient does not appear to be on any diuretics. And patient does not appear to be in active CHF at this time. Will continue medications as ordered. Consideration of low- dose spironolactone depending on patient's progress. History of Present Illness Primary Care Provider: Aristeo Vicente MD This is a 64-year-old male with past medical history of COPD, IDA infection, atrial fibrillation, chronic diastolic CHF that presents today complaining of shortness of breath. Patient is a somewhat difficult historian. Apparently the patient has been having worsening shortness of breath with cough over the past 2 weeks. He denies any fever or changes in appetite. He was having minimally productive cough. He denied any chest pain. Patient uses nebulizer at home 4 times a day and he is also on O2 at night only. He tells me that he called his physician about a week ago and started on an antibiotic along with oral steroids. However, he did not feel he was getting better after the course of medication presents to the emergency room for further evaluation. On presentation, he was found to be significantly hypoxic with an O2 sat of 92%. It was documented as low as 71 percent. Patient was started on a high flow nasal cannula at 30% and is now satting 96%. He appears to be much more comfortable. Allergies Allergy/AdvReac Type Severity Reaction Status Date / Time No Known Allergies Allergy Verified 10/16/19 14:44 Home Medications Home Medications Medication Instructions Recorded Confirmed Type clobetasol [Temovate] 1 applic TOPICAL BID PRN 07/16/18 10/16/19 History diltiazem HCl 180 mg 360 mg PO QAM #180 cap 04/05/19 10/16/19 History capsule,extended release 24 hr guaifenesin 600 mg tablet, 600 mg PO BID tab 04/05/19 10/16/19 History extended release 12 hr multivitamin with minerals 1 tab PO QAM tab 04/05/19 10/16/19 History omega-3 fatty acids 1,000 mg 1,000 mg PO BID 04/05/19 10/16/19 History capsule nebulizers #1 ea 05/01/19 10/03/19 Rx BiPap Supplies #1 ea 05/22/19 10/03/19 Rx ipratropium 20 mcg-albuterol 100 1 puff INHALATION QID PRN #4 gm 07/18/19 10/16/19 Rx mcg/actuation mist for inhalation CPAP Machine #1 ea 08/30/19 10/03/19 Rx Portable Oxygen #1 ea 08/30/19 10/03/19 Rx fluticasone furoate 200 1 puffs INH Q24H #60 ea 08/30/19 10/16/19 Rx mcg-vilanterol 25 mcg/dose inhalation powder apixaban [Eliquis] 5 mg PO BID 10/16/19 10/16/19 History atorvastatin [Lipitor] 40 mg PO HS 10/16/19 10/16/19 History fluticasone propionate [Flonase 2 sprays INTRANASAL QAM 10/16/19 10/16/19 History Allergy Relief] ipratropium-albuterol 3 ml INHALATION QID PRN 10/16/19 10/16/19 History levofloxacin [Levaquin] 500 mg PO QAM 10/16/19 10/16/19 History montelukast [Singulair] 10 mg PO HS 10/16/19 10/16/19 History prednisone 40 mg PO QAM 10/16/19 10/16/19 History Past Med/Surg History Medical History Acute and chronic respiratory failure with hypoxia Atrial fibrillation, new onset (Acute) follows with Dr. Irwin--on eliquis daily Atrial flutter with rapid ventricular response CHF (congestive heart failure) Chronic respiratory failure with hypercapnia (Chronic) COPD (chronic obstructive pulmonary disease) (Chronic) inhaler daily/prn, nebulizer daily Current smoker Dependence on nocturnal oxygen therapy 2L at night through CPAP Emphysema of lung (Chronic) History of colon polyps Hyperlipidemia (Chronic) On anticoagulant therapy eliquis daily Personal history of nicotine dependence Surgical History History of bronchoscopy History of colonoscopy History of tooth extraction all top teeth and some lower teeth removed [place] teeth extracted (Resolved) "3 wisdom teeth; 1996" Family History Father CHF (congestive heart failure) Other No family history of adverse response to anesthesia Social History Preferred Language: Italian Communication Ability: Effective Rn Lpn Lvn Required: No Beliefs That Will Affect Care: None marital status: Single Current Living Situation: Family Current Living Situation Comment: Sister and Mother Other Information That Helps Us Care for You: No Feels Safe at Home: Yes Safety Concerns: Feels Safe At This Time Smoking Status: Current every day smoker Tobacco Type: cigarettes ; packs per day: 0.25 ; Cigarettes Per Day: 5 ; Second Hand Exposure: Yes ; Hx Alcohol Use: No Hx Substance Use: No Review of Systems Constitutional: no fever, no chills, no weakness, no weight loss and no weight gain Eyes: as per Subjective / HPI Respiratory: + cough, + chest congestion, + dyspnea, + dyspnea on exertion and + sputum production Cardiovascular: no chest pain, no orthopnea, no palpitations, no lightheadedness and no edema Gastrointestinal: no abdominal pain, no nausea, no vomiting, no constipation and no diarrhea/loose stools Musculoskeletal: no back pain, no neck pain, no joint pain, no stiffness and no myalgia Integumentary: no rash Neurologic: no gait abnormality, no unsteadiness, no falls and no generalized weakness Physical Exam Constitutional: cooperative; no acute distress Neck: trachea midline, no thyromegaly Respiratory: normal respiratory effort Auscultation: + diminished lung sounds and + rhonchi; no crackles, no rales and no wheezes Cardiovascular: Rate/Rhythm: regular rate and regular rhythm Heart Sounds: normal S1, normal S2 and + murmur Gastrointestinal (Abdomen): Inspection/Auscultation: abdomen normal to inspection Percussion/Palpation: abdomen soft; abdomen nontender, no guarding, abdomen not rigid and no hepatosplenomegaly Skin: no rashes, warm and dry Results & Data Vital Signs (Past 12 Hours) Vital Signs Temp Pulse Pulse Resp BP Pulse Ox 10/16/19 14:30 87 16 143/78 H 96 10/16/19 14:06 92 H 18 94 10/16/19 14:00 98 H 28 H 129/85 10/16/19 13:56 101 H 18 95 10/16/19 13:39 87 22 141/89 H 97 10/16/19 13:38 89 25 H 97 10/16/19 13:33 90 22 123/88 96 10/16/19 13:25 37.1 C 105 H 28 H 137/78 73 L Laboratory Results WC is 11.54. Hemoglobin is normal at 15.8. BMP is normal. Total bilirubin is 1.7 although this appears to be similar to a previous evaluation July 2019. Diagnostic Findings XR chest 1V portable CLINICAL HISTORY: Dyspnea COMPARISON STUDY: 07/26/2019 FINDINGS: The heart is enlarged. There is mild vascular and interstitial prominence similar to the prior study. Mild pulmonary vascular congestion must be considered. There is no focal pulmonary consolidation. There are no pleural effusions.[ IMPRESSION: No change from the prior study. Persistent cardiomegaly and mild vascular and interstitial prominence. No evidence of focal pulmonary consolidation PG Care Time/CCT Total # of Minutes Spent Total Time Spent with Patient: Total time spent is greater than 50% in coordination of care (as documented) at patient's floor/unit and/or counseling patient: Coding Level of Care Code 77301 Initial Inpt Care Lvl 3 Diagnoses COPD exacerbation J44.1 Atrial fibrillation I48.91 Hyperlipidemia E78.5 Hyperlipidemia type: unspecified CHF (congestive heart failure) I50.33 Heart failure type: diastolic Heart failure chronicity: acute on chronic (1) Hyperlipidemia Hyperlipidemia type: unspecified Qualified Code(s): E78.5 - Hyperlipidemia, unspecified (2) CHF (congestive heart failure) Heart failure type: diastolic Heart failure chronicity: acute on chronic Qualified Code(s): I50.33 - Acute on chronic diastolic (congestive) heart failure
[2019-10-16] MEDS ORDERED: ONDANSETRON INJ 2 MG/ML 2 ML VIAL IV PRN (19:20)
[2019-10-16] MEDS ORDERED: ACETAMINOPHEN 325 MG TAB PO PRN (19:20)
[2019-10-16] MEDS: ALBUT/IPRATROP 3MG/0.5MG NEB 3 ML VIAL INH SCH (20:19)
[2019-10-16] MEDS: cefTRIAXone SODIUM 2,000 MG/70 ML BAG IV SCH (20:24)
[2019-10-16] MEDS: MONTELUKAST SODIUM 10 MG TABLET PO SCH (20:25)
[2019-10-16] MEDS: ATORVASTATIN 40 MG TAB PO SCH (20:25)
[2019-10-16] MEDS: OMEGA-3 (PURIFIED FISH OIL) 1 GM CAP PO SCH (20:26)
[2019-10-16] MEDS: guaiFENesin 600 MG TABCR PO SCH (20:26)
[2019-10-16] MEDS: APIXABAN 5 MG TABLET PO SCH (20:26)
[2019-10-16] MEDS: methylPREDNISolone 40 MG in SYRINGE 0 ML IV SCH (22:24)
[2019-10-16] MEDS: AZITHROMYCIN 500 MG in DEXTROSE 5% 250 ML IV SCH (22:24)
[2019-10-17] MEDS: methylPREDNISolone 40 MG in SYRINGE 0 ML IV SCH ×3 (06:16→21:45)
[2019-10-17 06:31] LABS: Basophils # (auto) 0.01 K/uL (0-0.2); Basophils % (auto) 0.1 %; Hematocrit (blood only) 50.2 % (42-52); Hemoglobin 15.5 g/dL (14.0-18.0); Immature Granulocytes # (auto) 0.02 K/uL (0.00-0.02); Immature Granulocytes % (auto) 0.2 %; Lymphocytes # (auto) 0.64 K/uL (1.2-3.4); Lymphocytes % (auto) 6.1 %; Mean Corpuscular Hemoglobin 30.5 pg (25-34); Mean Corpuscular Hgb Conc 30.9 g/dL (32-36); Mean Corpuscular Volume 98.6 fL (80-100); Mean Platelet Volume 9.9 fL (7.4-10.4); Monocytes # (auto) 0.36 K/uL (0.11-0.59); Monocytes % (auto) 3.4 %; Neutrophils # (auto) 9.51 K/uL (1.4-6.5); Neutrophils % (auto) 90.2 %; Platelet Count 189 K/uL (130-400); RDW Coefficient of Variation 16.7 % (11.5-14.5); RDW Standard Deviation 59.9 fL (36.4-46.3); Red Blood Count 5.09 M/uL (4.7-6.1); White Blood Count 10.54 K/uL (4.8-10.8)
[2019-10-17 07:05] LABS: BUN Creatinine Ratio 17.6 (10-20); Calcium 8.5 mg/dl (8.5-10.1); Creatinine Clr Calc Pharmacy 132.6 ml/min; Est GFR (African American) 114.4; Est GFR (Non-African American) 98.7; Magnesium 2.2 mg/dl (1.8-2.4); Potassium 4.8 mmol/L (3.5-5.1)
[2019-10-17] MEDS: ALBUT/IPRATROP 3MG/0.5MG NEB 3 ML VIAL INH SCH ×4 (07:06→18:55)
[2019-10-17] MEDS: FLUTICASONE/VILANTEROL 200/25MCG 14 PUFFS/INHALER INH SCH (08:19)
[2019-10-17] MEDS: APIXABAN 5 MG TABLET PO SCH ×2 (08:21→20:46)
[2019-10-17] MEDS: dilTIAZem HCL 180 MG CAPCR PO SCH (08:21)
[2019-10-17] MEDS: FLUTICASONE PROPIONATE NA SPR 16 GM BTL SCH (08:21)
[2019-10-17] MEDS: OMEGA-3 (PURIFIED FISH OIL) 1 GM CAP PO SCH ×2 (08:21→20:46)
[2019-10-17] MEDS: guaiFENesin 600 MG TABCR PO SCH ×2 (08:21→20:46)
[2019-10-17] MEDS: MULTIVITAMIN TAB PO SCH (08:21)
--- NOTE | 2019-10-17 14:30 | Electrocardiogram Report ---
Test Reason : Blood Pressure : / mmHG Vent. Rate : 094 BPM Atrial Rate : 202 BPM P-R Int : 000 ms QRS Dur : 096 ms QT Int : 356 ms P-R-T Axes : 000 087 053 degrees QTc Int : 445 ms Atrial fibrillation Abnormal ECG When compared with ECG of 26-JUL-2019 18:45, No significant change was found Confirmed by Aristeo Noriega ([id number]) on 10/17/2019 2:30:28 PM Referred By: Confirmed By:Ugo Noriega
[2019-10-17 14:48] LABS: Appearance Urine Clear (Clear); Bilirubin Urine Negative (Negative); Blood Urine Negative (Negative); Color Urine Dark Yellow; Glucose Urine UA Negative (Negative); Ketones Urine Negative (Negative); Leukocyte Esterase Urine Negative (Negative); Nitrite Urine Negative (Negative); Protein Urine Negative (Negative); Specific Gravity Urine 1.023 (1.000-1.030); Urobilinogen Urine Negative (Negative)
--- NOTE | 2019-10-17 17:23 | Pulmonary Consultation ---
Date of Consultation October 17, 2019 Assessment & Plan (1) Acute respiratory failure with hypoxia and hypercapnia: It appears that the patient is in an acute hypercapnic respiratory failure event on top of chronic hypercapnic respiratory failure. Recommend continuing BiPAP at all times during sleep including the daytime when taking naps. I do not think that he is acutely infected at this time and he has been treated with numerous courses of antibiotics as an outpatient. I would recommend discontinuing antibiotics. I would recommend transitioning his IV Solu-Medrol to p.o. prednisone at 40 mg for no more than 5 days. He continues to smoke and I did supervisor counseling and guidance him extensively but nothing that we can offer will be as effective as quitting smoking. I also recommended pulmonary rehab. Recommend starting him on Daliresp as he has a significant chronic bronchitis phenotype to his C OPD. I am also giving him 40 mg of IV Lasix now as he does appear volume overloaded and likely has significant component of diastolic heart failure. I did also supervisor counseling and guidance him on the fact that he will likely need to wear oxygen continuously. 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 Notably, I do feel that this patient likely has some issues with medical literacy and will need his diagnosis and treatment plan frequently reiterated. I would avoid prolonged steroid tapers or frequent steroid burst as much as possible given the strong possibility of consequences related to the systemic steroids. On discharge from the hospital, I would switch him over to a Trelegy inhaler from his Breo and a trilogy noninvasive ventilator as this would likely reduce the amount of exacerbations and decrease his mortality related to his chronic hypercapnic respiratory failure and COPD. (2) COPD exacerbation: (3) Atrial fibrillation: (4) Acute diastolic heart failure: History of Present Illness Reason for Consultation: COPD exacerbation Requesting Physician: Dr. Bailon Attending Physician: Jaylan Eastman History of Present Illness This is a 64-year-old male with a past medical history of COPD, chronic hypoxemic and hypercapnic respiratory failure, frequent hospitalizations, IDA, atrial fibrillation, secondary pulmonary retention, diastolic heart failure, continuous tobacco use and obstructive sleep apnea who presented to the hospital due to shortness of breath. Patient notes that he has been having shortness of breath over the last week. 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 He has been coughing intermittently with mildly productive sputum. He denies any hemoptysis. Denies any chest pain. On 10/03/2019 he received a prednisone taper by DONNA Parekh for a presumptive COPD exacerbation. He is also on azithromycin 250 mg Wednesday/Wednesday/Wednesday. He uses Brio Ellipta, Combivent and duo nebs as a rescue. He notes that he has been using his inhalers 4-5 times a day. He does smoke 5 cigarettes a day and is smoked for many decades. On admission his VBG was 7.33/70 3. CBC was generally unremarkable with no significant leukocytosis. His chemistry was significant for a bicarb of 38 suggesting chronic compensatory metabolic alkalosis for his chronic hypercapnic respiratory failure. Chest x-ray with evidence of cardiomegaly and mild vascular congestion otherwise no acute infiltrate was seen. Patient was started on ceftriaxone and azithromycin. He is also receiving 40 mg of Solu-Medrol every 8 hours per the hospitalist. Allergies Allergy/AdvReac Type Severity Reaction Status Date / Time No Known Allergies Allergy Verified 10/16/19 14:44 Home Medications Home Medications Medication Instructions Recorded Confirmed Type clobetasol [Temovate] 1 applic TOPICAL BID PRN 07/16/18 10/16/19 History diltiazem HCl 180 mg 360 mg PO QAM #180 cap 04/05/19 10/16/19 History capsule,extended release 24 hr guaifenesin 600 mg tablet, 600 mg PO BID tab 04/05/19 10/16/19 History extended release 12 hr multivitamin with minerals 1 tab PO QAM tab 04/05/19 10/16/19 History omega-3 fatty acids 1,000 mg 1,000 mg PO BID 04/05/19 10/16/19 History capsule nebulizers #1 ea 05/01/19 10/03/19 Rx BiPap Supplies #1 ea 05/22/19 10/03/19 Rx ipratropium 20 mcg-albuterol 100 1 puff INHALATION QID PRN #4 gm 07/18/19 10/16/19 Rx mcg/actuation mist for inhalation CPAP Machine #1 ea 08/30/19 10/03/19 Rx Portable Oxygen #1 ea 08/30/19 10/03/19 Rx fluticasone furoate 200 1 puffs INH Q24H #60 ea 08/30/19 10/16/19 Rx mcg-vilanterol 25 mcg/dose inhalation powder apixaban [Eliquis] 5 mg PO BID 10/16/19 10/16/19 History atorvastatin [Lipitor] 40 mg PO HS 10/16/19 10/16/19 History fluticasone propionate [Flonase 2 sprays INTRANASAL QAM 10/16/19 10/16/19 History Allergy Relief] ipratropium-albuterol 3 ml INHALATION QID PRN 10/16/19 10/16/19 History levofloxacin [Levaquin] 500 mg PO QAM 10/16/19 10/16/19 History montelukast [Singulair] 10 mg PO HS 10/16/19 10/16/19 History prednisone 40 mg PO QAM 10/16/19 10/16/19 History Patient History Medical History Acute and chronic respiratory failure with hypoxia Atrial fibrillation, new onset (Acute) follows with Dr. Irwin--on eliquis daily Atrial flutter with rapid ventricular response CHF (congestive heart failure) Chronic respiratory failure with hypercapnia (Chronic) COPD (chronic obstructive pulmonary disease) (Chronic) inhaler daily/prn, nebulizer daily Current smoker Dependence on nocturnal oxygen therapy 2L at night through CPAP Emphysema of lung (Chronic) History of colon polyps Hyperlipidemia (Chronic) On anticoagulant therapy eliquis daily Personal history of nicotine dependence Surgical History History of bronchoscopy History of colonoscopy History of tooth extraction all top teeth and some lower teeth removed [place] teeth extracted (Resolved) "3 wisdom teeth; 1996" Family History Father CHF (congestive heart failure) Other No family history of adverse response to anesthesia Social History Preferred Language: Chinese Communication Ability: Effective Grind Operator Required: No Beliefs That Will Affect Care: None marital status: Single Current Living Situation: Family Current Living Situation Comment: Sister and Mother Other Information That Helps Us Care for You: No Feels Safe at Home: Yes Safety Concerns: Feels Safe At This Time Smoking Status: Current every day smoker Tobacco Type: cigarettes ; packs per day: 0.25 ; Cigarettes Per Day: 5 ; Second Hand Exposure: Yes ; Hx Alcohol Use: No Hx Substance Use: No Review of Systems Review of Systems: All systems reviewed & are unremarkable except as noted in Subjective Physical Exam Constitutional: Patient is very tremulous. He is leaning over in a chair. He has a nasal cannula in place. His sister is present in the room. He does not appear to be in any significant distress. Eyes: PERRL, conjunctivae normal, anicteric sclerae ENMT: external ear and nose normal, oropharynx normal Neck: normal visual inspection Respiratory: Prolonged phase of exhalation. No expiratory wheezes appreciated. Mildly tachypneic. Tripoding at times. Cardiovascular: 3+ pitting edema in the lower extremities. No significant murmur appreciated. Tachycardic. Gastrointestinal (Abdomen): normal bowel sounds, soft, nontender, no hepatosplenomegaly Musculoskeletal: no cyanosis or clubbing, extremities motor strength 5/5 Skin: no rashes, warm and dry Neurologic: Tremulous as previously noted. No obvious focal deficits. Cranial nerves II through XII grossly intact. Psychiatric: Muted affect. Alert and oriented x3. Poor insight. Results & Data ([facility]) Vital Signs (Past 12 Hours) Vital Signs Temp Pulse Pulse Resp BP BP Pulse Ox 10/17/19 15:33 98.6 F 100 H 18 116/74 98 10/17/19 11:33 98.1 F 108 H 20 111/70 94 10/17/19 11:13 93 H 20 95 10/17/19 07:09 97.7 F 102 H 20 138/81 97 10/17/19 07:08 72 20 95 I personally reviewed the patient's current labs, chest imaging and prior notes. PG Care Time/CCT Total # of Minutes Spent Total Time Spent with Patient: Total time spent is greater than 50% in coordination of care (as documented) at patient's floor/unit and/or counseling patient: Coding Level of Care Code 12933 Inpt Consult Level 4 Diagnoses Acute respiratory failure with hypoxia and hypercapnia J96.01; J96.02 COPD exacerbation J44.1 Atrial fibrillation I48.91 Acute diastolic heart failure I50.31
[2019-10-17] MEDS ORDERED: FUROSEMIDE 40 MG in SYRINGE 0 ML IV ONE (17:30)
[2019-10-17] MEDS: cefTRIAXone SODIUM 2,000 MG/70 ML BAG IV SCH (20:42)
[2019-10-17] MEDS: ATORVASTATIN 40 MG TAB PO SCH (20:46)
[2019-10-17] MEDS: MONTELUKAST SODIUM 10 MG TABLET PO SCH (20:46)
[2019-10-17] MEDS: AZITHROMYCIN 500 MG in DEXTROSE 5% 250 ML IV SCH (21:46)
--- NOTE | 2019-10-17 22:39 | Hospitalist Progress Note ---
Date of Service October 17, 2019 Assessment & Plan (1) COPD exacerbation: Patient is likely having COPD exacerbation. I did review the chest x-ray personally and concerned about possible underlying pneumonia. Patient will be continued on high flow nasal cannula for his acute respiratory failure. Patient was given Levaquin in the emergency room, we will changes to Rocephin and Zithromax. She is also given a loading dose of steroids. We will continue this at 40 mg every 8 hours with rapid titration. Patient is known to Dr. Vogt. Explained to the patient the importance of quitting to smoke Will add daliresp for his COPD as well. Stressed that if he continues to smoke he will from this. Patient did downplay this however. Appreciate input from pulmonary. (2) Atrial fibrillation: Patient is currently rate controlled with diltiazem 360 mg daily and appropriately anticoagulated with Eliquis. (3) Hyperlipidemia: Patient is on 40 mg of Lipitor. We will continue this as per outpatient medication list. (4) CHF (congestive heart failure): Patient has a history of chronic diastolic CHF by history. Patient does not appear to be on any diuretics. And patient does not appear to be in active CHF at this time. Will continue medications as ordered. Consideration of low- dose spironolactone depending on patient's progress. Admission and Anticipated Discharge Date Admission Date: October 16, 2019 Subjective Patient reports feeling mildly better. Patient continues to be short of breath however. Review of Systems Review of Systems: All systems reviewed & are unremarkable except as noted in HPI & below Physical Exam Physical Exam: Constitutional: cooperative; no acute distress Neck: trachea midline, no thyromegaly Respiratory: normal respiratory effort Auscultation: + diminished lung sounds and + rhonchi; no crackles, no rales and no wheezes Cardiovascular: Rate/Rhythm: regular rate and regular rhythm Heart Sounds: normal S1, normal S2 and + murmur Gastrointestinal (Abdomen): Inspection/Auscultation: abdomen normal to inspection Percussion/Palpation: abdomen soft; abdomen nontender, no guarding, abdomen not rigid and no hepatosplenomegaly Skin: no rashes, warm and dry Neurologic: PERRL, EOMI, accommodation nl, no face palsy, no dysarthria Psychiatric: A+Ox3, euthymic affect Results & Data ([facility]) Vital Signs (Past 12 Hours) Vital Signs Temp Pulse Pulse Pulse Resp BP BP 10/17/19 19:28 36.9 C 88 20 111/72 10/17/19 18:55 85 16 10/17/19 15:33 37.0 C 100 H 18 116/74 10/17/19 14:45 88 10/17/19 11:33 36.7 C 108 H 20 111/70 10/17/19 11:13 93 H 20 Pulse Ox 10/17/19 19:28 93 10/17/19 18:55 94 10/17/19 15:33 98 10/17/19 14:45 10/17/19 11:33 94 10/17/19 11:13 95 PG Care Time/CCT Total # of Minutes Spent Total Time Spent with Patient: Total time spent is greater than 50% in coordination of care (as documented) at patient's floor/unit and/or counseling patient: Coding Level of Care Code 96370 Subseq Hosp Care Lvl 3 Diagnoses COPD exacerbation J44.1 Atrial fibrillation I48.91 Hyperlipidemia E78.5 Hyperlipidemia type: unspecified CHF (congestive heart failure) I50.33 Heart failure chronicity: acute on chronic Heart failure type: diastolic Time Spent (min) 35 (1) CHF (congestive heart failure) Heart failure chronicity: acute on chronic Heart failure type: diastolic Qualified Code(s): I50.33 - Acute on chronic diastolic (congestive) heart failure (2) Hyperlipidemia Hyperlipidemia type: unspecified Qualified Code(s): E78.5 - Hyperlipidemia, unspecified
[2019-10-18] MEDS: methylPREDNISolone 40 MG in SYRINGE 0 ML IV SCH ×3 (05:09→21:46)
[2019-10-18] MEDS: ALBUT/IPRATROP 3MG/0.5MG NEB 3 ML VIAL INH SCH ×3 (07:35→16:01)
[2019-10-18] MEDS: dilTIAZem HCL 180 MG CAPCR PO SCH (08:34)
[2019-10-18] MEDS: FLUTICASONE PROPIONATE NA SPR 16 GM BTL SCH (08:34)
[2019-10-18] MEDS: FLUTICASONE/VILANTEROL 200/25MCG 14 PUFFS/INHALER INH SCH (08:34)
[2019-10-18] MEDS: OMEGA-3 (PURIFIED FISH OIL) 1 GM CAP PO SCH ×2 (08:35→20:18)
[2019-10-18] MEDS: MULTIVITAMIN TAB PO SCH (08:35)
[2019-10-18] MEDS: APIXABAN 5 MG TABLET PO SCH ×2 (08:35→20:26)
[2019-10-18] MEDS: guaiFENesin 600 MG TABCR PO SCH ×2 (08:35→20:18)
[2019-10-18] MEDS ORDERED: FUROSEMIDE 40 MG in SYRINGE 0 ML IV ONE (13:15)
--- NOTE | 2019-10-18 15:29 | Pulmonology Progress Note ---
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 The patient is on home oxygen at night and is also on nocturnal CPAP Patient may benefit from trilogy noninvasive ventilator * Will obtain an ABG in the morning * Have already begun discussion with his DME provider ([facility]) * Will evaluate for eligibility after we have repeat ABGs in the morning Continue BiPAP at night with supplemental O2 Encourage ambulation as tolerated Continue to follow on telemetry (2) COPD exacerbation: Patient has progressive COPD and continues to smoke 4 to 5 cigarettes/day Continue steroids this admission for a total of 5 days at 40 mg of prednisone with no taper Also recommend switching him to Trelegy inhaler and discontinuing Brio Ellipta on discharge * Not to be confused with Trilogy noninvasive ventilator We will continue work with [employer] company to switch from backup oxygen tanks to a concentrator with a portable system Continue to encourage complete abstention from tobacco abuse Patient is aware that he has progressive disease and may require oxygen full- time This is hard for him as 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 We will continue to follow along with him. Please refer to Dr. Vazquez's addendum for further recommendations and corrections Subjective Attending: Dr. Vazquez Patient seen and examined at bedside. He is well-known to our service from previous admissions. Patient has CPAP at home and states that he wears it 3 to 4 hours a night in a recliner downstairs. He does attempt to go upstairs and lay down in the bed for a couple of hours each night but cannot use the CPAP as the as he developed a leak when in the lateral position. He also has a has supplemental O2 to be used at night. He states that he has some portable tanks but does not have a concentrator. He feels that this would help compliance during the day. Patient states that he feels like he is close to baseline but is aware that in the past this is resulted in readmission when discharged to early. He does agree to talk with [facility], his DME, about options for compliance. I advised him it would help him in this regard. Regarding review of systems, patient states that he still has occasional cough but is not producing significant sputum. He has no chest pain or tightness. He has no fever. He denies night sweats. He does have shortness of breath with minimal exertion. He has no other acute complaints. Review of Systems Review of Systems: All systems reviewed & are unremarkable except as noted in HPI & below Physical Exam Physical Exam: GENERAL : No acute distress EYES: No icterus, gaze conjugate NOSE: No evidence of epistaxis MOUTH: No lesions or candidiasis NECK: Supple LUNGS: Diminished breath sounds throughout. Some scattered wheezes throughout all lung au. No appreciation of rales or rhonchi. HEART: Regular, rate controlled ABDOMEN: Soft, NT, ND, BS Present EXTREMITIES: Bilateral LE edema, pedal pulses intact NEURO: A&OX3 Results & Data ([facility]) Vital Signs (Past 12 Hours) Vital Signs Temp Pulse Pulse Pulse Resp BP BP 10/18/19 11:20 77 19 10/18/19 10:54 36.6 C 79 19 117/72 10/18/19 08:00 85 10/18/19 07:50 36.3 C L 98 H 20 126/76 10/18/19 07:36 88 20 10/18/19 03:40 36.4 C L 91 H 18 107/67 10/18/19 03:25 91 H 18 Pulse Ox 10/18/19 11:20 96 10/18/19 10:54 94 10/18/19 08:00 10/18/19 07:50 94 10/18/19 07:36 94 10/18/19 03:40 94 10/18/19 03:25 94 Laboratory Results 10/17/19 05:48 10/17/19 05:48 Diagnostic Findings No further diagnostic imaging since 10/16/2019 PG Care Time/CCT Total # of Minutes Spent Total Time Spent with Patient: Total time spent is greater than 50% in coordination of care (as documented) at patient's floor/unit and/or counseling patient: 30 minutes including discussion with case management with patient about DME needs on discharge Coding [place] [address] Subseq Hosp Care Lvl 2 Patient Type Established Medical Decision Making Moderate Complexity Diagnoses Acute respiratory failure with hypoxia and hypercapnia J96.01; J96.02 COPD exacerbation J44.1 Tobacco abuse Z72.0 Time Spent (min) 30
[2019-10-18] MEDS ORDERED: LEVALBUTEROL HCL 1.25 MG/3 ML NEB NEB PRN (17:37)
[2019-10-18] MEDS ORDERED: cefTRIAXone SODIUM 2,000 MG in DEXTROSE 5% 50 ML IV SCH (20:00)
[2019-10-18] MEDS: MONTELUKAST SODIUM 10 MG TABLET PO SCH (20:18)
[2019-10-18] MEDS: ATORVASTATIN 40 MG TAB PO SCH (20:18)
[2019-10-18] MEDS ORDERED: SODIUM CHLORIDE 0.65% NA SOLN 45 ML (OCEAN) PRN (21:31)
[2019-10-18] MEDS: AZITHROMYCIN 500 MG in DEXTROSE 5% 250 ML IV SCH (21:46)
--- NOTE | 2019-10-18 21:56 | Hospitalist Progress Note ---
Date of Service October 18, 2019 Assessment & Plan (1) COPD exacerbation: Patient is likely having COPD exacerbation. I did review the chest x-ray personally and concerned about possible underlying pneumonia. Patient will be continued on high flow nasal cannula for his acute respiratory failure. Patient was given Levaquin in the emergency room, we will changes to Rocephin and Zithromax. She is also given a loading dose of steroids. We will continue this at 40 mg every 8 hours with rapid titration. Patient is known to Dr. Vogt. Explained to the patient the importance of quitting to smoke Will add daliresp at discharge for his COPD as well. Stressed that if he continues to smoke he will from this. Patient did downplay this however. Appreciate input from pulmonary. Patient just picked up his Breo, plan was to switch to trelegey, however due to the cost of Breo. Will have patient continue on Breo and as an outpatient, will have pulmonary transition him to trelegey. As recommended by pulmonary will stop ceftriaxone, hwoever will continue with azithromycin for 5 day course. (2) Atrial fibrillation: Patient is currently rate controlled with diltiazem 360 mg daily and appropriately anticoagulated with Eliquis. (3) Hyperlipidemia: Patient is on 40 mg of Lipitor. We will continue this as per outpatient medication list. (4) CHF (congestive heart failure): Patient has a history of chronic diastolic CHF by history. Patient does not appear to be on any diuretics. And patient does not appear to be in active CHF at this time. Will continue medications as ordered. Consideration of low- dose spironolactone depending on patient's progress. Admission and Anticipated Discharge Date Admission Date: October 16, 2019 Subjective 64 yo male is feeling mildly better. Patient reports feeling close to his baseline. Patient still relatively sob at rest however. Review of Systems Review of Systems: All systems reviewed & are unremarkable except as noted in HPI & below Physical Exam Physical Exam: Constitutional: cooperative; no acute distress Neck: trachea midline, no thyromegaly Respiratory: normal respiratory effort Auscultation: + diminished lung sounds and bilateral wheezing. Cardiovascular: Rate/Rhythm: regular rate and regular rhythm Heart Sounds: normal S1, normal S2 and + murmur Gastrointestinal (Abdomen): Inspection/Auscultation: abdomen normal to inspection Percussion/Palpation: abdomen soft; abdomen nontender, no guarding, abdomen not rigid and no hepatosplenomegaly Skin: no rashes, warm and dry Neurologic: PERRL, EOMI, accommodation nl, no face palsy, no dysarthria Psychiatric: A+Ox3, euthymic affect Results & Data ([facility]) Vital Signs (Past 12 Hours) Vital Signs Temp Pulse Pulse Resp BP BP Pulse Ox 10/18/19 19:31 36.9 C 66 20 131/61 96 10/18/19 16:01 69 17 96 10/18/19 16:00 36.7 C 60 18 121/69 96 10/18/19 11:20 77 19 96 10/18/19 10:54 36.6 C 79 19 117/72 94 PG Care Time/CCT Total # of Minutes Spent Total Time Spent with Patient: Total time spent is greater than 50% in coordination of care (as documented) at patient's floor/unit and/or counseling patient: Coding Level of Care Code 01515 Subseq Hosp Care Lvl 2 Diagnoses COPD exacerbation J44.1 Atrial fibrillation I48.91 Hyperlipidemia E78.5 Hyperlipidemia type: unspecified CHF (congestive heart failure) I50.33 Heart failure chronicity: acute on chronic Heart failure type: diastolic Time Spent (min) 25 (1) CHF (congestive heart failure) Heart failure chronicity: acute on chronic Heart failure type: diastolic Qualified Code(s): I50.33 - Acute on chronic diastolic (congestive) heart failure (2) Hyperlipidemia Hyperlipidemia type: unspecified Qualified Code(s): E78.5 - Hyperlipidemia, unspecified
[2019-10-19] MEDS: methylPREDNISolone 40 MG in SYRINGE 0 ML IV SCH ×2 (05:05→12:31)
[2019-10-19] MEDS: APIXABAN 5 MG TABLET PO SCH (08:02)
[2019-10-19] MEDS: dilTIAZem HCL 180 MG CAPCR PO SCH (08:02)
[2019-10-19] MEDS: MULTIVITAMIN TAB PO SCH (08:02)
[2019-10-19] MEDS: OMEGA-3 (PURIFIED FISH OIL) 1 GM CAP PO SCH (08:02)
[2019-10-19] MEDS: guaiFENesin 600 MG TABCR PO SCH (08:02)
[2019-10-19] MEDS: FLUTICASONE/VILANTEROL 200/25MCG 14 PUFFS/INHALER INH SCH (08:03)
[2019-10-19] MEDS: FLUTICASONE PROPIONATE NA SPR 16 GM BTL SCH (08:04)
[2019-10-19 08:53] LABS: Base Excess ABG 9.6 mEq/L (-9-1.8); HCO3 ABG 38 mmol/L (19-24); Oxygen Saturation ABG 90.3 % (90-95); PCO2 ABG 64 mmHg (35-46); PO2 ABG 60 mmHg (80-95); pH ABG 7.39 (7.35-7.45)
[2019-10-19 08:54] LABS: Allen Test Pos (Pos)
[2019-10-19] MEDS ORDERED: UMECLIDINIUM BROMIDE 62.5MCG/BLISTER 7 PUFFS/INHALER INH SCH (09:00)
--- NOTE | 2019-10-19 10:26 | Pulmonology Progress Note ---
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 The patient is on home oxygen at night and is also on nocturnal CPAP Patient would benefit from trilogy noninvasive ventilator * ABG this morning with persistent hypercapnia * PCO2 64 and pH of 7.39 after using BiPAP overnight for 6 hours * Have already begun discussion with his DME provider ([facility]) Due to chronic respiratory failure consequent to COPD, patient now requires a noninvasive home ventilator. Bilevel therapy with and without a rate would be ineffective as patient requires a volume targeted mode. Ventilation is required to decrease work of breathing and improve pulmonary status. Interruption of ventilator support would lead to decline of health status. NIMV settings should be AVAPS-AE; Breath rate: auto; Inspiratory time:auto; Sigh: off; PS min: 5; PS max 18; EPAP min: 6; EPAP max: 8; AVAPS rate: 12 During sleep and as needed Continue BiPAP at night with supplemental O2 Encourage ambulation as tolerated Continue to follow on telemetry (2) COPD exacerbation: Patient has progressive COPD and continues to smoke 4 to 5 cigarettes/day Continue steroids this admission for a total of 5 days at 40 mg of prednisone with no taper Suggested switching him to Trelegy inhaler to decrease number of inhalers and increased compliance * Breo Ellipta just purchased by patient prior to admission at the cost of $300 * Will add Spiriva to regimen and have patient continue Brio Ellipta on discharge until seen by outpatient pulmonary We will continue to work with [employer] company to switch from backup oxygen tanks to a concentrator with a portable system to increase compliance as an outpatient. 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 We will continue to follow along with him. Please refer to Dr. Vazquez's addendum for further recommendations and corrections Subjective Attending: Dr. Vazquez Patient seen and examined at bedside. Patient continues with nonproductive cough and still has some shortness of breath. He feels better than he did yesterday. He feels as though he is moving more air. He denies any fever or chills. He had no night sweats. He has no chest pain or tightness and no chest heaviness. Review of Systems Review of Systems: All systems reviewed & are unremarkable except as noted in HPI & below Physical Exam Physical Exam: GENERAL : No acute distress EYES: No icterus, gaze conjugate NOSE: No evidence of epistaxis MOUTH: No lesions or candidiasis NECK: Supple LUNGS: Continue with decreased breath sounds globally. He also has scant, scattered bronchospasm. No rales or rhonchi appreciated. HEART: Regular, rate controlled ABDOMEN: Soft, NT, ND, BS Present EXTREMITIES: No LE edema, pedal pulses intact NEURO: A&OX3 Results & Data ([facility]) Vital Signs (Past 12 Hours) Vital Signs Temp Pulse Pulse Resp BP Pulse Ox 10/19/19 07:48 97 H 10/19/19 07:47 36.4 C L 70 18 119/67 95 10/19/19 05:22 78 18 94 10/19/19 02:42 86 16 96 10/19/19 00:30 79 12 92 10/18/19 23:31 36.7 C 90 20 126/81 95 Laboratory Results 10/17/19 05:48 10/17/19 05:48 Laboratory Tests 10/19/19 08:24 ABG pH 7.39 ABG pCO2 64 H ABG pO2 60 L ABG HCO3 38 H ABG O2 Saturation 90.3 ABG Base Excess 9.6 H Primitivo Test Pos Diagnostic Findings No new imaging since 10/16/2019 PG Care Time/CCT Total # of Minutes Spent Total Time Spent with Patient: Total time spent is greater than 50% in coordination of care (as documented) at patient's floor/unit and/or counseling patient: 30 minutes Coding Level of Care Code 72987 Subseq Hosp Care Lvl 2 Diagnoses Acute respiratory failure with hypoxia and hypercapnia J96.01; J96.02 COPD exacerbation J44.1 Tobacco abuse Z72.0
[2019-10-19] MEDS ORDERED: ROFLUMILAST 500 MCG TAB PO SCH (12:00)
--- NOTE | 2019-10-20 10:33 | Discharge Summary ---
Date of Service October 19, 2019 Admission HPI Per Admitting Provider This is a 64-year-old male with past medical history of COPD, IDA infection, atrial fibrillation, chronic diastolic CHF that presents today complaining of shortness of breath. Patient is a somewhat difficult historian. Apparently the patient has been having worsening shortness of breath with cough over the past 2 weeks. He denies any fever or changes in appetite. He was having minimally productive cough. He denied any chest pain. Patient uses nebulizer at home 4 times a day and he is also on O2 at night only. He tells me that he called his physician about a week ago and started on an antibiotic along with oral steroids. However, he did not feel he was getting better after the course of medication presents to the emergency room for further evaluation. On presentation, he was found to be significantly hypoxic with an O2 sat of 92%. It was documented as low as 71 percent. Patient was started on a high flow nasal cannula at 30% and is now satting 96%. He appears to be much more comfortable. Principal Diagnosis COPD exacerbation Discharge Exam Constitutional: cooperative; no acute distress Neck: trachea midline, no thyromegaly Respiratory: normal respiratory effort Auscultation: improved breath sounds, no wheezing Cardiovascular: Rate/Rhythm: regular rate and regular rhythm Heart Sounds: normal S1, normal S2 and + murmur Gastrointestinal (Abdomen): Inspection/Auscultation: abdomen normal to inspection Percussion/Palpation: abdomen soft; abdomen nontender, no guarding, abdomen not rigid and no hepatosplenomegaly Skin: no rashes, warm and dry Neurologic: PERRL, EOMI, accommodation nl, no face palsy, no dysarthria Psychiatric: A+Ox3, euthymic affect Discharge Data Allergies Allergy/AdvReac Type Severity Reaction Status Date / Time No Known Allergies Allergy Verified 10/16/19 14:44 Consultations 10/16/19 15:52 ED Decision to Admit Stat 10/16/19 15:58 ED Decision to Admit Stat 10/16/19 19:20 Consult Pulmonology Routine Hospital Course (1) COPD exacerbation: Patient is likely having COPD exacerbation. I did review the chest x-ray personally and concerned about possible underlying pneumonia. Patient will be continued on high flow nasal cannula for his acute respiratory failure. Patient was given Levaquin in the emergency room, we will changes to Rocephin and Zithromax. She is also given a loading dose of steroids. We will continue this at 40 mg every 8 hours with rapid titration. Patient is known to Dr. Vogt. Explained to the patient the importance of quitting to smoke Will add daliresp at discharge for his COPD as well. Stressed that if he continues to smoke he will from this. Patient did downplay this however and mentioned his farm animals and the weather playing a role with his COPD flair ups. Appreciate input from pulmonary. Patient just picked up his Breo, plan was to switch to trelegey, however due to the cost of Breo, will have patient continue on Breo and as an outpatient. Once seen by pulmonaryin the outpatient setting, he will then be transitioned him to trelegey. As recommended by pulmonary will stop ceftriaxone, however will continue with azithromycin for 5 day course. Patient will then continue on Azithromycin MWF. hE WILL CONTINUE WITH HIS BIPAP at home, and will be on 2 liters nasal cannula and rest and 3 liters on exertion. (2) Atrial fibrillation: Patient is currently rate controlled with diltiazem 360 mg daily and appropriately anticoagulated with Eliquis. (3) Hyperlipidemia: Patient is on 40 mg of Lipitor. We will continue this as per outpatient medication list. (4) CHF (congestive heart failure): Patient has a history of chronic diastolic CHF by history. Patient does not appear to be on any diuretics. And patient does not appear to be in active CHF at this time. Will continue medications as ordered. Consideration of low- dose spironolactone depending on patient's progress. Total Time Total Time Spent Total Time Spent (In Minutes): 35 Discharge Plan Discharge Items Patient Disposition: Home - Home Health Services Reason For Visit: COPD EXAC Discharge Diagnosis: COPD exacerbation Activity: Resume your previous activity Non-emergency contact: Primary Care Provider Call non-emergency contact if: you have any medication questions Follow-up/Referrals: Peewee Vicente MD [Primary Care Provider] - 10/30/19 1:50 am () Kavin Vogt DO [Physician] - 10/24/19 2:00 pm (Please follow-up at [facility] Pulmonology Office with Mayra GOODMAN on WednesdayOctober 23 at 2:00 pm. *If you need to change this appointment, call their office at [phone].) Diet: Heart Healthy Addtl Attending Provider Instructions: You have been hospitalized for an acute medical problem. During your stay at [facility], we have made an effort to correct the problem that brought you to the hospital while keeping you as comfortable as possible. Medications were used to bring your condition under control and your discharge instructions will include directions for any medications you should take after leaving the hospital. Please make sure you see your Primary Care Provider as part of your follow up plan. Continue with BIPAP at home at bedtime. Continue 2liters nasal cannula at rest 3 liters on ambulation Pending Studies at Discharge: No Stand-Alone Forms: My [facility], Smoking Cessation Medications and DC Order Prescriptions: New Daliresp 500 mcg Tablet 500 mcg PO DAILY Qty: 30 RF: 0 Spiriva with HandiHaler 18 mcg capsule, w/inhalation device 1 cap INH DAILY Qty: 30 RF: 0 prednisone 10 mg tablet 10 mg PO UD Qty: 20 RF: 0 azithromycin 250 mg tablet 250 mg PO DAILY 2 Days Qty: 2 RF: 0 azithromycin 250 mg tablet 250 mg PO MOWEFR Qty: 15 RF: 0 Continued (DME) nebulizers misc See Dose Instructions [id number] .MEDSUPPLY Qty: 1 RF: 0 Combivent Respimat 20-100 mcg/actuation mist 1 puff INHALATION QID PRN (Reason: Shortness Of Breath) Qty: 4 RF: 5 (DME) CPAP Machine Misc See Rx Instructions .ROUTE .MEDSUPPLY Qty: 1 RF: 0 (DME) Portable Oxygen Misc See Rx Instructions .ROUTE .MEDSUPPLY Qty: 1 RF: 0 Breo Ellipta 200-25 mcg/dose blister with device 1 puffs INH Q24H Qty: 60 RF: 5 omega-3 fatty acids [Fish Oil Concentrate] 1,000 mg capsule 1,000 mg PO BID RF: 0 multivitamin with minerals [Men's One Daily] tablet 1 tab PO QAM RF: 0 guaifenesin [Mucinex] 600 mg tablet extended release 12hr 600 mg PO BID RF: 0 diltiazem HCl [Cardizem CD] 180 mg capsule,extended release 24hr 360 mg PO QAM Qty: 180 RF: 0 (DME) BiPap Supplies Misc See Dose Instructions .ROUTE .MEDSUPPLY Qty: 1 RF: 0 clobetasol [Temovate] 0.05 % cream 1 applic Topical BID PRN (Reason: Rash) RF: 0 atorvastatin [Lipitor] 40 mg tablet 40 mg PO HS RF: 0 ipratropium-albuterol 0.5 mg-3 mg(2.5 mg base)/3 mL solution for nebulization 3 ml INHALATION QID PRN (Reason: Shortness Of Breath Or Wheezing) RF: 0 montelukast [Singulair] 10 mg tablet 10 mg PO HS RF: 0 fluticasone propionate [Flonase Allergy Relief] 50 mcg/actuation spray,suspension 2 sprays intranasal QAM RF: 0 Eliquis 5 mg tablet 5 mg PO BID RF: 0 Discontinued prednisone 20 mg tablet 40 mg PO QAM RF: 0 levofloxacin [Levaquin] 500 mg tablet 500 mg PO QAM RF: 0 Discharge Orders: Discharge Order (Routine); Ordered 10/19/19 Ordered By: Jaylan Eastman Admission Data Admit Date/Time: 10/16/19 17:00 Attending Provider: Jaylan Eastman Admit Provider: Pedro Tinsley Primary Care Provider: Peewee Vicente Other Providers: Pedro Tinsley ; Kavin Vogt Other Interventions: Discharge Summary Assessment (RN) Last Done: 10/19/19 17:30 DC Date/Time DO NOT enter until pt leaves facility: 10/19/19 18:09 Coding Level of Care Code D/C Day Management >30 mins Diagnoses COPD exacerbation J44.1 Atrial fibrillation I48.91 Hyperlipidemia E78.5 Hyperlipidemia type: unspecified CHF (congestive heart failure) I50.33 Heart failure type: diastolic Heart failure chronicity: acute on chronic Time Spent (min) 35
== END 2019-10-19 18:09 | disposition home health service (06) | DRG 190 ==
LOC: ED 13:23 → SUATTDRO 17:00 → 2S 17:00

== ENCOUNTER 2024-05-24 11:28 | Inpatient (IN) ==
--- NOTE | 2024-05-24 11:41 | Emergency Department Note ---
Impression & Plan COPD (chronic obstructive pulmonary disease), Hypoxia, MCMILLAN (dyspnea on exertion), Respiratory failure ED Provider Note NAME: ROBERTO ADAMS AGE: 68 SEX: M : 1955 ARRIVES VIA: Walk-In INFORMANT: Patient, ED PROVIDER(S): Kong Ernst DO CHIEF COMPLAINT: Difficulty breathing HPI: The patient is a 68-year-old male who presented to the emergency department for an evaluation of difficulty breathing. The patient has a history of IDA infection as well as COPD. He wears oxygen and CPAP at night but he does not wear oxygen during the day. For about the last week the patient's been complaining of difficulty breathing and cough. He was started on Zithromax by his primary provider. He just finished this medication yesterday. The patient continues to have difficulty breathing and cough. He denies having any chest pain or leg swelling but does complain of tightness across his chest and difficulty breathing. He states his symptoms became much worse so he came to the emergency department for further evaluation. The patient presented through triage. ROS: See above HPI for pertinent positives & negatives. A total of 10 systems reviewed and were otherwise negative. PAST MEDICAL HISTORY: See Below PAST SURGICAL HISTORY: See Below FAMILY HISTORY: See Below SOCIAL HISTORY: See Below HOME MEDICATIONS: See Below ALLERGIES: See Below VITALS: See Below PHYSICAL EXAMINATION: GENERAL: The patient is awake and alert. He is very anxious and appears to be having severe difficulty breathing. EYES: The conjunctivae are clear. The pupils are round and reactive. EARS, NOSE, MOUTH AND THROAT: The nose is without any evidence of any deformity. NECK: The neck is nontender and supple. RESPIRATORY: The breath sounds are noted throughout. There is very poor air movement. There was tachypnea as well as conversational dyspnea noted. CARDIOVASCULAR: Tach cardiac and irregular heart sounds were noted to auscultation. There is no definite murmur. GASTROINTESTINAL: The abdomen is soft. Abdomen is nontender. MUSCULOSKELETAL/EXTREMITIES: There is no evidence of gross deformity full range of motion is noted in the hips and shoulders. SKIN: Skin is ashen and cold. There was pedal edema bilaterally. NEUROLOGIC: Patient is awake alert and oriented x3 MEDICAL DECISION MAKING: The patient is a 68-year-old male who presented to the emergency department for shortness of breath. The patient has a history of COPD. He was hypoxic and was very short of breath. He was placed immediately on BiPAP. The patient was also treated with IV antibiotics IV steroids and bronchodilator therapy. He was reevaluated multiple times. The patient continued to improve while in the emergency department. I discussed the patient's condition with him. I discussed his condition with the on-call [place] [facility]ist. They have agreed to evaluate the patient in the emergency department for further management and disposition. Triage Nursing notes reviewed. Prior medical records reviewed Vital Signs: reviewed and remarkable for initial hypotension and hypoxia. Differential diagnosis: Reactive airway disease, pneumonia, pneumothorax, COPD, CHF, infections, cardiac ischemia, pulmonary embolism, musculoskeletal, gastrointestinal, as well as other pathologies. ER treatment provided: See below Diagnostics interpreted by me: ECG: EKG was obtained in the emergency department. My interpretation is atrial fibrillation at 96 bpm. There were PVCs noted. A right bundle branch block pattern was noted. This was compared to a tracing from October 16, 2019. The right bundle branch block is new. Cardiac Monitoring: An order was placed for continuous cardiac monitoring. The monitor shows a rate of 88 bpm with atrial fibrillation. Laboratory studies: As stated above and show below. Imaging studies: See below. Radiographic imaging was reviewed by myself Consultation(s): I discussed this case with Dr. Quiroga who is on-call for the [facility] group. ED COURSE: Procedures: none Critical Care: I have personally spent greater than 45 minutes of critical care time in the direct management of this patient. This includes bedside care, interpretation of diagnostic studies, and testing, discussion with consultants, patient, and family members, and other required patient management activities. This 45 minutes is in excess of all separately billable procedures. Past Med/Surg History Problem List (Updated 05/24/24 @ 17:46 by Kong Ernst DO) Respiratory failure (Acute) Inflamed seborrheic keratosis COPD (chronic obstructive pulmonary disease) (Chronic) inhaler daily/prn, nebulizer daily Emphysema of lung (Chronic) Hyperlipidemia (Chronic) Tinea versicolor Current smoker Macrocytosis Atrial fibrillation Chronic diastolic congestive heart failure Hand dermatitis Hypoxia (Acute) MCMILLAN (dyspnea on exertion) (Acute) Cardiomegaly Dependence on nocturnal oxygen therapy 2L at night through CPAP History of colon polyps Blood in stool Anticoagulated (Acute) Obstructive sleep apnea of adult (Acute) History of IDA infection (Acute) Personal history of nicotine dependence Respiratory failure (Acute) Acute bronchitis (Acute) Chronic respiratory failure with hypoxia and hypercapnia COPD with emphysema Current smoker Pulmonary hypertension Chronic bronchitis Allergic rhinitis Type II diabetes mellitus Right leg swelling (Acute) Edema of both legs Medical History Acute diastolic heart failure History of colon polyps On anticoagulant therapy eliquis daily Atrial flutter with rapid ventricular response Acute and chronic respiratory failure with hypoxia Atrial fibrillation, new onset follows with Dr. Irwin--on eliquis daily Surgical History History of colonoscopy History of tooth extraction all top teeth and some lower teeth removed History of bronchoscopy [place] teeth extracted "3 wisdom teeth; 1996" Family History Father CHF (congestive heart failure) Mother Obesity Heart valve disease Hypertension Brother Atrial flutter Hypertension Prediabetes Colonic polyp Tubular adenoma Brother Pancreatitis Sister Hypertension Other No family history of adverse response to anesthesia Denies family history of Ovarian cancer Prostate cancer Breast cancer Social History Smoking Status: Current every day smoker Tobacco Type: Cigarettes Age Started Using Tobacco: 19; packs per day: 0.25; Cigarettes Per Day: 6; Second Hand Exposure: No; Do You Dip or Chew Tobacco: No; Tobacco Cessation Education Requested by Patient: No Hx Alcohol Use: No Hx Substance Use: No Preferred Language: Spanish Communication Ability: Effective Economic History Teacher Required: No Beliefs That Will Affect Care: None marital status: Single Current Living Situation: Parent Current Living Situation Comment: Lives with mother in law- checks in frequently 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 How many Children do You have: 0 Other Information That Helps Us Care for You: No Feels Safe at Home: Yes Safety Concerns: Feels Safe At This Time Childhood Exposure to Second-Hand Smoke: Yes Diet: regular caffeine: Yes (small amount ) Dental Care, Regularly: No Physical Activity Frequency: Daily Seatbelt Use: always Sunscreen Use: No Assistive Devices: Denture - Upper, Denture - Lower, Oxygen - at Night and Oxygen - Continuous Allergies Allergies Allergy/AdvReac Type Severity Reaction Status Date / Time No Known Allergies Allergy Verified 05/19/24 12:23 Home Meds Home Medications Medication Instructions Recorded Confirmed multivitamin with minerals 1 tab PO DAILY 05/24/24 05/24/24 omega-3 fatty acids 1,000 mg 1,000 mg PO BID 05/24/24 05/24/24 capsule Previous Rx's Medication Instructions Recorded nebulizers #1 ea 05/01/19 BiPap Supplies #1 ea 05/22/19 CPAP Machine #1 ea 08/30/19 guaifenesin 600 mg tablet, 600 mg PO BID PRN congestion #60 05/08/21 extended release 12 hr (Mucinex) tabs clobetasol 0.05 % topical cream 1 applic topical BID PRN Rash #15 08/28/21 grams Portable Oxygen #1 ea 05/22/22 Flutter Valve #1 ea 11/20/22 nebulizers (Aeroneb Go Nebulizer) #1 ea 12/08/22 mecobalamin (vitamin B12) 1,000 1,000 mcg PO DAILY #30 tabs 03/15/23 mcg chewable tablet montelukast 10 mg tablet 10 mg PO HS #90 tabs 06/28/23 (Singulair) ipratropium 0.5 mg-albuterol 3 mg 3 ml inhalation QID PRN Shortness 09/08/23 (2.5 mg base)/3 mL nebulization Of Breath Or Wheezing #360 mL soln atorvastatin 40 mg tablet (Lipitor) 40 mg PO HS #90 tabs 09/23/23 metformin 500 mg tablet,extended 1,000 mg (2 x 500 mg) PO BID #360 10/07/23 release 24 hr tabs fluticasone fur. 100 mcg-umeclid 1 inh inhalation DAILY #3 Inhalers 11/29/23 62.5 mcg-vilant 25 mcg inhalat.powder (Trelegy Ellipta) roflumilast 500 mcg tablet 500 mcg PO DAILY #90 tabs 11/29/23 albuterol sulfate 90 mcg/actuation 2 puff inhalation Q6H PRN 12/24/23 aerosol inhaler Shortness Of Breath Or Wheezing #18 grams diltiazem HCl 360 mg 360 mg PO QAM #90 caps 03/02/24 capsule,extended release 24 hr apixaban 5 mg tablet (Eliquis) 5 mg PO BID #180 tabs 04/03/24 peg 3350-sod [id number] See Rx Instructions PO .COMPLEX #2 05/19/24 178.7-7.3-0.5-1.12-0.9 gram oral mL soln (Suflave) Results & Data (ED) Vital Signs Vital Signs - 24 hr 05/24/24 11:31 05/24/24 11:48 05/24/24 11:57 Pulse Rate 129 H 93 H Pulse Rate [Apical] Pulse Rate from SpO2 Sensor 91 H Pulse Rhythm Pulse Rhythm [Apical] Pulse Strength [Apical] Respiratory Rate 30 H 25 H Respiratory Effort / Characteristics Spontaneous Accessory Muscle Use Grunting Labored Tripoding Respiratory Depth Respiratory Pattern Grunting Tachypnea Blood Pressure 99/70 L Blood Pressure [Right Arm] Blood Pressure Mean 79 Blood Pressure Mean [Right Arm] Blood Pressure Position [Right Arm] Pulse Oximetry 65 L 94 Oxygen Delivery Method Room Air Non-rebreather Oxygen Flow Rate 15 Fraction of Inspired Oxygen SaO2/FiO2 Ratio Sepsis Recent Fever Within 48 Hours No Sepsis New/Unexplained Change in Mental Status No Sepsis Action Taken by Nursing Physician Notified 05/24/24 11:57 05/24/24 11:58 05/24/24 11:58 Pulse Rate 92 H Pulse Rate [Apical] 92 H Pulse Rate from SpO2 Sensor Pulse Rhythm Pulse Rhythm [Apical] Pulse Strength [Apical] Respiratory Rate 28 H 28 H Respiratory Effort / Characteristics Spontaneous Spontaneous Short of Breath Respiratory Depth Respiratory Pattern Tachypnea Blood Pressure Blood Pressure [Right Arm] Blood Pressure Mean Blood Pressure Mean [Right Arm] Blood Pressure Position [Right Arm] Pulse Oximetry 94 96 95 Oxygen Delivery Method BiPAP BiPAP Oxygen Flow Rate Fraction of Inspired Oxygen 50 50 SaO2/FiO2 Ratio Sepsis Recent Fever Within 48 Hours Sepsis New/Unexplained Change in Mental Status Sepsis Action Taken by Nursing 05/24/24 12:00 05/24/24 12:14 05/24/24 12:15 Pulse Rate 95 H 86 Pulse Rate [Apical] 91 H Pulse Rate from SpO2 Sensor 90 Pulse Rhythm Irregular Pulse Rhythm [Apical] Irregular Pulse Strength [Apical] Normal Respiratory Rate 33 H 34 H 27 H Respiratory Effort / Characteristics Non-Labored Spontaneous Respiratory Depth Respiratory Pattern Tachypnea Blood Pressure 102/66 Blood Pressure [Right Arm] 97/69 L Blood Pressure Mean 78 Blood Pressure Mean [Right Arm] 78 Blood Pressure Position [Right Arm] Lying Pulse Oximetry 94 97 96 Oxygen Delivery Method BiPAP BiPAP BiPAP Oxygen Flow Rate Fraction of Inspired Oxygen 50 50 50 SaO2/FiO2 Ratio 194 192 Sepsis Recent Fever Within 48 Hours Sepsis New/Unexplained Change in Mental Status Sepsis Action Taken by Nursing 05/24/24 12:30 05/24/24 12:41 05/24/24 12:45 Pulse Rate 90 82 Pulse Rate [Apical] 78 Pulse Rate from SpO2 Sensor 93 H Pulse Rhythm Pulse Rhythm [Apical] Irregular Pulse Strength [Apical] Respiratory Rate 29 H 32 H Respiratory Effort / Characteristics Spontaneous Respiratory Depth Normal Respiratory Pattern Tachypnea Blood Pressure 97/62 L Blood Pressure [Right Arm] 103/67 Blood Pressure Mean 73 Blood Pressure Mean [Right Arm] 79 Blood Pressure Position [Right Arm] Pulse Oximetry 97 97 Oxygen Delivery Method BiPAP BiPAP Oxygen Flow Rate Fraction of Inspired Oxygen 50 50 SaO2/FiO2 Ratio 194 Sepsis Recent Fever Within 48 Hours Sepsis New/Unexplained Change in Mental Status Sepsis Action Taken by Nursing 05/24/24 13:00 05/24/24 13:12 05/24/24 13:15 Pulse Rate 81 Pulse Rate [Apical] 78 80 Pulse Rate from SpO2 Sensor 85 Pulse Rhythm Pulse Rhythm [Apical] Irregular Pulse Strength [Apical] Respiratory Rate 30 H 35 H 28 H Respiratory Effort / Characteristics Spontaneous Spontaneous Respiratory Depth Normal Normal Respiratory Pattern Tachypnea Tachypnea Blood Pressure Blood Pressure [Right Arm] 101/83 121/74 Blood Pressure Mean Blood Pressure Mean [Right Arm] 89 89 Blood Pressure Position [Right Arm] Pulse Oximetry 97 97 98 Oxygen Delivery Method BiPAP BiPAP Oxygen Flow Rate Fraction of Inspired Oxygen 50 50 SaO2/FiO2 Ratio 194 196 Sepsis Recent Fever Within 48 Hours Sepsis New/Unexplained Change in Mental Status Sepsis Action Taken by Nursing 05/24/24 13:21 05/24/24 13:30 05/24/24 13:30 Pulse Rate 82 Pulse Rate [Apical] 82 Pulse Rate from SpO2 Sensor 86 Pulse Rhythm Pulse Rhythm [Apical] Irregular Pulse Strength [Apical] Respiratory Rate 33 H 28 H Respiratory Effort / Characteristics Spontaneous Respiratory Depth Normal Respiratory Pattern Tachypnea Blood Pressure 113/71 Blood Pressure [Right Arm] 113/71 Blood Pressure Mean 76 Blood Pressure Mean [Right Arm] 85 Blood Pressure Position [Right Arm] Pulse Oximetry 98 98 Oxygen Delivery Method BiPAP Oxygen Flow Rate Fraction of Inspired Oxygen 50 SaO2/FiO2 Ratio 196 Sepsis Recent Fever Within 48 Hours Sepsis New/Unexplained Change in Mental Status Sepsis Action Taken by Nursing 05/24/24 13:45 05/24/24 13:45 05/24/24 13:45 Pulse Rate Pulse Rate [Apical] Pulse Rate from SpO2 Sensor Pulse Rhythm Pulse Rhythm [Apical] Pulse Strength [Apical] Respiratory Rate Respiratory Effort / Characteristics Respiratory Depth Respiratory Pattern Blood Pressure 116/67 116/67 116/67 Blood Pressure [Right Arm] Blood Pressure Mean 89 89 89 Blood Pressure Mean [Right Arm] Blood Pressure Position [Right Arm] Pulse Oximetry Oxygen Delivery Method Oxygen Flow Rate Fraction of Inspired Oxygen SaO2/FiO2 Ratio Sepsis Recent Fever Within 48 Hours Sepsis New/Unexplained Change in Mental Status Sepsis Action Taken by Nursing 05/24/24 13:45 05/24/24 13:51 Pulse Rate 80 84 Pulse Rate [Apical] Pulse Rate from SpO2 Sensor 81 98 H Pulse Rhythm Pulse Rhythm [Apical] Pulse Strength [Apical] Respiratory Rate 24 25 H Respiratory Effort / Characteristics Respiratory Depth Respiratory Pattern Blood Pressure Blood Pressure [Right Arm] Blood Pressure Mean Blood Pressure Mean [Right Arm] Blood Pressure Position [Right Arm] Pulse Oximetry 97 92 Oxygen Delivery Method Oxygen Flow Rate Fraction of Inspired Oxygen SaO2/FiO2 Ratio Sepsis Recent Fever Within 48 Hours Sepsis New/Unexplained Change in Mental Status Sepsis Action Taken by [facility] Medications Current Medication List: was personally reviewed by me Laboratory Data Attestation: I reviewed the patient's lab results. 05/24/24 11:40 05/24/24 11:40 Lab Results 05/24/24 05/24/24 05/24/24 Range/Units 11:40 11:50 11:55 WBC 13.22 H (4.8-10.8) K/ul RBC 5.05 (4.70-6.10) M/uL Hgb 16.0 (14.0-18.0) g/dl Hct 50.3 (42.0-52.0) % MCV 99.6 (80.0-100.0) fL MCH 31.7 (25.0-34.0) pg MCHC 31.8 L (32.0-36.0) g/dL RDW Std Deviation 53.1 H (36.4-46.3) fL RDW Coeff of Malik 14.5 (11.5-14.5) % Plt Count 226 (130-400) K/uL MPV 9.2 L (9.4-12.4) fL Immature Gran % (Auto) 0.3 % Neut % (Auto) 79.1 % Lymph % (Auto) 8.5 % [place] % (Auto) 11.6 % Eos % (Auto) 0.2 % Baso % (Auto) 0.3 % Neut # (Auto) 10.45 H (1.40-6.50) K/uL Lymph # (Auto) 1.13 L (1.20-3.40) K/uL [place] # (Auto) 1.53 H (0.11-0.59) K/uL Eos # (Auto) 0.03 (0.00-0.50) K/uL Baso # (Auto) 0.04 (0.00-0.20) K/uL Immature Gran # (Auto) 0.04 (0.01-0.20) K/uL PT 14.0 H (9.0-12.0) Seconds INR 1.3 H (0.9-1.1) APTT 32 H (21-31) Seconds PTT Ratio 1.2 VBG pH 7.34 L (7.36-7.41) VBG pCO2 61 H (38-50) mmHg VBG pO2 70 mmHg VBG HCO3 33 mmol/L VBG O2 Saturation 94.6 % VBG Base Excess 5.2 mEq/L Sodium 132 L (136-145) mmol/L Potassium 4.6 (3.5-5.1) mmol/L Chloride 94 L (98-107) mmol/L Carbon Dioxide 32 (21-32) mmol/L Anion Gap 6 (3-11) BUN 11 (6-23) mg/dl Creatinine 0.71 (0.6-1.4) mg/dl Est Cr Clr Drug Dosing 130.6 ml/min eGFR 100.56 BUN/Creatinine Ratio 15.5 (10-20) Glucose 117 H (70-99(Fasting)) mg/dl Lactate 1.0 (0.4-2.0) mmol/L Calcium 9.2 (8.6-10.3) mg/dl Magnesium 1.8 (1.7-2.4) mg/dl Total Bilirubin 2.0 H (0.2-1.0) mg/dl Direct Bilirubin 0.5 H (0-0.2) mg/dl AST 19 (13-39) U/L ALT 21 (7-52) U/L Alkaline Phosphatase 88 (34-104) U/L Troponin I High Sens 18.3 (0-20) pg/ml B-Natriuretic Peptide 220 H (0-100) pg/ml Total Protein 7.8 (6.0-8.3) gm/dl Albumin 4.2 (3.4-5.0) gm/dl Procalcitonin < 0.02 (0-0.5) ng/ml Random Cortisol 22.39 mcg/dl Adenovirus (PCR) Not Detected (NotDetected) B. pertussis DNA (PCR) Not Detected (NotDetected) B.parapertussis DNA PCR Not Detected (NotDetected) C. pneumoniae DNA (PCR) Not Detected (NotDetected) Coronavirus OC43 (PCR) Not Detected (NotDetected) Coronavirus HKU1 (PCR) Not Detected (NotDetected) Coronavirus 229E (PCR) Not Detected (NotDetected) SARS-CoV-2 (PCR) Not Detected (NotDetected) Coronavirus NL63 (PCR) Not Detected (NotDetected) Human Metapneumovir PCR Not Detected (NotDetected) Influenza Type A (PCR) Not Detected (NotDetected) Influenza Type B (PCR) Not Detected (NotDetected) M. pneumoniae (PCR) Not Detected (NotDetected) Parainfluenza 1 (PCR) Not Detected (NotDetected) Parainfluenza 2 (PCR) Not Detected (NotDetected) Parainfluenza 3 (PCR) Not Detected (NotDetected) Parainfluenza 4 (PCR) Not Detected (NotDetected) RSV (PCR) Not Detected (NotDetected) Entero/Rhino (PCR) DETECTED A (NotDetected) Administered Medications Discontinued Medications Albuterol (Albut/Ipratrop 3mg/0.5mg Neb 3 Ml Vial) 12 ml NEB ONE ONE; Protocol Stop: 05/24/24 11:37 Last Admin: 05/24/24 11:52 Dose: 12 ml Documented By: KMS Albuterol (Albut/Ipratrop 3mg/0.5mg Neb 3 Ml Vial) 3 ml NEB Q4H [facility]; Protocol Stop: 06/23/24 16:36 Last Admin: 05/24/24 16:52 Dose: Not Given Documented By: ROSSY Dexamethasone Sodium Phosphate (DexamethasonePf 10 Mg/Ml Vial) 10 mg IV NOW ONE Stop: 05/24/24 11:37 Last Admin: 05/24/24 11:43 Dose: 10 mg Documented By: BLADIMIR Magnesium Sulfate/Dextrose (Magnesium Sulfate / D5w) 1 gm in 100 mls @ 100 mls/hr IV NOW STA Stop: 05/24/24 12:36 Last Infusion: 05/24/24 12:45 Dose: Infused Documented By: Admin: 05/24/24 11:43 Dose: 100 mls/hr Documented By: BLADIMIR Ceftriaxone Sodium (Rocephin) 2,000 mg in 50 mls @ 100 mls/hr IV NOW STA Stop: 05/24/24 12:58 Last Infusion: 05/24/24 13:21 Dose: Infused Documented By: Admin: 05/24/24 12:48 Dose: 100 mls/hr Documented By: BLADIMIR Imaging Data Attestation: I personally reviewed and interpreted this imaging study as follows: My Impression: 1 view chest x-ray was obtained in the emergency department. My interpretation is cardiomegaly with interstitial prominence, final report below. Radiologist's Impression: Chest X-Ray 05/24/24 11:36 SINGLE VIEW CHEST CLINICAL HISTORY: Sepsis FINDINGS: An AP, portable, upright chest radiograph is compared to study dated 10/16/2019 and correlated with chest CT dated 10/07/2023. The heart is enlarged. There is pulmonary vascular congestion. Emphysema and chronic interstitial thickening is similar previous. There is bibasilar scarring/atelectasis. No large pleural effusion or pneumothorax is seen. The skeletal structures are osteopenic. The bony thorax is grossly intact. IMPRESSION: 1. Cardiomegaly with evidence of congestive failure. Radiographic follow-up to resolution is recommended. 2. Emphysema. 3. No airspace consolidation or large pleural effusion is identified. ACT 112: Negative or not required by law. Electronically signed by: Phill Peña M.D. 05/24/2024 11:47 AM Discharge Plan Visit Data Chief Complaint: Shortness of Breath/Dyspnea Stated Complaint: SOB ED Provider: Kong Ernst Discharge Problem: COPD (chronic obstructive pulmonary disease), Hypoxia, MCMILLAN (dyspnea on exertion), Respiratory failure Patient Disposition: Admitted As Inpatient Discharge Instructions Interventions: ED Discharge Assessment Last Done: 05/24/24 15:54 Discharge Problem: COPD (chronic obstructive pulmonary disease) Qualifiers: COPD type: unspecified COPD Qualified Code(s): J44.9 - Chronic obstructive pulmonary disease, unspecified Respiratory failure Qualifiers: Chronicity: acute Respiratory failure complication: hypoxia Qualified Code(s): J96.01 - Acute respiratory failure with hypoxia
[2024-05-24] MEDS: MAGNESIUM SULFATE / D5W 1 GM/100 ML BAG IV STA (11:43)
[2024-05-24] MEDS: dexAMETHasone**PF** 10 MG/ML VIAL IV ONE (11:43)
--- NOTE | 2024-05-24 11:48 | XRay Report ---
SINGLE VIEW CHEST CLINICAL HISTORY: Sepsis FINDINGS: An AP, portable, upright chest radiograph is compared to study dated 10/16/2019 and correlat ed with chest CT dated 10/07/2023. The heart is enlarged. There is pulmonary vascular congestion. Emph ysema and chronic interstitial thickening is similar previous. There is bibasilar scarring/atelectasi s. No large pleural effusion or pneumothorax is seen. The skeletal structures are osteopenic. The bon y thorax is grossly intact. IMPRESSION: 1. Cardiomegaly with evidence of congestive failure. Radiographic follow-up to resolution is recommen ded. 2. Emphysema. 3. No airspace consolidation or large pleural effusion is identified. ACT 112: Negative or not required by law. Electronically signed by: Phill Peña M.D. 05/24/2024 11:47 AM
[2024-05-24] MEDS: ALBUT/IPRATROP 3MG/0.5MG NEB 3 ML VIAL NEB ONE (11:52)
[2024-05-24 12:04] LABS: Basophils # (auto) 0.04 K/uL (0.00-0.20); Basophils % (auto) 0.3 %; Eosinophils # (auto) 0.03 K/uL (0.00-0.50); Eosinophils % (auto) 0.2 %; Hematocrit (blood only) 50.3 % (42.0-52.0); Immature Granulocytes # (auto) 0.04 K/uL (0.01-0.20); Immature Granulocytes % (auto) 0.3 %; Lymphocytes # (auto) 1.13 K/uL (1.20-3.40); Lymphocytes % (auto) 8.5 %; Mean Corpuscular Hemoglobin 31.7 pg (25.0-34.0); Mean Corpuscular Hgb Conc 31.8 g/dL (32.0-36.0); Mean Corpuscular Volume 99.6 fL (80.0-100.0); Mean Platelet Volume 9.2 fL (9.4-12.4); Monocytes # (auto) 1.53 K/uL (0.11-0.59); Monocytes % (auto) 11.6 %; Neutrophils # (auto) 10.45 K/uL (1.40-6.50); Neutrophils % (auto) 79.1 %; Platelet Count 226 K/uL (130-400); RDW Coefficient of Variation 14.5 % (11.5-14.5); RDW Standard Deviation 53.1 fL (36.4-46.3); Red Blood Count 5.05 M/uL (4.70-6.10); White Blood Count 13.22 K/ul (4.8-10.8)
[2024-05-24 12:11] LABS: Base Excess VBG 5.2 mEq/L; HCO3 VBG 33 mmol/L; Oxygen Saturation VBG 94.6 %; PCO2 VBG 61 mmHg (38-50); PO2 VBG 70 mmHg; pH VBG 7.34 (7.36-7.41)
[2024-05-24 12:19] LABS: Albumin Level 4.2 gm/dl (3.4-5.0); BUN Creatinine Ratio 15.5 (10-20); Bilirubin Direct 0.5 mg/dl (0-0.2); Calcium 9.2 mg/dl (8.6-10.3); Creatinine Clr Calc Pharmacy 130.6 ml/min; Magnesium 1.8 mg/dl (1.7-2.4); Potassium 4.6 mmol/L (3.5-5.1); Total Protein 7.8 gm/dl (6.0-8.3)
[2024-05-24 12:25] LABS: Troponin I High Sensitivity 18.3 pg/ml (0-20)
[2024-05-24 12:31] LABS: INR 1.3 (0.9-1.1); Partial Thromboplastin Ratio 1.2; Partial Thromboplastin Time 32 Seconds (21-31)
[2024-05-24] MEDS: cefTRIAXone SODIUM 2,000 MG/50 ML BAG IV STA (12:48)
[2024-05-24 13:01] LABS: Adenovirus PCR Not Detected (NotDetected); Bordetella parapertussis PCR Not Detected (NotDetected); Bordetella pertussis PCR Not Detected (NotDetected); Chlamydia pneumoniae PCR Not Detected (NotDetected); Coronavirus 229E PCR Not Detected (NotDetected); Coronavirus CoV-2 (COVID19)PCR Not Detected (NotDetected); Coronavirus HKU1 PCR Not Detected (NotDetected); Coronavirus NL63 PCR Not Detected (NotDetected); Coronavirus OC43PCR Not Detected (NotDetected); Human Metapneumovirus PCR Not Detected (NotDetected); Influenza A PCR Not Detected (NotDetected); Influenza B PCR Not Detected (NotDetected); Mycoplasma pneumoniae PCR Not Detected (NotDetected); Parainfluenza Virus 1 PCR Not Detected (NotDetected); Parainfluenza Virus 2 PCR Not Detected (NotDetected); Parainfluenza Virus 3 PCR Not Detected (NotDetected); Parainfluenza Virus 4 PCR Not Detected (NotDetected); Respiratory Syncytial VirusPCR Not Detected (NotDetected); Rhinovirus/Enterovirus PCR DETECTED (NotDetected)
--- NOTE | 2024-05-24 14:04 | History & Physical Report ---
Date of Service May 24, 2024 Assessment & Plan (1) COPD exacerbation: Plan: Solu-medrol 40mg IV BID Duonebs QID Formoterol/budesonide NEB BID Recently just completed azithromycin therefore will not repeat, bacterial PNA not suspected Sputum culture (2) Acute respiratory failure with hypoxia and hypercapnia: Plan: Aim O2 sats 88-92%, currently requiring BiPAP for significant dyspnea, NPO until dyspnea improving, repeat VBG in AM Elevated WBC but biofire only positive for entero/rhinovirus and procaltitonin negative, no further antibiotics planned although received ceftriaxone in the ER (3) Chronic diastolic congestive heart failure: Plan: Evidence of congestive failure on CXR. Avoid IV fluids. BNP pending. TTE ordered. Dry mucus membranes on exam Suspect symptoms mostly COPD exacerbation but if not improving consider diuresis (4) Type II diabetes mellitus: Plan: HbA1C 7.0 Consult pharmacy for glycemic control while on steroids (5) Rhinovirus infection: Plan: Droplet isolation precautions (6) History of IDA infection: Plan Atrial fibrillation - chronic, anticoagulation with Eliquis, rate control with diltiazem LAMAR - BiPAP HS VTE prophylaxis - Eliquis Diet - n.p.o. Disposition - admit to PCU Admission and Anticipated Discharge Date Admission Date: May 24, 2024 History of Present Illness Chief Complaint: Shortness of breath Primary Care Provider: Aristeo Vicente MD Felix Gaytan is a 68 year old male with COPD, active smoker who presents to the ER with shortness of breath and hypoxia. Reportedly 2 weeks of symptoms getting progressively worse. No improvement with azithromycin given by express care but did not receive any steroids. Per express care note he declined chest x-ray and steroids. Increased productive cough of white/yellow sputum. No chest pain, sinus pain. Allergies Allergy/AdvReac Type Severity Reaction Status Date / Time No Known Allergies Allergy Verified 05/19/24 12:23 Home Medications Medication Instructions Recorded Confirmed Type nebulizers #1 ea 05/01/19 04/07/24 Rx BiPap Supplies #1 ea 05/22/19 04/07/24 Rx CPAP Machine #1 ea 08/30/19 04/07/24 Rx guaifenesin 600 mg tablet, 600 mg PO BID PRN congestion #60 05/08/21 05/24/24 Rx extended release 12 hr (Mucinex) tabs clobetasol 0.05 % topical cream 1 applic topical BID PRN Rash #15 08/28/21 05/24/24 Rx grams Portable Oxygen #1 ea 05/22/22 04/07/24 Rx Flutter Valve #1 ea 11/20/22 04/07/24 Rx nebulizers (Aeroneb Go Nebulizer) #1 ea 12/08/22 04/07/24 Rx mecobalamin (vitamin B12) 1,000 1,000 mcg PO DAILY #30 tabs 03/15/23 05/24/24 Rx mcg chewable tablet montelukast 10 mg tablet 10 mg PO HS #90 tabs 06/28/23 05/24/24 Rx (Singulair) ipratropium 0.5 mg-albuterol 3 mg 3 ml inhalation QID PRN Shortness 09/08/23 05/24/24 Rx (2.5 mg base)/3 mL nebulization Of Breath Or Wheezing #360 mL soln atorvastatin 40 mg tablet (Lipitor) 40 mg PO HS #90 tabs 09/23/23 05/24/24 Rx metformin 500 mg tablet,extended 1,000 mg (2 x 500 mg) PO BID #360 10/07/23 05/24/24 Rx release 24 hr tabs fluticasone fur. 100 mcg-umeclid 1 inh inhalation DAILY #3 Inhalers 11/29/23 05/24/24 Rx 62.5 mcg-vilant 25 mcg inhalat.powder (Trelegy Ellipta) roflumilast 500 mcg tablet 500 mcg PO DAILY #90 tabs 11/29/23 05/24/24 Rx albuterol sulfate 90 mcg/actuation 2 puff inhalation Q6H PRN 12/24/23 05/24/24 Rx aerosol inhaler Shortness Of Breath Or Wheezing #18 grams diltiazem HCl 360 mg 360 mg PO QAM #90 caps 03/02/24 05/24/24 Rx capsule,extended release 24 hr apixaban 5 mg tablet (Eliquis) 5 mg PO BID #180 tabs 04/03/24 05/24/24 Rx peg 3350-sod sulf,zmtkx-bhp-hla See Rx Instructions PO .COMPLEX #2 05/19/24 05/24/24 Rx 178.7-7.3-0.5-1.12-0.9 gram oral mL soln (Suflave) multivitamin with minerals 1 tab PO DAILY 05/24/24 05/24/24 History omega-3 fatty acids 1,000 mg 1,000 mg PO BID 05/24/24 05/24/24 History capsule Past Med/Surg History Problem List (Updated 05/25/24 @ 07:20 by Byron Quiroga MD) Rhinovirus infection COPD exacerbation Acute respiratory failure with hypoxia and hypercapnia Respiratory failure (Acute) Inflamed seborrheic keratosis COPD (chronic obstructive pulmonary disease) (Chronic) inhaler daily/prn, nebulizer daily Emphysema of lung (Chronic) Hyperlipidemia (Chronic) Tinea versicolor Current smoker Macrocytosis Atrial fibrillation Chronic diastolic congestive heart failure Hand dermatitis Hypoxia (Acute) MCMILLAN (dyspnea on exertion) (Acute) Cardiomegaly Dependence on nocturnal oxygen therapy 2L at night through CPAP History of colon polyps Blood in stool Anticoagulated (Acute) Obstructive sleep apnea of adult (Acute) History of IDA infection (Acute) Personal history of nicotine dependence Respiratory failure (Acute) Acute bronchitis (Acute) Chronic respiratory failure with hypoxia and hypercapnia COPD with emphysema Current smoker Pulmonary hypertension Chronic bronchitis Allergic rhinitis Type II diabetes mellitus Right leg swelling (Acute) Edema of both legs Medical History Acute diastolic heart failure History of colon polyps On anticoagulant therapy eliquis daily Atrial flutter with rapid ventricular response Acute and chronic respiratory failure with hypoxia Atrial fibrillation, new onset follows with Dr. Irwin--on eliquis daily Surgical History History of colonoscopy History of tooth extraction all top teeth and some lower teeth removed History of bronchoscopy Roland teeth extracted "3 wisdom teeth; 1996" Family History Father CHF (congestive heart failure) Mother Obesity Heart valve disease Hypertension Brother Atrial flutter Hypertension Prediabetes Colonic polyp Tubular adenoma Brother Pancreatitis Sister Hypertension Other No family history of adverse response to anesthesia Denies family history of Ovarian cancer Prostate cancer Breast cancer Social History Smoking Status: Current every day smoker Tobacco Type: Cigarettes Age Started Using Tobacco: 19; packs per day: 0.25; Cigarettes Per Day: 6; Second Hand Exposure: No; Do You Dip or Chew Tobacco: No; Tobacco Cessation Education Requested by Patient: No Hx Alcohol Use: No Hx Substance Use: No Preferred Language: Bahraini Communication Ability: Effective Actuarial Manager Required: No Beliefs That Will Affect Care: None marital status: Single Current Living Situation: Parent Current Living Situation Comment: Lives with mother in law- checks in frequently 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 How many Children do You have: 0 Other Information That Helps Us Care for You: No Feels Safe at Home: Yes Safety Concerns: Feels Safe At This Time Childhood Exposure to Second-Hand Smoke: Yes Diet: regular caffeine: Yes (small amount ) Dental Care, Regularly: No Physical Activity Frequency: Daily Seatbelt Use: always Sunscreen Use: No Assistive Devices: Denture - Upper, Denture - Lower, Oxygen - at Night and Oxygen - Continuous Review of Systems Review of Systems: All systems reviewed & are unremarkable except as noted in HPI & below Physical Exam Constitutional: well developed and + acute distress (respiratory); + not well nourished Eyes: PERRL, conjunctivae normal, anicteric sclerae ENMT: external ear and nose normal, oropharynx normal Respiratory: + labored breathing and + uses accessory muscles; + not able to speak in complete sentence Auscultation: + wheezes (inspiratory and expiratory throughout) Cardiovascular: Rate/Rhythm: regular rate and + irregularly irregular Heart Sounds: no murmur Extremities: normal capillary refill and + pedal edema (1+ b/l equal); no calf tenderness Gastrointestinal (Abdomen): normal bowel sounds, soft, nontender, no hepatos plenomegaly Musculoskeletal: no cyanosis or clubbing, extremities motor strength 5/5 Skin: no rashes, warm and dry Neurologic: moves all extremities and awake; not confused Psychiatric: A+Ox3, euthymic affect Genitourinary: no CVA tenderness Results & Data Results & Data Vital Signs (Past 12 Hours) Vital Signs Pulse Pulse Resp BP BP Pulse Ox O2 Del Method 05/24/24 13:56 79 30 H 96 05/24/24 13:51 84 25 H 92 05/24/24 13:45 80 24 97 05/24/24 13:45 116/67 05/24/24 13:45 116/67 05/24/24 13:45 116/67 05/24/24 13:30 113/71 05/24/24 13:30 82 28 H 113/71 98 BiPAP 05/24/24 13:21 82 33 H 98 05/24/24 13:15 80 28 H 121/74 98 BiPAP 05/24/24 13:12 81 35 H 97 05/24/24 13:00 78 30 H 101/83 97 BiPAP 05/24/24 12:45 82 32 H 97/62 L 97 BiPAP 05/24/24 12:41 90 05/24/24 12:30 78 29 H 103/67 97 BiPAP 05/24/24 12:15 91 H 27 H 97/69 L 96 BiPAP 05/24/24 12:14 86 34 H 97 BiPAP 05/24/24 12:00 95 H 33 H 102/66 94 BiPAP 05/24/24 11:58 92 H 28 H 95 05/24/24 11:58 92 H 28 H 96 BiPAP 05/24/24 11:57 94 BiPAP 05/24/24 11:48 93 H 25 H 99/70 L 94 Non-rebreather 05/24/24 11:31 129 H 30 H 65 L Room Air O2 Flow Rate FiO2 05/24/24 13:56 50 05/24/24 13:51 05/24/24 13:45 05/24/24 13:45 05/24/24 13:45 05/24/24 13:45 05/24/24 13:30 05/24/24 13:30 50 05/24/24 13:21 05/24/24 13:15 50 05/24/24 13:12 05/24/24 13:00 50 05/24/24 12:45 50 05/24/24 12:41 05/24/24 12:30 50 05/24/24 12:15 50 05/24/24 12:14 50 05/24/24 12:00 50 05/24/24 11:58 50 05/24/24 11:58 50 05/24/24 11:57 05/24/24 11:48 15 05/24/24 11:31 Laboratory Results Abnormal lab results 10/02/24 10/02/24 10/02/24 Range/Units 11:40 11:50 11:55 WBC 13.22 H (4.8-10.8) K/ul MCHC 31.8 L (32.0-36.0) g/dL RDW Std Deviation 53.1 H (36.4-46.3) fL MPV 9.2 L (9.4-12.4) fL Neut # (Auto) 10.45 H (1.40-6.50) K/uL Lymph # (Auto) 1.13 L (1.20-3.40) K/uL Wilbarger # (Auto) 1.53 H (0.11-0.59) K/uL PT 14.0 H (9.0-12.0) Seconds INR 1.3 H (0.9-1.1) APTT 32 H (21-31) Seconds VBG pH 7.34 L (7.36-7.41) VBG pCO2 61 H (38-50) mmHg Sodium 132 L (136-145) mmol/L Chloride 94 L (98-107) mmol/L Glucose 117 H (70-99(Fasting)) mg/dl Total Bilirubin 2.0 H (0.2-1.0) mg/dl Direct Bilirubin 0.5 H (0-0.2) mg/dl B-Natriuretic Peptide 220 H (0-100) pg/ml Entero/Rhino (PCR) DETECTED A (NotDetected) Diagnostic Findings SINGLE VIEW CHEST CLINICAL HISTORY: Sepsis FINDINGS: An AP, portable, upright chest radiograph is compared to study dated 10/16/2019 and correlated with chest CT dated 10/07/2023. The heart is enlarged. There is pulmonary vascular congestion. Emphysema and chronic interstitial thickening is similar previous. There is bibasilar scarring/atelectasis. No large pleural effusion or pneumothorax is seen. The skeletal structures are osteopenic. The bony thorax is grossly intact. IMPRESSION: 1. Cardiomegaly with evidence of congestive failure. Radiographic follow-up to resolution is recommended. 2. Emphysema. 3. No airspace consolidation or large pleural effusion is identified. Medications Administered ER Medications Given: DuoNeb 12 mL neb Dexamethasone 10 mg IV Magnesium sulfate 1 g IV Ceftriaxone 2000 mg IV ECG Rate (beats per minute): 96 Rhythm: atrial fibrillation Findings: + RBBB Comparison ECG Date: from (18 August 2023) Change: the following changes noted (Inverted T waves replaced T wave flattening in anterior leads) Code Status & VTE Plan Code Status Full VTE Prophylaxis Plan VTE Prophylaxis will be ordered: Yes PG Care Time/CCT Total # of Minutes Spent Total Time Spent with Patient: Total time spent is greater than 50% in coordination of care (as documented) at patient's floor/unit and/or counseling patient: Coding Level of Care Code 24018 INT INP/OBS CARE 3/75MIN Diagnoses COPD exacerbation J44.1 Acute respiratory failure with hypoxia and hypercapnia J96.01; J96.02 Chronic diastolic congestive heart failure I50.32 Type II diabetes mellitus E11.9 Rhinovirus infection B34.8 History of IDA infection Z86.19
--- NOTE | 2024-05-24 15:25 | Electrocardiogram Report ---
Test Reason : Blood Pressure : */* mmHG Vent. Rate : 96 BPM Atrial Rate : * BPM P-R Int : * ms QRS Dur : 144 ms QT Int : 364 ms P-R-T Axes : * 80 58 degrees QTcB Int : 459 ms Atrial fibrillation Right bundle branch block Abnormal ECG When compared with ECG of 18-Aug-2023 13:06, (unconfirmed) Inverted T waves have replaced nonspecific T wave abnormality in Anterior leads Confirmed by Aristeo Noriega ([id number]) on 05/24/2024 3:25:01 PM Referred By: REFERRED SELF Confirmed By: Aristeo Noriega
--- NOTE | 2024-05-24 15:43 | XCELERA ---
[id number]
[2024-05-24] MEDS ORDERED: ACETAMINOPHEN 325 MG TAB PO PRN (16:37)
[2024-05-24] MEDS: ALBUT/IPRATROP 3MG/0.5MG NEB 3 ML VIAL NEB SCH ×2 (16:52→19:35)
[2024-05-24] MEDS ORDERED: GLUCAGON FOR INJ 1 MG VIAL SQ PRN (18:16)
[2024-05-24] MEDS ORDERED: GLUCOSE 40% GEL 15 GM TUBE PO PRN (18:16)
[2024-05-24] MEDS ORDERED: GLUCOSE 10 TAB/TUBE PO PRN (18:16)
[2024-05-24] MEDS ORDERED: CARBOHYDRATES FOR HYPOGLYCEMIA PO PRN (18:16)
[2024-05-24] MEDS ORDERED: DEXTROSE 50% 50 ML SYRINGE IV PRN (18:16)
[2024-05-24] MEDS ORDERED: PHARMACY GLYCEMIC MGMT CONSULT PRN (19:25)
[2024-05-24] MEDS: BUDESONIDE 0.5 MG/2 ML VIAL (PULMICORT) NEB SCH (19:34)
[2024-05-24] MEDS: FORMOTEROL 20 MCG/2 ML VIAL NEB SCH (19:35)
--- NOTE | 2024-05-24 19:41 | Pharmacy Report ---
Pharmacy Glycemic Short Note 2 - Date of Service May 24, 2024 - Glycemic Short BSG Results (Last 24 hours): 05/24/24 11:40 Glucose 117 H OUTPATIENT ANTIDIABETIC REGIMEN: * Metformin 1000 mg PO BID * HbA1c: 7.0% (05/23/24) ASSESSMENT: * 68 yo M admitted on 05/24/24 secondary to shortness of breath. Pharmacy has been consulted to assist with inpatient glycemic management. Patient is a Type 2 diabetic as an outpatient. Please refer to outpatient regimen and most recent HbA1c above. * BSG upon arrival was 117 mg/dL. Received 10 mg of IV dexamethasone. Scheduled to start SoluMedrol 40 mg IV BID ongoing tonight. Currently NPO. * Will start Novolog based on weight/stress of 2 to account for steroids. Adding supplement checks at 2000 and 0300 for first night only. * Depending on 2000 BSG, may give a small dose of basal insulin should patient's BSG be elevated from steroids. PLAN FOR INPATIENT GLYCEMIC CONTROL: * Hold outpatient oral diabetes medications * Basal insulin * Hold * Bolus insulin * NovoLog per scale ACHS or Q6hrs while NPO * Goal Range: Low 110 mg/dL - High 140 mg/dL * Correction Factor: 20 mg/dL/unit * Nutritional / Prandial insulin per carb ratio of 1 unit per 7 grams CHO consumed
[2024-05-24] MEDS ORDERED: INSULIN ASPART PER UNIT CHARGE SC ONE (21:00)
[2024-05-24] MEDS ORDERED: metFORMIN HCL ER 500 MG TABCR PO SCH (21:00)
[2024-05-24] MEDS ORDERED: INSULIN ASPART PER UNIT CHARGE SC SCH (21:00)
[2024-05-24] MEDS ORDERED: methylPREDNISolone 125 MG/2 ML VIAL IV SCH (21:00)
[2024-05-24] MEDS: INSULIN ASPART PER UNIT CHARGE SC SCH (21:19)
[2024-05-24] MEDS: ATORVASTATIN 40 MG TAB PO SCH (21:26)
[2024-05-24] MEDS: guaiFENesin 600 MG TABCR PO SCH (21:26)
[2024-05-24] MEDS: MONTELUKAST SODIUM 10 MG TABLET PO SCH (21:26)
[2024-05-24] MEDS: methylPREDNISolone 40 MG in SYRINGE 0 ML IV SCH (21:27)
[2024-05-24] MEDS: APIXABAN 5 MG TABLET PO SCH (21:27)
[2024-05-25] MEDS: INSULIN ASPART PER UNIT CHARGE SC SCH ×2 (00:26→13:07)
[2024-05-25 01:53] LABS: Appearance Urine Clear (Clear); Bilirubin Urine Negative (Negative); Blood Urine Negative (Negative); Color Urine Yellow; Glucose Urine UA Negative (Negative); Ketones Urine Negative (Negative); Leukocyte Esterase Urine Negative (Negative); Nitrite Urine Negative (Negative); Protein Urine Negative (Negative); Specific Gravity Urine 1.019 (1.000-1.030); Urobilinogen Urine Negative (Negative); pH Urine 5.5 (4.5-7.5)
[2024-05-25 06:34] LABS: Base Excess VBG 5.3 mEq/L; HCO3 VBG 34 mmol/L; Oxygen Saturation VBG 79.4 %; PCO2 VBG 70 mmHg (38-50); PO2 VBG 49 mmHg
[2024-05-25 06:43] LABS: Hematocrit (blood only) 45.9 % (42.0-52.0); Hemoglobin 14.5 g/dl (14.0-18.0); Mean Corpuscular Hemoglobin 31.7 pg (25.0-34.0); Mean Corpuscular Hgb Conc 31.6 g/dL (32.0-36.0); Mean Corpuscular Volume 100.2 fL (80.0-100.0); Mean Platelet Volume 9.1 fL (9.4-12.4); Platelet Count 236 K/uL (130-400); RDW Coefficient of Variation 14.4 % (11.5-14.5); RDW Standard Deviation 53.1 fL (36.4-46.3); Red Blood Count 4.58 M/uL (4.70-6.10); White Blood Count 12.27 K/ul (4.8-10.8)
[2024-05-25 07:01] LABS: BUN Creatinine Ratio 25.6 (10-20); Calcium 8.7 mg/dl (8.6-10.3); Creatinine Clr Calc Pharmacy 104.6 ml/min
[2024-05-25 07:20] LABS: Basophils # (auto) 0.03 K/uL (0.00-0.20); Basophils % (auto) 0.2 %; Echinocytes 1+; Immature Granulocytes # (auto) 0.05 K/uL (0.01-0.20); Immature Granulocytes % (auto) 0.4 %; Lymphocytes # (auto) 0.57 K/uL (1.20-3.40); Lymphocytes % (auto) 4.6 %; Monocytes # (auto) 0.33 K/uL (0.11-0.59); Monocytes % (auto) 2.7 %; Neutrophils # (auto) 11.29 K/uL (1.40-6.50); Neutrophils % (auto) 92.1 %
--- NOTE | 2024-05-25 07:56 | Hospitalist Progress Note ---
Date of Service May 25, 2024 Assessment & Plan (1) Acute respiratory failure with hypoxia and hypercapnia: Plan: COPD exacerbation, hypercapnea and pH changes supported with Bipap Solu-medrol 40mg IV BID Duonebs QID Formoterol/budesonide NEB BID CXR with diffuse changes could be HFpEf vs pneumonitis, viral pcr shows Rhino virus/ enterovirus Last PFTs from September 15 show a FEV1 of 1.3 which is 39% predicted previous history of IDA initially discovered in 2011, no recent concern for actue changes Patient is on significant oxygen over his home use will continue to support (2) Chronic diastolic congestive heart failure: Plan: Evidence of congestive failure on CXR. Avoid IV fluids. BNP pending. TTE shows preserved EF, LVH and elevated pulmonary pressures clinically hypovolemic on presentation makes ? if CXR changes are viral pneumonitis (3) Type II diabetes mellitus: Plan: HbA1C 7.0 basal bolus insulin Plan Atrial fibrillation - chronic, anticoagulation with Eliquis, rate control with diltiazem LAMAR - BiPAP HS Microcytosis noted on initial CBC B12 folic acid ordered for 05/26 VTE prophylaxis - Eliquis Diet - n.p.o. until respiratory status improved Admission and Anticipated Discharge Date Admission Date: May 24, 2024 Subjective Patient says he feels about 60% back to normal he typically wears 2 L with ambulation at home and currently is on 6 L now. He did state that his mucus has been clear of late and notes that he did not improve with any antibiotic treatment prior to admission. Physical Exam Physical Exam: Patient is wearing 6 L nasal cannula he gets dyspneic with casual conversation Lung exam shows poor air movement throughout with expiratory wheezes at the bilateral apical au Card exam is regular Results & Data Results & Data Vital Signs (Past 12 Hours) Vital Signs Temp Pulse Pulse Pulse Resp BP Pulse Ox 05/25/24 07:33 66 20 94 05/25/24 04:00 74 28 H 96 05/25/24 02:43 98.2 F 86 21 117/73 95 05/25/24 00:04 98.2 F 73 18 125/76 96 05/24/24 23:28 64 24 95 05/24/24 23:26 64 24 95 05/24/24 23:22 05/24/24 23:18 85 05/24/24 20:26 98.4 F 85 19 128/84 95 O2 Del Method FiO2 05/25/24 07:33 BiPAP 50 05/25/24 04:00 50 05/25/24 02:43 BiPAP 05/25/24 00:04 BiPAP 05/24/24 23:28 50 05/24/24 23:26 BiPAP 50 05/24/24 23:22 BiPAP 05/24/24 23:18 05/24/24 20:26 BiPAP Laboratory Results Reviewed CBC reviewed chemistrynoted MCV of 100.2 PG Care Time/CCT Total # of Minutes Spent Total Time Spent with Patient: Total time spent is greater than 50% in coordination of care (as documented) at patient's floor/unit and/or counseling patient: Coding Level of Care Code 66511 SUB INP/OBS CARE 3/50MIN Diagnoses Acute respiratory failure with hypoxia and hypercapnia J96.01; J96.02 Chronic diastolic congestive heart failure I50.32 Type II diabetes mellitus E11.9
[2024-05-25] MEDS: dilTIAZem HCL 180 MG CAPCR PO SCH (09:19)
[2024-05-25] MEDS: LANTUS PER UNIT CHARGE SC SCH (09:19)
[2024-05-25] MEDS: ROFLUMILAST 500 MCG TAB PO SCH (09:19)
--- NOTE | 2024-05-25 13:26 | Pharmacy Report ---
Pharmacy Glycemic Short Note 2 - Date of Service May 25, 2024 - Glycemic Short BSG Results (Last 24 hours): 05/24/24 05/25/24 05/25/24 20:27 00:24 06:24 Glucose 139 H POC Glucose 112 H 138 H 05/25/24 05/25/24 06:37 11:33 Glucose POC Glucose 128 H 120 H OUTPATIENT ANTIDIABETIC REGIMEN: * Metformin 1000 mg PO BID * HbA1c: 7.0% (05/23/24) ASSESSMENT: 05/25/24: * Blood sugars well-controlled since time of admission * Remains on methylprednisolone 40 mg IV BID * Will initiate low-dose basal insulin today 05/24/24: * 68 yo M admitted on 05/24/24 secondary to shortness of breath. Pharmacy has been consulted to assist with inpatient glycemic management. Patient is a Type 2 diabetic as an outpatient. Please refer to outpatient regimen and most recent HbA1c above. * BSG upon arrival was 117 mg/dL. Received 10 mg of IV dexamethasone. Scheduled to start SoluMedrol 40 mg IV BID ongoing tonight. Currently NPO. * Will start Novolog based on weight/stress of 2 to account for steroids. Adding supplement checks at 2000 and 0300 for first night only. * Depending on 2000 BSG, may give a small dose of basal insulin should patient's BSG be elevated from steroids. PLAN FOR INPATIENT GLYCEMIC CONTROL: * Hold outpatient oral diabetes medications * Basal insulin * Lantus 10 units SC daily w/ IV methylprednisolone * Bolus insulin * NovoLog per scale ACHS or Q6hrs while NPO * Goal Range: Low 110 mg/dL - High 140 mg/dL * Correction Factor: 20 mg/dL/unit * Nutritional / Prandial insulin per carb ratio of 1 unit per 7 grams CHO consumed
[2024-05-26 07:16] LABS: Folate (Folic Acid),Ser orPlas 14.31 ng/ml (>5.38)
--- NOTE | 2024-05-26 11:47 | Hospitalist Progress Note ---
Date of Service May 26, 2024 Assessment & Plan (1) Acute and chronic respiratory failure with hypoxia: (2) COPD exacerbation: (3) Rhinovirus infection: (4) Chronic diastolic congestive heart failure: (5) Atrial fibrillation: (6) Type II diabetes mellitus: (7) Current smoker: Plan 68-year-old male with past medical history of COPD on 2 L of oxygen at baseline, smoker, atrial fibrillation on anticoagulation with apixaban, presents with 2 weeks of progressive shortness of breath with no improvement with azithromycin given outpatient and admitted for COPD exacerbation secondary to entero- /rhinovirus #Acute on chronic hypoxic respiratory failure #Acute exacerbation of chronic COPD #Entero-/rhinovirus infection #LAMAR Outpatient polysomnography technician is Dr. Erwin Blood cultures from admission have been negative to date Sputum culture from admission showed heavy normal zeferino present. Continue Solu-Medrol 40 mg IV twice daily Continue nebulizers Continue Daliresp Continue Singulair Continue budesonide and formoterol twice daily Wean oxygen to baseline of 2 L via nasal cannula to keep saturations between 89 to 92% CPAP/BiPAP at bedtime #Acute on chronic diastolic congestive heart failure with preserved ejection fraction #Atrial fibrillation Outpatient binding stitcher is Dr. Seun Irwin Echo from 05/24/2024 shows EF of 55 to 60%, moderate concentric left ventricular hypertrophy, right ventricular systolic function is moderately reduced Left ventricular wall motion is normal Continue Cardizem CD3 160 mg daily Continue apixaban 5 mg p.o. twice daily Chest x-ray evaluation shows cardiomegaly with evidence of congestive heart failure with emphysema. No pleural effusion identified. No consolidation identified Give Lasix 20 mg IV x 1 dose I/O monitoring Daily weights Check repeat chest x-ray 2 views #Type 2 diabetes mellitus A1c 7.0 Pharmacy consulted for glycemic control CODE STATUS: Full code DVT prophylaxis: Patient on apixaban Discharge planning based on clinical improvement likely in the next 24 to 48 hours Care plan discussed with patient, nursing staff Admission and Anticipated Discharge Date Admission Date: May 24, 2024 Subjective Patient seen and examined Labs reviewed Radiology reviewed Patient states cough is better, his breathing is slightly better today He uses 2 L of oxygen at baseline He is currently on 4 L of oxygen via nasal cannula Denies any fever, chills, nausea, vomiting, diarrhea, abdominal pain He feels weak and tired Social history: Lives with his mother. He drives and independent of ADLs Review of Systems Review of Systems: As per HPI Physical Exam Physical Exam: General: No acute distress Psych: Awake and alert HEENT: Anicteric sclera, moist oral mucosa CVS: irregular rate and rhythm Lungs: Bilateral air entry with basilar crackles, expiratory wheezing noted Abdomen: Soft, nontender, no rebound, no guarding Ext: 1+ pitting lower extremity edema, no calf tenderness Neuro: No focal motor deficits noted Results & Data Results & Data Vital Signs (Past 12 Hours) Vital Signs Temp Pulse Pulse Resp BP Pulse Ox O2 Del Method 05/26/24 11:33 36.7 C 77 18 121/74 95 Nasal Cannula 05/26/24 11:28 87 14 93 Nasal Cannula 05/26/24 08:04 36.4 C L 113 H 20 141/62 H 98 Nasal Cannula 05/26/24 08:02 Nasal Cannula 05/26/24 07:21 88 98 Nasal Cannula 05/26/24 03:15 36.6 C 105 H 22 120/67 97 CPAP 05/26/24 02:17 101 H 21 95 05/26/24 02:17 101 H 21 95 BiPAP O2 Flow Rate FiO2 05/26/24 11:33 4 05/26/24 11:28 4 05/26/24 08:04 5 05/26/24 08:02 6 05/26/24 07:21 5 05/26/24 03:15 05/26/24 02:17 50 05/26/24 02:17 50 Laboratory Results Laboratory Results - last 24 hr 05/25/24 05/25/24 05/26/24 16:07 20:33 05:51 POC Glucose 113 H 106 H Vitamin B12 915 H Folate 14.31 05/26/24 05/26/24 07:25 11:06 POC Glucose 128 H 157 H Vitamin B12 Folate PG Care Time/CCT Total # of Minutes Spent Total Time Spent with Patient: Total time spent is greater than 50% in coordination of care (as documented) at patient's floor/unit and/or counseling patient: Coding Level of Care Code 25257 SUB INP/OBS CARE 3/50MIN Diagnoses Acute and chronic respiratory failure with hypoxia J96.21 COPD exacerbation J44.1 Rhinovirus infection B34.8 Chronic diastolic congestive heart failure I50.32 Permanent atrial fibrillation I48.21 Atrial fibrillation type: permanent Type II diabetes mellitus E11.9 Current smoker F17.200 (5) Atrial fibrillation Atrial fibrillation type: permanent Qualified Code(s): I48.21 - Permanent atrial fibrillation
--- NOTE | 2024-05-26 12:01 | Pharmacy Report ---
Pharmacy Glycemic Short Note 2 - Date of Service May 26, 2024 - Glycemic Short BSG Results (Last 24 hours): 05/25/24 05/25/24 05/26/24 16:07 20:33 07:25 POC Glucose 113 H 106 H 128 H 05/26/24 11:06 POC Glucose 157 H OUTPATIENT ANTIDIABETIC REGIMEN: * Metformin 1000 mg PO BID * HbA1c: 7.0% (05/23/24) ASSESSMENT: 05/26/24: * Blood sugars well-controlled since time of admission * Remains on methylprednisolone 40 mg IV BID * Do not anticipate any changes to glycemic regimen at this time * Will likely need to decrease/loosen insulin once steroids tapered/discontinued 05/24/24: * 68 yo M admitted on 05/24/24 secondary to shortness of breath. Pharmacy has been consulted to assist with inpatient glycemic management. Patient is a Type 2 diabetic as an outpatient. Please refer to outpatient regimen and most recent HbA1c above. * BSG upon arrival was 117 mg/dL. Received 10 mg of IV dexamethasone. Scheduled to start SoluMedrol 40 mg IV BID ongoing tonight. Currently NPO. * Will start Novolog based on weight/stress of 2 to account for steroids. Adding supplement checks at 2000 and 0300 for first night only. * Depending on 2000 BSG, may give a small dose of basal insulin should patient's BSG be elevated from steroids. PLAN FOR INPATIENT GLYCEMIC CONTROL: * Hold outpatient oral diabetes medications * Basal insulin * Lantus 10 units SC daily w/ IV methylprednisolone * Bolus insulin * NovoLog per scale ACHS or Q6hrs while NPO * Goal Range: Low 110 mg/dL - High 140 mg/dL * Correction Factor: 20 mg/dL/unit * Nutritional / Prandial insulin per carb ratio of 1 unit per 7 grams CHO consumed
[2024-05-26] MEDS: FUROSEMIDE INJ 20 MG/2 ML VIAL IV ONE (12:05)
[2024-05-26] MEDS: LEVALBUTEROL HCL 0.63 MG/3 ML NEB NEB SCH (14:42)
--- NOTE | 2024-05-26 18:56 | XRay Report ---
TWO VIEW CHEST CLINICAL HISTORY: Dyspnea. COPD. CHF. FINDINGS: PA and lateral chest radiographs are compared to study dated 05/24/2024 and correlated with chest CT dated 10/07/2023. The heart is markedly enlarged noting atherosclerotic calcification of the thoracic aorta. There is pulmonary vascular congestion. Emphysema and chronic interstitial thickenin g is similar to previous. Asymmetric airspace opacities are seen in the right lower lung. No pleural effusion is identified. There is no pneumothorax. The skeletal structures are osteopenic. The bony th orax appears intact. IMPRESSION: 1. Cardiomegaly and emphysema with evidence of congestive failure. 2. Asymmetric airspace opacities are seen in the right lower lung. This could represent mild pulmonar y edema and/or a superimposed pneumonitis. Clinical correlation will be required and radiographic fol low-up to resolution is recommended ACT 112: Negative or not required by law. Electronically signed by: Phill Peña M.D. 05/26/2024 6:54 PM
[2024-05-27 07:59] LABS: Basophils # (auto) 0.01 K/uL (0.00-0.20); Basophils % (auto) 0.1 %; Hematocrit (blood only) 46.4 % (42.0-52.0); Hemoglobin 15.4 g/dl (14.0-18.0); Immature Granulocytes # (auto) 0.34 K/uL (0.01-0.20); Immature Granulocytes % (auto) 2.2 %; Lymphocytes # (auto) 0.74 K/uL (1.20-3.40); Lymphocytes % (auto) 4.8 %; Mean Corpuscular Hemoglobin 32.2 pg (25.0-34.0); Mean Corpuscular Hgb Conc 33.2 g/dL (32.0-36.0); Mean Corpuscular Volume 97.1 fL (80.0-100.0); Mean Platelet Volume 9.2 fL (9.4-12.4); Monocytes # (auto) 0.67 K/uL (0.11-0.59); Monocytes % (auto) 4.3 %; Neutrophils # (auto) 13.74 K/uL (1.40-6.50); Neutrophils % (auto) 88.6 %; Nucleated RBC # (auto) 0.02 K/uL (0.00-0.12); Nucleated RBC % (auto) 0.1 %; Platelet Count 291 K/uL (130-400); RDW Coefficient of Variation 14.2 % (11.5-14.5); RDW Standard Deviation 50.8 fL (36.4-46.3); Red Blood Count 4.78 M/uL (4.70-6.10)
[2024-05-27 08:31] LABS: BUN Creatinine Ratio 30.2 (10-20); Creatinine Clr Calc Pharmacy 104.3 ml/min; Magnesium 2.4 mg/dl (1.7-2.4); Potassium 5.1 mmol/L (3.5-5.1)
--- NOTE | 2024-05-27 10:19 | Hospitalist Progress Note ---
Date of Service May 27, 2024 Assessment & Plan (1) Acute and chronic respiratory failure with hypoxia: (2) COPD exacerbation: (3) Rhinovirus infection: (4) Chronic diastolic congestive heart failure: (5) Atrial fibrillation: (6) Type II diabetes mellitus: (7) Current smoker: Plan 68-year-old male with past medical history of COPD on 2 L of oxygen at baseline, smoker, atrial fibrillation on anticoagulation with apixaban, presents with 2 weeks of progressive shortness of breath with no improvement with azithromycin given outpatient and admitted for COPD exacerbation secondary to entero- /rhinovirus #Acute on chronic hypoxic respiratory failure #Acute exacerbation of chronic COPD #Entero-/rhinovirus infection #[facility] Outpatient gear hobber is Dr. Erwin Blood cultures from admission have been negative to date Sputum culture from admission showed heavy normal zeferino present. Reduce Solu-Medrol to 30 mg IV twice daily Continue nebulizers Continue Daliresp Continue Singulair Continue budesonide and formoterol twice daily Wean oxygen to baseline of 2 L via nasal cannula to keep saturations between 89 to 92% CPAP/BiPAP at bedtime #Acute on chronic diastolic congestive heart failure with preserved ejection fraction #Atrial fibrillation Outpatient financial services professional is Dr. Seun Irwin Echo from 05/24/2024 shows EF of 55 to 60%, moderate concentric left ventricular hypertrophy, right ventricular systolic function is moderately reduced Left ventricular wall motion is normal Continue Cardizem CD3 160 mg daily Continue apixaban 5 mg p.o. twice daily Chest x-ray evaluation shows cardiomegaly with evidence of congestive heart failure with emphysema. No pleural effusion identified. No consolidation identified Repeat chest x-ray shows pulmonary vascular congestion Give Lasix 20 mg IV x 1 dose now and then start Bumex 1 mg p.o. daily I/O monitoring Daily weights #Type 2 diabetes mellitus A1c 7.0 Pharmacy managing glycemic control CODE STATUS: Full code DVT prophylaxis: Patient on apixaban Discharge planning based on clinical improvement likely in the next 24 Care plan discussed with patient, nursing staff Admission and Anticipated Discharge Date Admission Date: May 24, 2024 Subjective Patient seen and examined Labs reviewed Radiology reviewed Patient reports feeling much better, cough with clear sputum, he is currently at his baseline oxygen requirements of 2 L He denies any chest pain and reports improvement in her shortness of breath He is ambulating to the bathroom Physical Exam Physical Exam: General: No acute distress Psych: Awake and alert HEENT: Anicteric sclera, moist oral mucosa CVS: irregular rate and rhythm Lungs: Bilateral air entry with improving basilar crackles, trace wheezing noted Abdomen: Soft, nontender, no rebound, no guarding Ext: 1+ pitting lower extremity edema, no calf tenderness Neuro: No focal motor deficits noted Results & Data Results & Data Vital Signs (Past 12 Hours) Vital Signs Temp Pulse Pulse Resp BP BP Pulse Ox 05/27/24 07:27 36.4 C L 102 H 22 118/65 99 05/27/24 07:11 78 20 92 05/27/24 03:15 36.5 C 88 20 120/73 93 05/27/24 01:28 90 23 95 05/27/24 01:27 90 23 95 05/27/24 00:41 93 H 05/26/24 23:25 36.4 C L 92 H 22 123/67 92 05/26/24 22:38 05/26/24 22:19 75 21 98 O2 Del Method O2 Flow Rate FiO2 05/27/24 07:27 Nebulizer 05/27/24 07:11 Nasal Cannula 05/27/24 03:15 BiPAP 05/27/24 01:28 28 05/27/24 01:27 BiPAP 28 05/27/24 00:41 05/26/24 23:25 CPAP 05/26/24 22:38 Nasal Cannula, BiPAP 2 05/26/24 22:19 28 Laboratory Results Laboratory Results - last 24 hr 05/26/24 05/26/24 05/26/24 11:06 16:16 20:36 WBC RBC Hgb Hct MCV MCH MCHC RDW Std Deviation RDW Coeff of Malik Plt Count MPV Immature Gran % (Auto) Neut % (Auto) Lymph % (Auto) [place] % (Auto) Eos % (Auto) Baso % (Auto) Neut # (Auto) Lymph # (Auto) [place] # (Auto) Eos # (Auto) Baso # (Auto) Immature Gran # (Auto) Absolute Nucleated RBC Nucleated RBC % (auto) Sodium Potassium Chloride Carbon Dioxide Anion Gap BUN Creatinine Est Cr Clr Drug Dosing eGFR BUN/Creatinine Ratio Glucose POC Glucose 157 H 125 H 87 Calcium Magnesium 05/27/24 05/27/24 07:02 07:03 WBC 15.50 H RBC 4.78 Hgb 15.4 Hct 46.4 MCV 97.1 MCH 32.2 MCHC 33.2 RDW Std Deviation 50.8 H RDW Coeff of Malik 14.2 Plt Count 291 MPV 9.2 L Immature Gran % (Auto) 2.2 Neut % (Auto) 88.6 Lymph % (Auto) 4.8 [place] % (Auto) 4.3 Eos % (Auto) 0.0 Baso % (Auto) 0.1 Neut # (Auto) 13.74 H Lymph # (Auto) 0.74 L [place] # (Auto) 0.67 H Eos # (Auto) 0.00 Baso # (Auto) 0.01 Immature Gran # (Auto) 0.34 H Absolute Nucleated RBC 0.02 Nucleated RBC % (auto) 0.1 Sodium 133 L Potassium 5.1 Chloride 92 L Carbon Dioxide 36 H Anion Gap 5 BUN 26 H Creatinine 0.86 Est Cr Clr Drug Dosing 104.3 eGFR 94.90 BUN/Creatinine Ratio 30.2 H Glucose 138 H POC Glucose 144 H Calcium 9.0 Magnesium 2.4 Diagnostic Findings Chest X-Ray 05/26/24 17:53 TWO VIEW CHEST CLINICAL HISTORY: Dyspnea. COPD. CHF. FINDINGS: PA and lateral chest radiographs are compared to study dated 05/24/2024 and correlated with chest CT dated 10/07/2023. The heart is markedly enlarged noting atherosclerotic calcification of the thoracic aorta. There is pulmonary vascular congestion. Emphysema and chronic interstitial thickening is similar to previous. Asymmetric airspace opacities are seen in the right lower lung. No pleural effusion is identified. There is no pneumothorax. The skeletal structures are osteopenic. The bony thorax appears intact. IMPRESSION: 1. Cardiomegaly and emphysema with evidence of congestive failure. 2. Asymmetric airspace opacities are seen in the right lower lung. This could represent mild pulmonary edema and/or a superimposed pneumonitis. Clinical correlation will be required and radiographic follow-up to resolution is recommended ACT 112: Negative or not required by law. Electronically signed by: Phill Peña M.D. 05/26/2024 6:54 PM PG Care Time/CCT Total # of Minutes Spent Total Time Spent with Patient: Total time spent is greater than 50% in coordination of care (as documented) at patient's floor/unit and/or counseling patient: Coding Level of Care Code 15890 SUB INP/OBS CARE 3/50MIN Diagnoses Acute and chronic respiratory failure with hypoxia J96.21 COPD exacerbation J44.1 Rhinovirus infection B34.8 Chronic diastolic congestive heart failure I50.32 Permanent atrial fibrillation I48.21 Atrial fibrillation type: permanent Type II diabetes mellitus E11.9 Current smoker F17.200 (5) Atrial fibrillation Atrial fibrillation type: permanent Qualified Code(s): I48.21 - Permanent atrial fibrillation
[2024-05-27] MEDS: FUROSEMIDE INJ 20 MG/2 ML VIAL IV ONE (11:25)
[2024-05-27] MEDS: methylPREDNISolone 30 MG in SYRINGE 0 ML IV SCH (17:00)
[2024-05-27] MEDS: BUMETANIDE 1 MG TAB PO ONE (17:24)
[2024-05-28 07:43] VITALS: RESP 18
[2024-05-28 07:52] LABS: Basophils # (auto) 0.02 K/uL (0.00-0.20); Basophils % (auto) 0.1 %; Hematocrit (blood only) 50.2 % (42.0-52.0); Hemoglobin 16.1 g/dl (14.0-18.0); Immature Granulocytes # (auto) 0.05 K/uL (0.01-0.20); Immature Granulocytes % (auto) 0.3 %; Lymphocytes # (auto) 0.83 K/uL (1.20-3.40); Lymphocytes % (auto) 5.7 %; Mean Corpuscular Hemoglobin 31.5 pg (25.0-34.0); Mean Corpuscular Hgb Conc 32.1 g/dL (32.0-36.0); Mean Corpuscular Volume 98.2 fL (80.0-100.0); Monocytes # (auto) 1.31 K/uL (0.11-0.59); Monocytes % (auto) 8.9 %; Neutrophils # (auto) 12.46 K/uL (1.40-6.50); Platelet Count 259 K/uL (130-400); RDW Coefficient of Variation 14.3 % (11.5-14.5); RDW Standard Deviation 51.8 fL (36.4-46.3); Red Blood Count 5.11 M/uL (4.70-6.10); White Blood Count 14.67 K/ul (4.8-10.8)
[2024-05-28 08:12] LABS: Creatinine Clr Calc Pharmacy 118.9 ml/min; Magnesium 2.3 mg/dl (1.7-2.4)
[2024-05-28] MEDS: BUMETANIDE 1 MG TAB PO SCH (08:33)
--- NOTE | 2024-05-28 09:59 | Discharge Summary ---
Discharge Summary Date of Service May 28, 2024 Principal Dx & Hospital Course #1 = Principal Diagnosis (1) Acute and chronic respiratory failure with hypoxia: (2) COPD exacerbation: (3) Rhinovirus infection: (4) Chronic diastolic congestive heart failure: (5) Atrial fibrillation: (6) Type II diabetes mellitus: (7) Current smoker: Plan 68-year-old male with past medical history of COPD on 2 L of oxygen at baseline, smoker, atrial fibrillation on anticoagulation with apixaban, presents with 2 weeks of progressive shortness of breath with no improvement with azithromycin given outpatient and admitted for COPD exacerbation secondary to entero- /rhinovirus #Acute on chronic hypoxic respiratory failure #Acute exacerbation of chronic COPD #Entero-/rhinovirus infection #LAMAR #Tobacco use disorder Outpatient caregiver services home is Dr. Erwin Blood cultures from admission have been negative to date Sputum culture from admission showed heavy normal zeferino present. Patient is currently at his baseline oxygen requirements of 2 L via nasal cannula and I have transitioned him to a prednisone taper Continue nebulizers Continue Daliresp Continue Singulair Continue home inhalers CPAP/BiPAP at bedtime Smoking cessation counseling provided Outpatient follow-up with pulmonology #Acute on chronic diastolic congestive heart failure with preserved ejection fraction #Atrial fibrillation Outpatient properties supervisor is Dr. Seun Iriwn Echo from 05/24/2024 shows EF of 55 to 60%, moderate concentric left ventricular hypertrophy, right ventricular systolic function is moderately reduced Left ventricular wall motion is normal Continue Cardizem CD3 160 mg daily Continue apixaban 5 mg p.o. twice daily Chest x-ray evaluation shows cardiomegaly with evidence of congestive heart failure with emphysema. No pleural effusion identified. No consolidation identified Repeat chest x-ray shows pulmonary vascular congestion Patient was initially diuresed with IV Lasix and has been transition to oral Bumex 1 mg p.o. daily I have advised patient to follow-up with his PCP and cardiology as outpatient #Type 2 diabetes mellitus A1c 7.0 Patient will resume metformin on discharge He will follow-up with PCP as outpatient for diabetes management Patient seen and examined today. He feels much better today with improvement in his cough and shortness of breath. Patient also reports improvement in leg edema and that he is back to his baseline oxygen requirements of 2 L via nasal cannula. I gone over the discharge care plan, follow-up, medications with the patient in great detail and answered all his questions. This discharge to greater than 30 minutes to coordinate Admission HPI Per Admitting Provider Felix Gaytan is a 68 year old male with COPD, active smoker who presents to the ER with shortness of breath and hypoxia. Reportedly 2 weeks of symptoms getting progressively worse. No improvement with azithromycin given by express care but did not receive any steroids. Per express care note he declined chest x-ray and steroids. Increased productive cough of white/yellow sputum. No chest pain, sinus pain. Discharge Exam General: No acute distress Psych: Awake and alert HEENT: Anicteric sclera, moist oral mucosa CVS: irregular rate and rhythm Lungs: Bilateral air entry with improving basilar crackles, no wheezing noted Abdomen: Soft, nontender, no rebound, no guarding Ext: Trace lower extremity edema, no calf tenderness Neuro: No focal motor deficits noted Discharge Plan Discharge Items Patient Disposition: Home - Self-Care Reason For Visit: ACUTE HYPOXIC HYPERCAPNIC RESP FAILURE, COPD EXAC Discharge Diagnosis: #Acute on chronic hypoxic respiratory failure #Acute exacerbation of chronic COPD #Entero-/rhinovirus infection #LAMAR #Acute on chronic diastolic congestive heart failure with preserved ejection fraction #Atrial fibrillation #Type 2 diabetes mellitus #Tobacco use disorder Activity: As commented below Activity Comment: as tolerated with assistance Non-emergency contact: Primary Care Provider Call non-emergency contact if: you have any medication questions, your symptoms worsen and you have a fever Follow-up/Referrals: Aristeo Vicente MD [Primary Care Provider] - Seun Irwin MD [Physician] - Grace Erwin MD, [facility] [Physician] - Diet: Carb Consistent or DM2 and Heart Healthy Addtl Attending Provider Instructions: DISCHARGE INSTRUCTION TO PATIENT/FAMILY: Follow-up with your primary care provider within 1 week regarding: Posthospital discharge, medication review, medication refills and follow-up on all your medical problems, diabetes management Please take all your discharge medications, discharge information and discharge instructions to all your doctors appointments. Avoid all NSAIDs including ibuprofen, Motrin, Advil, Aleve, naproxen, meloxicam, Toradol, diclofenac Prednisone taper instructions: Starting 05/29/2024, take 5 tablets (50 mg) daily for 2 days, then 4 tablets (40 mg) daily for 2 days, then 3 tablets (30 mg) daily for 2 days, then 2 tablets (20 mg) daily for 2 days, then 1 tablet (10 mg) daily for 2 days and stop prednisone You have been diagnosed with heart failure and have been started on diuretic Bumex 1 mg p.o. daily. Please follow-up with cardiology as outpatient in 1 to 2 weeks time Please take Pepcid while using prednisone We recommend that you stop smoking. Please follow-up with your caregiver services home as outpatient in 1 to 2 weeks time Labs through PCP in 1 week: CBC, CMP, MG, VITAMIN D Pending Studies at Discharge: No Stand-Alone Forms: My [facility], Smoking Cessation Medications and DC Order Prescriptions: New bumetanide 1 mg Tablet 1 mg PO QAM Qty: 30 0RF prednisone 10 mg tablet 10 mg PO DIRECTED Qty: 30 0RF Rx Instructions: see taper instructions: Starting 05/29/2024, take 5 tablets daily for 2 days, then 4 tablets daily for 2 days, then 3 tablets daily for 2 days, then 2 tablets daily for 2 days, then 1 tablet daily for 2 days and stop prednisone famotidine [Acid English Professor (famotidine)] 20 mg tablet 20 mg PO BID 12 Days Qty: 24 0RF Rx Instructions: TAKE WHILE USING PREDNISONE Continued (DME[place] [facility] [place] Dose Instructions [id number] .MEDSUPPLY Qty: 1 0RF Dose Instruction: As directed Rx Instructions: As directed (DME) nebulizers [Aeroneb Go Nebulizer] [facility] [place] See Rx Instructions .MEDSUPPLY Qty: 1 0RF Rx Instructions: With tubing and supplies. J44.9. J45.9. montelukast [Singulair] 10 mg tablet 10 mg PO HS Qty: 90 3RF ipratropium-albuterol 0.5 mg-3 mg(2.5 mg base)/3 mL solution for nebulization 3 ml INHALATION QID PRN (Reason: Shortness Of Breath Or Wheezing) Qty: 360 6RF atorvastatin [Lipitor] 40 mg tablet 40 mg PO HS Qty: 90 3RF metformin 500 mg tablet extended release 24 hr 1,000 mg PO BID Qty: 360 3RF Trelegy Ellipta 100-62.5-25 mcg blister with device 1 inh INH DAILY Qty: 3 3RF roflumilast 500 mcg tablet 500 mcg PO DAILY Qty: 90 3RF diltiazem HCl 360 mg capsule,extended release 24hr 360 mg PO QAM Qty: 90 3RF Eliquis 5 mg tablet 5 mg PO BID Qty: 180 3RF (DME) CPAP Machine Misc See Rx Instructions .ROUTE .MEDSUPPLY Qty: 1 0RF Rx Instructions: CHANGE BIPAP PRESSURE TO 13/7. CARE PLUS O2 albuterol sulfate 90 mcg/actuation HFA aerosol inhaler 2 puff inhalation Q6H PRN (Reason: Shortness Of Breath Or Wheezing) Qty: 18 4RF guaifenesin [Mucinex] 600 mg tablet extended release 12hr 600 mg PO BID PRN (Reason: congestion) Qty: 60 3RF Rx Instructions: Unable to verify OTC meds at this date/time. clobetasol 0.05 % cream 1 applic Topical BID PRN (Reason: Rash) Qty: 15 0RF (DME) Portable Oxygen Misc See Rx Instructions .MEDSUPPLY Qty: 1 0RF Rx Instructions: Oxygen 3 liters continuous via nasal cannula on exertion with portable concentrator. SEJAL 99 mecobalamin (vitamin B12) 1,000 mcg tablet,chewable 1,000 mcg PO DAILY Qty: 30 0RF Rx Instructions: Unable to verify OTC meds at this date/time. (DME) Flutter Valve Device See Rx Instructions .MEDSUPPLY Qty: 1 0RF Rx Instructions: Use it every 6 hours when awake. (DME) BiPap Supplies Misc See Dose Instructions .ROUTE .MEDSUPPLY Qty: 1 0RF Dose Instruction: As directed Rx Instructions: new bipap mask omega-3 fatty acids 1,000 mg Capsule 1,000 mg PO BID Rx Instructions: Unable to verify OTC meds at this date/time. Men's One Daily Tablet 1 tab PO DAILY Rx Instructions: Unable to verify OTC meds at this date/time. Discontinued Suflave 178.7-7.3-0.5 gram recon soln See Rx Instructions PO .COMPLEX Qty: 2 0RF Rx Instructions: orally; TAKE FIRST DOSE AT 6 PM AND SECOND DOSE 6 HOURS PRIOR TO PROCEDURE BIN: [id number] N: 2000 GROUP: [id number] Discharge Orders: Discharge Order- CHF (Routine); Ordered 05/28/24 Ordered By: Young Rangel/Other Patient Handouts: COPD Quit Smoking, Heart Failure Dc Admission Data Admit Date/Time: 05/24/24 13:56 Attending Provider: Young Davis Admit Provider: Byron Quiroga Primary Care Provider: Aristeo Vicente Other Providers: Byron Quiroga Hospital Stay Data Consultations 05/24/24 12:39 ED Decision to Admit Stat Diagnostic Imagining Performed Chest X-Ray 05/24/24 11:36 SINGLE VIEW CHEST CLINICAL HISTORY: Sepsis FINDINGS: An AP, portable, upright chest radiograph is compared to study dated 10/16/2019 and correlated with chest CT dated 10/07/2023. The heart is enlarged. There is pulmonary vascular congestion. Emphysema and chronic interstitial thickening is similar previous. There is bibasilar scarring/atelectasis. No large pleural effusion or pneumothorax is seen. The skeletal structures are osteopenic. The bony thorax is grossly intact. IMPRESSION: 1. Cardiomegaly with evidence of congestive failure. Radiographic follow-up to resolution is recommended. 2. Emphysema. 3. No airspace consolidation or large pleural effusion is identified. ACT 112: Negative or not required by law. Electronically signed by: Phill Peña M.D. 05/24/2024 11:47 AM Chest X-Ray 05/26/24 17:53 TWO VIEW CHEST CLINICAL HISTORY: Dyspnea. COPD. CHF. FINDINGS: PA and lateral chest radiographs are compared to study dated 05/24/2024 and correlated with chest CT dated 10/07/2023. The heart is markedly enlarged noting atherosclerotic calcification of the thoracic aorta. There is pulmonary vascular congestion. Emphysema and chronic interstitial thickening is similar to previous. Asymmetric airspace opacities are seen in the right lower lung. No pleural effusion is identified. There is no pneumothorax. The skeletal structures are osteopenic. The bony thorax appears intact. IMPRESSION: 1. Cardiomegaly and emphysema with evidence of congestive failure. 2. Asymmetric airspace opacities are seen in the right lower lung. This could represent mild pulmonary edema and/or a superimposed pneumonitis. Clinical correlation will be required and radiographic follow-up to resolution is recommended ACT 112: Negative or not required by law. Electronically signed by: Phill Peña M.D. 05/26/2024 6:54 PM Laboratory Results - last 48 hr 05/26/24 05/26/24 05/26/24 11:06 16:16 20:36 WBC RBC Hgb Hct MCV MCH MCHC RDW Std Deviation RDW Coeff of Malik Plt Count MPV Immature Gran % (Auto) Neut % (Auto) Lymph % (Auto) [place] % (Auto) Eos % (Auto) Baso % (Auto) Neut # (Auto) Lymph # (Auto) [place] # (Auto) Eos # (Auto) Baso # (Auto) Immature Gran # (Auto) Absolute Nucleated RBC Nucleated RBC % (auto) Sodium Potassium Chloride Carbon Dioxide Anion Gap BUN Creatinine Est Cr Clr Drug Dosing eGFR BUN/Creatinine Ratio Glucose POC Glucose 157 H 125 H 87 Calcium Magnesium 05/27/24 05/27/24 05/27/24 07:02 07:03 11:00 WBC 15.50 H RBC 4.78 Hgb 15.4 Hct 46.4 MCV 97.1 MCH 32.2 MCHC 33.2 RDW Std Deviation 50.8 H RDW Coeff of Malik 14.2 Plt Count 291 MPV 9.2 L Immature Gran % (Auto) 2.2 Neut % (Auto) 88.6 Lymph % (Auto) 4.8 [place] % (Auto) 4.3 Eos % (Auto) 0.0 Baso % (Auto) 0.1 Neut # (Auto) 13.74 H Lymph # (Auto) 0.74 L [place] # (Auto) 0.67 H Eos # (Auto) 0.00 Baso # (Auto) 0.01 Immature Gran # (Auto) 0.34 H Absolute Nucleated RBC 0.02 Nucleated RBC % (auto) 0.1 Sodium 133 L Potassium 5.1 Chloride 92 L Carbon Dioxide 36 H Anion Gap 5 BUN 26 H Creatinine 0.86 Est Cr Clr Drug Dosing 104.3 eGFR 94.90 BUN/Creatinine Ratio 30.2 H Glucose 138 H POC Glucose 144 H 72 Calcium 9.0 Magnesium 2.4 05/27/24 05/27/24 05/28/24 16:01 20:20 07:19 WBC RBC Hgb Hct MCV MCH MCHC RDW Std Deviation RDW Coeff of Malik Plt Count MPV Immature Gran % (Auto) Neut % (Auto) Lymph % (Auto) [place] % (Auto) Eos % (Auto) Baso % (Auto) Neut # (Auto) Lymph # (Auto) [place] # (Auto) Eos # (Auto) Baso # (Auto) Immature Gran # (Auto) Absolute Nucleated RBC Nucleated RBC % (auto) Sodium Potassium Chloride Carbon Dioxide Anion Gap BUN Creatinine Est Cr Clr Drug Dosing eGFR BUN/Creatinine Ratio Glucose POC Glucose 116 H 111 H 103 H Calcium Magnesium 05/28/24 07:26 WBC 14.67 H RBC 5.11 Hgb 16.1 Hct 50.2 MCV 98.2 MCH 31.5 MCHC 32.1 RDW Std Deviation 51.8 H RDW Coeff of Malik 14.3 Plt Count 259 MPV 9.0 L Immature Gran % (Auto) 0.3 Neut % (Auto) 85.0 Lymph % (Auto) 5.7 [place] % (Auto) 8.9 Eos % (Auto) 0.0 Baso % (Auto) 0.1 Neut # (Auto) 12.46 H Lymph # (Auto) 0.83 L [place] # (Auto) 1.31 H Eos # (Auto) 0.00 Baso # (Auto) 0.02 Immature Gran # (Auto) 0.05 Absolute Nucleated RBC Nucleated RBC % (auto) Sodium 136 Potassium 5.0 Chloride 93 L Carbon Dioxide 39 H Anion Gap 4 BUN 24 H Creatinine 0.75 Est Cr Clr Drug Dosing 118.9 eGFR 98.91 BUN/Creatinine Ratio 32.0 H Glucose 114 H POC Glucose Calcium 9.0 Magnesium 2.3 Pending Results Patient Have Any Pending Studies at Discharge: No Discharge Instructions Given to Patient (Per Discharging Provider) DISCHARGE INSTRUCTION TO PATIENT/FAMILY: Follow-up with your primary care provider within 1 week regarding: Posthospital discharge, medication review, medication refills and follow-up on all your medical problems, diabetes management Please take all your discharge medications, discharge information and discharge instructions to all your doctors appointments. Avoid all NSAIDs including ibuprofen, Motrin, Advil, Aleve, naproxen, meloxicam, Toradol, diclofenac Prednisone taper instructions: Starting 05/29/2024, take 5 tablets (50 mg) daily for 2 days, then 4 tablets (40 mg) daily for 2 days, then 3 tablets (30 mg) daily for 2 days, then 2 tablets (20 mg) daily for 2 days, then 1 tablet (10 mg) daily for 2 days and stop prednisone You have been diagnosed with heart failure and have been started on diuretic Bumex 1 mg p.o. daily. Please follow-up with cardiology as outpatient in 1 to 2 weeks time Please take Pepcid while using prednisone We recommend that you stop smoking. Please follow-up with your caregiver services home as outpatient in 1 to 2 weeks time Labs through PCP in 1 week: CBC, CMP, MG, VITAMIN D Total Time Total Time Spent Total Time Spent (In Minutes): 40 minutes Total Time Includes: Examination of the Patient, Discharge Planning and Medication Reconciliation Coding Level of Care Code 86493 INP/OBS DISCH >30 MIN Diagnoses Acute and chronic respiratory failure with hypoxia J96.21 COPD exacerbation J44.1 Rhinovirus infection B34.8 Chronic diastolic congestive heart failure I50.32 Permanent atrial fibrillation I48.21 Atrial fibrillation type: permanent Type II diabetes mellitus E11.9 Current smoker F17.200
[2024-05-28] MEDS: predniSONE 20 MG TAB PO ONE (11:00)
[2024-05-28] MEDS: FAMOTIDINE 20 MG TAB PO ONE (11:01)
[2024-05-28 11:20] VITALS: TEMP 98.1; O2SAT 90
[2024-05-28 11:28] VITALS: BP 143/71; PULSE 64
[2024-05-28] MEDS ORDERED: FAMOTIDINE 10 MG TABLET PO SCH (21:00)
== END 2024-05-28 11:45 | disposition home or self-care (01) | DRG 189 ==
LOC: ED 11:28 → 2S 13:56 → SUATTDRO 13:56 → 2S 15:54

== ENCOUNTER 2024-10-22 10:06 | Inpatient (IN) ==
[2024-10-22] MEDS: ALBUT/IPRATROP 3MG/0.5MG NEB 3 ML VIAL NEB STA ×3 (11:06→13:45)
[2024-10-22 11:13] LABS: Basophils # (auto) 0.04 K/uL (0.00-0.20); Basophils % (auto) 0.8 %; Eosinophils # (auto) 0.02 K/uL (0.00-0.50); Eosinophils % (auto) 0.4 %; Hematocrit (blood only) 49.1 % (42.0-52.0); Hemoglobin 15.4 g/dl (14.0-18.0); Immature Granulocytes # (auto) 0.01 K/uL (0.01-0.20); Immature Granulocytes % (auto) 0.2 %; Lymphocytes # (auto) 0.93 K/uL (1.20-3.40); Lymphocytes % (auto) 18.2 %; Mean Corpuscular Hemoglobin 31.6 pg (25.0-34.0); Mean Corpuscular Hgb Conc 31.4 g/dL (32.0-36.0); Mean Corpuscular Volume 100.8 fL (80.0-100.0); Mean Platelet Volume 9.5 fL (9.4-12.4); Monocytes # (auto) 0.82 K/uL (0.11-0.59); Neutrophils # (auto) 3.29 K/uL (1.40-6.50); Neutrophils % (auto) 64.4 %; Platelet Count 168 K/uL (130-400); RDW Coefficient of Variation 14.4 % (11.5-14.5); RDW Standard Deviation 53.5 fL (36.4-46.3); Red Blood Count 4.87 M/uL (4.70-6.10); White Blood Count 5.11 K/ul (4.8-10.8)
--- NOTE | 2024-10-22 11:14 | XRay Report ---
XR chest 1V portable HISTORY: 69 years-old Male sob acute shortness of breath COMPARISON: 05/26/2024 TECHNIQUE: AP view the chest FINDINGS: Cardiac silhouette is large. Emphysema with chronic interstitial coarsening. Pulmonary arterial hyper tension. Pulmonary vascular congestion. Mild patchy left basilar predominant opacities are new from p rior. No pneumothorax or pleural effusion. Bones appear grossly intact. IMPRESSION: 1. Cardiomegaly with pulmonary vascular congestion. 2. Emphysema with new left basilar opacities suspicious for an infectious or inflammatory pneumonitis . ACT 112: Negative or not required by law. The above report was generated using voice recognition software. It may contain grammatical, syntax o r spelling errors. Electronically signed by: Jose Palma M.D. 10/22/2024 11:12 AM
[2024-10-22 11:27] LABS: Albumin Globulin Ratio 1.5 (0.9-2); BUN Creatinine Ratio 15.7 (10-20); Bilirubin,Total 1.5 mg/dl (0.2-1.0); Calcium 8.8 mg/dl (8.6-10.3); Creatinine Clr Calc Pharmacy 98.6 ml/min; Globulin 2.7 gm/dl (2.5-4.0); Magnesium 1.9 mg/dl (1.7-2.4); Potassium 4.6 mmol/L (3.5-5.1); Total Protein 6.7 gm/dl (6.0-8.3)
[2024-10-22 11:32] LABS: INR 1.3 (0.9-1.1); Prothrombin Time 14.1 Seconds (9.0-12.0)
[2024-10-22 11:33] LABS: Troponin I High Sensitivity 14.2 pg/ml (0-20)
[2024-10-22 11:50] LABS: Adenovirus PCR Not Detected (NotDetected); Bordetella parapertussis PCR Not Detected (NotDetected); Bordetella pertussis PCR Not Detected (NotDetected); Chlamydia pneumoniae PCR Not Detected (NotDetected); Coronavirus 229E PCR Not Detected (NotDetected); Coronavirus CoV-2 (COVID19)PCR Not Detected (NotDetected); Coronavirus HKU1 PCR Not Detected (NotDetected); Coronavirus NL63 PCR Not Detected (NotDetected); Coronavirus OC43PCR Not Detected (NotDetected); Human Metapneumovirus PCR Not Detected (NotDetected); Influenza A PCR Not Detected (NotDetected); Influenza B PCR Not Detected (NotDetected); Mycoplasma pneumoniae PCR Not Detected (NotDetected); Parainfluenza Virus 1 PCR DETECTED (NotDetected); Parainfluenza Virus 2 PCR Not Detected (NotDetected); Parainfluenza Virus 3 PCR Not Detected (NotDetected); Parainfluenza Virus 4 PCR Not Detected (NotDetected); Respiratory Syncytial VirusPCR Not Detected (NotDetected); Rhinovirus/Enterovirus PCR Not Detected (NotDetected)
--- NOTE | 2024-10-22 11:51 | Emergency Department Note ---
Impression & Plan Dyspnea, COPD (chronic obstructive pulmonary disease), Hypoxia ED Provider Note ED Provider Note NAME: ROBERTO ADAMS AGE:69 SEX: Male : 1955 ARRIVES VIA: Private vehicle INFORMANT: Patient ED PROVIDER(s): Milly Mcgowan DO CHIEF COMPLAINT: Worsening cough, shortness of breath HPI: This is a 69-year-old male presents to the emergency department due to worsening cough and congestion and increased shortness of breath. Patient does have a history of COPD and states he has IDA. He states he follows with Dr. Erwin for pulmonology. Patient states over the last 3 days he has had worsening cough and congestion. Patient does wear oxygen intermittently at home and uses CPAP for LAMAR at night. He denies any recent travel or known sick contacts. He denies any coming fevers or chills. He states the sputum with his cough has predominantly been yellow in color, he denies hemoptysis. He denies any coming chest pain, abdominal pain, vomiting or diarrhea, or increased leg swelling. PAST MEDICAL HISTORY:See Below PAST SURGICAL HISTORY:See Below FAMILY HISTORY:See Below SOCIAL HISTORY:See Below HOME MEDICATIONS:See Below ALLERGIES:See Below VITALS:See Below PHYSICAL EXAMINATION: GENERAL: alert, unwell appearing, well nourished, no distress, non-toxic EYE EXAM: normal conjunctiva, PERRL and EOM's grossly intact OROPHARYNX: no exudate, no erythema, lips, buccal mucosa, and tongue normal and mucous membranes are moist NECK: supple, no nuchal rigidity, no adenopathy, non-tender LUNGS: Decreased bilaterally and coarse to auscultation. Normal chest wall mechanics, scattered end expiratory wheeze, no rhonchi or rales HEART: no murmurs, S1 normal and S2 normal ABDOMEN: abdomen soft, non-tender, normo-active bowel sounds, no masses, no rebound or guarding. BACK: Back is symmetrical on inspection and there is no deformity, no midline tenderness, no CVA tenderness. SKIN: no rashes, petechiae, orbruising UPPER EXTREMITIES: upper extremities are grossly normal. FROM, nml pulses b/l. LOWER EXTREMITIES: No pitting edema. FROM, nml pulses b/l. NEURO EXAM: Normal sensorium, cranial nerves II-XII grossly intact, normal speech, no facial droop,nogross weakness of arms, no gross weakness of legs. Gross sensation intact. No ataxia. Vital Signs: reviewed and remarkable Differential Diagnosis: pneumonia, bronchitis, COPD/Asthma exacerbation, pneumothorax, pulmonary embolism, congestive heart failure, acute coronary syndrome, as well as others were considered MEDICAL DECISION MAKING: This is a 69-year-old male with a complicated pulmonary history who presents emerged part due to increased cough and shortness of breath over the last 2 days. Patient noted to have increased work of breathing even with conversation here with accompanying tachypnea. Labs drawn and sent, IV established, EKG and chest x-ray performed at bedside and interpreted me and patient monitored on telemetry. Patient does have a history of A-fib and was noted to be in A-fib on telemetry. He does report he is taking his anticoagulation as prescribed. Chest x-ray with mild increased markings at the left base. Patient was noted to require increased amounts of oxygen compared to what he wears intermittently at home. He was given 2 DuoNeb treatments here and reported feeling improved this he was able to expectorate more sputum, however continued to have conversational dyspnea and intermittent hypoxia. Patient transition from nasal cannula to a facemask for increased oxygen titration. He was given gentle IV fluids and IV Solu-Medrol additionally. We discussed all results at bedside. I discussed my concern with him due to increased oxygen requirements and increased work of breathing that he would benefit from further inpatient evaluation. Patient's labs were reassuring. Nasal swab had been obtained and sent and was positive for parainfluenza virus. I suspect his acute viral respiratory infection is exacerbating his underlying COPD causing his increased oxygen requirements and work of breathing. Consultation(s): 1427: Discussed with BRYANT BANKS with [facility] hospitalist team for additional evaluation and management. ER Treatment Provided: See below Diagnostics Interpreted By Me: -ECG: Atrial fibrillation at 96, normal axis, right bundle branch block, nonspecific ST/T wave changes -Cardiac Monitoring: An order was placed for continuous cardiac monitoring. The monitor shows a rate of 92 with A-fib rhythm. -Laboratory studies: As stated above and show below. -Imaging studies: X-ray Chest: A single view study of the chest was reviewed and was negative focal infiltrate, pulmonary edema, or wide mediastinum. Mild cardiomegaly noted. Increased interstitial markings noted at the left base. Triage Nursing Note Reviewed Prior/Outside Records Reviewed -Per pulmonology note from Dr. Erwin reviewed, as well as CT of the lungs from 2 weeks ago Past Med/Surg History Problem List (Updated 10/22/24 @ 14:28 by Deniz Langford PA-C) Influenza A Hypoxia (Acute) Dyspnea (Acute) Acute and chronic respiratory failure with hypoxia Rhinovirus infection COPD exacerbation Acute respiratory failure with hypoxia and hypercapnia Respiratory failure (Acute) Inflamed seborrheic keratosis COPD (chronic obstructive pulmonary disease) (Chronic) inhaler daily/prn, nebulizer daily Emphysema of lung (Chronic) Hyperlipidemia (Chronic) Tinea versicolor Current smoker Macrocytosis Atrial fibrillation Chronic diastolic congestive heart failure Hand dermatitis Hypoxia (Acute) MCMILLAN (dyspnea on exertion) (Acute) Cardiomegaly Dependence on nocturnal oxygen therapy 2L at night through CPAP History of colon polyps Blood in stool Anticoagulated (Acute) Obstructive sleep apnea of adult (Acute) History of IDA infection (Acute) Personal history of nicotine dependence Respiratory failure (Acute) Acute bronchitis (Acute) Chronic respiratory failure with hypoxia and hypercapnia COPD with emphysema Current smoker Pulmonary hypertension Chronic bronchitis Allergic rhinitis Type II diabetes mellitus Right leg swelling (Acute) Edema of both legs Medical History Acute diastolic heart failure History of colon polyps On anticoagulant therapy eliquis daily Atrial flutter with rapid ventricular response Acute and chronic respiratory failure with hypoxia Atrial fibrillation, new onset follows with Dr. Irwin--on eliquis daily Surgical History History of colonoscopy History of tooth extraction all top teeth and some lower teeth removed History of bronchoscopy [place] teeth extracted "3 wisdom teeth; 1996" Family History Father CHF (congestive heart failure) Mother Obesity Heart valve disease Hypertension Brother Atrial flutter Hypertension Prediabetes Colonic polyp Tubular adenoma Brother Pancreatitis Sister Hypertension Other No family history of adverse response to anesthesia Denies family history of Ovarian cancer Prostate cancer Breast cancer Social History (Updated 08/09/24 @ 13:26 by TEMITOPE Fierro) Smoking Status: Current some day smoker Tobacco Type: Cigarettes Age Started Using Tobacco: 19; packs per day: 0.25; Cigarettes Per Day: 6; Second Hand Exposure: No; Do You Dip or Chew Tobacco: No; Hx Alcohol Use: No Hx Substance Use: No Preferred Language: Pashto Communication Ability: Effective [facility] Assisted Living Required: No Beliefs That Will Affect Care: None marital status: Single Current Living Situation: Parent Current Living Situation Comment: Lives with mother in law- checks in frequently 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 How many Children do You have: 0 Feels Safe at Home: Yes Childhood Exposure to Second-Hand Smoke: Yes Diet: regular caffeine: Yes (small amount ) Dental Care, Regularly: No Physical Activity Frequency: Daily Seatbelt Use: always Sunscreen Use: No Assistive Devices: Denture - Upper, Denture - Lower, Oxygen - at Night and Oxygen - Continuous Allergies Allergies Allergy/AdvReac Type Severity Reaction Status Date / Time No Known Allergies Allergy Verified 08/21/24 11:29 Home Meds Home Medications Medication Instructions Recorded Confirmed multivitamin with minerals 1 tab PO DAILY 05/24/24 10/22/24 omega-3 fatty acids 1,000 mg 1,000 mg PO BID 05/24/24 10/22/24 capsule roflumilast 500 mcg tablet 500 mcg PO DAILY 08/09/24 10/22/24 Previous Rx's Medication Instructions Recorded nebulizers #1 ea 05/01/19 BiPap Supplies #1 ea 05/22/19 CPAP Machine #1 ea 08/30/19 guaifenesin 600 mg tablet, 600 mg PO BID PRN congestion #60 05/08/21 extended release 12 hr (Mucinex) tabs clobetasol 0.05 % topical cream 1 applic topical BID PRN Rash #15 08/28/21 grams Portable Oxygen #1 ea 05/22/22 Flutter Valve #1 ea 11/20/22 nebulizers (Aeroneb Go Nebulizer) #1 ea 12/08/22 mecobalamin (vitamin B12) 1,000 1,000 mcg PO DAILY #30 tabs 03/15/23 mcg chewable tablet fluticasone fur. 100 mcg-umeclid 1 inh inhalation DAILY #3 Inhalers 11/29/23 62.5 mcg-vilant 25 mcg inhalat.powder (Trelegy Ellipta) albuterol sulfate 90 mcg/actuation 2 puff inhalation Q6H PRN 12/24/23 aerosol inhaler Shortness Of Breath Or Wheezing #18 grams apixaban 5 mg tablet (Eliquis) 5 mg PO BID #180 tabs 04/03/24 bumetanide 1 mg tablet 1 mg PO QAM #30 tabs 06/07/24 montelukast 10 mg tablet 10 mg PO HS #90 tabs 06/29/24 (Singulair) ipratropium 0.5 mg-albuterol 3 mg 3 ml inhalation QID PRN Shortness 08/24/24 (2.5 mg base)/3 mL nebulization Of Breath Or Wheezing #360 mL soln atorvastatin 40 mg tablet (Lipitor) 40 mg PO HS #90 tabs 09/08/24 diltiazem HCl 360 mg 360 mg PO DAILY #90 tabs 09/29/24 tablet,extended release 24 hr metformin 500 mg tablet,extended 1,000 mg (2 x 500 mg) PO BID #360 10/03/24 release 24 hr tabs Results & Data (ED) Vital Signs Vital Signs - 24 hr 10/22/24 10:08 10/22/24 10:22 10/22/24 10:29 Temperature 36.7 C Temperature Source Oral Pulse Rate 99 H 103 H Pulse Rate from SpO2 Sensor Respiratory Rate 22 Blood Pressure 165/72 H 118/71 Blood Pressure Mean 103 92 Pulse Oximetry 91 Oxygen Delivery Method Room Air Oxygen Flow Rate Sepsis New/Unexplained Change in Mental Status No Sepsis Action Taken by Nursing No Action Required Oxygen Flow Rate - Titration Pulse Oximetry Post Tiitration 10/22/24 10:46 10/22/24 10:54 10/22/24 10:59 Temperature Temperature Source Pulse Rate 94 H 92 H Pulse Rate from SpO2 Sensor Respiratory Rate 24 24 Blood Pressure Blood Pressure Mean Pulse Oximetry 87 L 80 L Oxygen Delivery Method Nasal Cannula Room Air Oxymask Oxygen Flow Rate 3 0 Sepsis New/Unexplained Change in Mental Status Sepsis Action Taken by Nursing Oxygen Flow Rate - Titration 4 Pulse Oximetry Post Tiitration 92 10/22/24 11:03 10/22/24 11:09 10/22/24 11:09 Temperature Temperature Source Pulse Rate 102 H Pulse Rate from SpO2 Sensor Respiratory Rate 18 Blood Pressure 92/60 L 92/60 L Blood Pressure Mean 71 71 Pulse Oximetry 90 Oxygen Delivery Method Oxymask Oxygen Flow Rate 4 Sepsis New/Unexplained Change in Mental Status Sepsis Action Taken by Nursing Oxygen Flow Rate - Titration Pulse Oximetry Post Tiitration 10/22/24 11:15 10/22/24 11:18 10/22/24 11:30 Temperature Temperature Source Pulse Rate 91 H 92 H Pulse Rate from SpO2 Sensor Respiratory Rate 17 19 Blood Pressure 97/73 L Blood Pressure Mean 82 Pulse Oximetry 93 Oxygen Delivery Method Oxygen Flow Rate Sepsis New/Unexplained Change in Mental Status Sepsis Action Taken by Nursing Oxygen Flow Rate - Titration Pulse Oximetry Post Tiitration 10/22/24 11:45 10/22/24 12:00 10/22/24 12:30 Temperature Temperature Source Pulse Rate 102 H Pulse Rate from SpO2 Sensor Respiratory Rate 23 Blood Pressure 124/97 121/77 Blood Pressure Mean 107 85 Pulse Oximetry 93 Oxygen Delivery Method Oxygen Flow Rate Sepsis New/Unexplained Change in Mental Status Sepsis Action Taken by Nursing Oxygen Flow Rate - Titration Pulse Oximetry Post Tiitration 10/22/24 12:42 10/22/24 12:43 10/22/24 12:43 Temperature Temperature Source Pulse Rate 90 Pulse Rate from SpO2 Sensor 106 H Respiratory Rate 21 Blood Pressure 127/78 127/78 Blood Pressure Mean 101 101 Pulse Oximetry 90 Oxygen Delivery Method Oxygen Flow Rate Sepsis New/Unexplained Change in Mental Status Sepsis Action Taken by Nursing Oxygen Flow Rate - Titration Pulse Oximetry Post Tiitration 10/22/24 12:45 10/22/24 13:00 10/22/24 13:00 Temperature Temperature Source Pulse Rate 84 Pulse Rate from SpO2 Sensor Respiratory Rate 20 Blood Pressure 119/77 119/77 Blood Pressure Mean 89 89 Pulse Oximetry 90 Oxygen Delivery Method Oxygen Flow Rate Sepsis New/Unexplained Change in Mental Status Sepsis Action Taken by Nursing Oxygen Flow Rate - Titration Pulse Oximetry Post Tiitration 10/22/24 13:09 10/22/24 13:15 10/22/24 13:27 Temperature Temperature Source Pulse Rate 97 H 90 88 Pulse Rate from SpO2 Sensor Respiratory Rate 20 28 H Blood Pressure Blood Pressure Mean Pulse Oximetry 90 92 92 Oxygen Delivery Method Oxygen Flow Rate Sepsis New/Unexplained Change in Mental Status Sepsis Action Taken by Nursing Oxygen Flow Rate - Titration Pulse Oximetry Post Tiitration 10/22/24 13:30 10/22/24 13:30 Temperature Temperature Source Pulse Rate 86 Pulse Rate from SpO2 Sensor Respiratory Rate 25 H Blood Pressure 125/92 Blood Pressure Mean 104 Pulse Oximetry 91 Oxygen Delivery Method Oxygen Flow Rate Sepsis New/Unexplained Change in Mental Status Sepsis Action Taken by Nursing Oxygen Flow Rate - Titration Pulse Oximetry Post Tiitration Laboratory Data 10/22/24 10:52 10/22/24 10:52 Lab Results 10/22/24 10/22/24 Range/Units 10:46 10:52 WBC 5.11 (4.8-10.8) K/ul RBC 4.87 (4.70-6.10) M/uL Hgb 15.4 (14.0-18.0) g/dl Hct 49.1 (42.0-52.0) % MCV 100.8 H (80.0-100.0) fL MCH 31.6 (25.0-34.0) pg MCHC 31.4 L (32.0-36.0) g/dL RDW Std Deviation 53.5 H (36.4-46.3) fL RDW Coeff of Malik 14.4 (11.5-14.5) % Plt Count 168 (130-400) K/uL MPV 9.5 (9.4-12.4) fL Immature Gran % (Auto) 0.2 % Neut % (Auto) 64.4 % Lymph % (Auto) 18.2 % Owen % (Auto) 16.0 % Eos % (Auto) 0.4 % Baso % (Auto) 0.8 % Neut # (Auto) 3.29 (1.40-6.50) K/uL Lymph # (Auto) 0.93 L (1.20-3.40) K/uL Owen # (Auto) 0.82 H (0.11-0.59) K/uL Eos # (Auto) 0.02 (0.00-0.50) K/uL Baso # (Auto) 0.04 (0.00-0.20) K/uL Immature Gran # (Auto) 0.01 (0.01-0.20) K/uL PT 14.1 H (9.0-12.0) Seconds INR 1.3 H (0.9-1.1) Sodium 135 L (136-145) mmol/L Potassium 4.6 (3.5-5.1) mmol/L Chloride 94 L (98-107) mmol/L Carbon Dioxide 35 H (21-32) mmol/L Anion Gap 6 (3-11) BUN 14 (6-23) mg/dl Creatinine 0.89 (0.6-1.4) mg/dl Est Cr Clr Drug Dosing 98.6 ml/min eGFR 93.34 BUN/Creatinine Ratio 15.7 (10-20) Glucose 98 (70-99(Fasting)) mg/dl Calcium 8.8 (8.6-10.3) mg/dl Magnesium 1.9 (1.7-2.4) mg/dl Total Bilirubin 1.5 H (0.2-1.0) mg/dl AST 26 (13-39) U/L ALT 21 (7-52) U/L Alkaline Phosphatase 88 (34-104) U/L Troponin I High Sens 14.2 (0-20) pg/ml B-Natriuretic Peptide 92 (0-100) pg/ml Total Protein 6.7 (6.0-8.3) gm/dl Albumin 4.0 (3.4-5.0) gm/dl Globulin 2.7 (2.5-4.0) gm/dl Albumin/Globulin Ratio 1.5 (0.9-2) Lipase 17 (11-82) U/L Adenovirus (PCR) Not Detected (NotDetected) B. pertussis DNA (PCR) Not Detected (NotDetected) B.parapertussis DNA PCR Not Detected (NotDetected) C. pneumoniae DNA (PCR) Not Detected (NotDetected) Coronavirus OC43 (PCR) Not Detected (NotDetected) Coronavirus HKU1 (PCR) Not Detected (NotDetected) Coronavirus 229E (PCR) Not Detected (NotDetected) SARS-CoV-2 (PCR) Not Detected (NotDetected) Coronavirus NL63 (PCR) Not Detected (NotDetected) Human Metapneumovir PCR Not Detected (NotDetected) Influenza Type A (PCR) Not Detected (NotDetected) Influenza Type B (PCR) Not Detected (NotDetected) M. pneumoniae (PCR) Not Detected (NotDetected) Parainfluenza 1 (PCR) DETECTED A (NotDetected) Parainfluenza 2 (PCR) Not Detected (NotDetected) Parainfluenza 3 (PCR) Not Detected (NotDetected) Parainfluenza 4 (PCR) Not Detected (NotDetected) RSV (PCR) Not Detected (NotDetected) Entero/Rhino (PCR) Not Detected (NotDetected) Administered Medications Sodium Chloride (Nss) 1,000 mls @ 125 mls/hr IV .Q8H [facility] Stop: 10/22/24 19:44 Last Admin: 10/22/24 12:02 Dose: 125 mls/hr Documented By: GAVIN Insulin Aspart (Insulin Aspart Per Unit Charge) 0 units SC ACHS JAYLA Stop: 11/21/24 16:33 Last Admin: 10/22/24 17:47 Dose: 6 units Documented By: NEVAEH Co-signed By: RRChris Discontinued Medications Albuterol (Albut/Ipratrop 3mg/0.5mg Neb 3 Ml Vial) 3 ml NEB NOW STA; Protocol Stop: 10/22/24 10:46 Last Admin: 10/22/24 11:06 Dose: 3 ml Documented By: ML Albuterol (Albut/Ipratrop 3mg/0.5mg Neb 3 Ml Vial) 3 ml NEB NOW STA; Protocol Stop: 10/22/24 12:19 Last Admin: 10/22/24 12:32 Dose: 3 ml Documented By: ELIDA Albuterol (Albut/Ipratrop 3mg/0.5mg Neb 3 Ml Vial) 3 ml NEB NOW STA; Protocol Stop: 10/22/24 13:33 Last Admin: 10/22/24 13:45 Dose: 3 ml Documented By: ELIDA Azithromycin (Azithromycin 250 Mg Tab) 500 mg PO NOW ONE Stop: 10/22/24 14:19 Last Admin: 10/22/24 14:47 Dose: 500 mg Documented By: ELIDA Methylprednisolone (Methylprednisolone 125 Mg/2 Ml Vial) 40 mg IV NOW STA Stop: 10/22/24 12:19 Last Admin: 10/22/24 12:34 Dose: 40 mg Documented By: ELIDA Imaging Data Radiologist's Impression: Chest X-Ray 10/22/24 10:45 XR chest 1V portable HISTORY: 69 years-old Male sob acute shortness of breath COMPARISON: 05/26/2024 TECHNIQUE: AP view the chest FINDINGS: Cardiac silhouette is large. Emphysema with chronic interstitial coarsening. Pulmonary arterial hypertension. Pulmonary vascular congestion. Mild patchy left basilar predominant opacities are new from prior. No pneumothorax or pleural effusion. Bones appear grossly intact. IMPRESSION: 1. Cardiomegaly with pulmonary vascular congestion. 2. Emphysema with new left basilar opacities suspicious for an infectious or inflammatory pneumonitis. ACT 112: Negative or not required by law. The above report was generated using voice recognition software. It may contain grammatical, syntax or spelling errors. Electronically signed by: Jose Palma M.D. 10/22/2024 11:12 AM Discharge Plan Visit Data Chief Complaint: Shortness of Breath/Dyspnea Stated Complaint: HARD TO BREATH ED Provider: Milly Mcgowan Discharge Problem: Dyspnea, COPD (chronic obstructive pulmonary disease), Hypoxia Patient Disposition: Admitted As Inpatient Discharge Instructions Interventions: ED Discharge Assessment Last Done: 10/22/24 16:00
[2024-10-22] MEDS: SODIUM CHLORIDE 0.9% 1,000 ML IV SCH (12:02)
[2024-10-22] MEDS: methylPREDNISolone 125 MG/2 ML VIAL IV STA (12:34)
--- NOTE | 2024-10-22 13:37 | History & Physical Report ---
Date of Service October 22, 2024 Assessment & Plan (1) Influenza A: (2) Acute and chronic respiratory failure with hypoxia: Plan Felix is a pleasant 69-year-old male with PMH of atrial fibrillation (on Eliquis), chronic respiratory failure with hypoxia and hypercapnia, COPD, pulmonary hypertension, chronic bronchitis, T2DM, and COPD. He presented on 10/22 for productive cough and SOB/dyspnea x 3 to 4 days. Patient symptoms started on 10/19. He endorses new onset MCMILLAN and productive cough that has been cream-colored. Patient wears CPAP at night with supplemental oxygen (2L NC). #Parainfluenza Parainfluenza (+) on arrival Supportive care Contact isolation precautions Acetaminophen as needed for pain/fever Guaifenesin 1200 mg p.o. BID for cough #Acute on chronic respiratory failure with hypoxia Patient is on supplemental oxygen at nighttime (2L NC) Hypoxic at 80% on RA on arrival Titrate supplemental oxygen as needed to maintain SpO2 89 to 92% Continuous pulse oximetry # Acute COPD exacerbation/inflammatory pneumonitis Last PFTs 08/26/2023 revealed severe obstructive lung dysfunction with significant bronchodilator response Solu-Medrol 40 mg IV TID DuoNeb 3 mL Q6R Incentive spirometry, flutter valve Continue home inhalers + montelukast + Roflumilast Azithromycin 500 mg p.o. daily; QTc okay at 416 #Atrial fibrillation Rate controlled on arrival Continue Eliquis #T2DM Last A1c at 7.0% on 05/23/2024 Hold metformin Lantus 5 u QAM while inpatient SSI with target BSG range 110-140mg/dL, CF 50, carb ratio 15 T2DM diet BSG ACHS Adjust regimen as needed Pharmacy glycemic consult appreciated while on steroids AM A1c #Tobacco use Noted; 6 cigarettes/day; continue to encourage cessation Chronic stable conditions: HLDatorvastatin HTNdiltiazem Dependent edemahold Bumex for now, patient reports only takes 2-3 times per week LAMAR-CPAP HS Disposition: Admit to MedSurg Full code T2DM diet VTE PPx: Eliquis History of Present Illness Chief Complaint: SOB/dyspnea, productive cough Primary Care Provider: Aristeo Vicente MD Felix is a pleasant 69-year-old male with PMH of atrial fibrillation (on Eliquis), chronic respiratory failure with hypoxia and hypercapnia, COPD, pulmonary hypertension, chronic bronchitis, T2DM, and COPD. He presented on 10/22 for productive cough and SOB/dyspnea x 3 to 4 days. Patient symptoms started on 10/19. He endorses new onset MCMILLAN and productive cough that has been cream-colored. He denies SOB at rest orthopnea. Patient wears CPAP at night with supplemental oxygen (2L NC). He does not believe he has required increased oxygen at home over the past few days, and he does have a home pulse ox, but reports it is difficult to read as he was gets a different number on each finger; reports it has been in the mid 80% range at times. He has been using nebulizer treatments at home, which helps his symptoms temporarily. No prior history of DVT/PE. No hemoptysis or pleuritic CP. He reports good compliance with taking his Eliquis. Patient took his regular morning medicine today; no recent change in medications. He takes Bumex 2-3 times a week for fluid buildup in his legs. Patient is a current everyday tobacco cigarette smoker; 6 cigarettes/day. He denies chewing tobacco or recent alcohol use. No sick contacts to his knowledge. 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 Patient is mildly tachypneic at 25 RPM at time admission; SpO2 90% on oxy mask 4L. ED course: DuoNeb 3 mL x 3 Solu-Medrol 40 mg IV NSS 1000 mL IV ROS: Patient endorses MCMILLAN and productive cough (cream colored). Patient denies fever, chills, night-sweats, dizziness, lightheadedness, LINDSEY, rashes, tick bites, chest pain, chest palpitations, pleuritic CP, SOB at rest, hemoptysis, abdominal pain, N/V/D, changes in urinary/bowel habits, blood in the urine/stool, or numbness/tingling/swelling in the arms or legs. Allergies Allergy/AdvReac Type Severity Reaction Status Date / Time No Known Allergies Allergy Verified 08/21/24 11:29 Home Medications Medication Instructions Recorded Confirmed Type nebulizers #1 ea 05/01/19 08/21/24 Rx BiPap Supplies #1 ea 05/22/19 08/21/24 Rx CPAP Machine #1 ea 08/30/19 08/21/24 Rx guaifenesin 600 mg tablet, 600 mg PO BID PRN congestion #60 05/08/21 10/22/24 Rx extended release 12 hr (Mucinex) tabs clobetasol 0.05 % topical cream 1 applic topical BID PRN Rash #15 08/28/21 10/22/24 Rx grams Portable Oxygen #1 ea 05/22/22 08/21/24 Rx Flutter Valve #1 ea 11/20/22 08/21/24 Rx nebulizers (Aeroneb Go Nebulizer) #1 ea 12/08/22 08/21/24 Rx mecobalamin (vitamin B12) 1,000 1,000 mcg PO DAILY #30 tabs 03/15/23 10/22/24 Rx mcg chewable tablet fluticasone fur. 100 mcg-umeclid 1 inh inhalation DAILY #3 Inhalers 11/29/23 10/22/24 Rx 62.5 mcg-vilant 25 mcg inhalat.powder (Trelegy Ellipta) albuterol sulfate 90 mcg/actuation 2 puff inhalation Q6H PRN 12/24/23 10/22/24 Rx aerosol inhaler Shortness Of Breath Or Wheezing #18 grams apixaban 5 mg tablet (Eliquis) 5 mg PO BID #180 tabs 04/03/24 10/22/24 Rx multivitamin with minerals 1 tab PO DAILY 05/24/24 10/22/24 History omega-3 fatty acids 1,000 mg 1,000 mg PO BID 05/24/24 10/22/24 History capsule bumetanide 1 mg tablet 1 mg PO QAM #30 tabs 06/07/24 10/22/24 Rx montelukast 10 mg tablet 10 mg PO HS #90 tabs 06/29/24 10/22/24 Rx (Singulair) roflumilast 500 mcg tablet 500 mcg PO DAILY 08/09/24 10/22/24 History ipratropium 0.5 mg-albuterol 3 mg 3 ml inhalation QID PRN Shortness 08/24/24 10/22/24 Rx (2.5 mg base)/3 mL nebulization Of Breath Or Wheezing #360 mL soln atorvastatin 40 mg tablet (Lipitor) 40 mg PO HS #90 tabs 09/08/24 10/22/24 Rx diltiazem HCl 360 mg 360 mg PO DAILY #90 tabs 09/29/24 10/22/24 Rx tablet,extended release 24 hr metformin 500 mg tablet,extended 1,000 mg (2 x 500 mg) PO BID #360 10/03/24 10/22/24 Rx release 24 hr tabs Past Med/Surg History Problem List (Updated 10/22/24 @ 14:28 by Deniz Langford PA-C) Influenza A Hypoxia (Acute) Dyspnea (Acute) Acute and chronic respiratory failure with hypoxia Rhinovirus infection COPD exacerbation Acute respiratory failure with hypoxia and hypercapnia Respiratory failure (Acute) Inflamed seborrheic keratosis COPD (chronic obstructive pulmonary disease) (Chronic) inhaler daily/prn, nebulizer daily Emphysema of lung (Chronic) Hyperlipidemia (Chronic) Tinea versicolor Current smoker Macrocytosis Atrial fibrillation Chronic diastolic congestive heart failure Hand dermatitis Hypoxia (Acute) MCMILLAN (dyspnea on exertion) (Acute) Cardiomegaly Dependence on nocturnal oxygen therapy 2L at night through CPAP History of colon polyps Blood in stool Anticoagulated (Acute) Obstructive sleep apnea of adult (Acute) History of IDA infection (Acute) Personal history of nicotine dependence Respiratory failure (Acute) Acute bronchitis (Acute) Chronic respiratory failure with hypoxia and hypercapnia COPD with emphysema Current smoker Pulmonary hypertension Chronic bronchitis Allergic rhinitis Type II diabetes mellitus Right leg swelling (Acute) Edema of both legs Medical History Acute diastolic heart failure History of colon polyps On anticoagulant therapy eliquis daily Atrial flutter with rapid ventricular response Acute and chronic respiratory failure with hypoxia Atrial fibrillation, new onset follows with Dr. Irwin--on eliquis daily Surgical History History of colonoscopy History of tooth extraction all top teeth and some lower teeth removed History of bronchoscopy [place] teeth extracted "3 wisdom teeth; 1996" Family History Father CHF (congestive heart failure) Mother Obesity Heart valve disease Hypertension Brother Atrial flutter Hypertension Prediabetes Colonic polyp Tubular adenoma Brother Pancreatitis Sister Hypertension Other No family history of adverse response to anesthesia Denies family history of Ovarian cancer Prostate cancer Breast cancer Social History (Updated 08/09/24 @ 13:26 by TEMITOPE Fierro) Smoking Status: Current some day smoker Tobacco Type: Cigarettes Age Started Using Tobacco: 19; packs per day: 0.25; Cigarettes Per Day: 6; Second Hand Exposure: No; Do You Dip or Chew Tobacco: No; Hx Alcohol Use: No Hx Substance Use: No Preferred Language: Slovenian Communication Ability: Effective Contractor [employer] Required: No Beliefs That Will Affect Care: None marital status: Single Current Living Situation: Parent Current Living Situation Comment: Lives with mother in law- checks in [facility] 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 How many Children do You have: 0 Feels Safe at Home: Yes Childhood Exposure to Second-Hand Smoke: Yes Diet: regular caffeine: Yes (small amount ) Dental Care, Regularly: No Physical Activity Frequency: Daily Seatbelt Use: always Sunscreen Use: No Assistive Devices: Denture - Upper, Denture - Lower, Oxygen - at Night and Oxygen - Continuous Review of Systems Review of Systems: See HPI above Physical Exam Physical Exam: General: no acute distress; pleasant affect; sister at bedside; non-toxic appearing; well-nourished; cooperative; SpO2 91% on 4L oxy mask HEENT: normocephalic, atraumatic; no scleral icterus; PERRLA; vision and hearing grossly intact Neck: supple; no lymphadenopathy; trachea midline Skin: warm, dry without signs of tenting; no cyanosis; no rashes, bruising, lesions, or erythema noted CV: chest wall NTP; RRR; S1/S2 normal; no murmurs/rubs/gallops; pulses intact and symmetric at radial, DP, and PT Lungs: Mild respiratory distress; conversational dyspnea; symmetrical chest wall expansion; expiratory wheeze; bibasilar crackles in the lower lung au bilaterally ABD: Soft, NTP; BS present; no rebound/guarding; no distention MSK: no tics or fasciculations; no edema noted in the LEs b/l, nonerythematous Neuro: A&Ox3; normal mood and affect; fluent speech; no focal deficits; sensation intact and symmetric in the LEs bilaterally Results & Data Results & Data Vital Signs (Past 12 Hours) Vital Signs Temp Pulse Resp BP Pulse Ox O2 Del Method O2 Flow Rate 10/22/24 12:43 127/78 10/22/24 12:43 127/78 10/22/24 12:42 90 21 90 10/22/24 12:30 121/77 10/22/24 12:00 124/97 10/22/24 11:45 102 H 23 93 10/22/24 11:30 97/73 L 10/22/24 11:18 92 H 19 10/22/24 11:15 91 H 17 93 10/22/24 11:09 92/60 L 10/22/24 11:09 92/60 L 10/22/24 11:03 102 H 18 90 Oxymask 4 10/22/24 10:59 80 L Room Air, Oxymask 0 10/22/24 10:54 92 H 24 10/22/24 10:46 94 H 24 87 L Nasal Cannula 3 10/22/24 10:29 103 H 10/22/24 10:22 118/71 10/22/24 10:08 36.7 C 99 H 22 165/72 H 91 Room Air Laboratory Results Abnormal lab results 10/22/24 10/22/24 Range/Units 10:46 10:52 MCV 100.8 H (80.0-100.0) fL MCHC 31.4 L (32.0-36.0) g/dL RDW Std Deviation 53.5 H (36.4-46.3) fL Lymph # (Auto) 0.93 L (1.20-3.40) K/uL [place] # (Auto) 0.82 H (0.11-0.59) K/uL PT 14.1 H (9.0-12.0) Seconds INR 1.3 H (0.9-1.1) Sodium 135 L (136-145) mmol/L Chloride 94 L (98-107) mmol/L Carbon Dioxide 35 H (21-32) mmol/L Total Bilirubin 1.5 H (0.2-1.0) mg/dl Parainfluenza 1 (PCR) DETECTED A (NotDetected) Diagnostic Findings Chest X-Ray 10/22/24 10:45 XR chest 1V portable HISTORY: 69 years-old Male sob acute shortness of breath COMPARISON: 05/26/2024 TECHNIQUE: AP view the chest FINDINGS: Cardiac silhouette is large. Emphysema with chronic interstitial coarsening. Pulmonary arterial hypertension. Pulmonary vascular congestion. Mild patchy left basilar predominant opacities are new from prior. No pneumothorax or pleural effusion. Bones appear grossly intact. IMPRESSION: 1. Cardiomegaly with pulmonary vascular congestion. 2. Emphysema with new left basilar opacities suspicious for an infectious or inflammatory pneumonitis. ACT 112: Negative or not required by law. The above report was generated using voice recognition software. It may contain grammatical, syntax or spelling errors. Electronically signed by: Jose Palma M.D. 10/22/2024 11:12 AM ECG Additional Comments: ECG revealed atrial fibrillation at 96 bpm; RBBB; QTc 416 Code Status & VTE Plan Code Status Full code VTE Prophylaxis Plan VTE Prophylaxis will be ordered: Yes Supervising Physician Co-Signing Physician Notes Patient seen and examined, chart reviewed, case discussed with Deniz Langford PA-C and I agree with the assessment and plan as above except as otherwise noted Labs and images reviewed Felix is a 69-year-old male with past medical history of COPD, tobacco use, diastolic CHF, type II DM who presents with 3 to 4 days of productive cough, dyspnea, and wheezing. He is found to be parainfluenza positive on admission. He was recommended for admission for acute on chronic respiratory failure and ac zena on chronic COPD due to parainfluenza virus. No signs of secondary/superimposed pneumonia. Agree with COPD treatment/supportive care. For concurrent COPD exacerbation he has been placed on azithromycin. With left basilar opacity likely viral but if he clinically worsens could add Rocephin for CAP coverage at that time. Do not feel this is warranted at time of admission. PG Care Time/CCT Total # of Minutes Spent Total Time Spent with Patient: Total time spent is greater than 50% in coordination of care (as documented) at patient's floor/unit and/or counseling patient: C[place] [address] INT INP/OBS CARE 3/75MIN Patient Type Established History Comprehensive Exam Comprehensive Medical Decision Making High Complexity Diagnoses Influenza A J10.1 Acute and chronic respiratory failure with hypoxia J96.21
[2024-10-22] MEDS: AZITHROMYCIN 250 MG TAB PO ONE (14:47)
[2024-10-22] MEDS ORDERED: MELATONIN 3 MG TAB PO PRN (16:34)
[2024-10-22] MEDS ORDERED: GLUCAGON FOR INJ 1 MG VIAL SQ PRN (16:34)
[2024-10-22] MEDS ORDERED: CARBOHYDRATES FOR HYPOGLYCEMIA PO PRN (16:34)
[2024-10-22] MEDS ORDERED: GLUCOSE 10 TAB/TUBE PO PRN (16:34)
[2024-10-22] MEDS ORDERED: PHARMACY GLYCEMIC MGMT CONSULT PRN (16:34)
[2024-10-22] MEDS ORDERED: GLUCOSE 40% GEL 15 GM TUBE PO PRN (16:34)
[2024-10-22] MEDS ORDERED: ACETAMINOPHEN 325 MG TAB PO PRN (16:34)
[2024-10-22] MEDS ORDERED: POLYETHYLENE (MIRALAX) 17 GM PACK PO PRN (16:34)
[2024-10-22] MEDS ORDERED: DEXTROSE 50% 50 ML SYRINGE IV PRN (16:34)
[2024-10-22] MEDS: INSULIN ASPART PER UNIT CHARGE SC SCH (17:47)
[2024-10-22] MEDS: ALBUT/IPRATROP 3MG/0.5MG NEB 3 ML VIAL INH SCH (19:30)
[2024-10-22] MEDS: MONTELUKAST SODIUM 10 MG TABLET PO SCH (20:19)
[2024-10-22] MEDS: APIXABAN 5 MG TABLET PO SCH (20:19)
[2024-10-22] MEDS: ATORVASTATIN 40 MG TAB PO SCH (20:19)
[2024-10-22] MEDS: methylPREDNISolone 40 MG in SYRINGE 0 ML IV SCH (20:20)
[2024-10-22] MEDS: guaiFENesin 600 MG TABCR PO SCH (20:20)
[2024-10-23 06:33] LABS: Hematocrit (blood only) 45.6 % (42.0-52.0); Hemoglobin 15.1 g/dl (14.0-18.0); Immature Granulocytes # (auto) 0.01 K/uL (0.01-0.20); Immature Granulocytes % (auto) 0.2 %; Lymphocytes # (auto) 0.77 K/uL (1.20-3.40); Mean Corpuscular Hemoglobin 32.8 pg (25.0-34.0); Mean Corpuscular Hgb Conc 33.1 g/dL (32.0-36.0); Mean Corpuscular Volume 98.9 fL (80.0-100.0); Mean Platelet Volume 9.7 fL (9.4-12.4); Monocytes # (auto) 0.11 K/uL (0.11-0.59); Monocytes % (auto) 2.6 %; Neutrophils # (auto) 3.38 K/uL (1.40-6.50); Neutrophils % (auto) 79.2 %; Platelet Count 167 K/uL (130-400); RDW Standard Deviation 50.6 fL (36.4-46.3); Red Blood Count 4.61 M/uL (4.70-6.10); White Blood Count 4.27 K/ul (4.8-10.8)
[2024-10-23 06:35] LABS: BUN Creatinine Ratio 22.8 (10-20); Calcium 8.4 mg/dl (8.6-10.3); Potassium 4.7 mmol/L (3.5-5.1)
[2024-10-23] MEDS: FLUTICASONE FUROATE 100MCG 14 PUFFS/INHALER INH SCH (07:54)
[2024-10-23] MEDS: UMECLIDINIUM/VILANTEROL 62.5/25MCG 7 PUFFS/INHALER INH SCH (07:55)
[2024-10-23] MEDS: OMEGA-3 (PURIFIED FISH OIL) 1 GM CAP PO SCH (07:56)
[2024-10-23] MEDS: ROFLUMILAST 500 MCG TAB PO SCH (07:56)
[2024-10-23] MEDS: dilTIAZem HCL 180 MG CAPCR PO SCH (07:57)
[2024-10-23] MEDS: AZITHROMYCIN 250 MG TAB PO SCH (07:58)
[2024-10-23] MEDS: LANTUS PER UNIT CHARGE SC SCH (08:03)
[2024-10-23] MEDS ORDERED: LANTUS PER UNIT CHARGE SQ SCH (09:00)
[2024-10-23] MEDS ORDERED: NON-FORMULARY MEDICATION (Fluticasone-Umeclidin-Vilanter [Trelegy Ellipta] 100-62.5-25 mcg INH SCH (09:00)
--- NOTE | 2024-10-23 09:15 | Pharmacy Report ---
Pharmacy Glycemic Short Note 2 - Date of Service October 23, 2024 - Glycemic Short BSG Results (Last 24 hours): 10/22/24 10/22/24 10/22/24 10:52 17:04 20:15 Glucose 98 POC Glucose 152 H 143 H 10/23/24 10/23/24 05:34 07:32 Glucose 130 H POC Glucose 122 H OUTPATIENT ANTIDIABETIC REGIMEN: * Metformin 1000 mg PO BID HbA1c: * ASSESSMENT: * 69 yo M admitted on 10/22/24 secondary to hypoxia and positive parainfluenza PCR. Pharmacy has been consulted to assist with inpatient glycemic management. Patient is a Type 2 diabetic as an outpatient. Please refer to outpatient regimen and most recent HbA1c above. * BSGs yesterday were 152-143 mg/dL. Received 7 units of Novolog throughout last evening. No basal insulin ordered. Received 40 mg of IV SoluMedrol in the ED followed by 40 mg IV TID ongoing being ordered. During previous admissions, patient tolerated 10 units of basal well while on steroids. Tolerating T2DM diet. * Fasting BSG 122 mg/dL this AM. Will add 5 units of basal every morning for now while on steroids. No changes to Novolog at this time. PLAN FOR INPATIENT GLYCEMIC CONTROL: * Hold outpatient oral diabetes medications * Basal insulin * Lantus 5 units SC AM * Bolus insulin * NovoLog per scale ACHS or Q6hrs while NPO * Goal Range: Low 110 mg/dL - High 140 mg/dL * Correction Factor: 30 mg/dL/unit * Nutritional / Prandial insulin per carb ratio of 1 unit per 10 grams CHO consumed
[2024-10-23 09:33] LABS: Estimated Average Glucose 148 mg/dl; Hemoglobin A1C 6.8 % (4.5-5.6)
--- NOTE | 2024-10-23 15:38 | Hospitalist Progress Note ---
Date of Service October 23, 2024 Assessment & Plan (1) Influenza A: (2) Acute and chronic respiratory failure with hypoxia: Plan Felix is a pleasant 69-year-old male with PMH of atrial fibrillation (on Eliquis), chronic respiratory failure with hypoxia and hypercapnia, COPD, pulmonary hypertension, chronic bronchitis, T2DM, and COPD. He presented on 10/22 for productive cough and SOB/dyspnea x 3 to 4 days. Patient symptoms started on 10/19. He endorses new onset MCMILLAN and productive cough that has been cream-colored. Patient wears CPAP at night with supplemental oxygen (2L NC). Last PFTs 08/26/2023 revealed severe obstructive lung dysfunction with significant bronchodilator response #Parainfluenza/acute on chronic respiratory failure w/ hypoxia/acute COPD exacerbation/inflammatory pneumonitis Parainfluenza (+) on arrival CBC/BMP stable 10/23 Solu-medrol TID reduced to BID 10/23 and transition to PO prednisone 10/24. Guaifenesin 1200 mg p.o. BID for cough Duoneb q 6h Continue Azithromycin for total of 5 days of treatment (last day 10/28); Qtc 416 Continue home inhalers, montelukast, roflumilast Supportive care, Incentive Spirometry, flutter valve Contact isolation precautions Acetaminophen as needed for pain/fever 2 step completed 10/23 - patient requires 2L w/ rest and 4L w/ ambulation. Updated script signed w/ CM. #Atrial fibrillation Rate controlled on arrival Continue Eliquis #T2DM A1c 10/23: 6.8% Hold metformin Lantus 5 u QAM while inpatient SSI with target BSG range 110-140mg/dL, CF 50, carb ratio 15 T2DM diet BSG ACHS Adjust regimen as needed Pharmacy glycemic consult appreciated while on steroids #Tobacco use Noted; 6 cigarettes/day; continue to encourage cessation Chronic stable conditions: HLDatorvastatin HTNdiltiazem Dependent edemahold Bumex for now, patient reports only takes 2-3 times per week LAMAR-CPAP HS Full code VTE PPx: Eliquis anticipate discharge home 10/24. Admission and Anticipated Discharge Date Admission Date: October 22, 2024 Subjective Patient seen and examined this morning. Patient reports to be feeling well today. He denies any SOB or coughing. 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 He will then come in when he feels short of breath and uses his oxygen for 20-30 minutes prior to returning to work. he uses a CPAP at bedtime. Physical Exam Constitutional: WD/WN, vitals as above Eyes: PERRL, conjunctivae normal, anicteric sclerae Respiratory: diminished at bases, clear Cardiovascular: RRR, no murmur, no edema Musculoskeletal: moves all extremities Skin: no rashes, warm and dry Psychiatric: A+Ox3, euthymic affect Results & Data Results & Data Vital Signs (Past 12 Hours) Vital Signs Temp Pulse Pulse Pulse Pulse Pulse Pulse 10/23/24 13:57 36.4 C L 10/23/24 13:14 10/23/24 12:53 82 10/23/24 10:48 116 H 114 H 112 H 88 86 10/23/24 07:30 36.9 C 77 10/23/24 07:19 10/23/24 07:15 Pulse Pulse Resp Resp Resp Resp Resp 10/23/24 13:57 93 H 16 10/23/24 13:14 10/23/24 12:53 16 10/23/24 10:48 26 H 26 H 22 18 10/23/24 07:30 16 10/23/24 07:19 90 18 10/23/24 07:15 Resp BP Pulse Ox Pulse Ox Pulse Ox Pulse Ox Pulse Ox 10/23/24 13:57 127/63 91 10/23/24 13:14 88 L 10/23/24 12:53 92 10/23/24 10:48 20 84 L 86 L 90 10/23/24 07:30 128/73 99 10/23/24 07:19 92 10/23/24 07:15 Pulse Ox Pulse Ox Pulse Ox Pulse Ox O2 Del Method O2 Flow Rate O2 Flow Rate 10/23/24 13:57 Nasal Cannula 2 10/23/24 13:14 91 77 L 2 10/23/24 12:53 Nasal Cannula 2 10/23/24 10:48 92 87 L 10/23/24 07:30 Nasal Cannula, Nebulizer 7 10/23/24 07:19 Nasal Cannula 2 10/23/24 07:15 Nasal Cannula 3 O2 Flow Rate O2 Flow Rate O2 Flow Rate O2 Flow Rate O2 Flow Rate O2 Flow Rate 10/23/24 13:57 10/23/24 13:14 2 0 10/23/24 12:53 10/23/24 10:48 2 3 4 2 10/23/24 07:30 10/23/24 07:19 10/23/24 07:15 PG Care Time/CCT Total # of Minutes Spent Total Time Spent with Patient: Total time spent is greater than 50% in coordination of care (as documented) at patient's floor/unit and/or counseling patient: Coding Level of Care Code 37009 SUB INP/OBS CARE 2/35MIN Diagnoses Influenza A J10.1 Acute and chronic respiratory failure with hypoxia J96.21
[2024-10-24 06:27] LABS: Hematocrit (blood only) 46.5 % (42.0-52.0); Hemoglobin 15.1 g/dl (14.0-18.0); Mean Corpuscular Hemoglobin 32.1 pg (25.0-34.0); Mean Corpuscular Hgb Conc 32.5 g/dL (32.0-36.0); Mean Corpuscular Volume 98.9 fL (80.0-100.0); Mean Platelet Volume 9.8 fL (9.4-12.4); Platelet Count 172 K/uL (130-400); RDW Coefficient of Variation 13.8 % (11.5-14.5); RDW Standard Deviation 50.6 fL (36.4-46.3); White Blood Count 13.18 K/ul (4.8-10.8)
[2024-10-24 06:35] LABS: BUN Creatinine Ratio 26.5 (10-20); Calcium 8.7 mg/dl (8.6-10.3); Creatinine Clr Calc Pharmacy 105.7 ml/min; Potassium 4.9 mmol/L (3.5-5.1)
[2024-10-24] MEDS: predniSONE 20 MG TAB PO SCH (08:03)
[2024-10-24 08:05] VITALS: RESP 16; TEMP 97.7; O2SAT 92
[2024-10-24 08:08] VITALS: BP 131/76; PULSE 77
--- NOTE | 2024-10-24 11:19 | Discharge Summary ---
Discharge Summary Date of Service October 24, 2024 Principal Dx & Hospital Course #1 = Principal Diagnosis (1) Influenza A: (2) Acute and chronic respiratory failure with hypoxia: Shahla Washington is a pleasant 69-year-old male with PMH of atrial fibrillation (on Eliquis), chronic respiratory failure with hypoxia and hypercapnia, COPD, pulmonary hypertension, chronic bronchitis, T2DM, and COPD. He presented on 10/22 for productive cough and SOB/dyspnea x 3 to 4 days. Patient symptoms started on 10/19. He endorses new onset MCMILLAN and productive cough that has been cream-colored. Patient wears CPAP at night with supplemental oxygen (2L NC). Last PFTs 08/26/2023 revealed severe obstructive lung dysfunction with significant bronchodilator response #Parainfluenza/acute on chronic respiratory failure w/ hypoxia/acute COPD exacerbation/inflammatory pneumonitis Parainfluenza (+) on arrival CBC/BMP stable 10/24, WBC 13.18, likely secondary to high dose corticosteroids as patient is clinically improving. Solu-medrol TID reduced to BID 10/23 and transitioned to PO prednisone 10/24. Guaifenesin 1200 mg p.o. BID for cough Continue Azithromycin for total of 5 days of treatment (last day 10/28); Qtc 416 Continue home inhalers, montelukast, roflumilast Acetaminophen as needed for pain/fever 2 step completed 10/23 - patient requires 2L w/ rest and 4L w/ ambulation. Updated script signed w/ CM. - discussed importance of maintaining compliance w/ oxygenation throughout the day. #Atrial fibrillation Rate controlled on arrival Continue Eliquis #T2DM A1c 10/23: 6.8% Resume outpatient medications #Tobacco use Noted; 6 cigarettes/day; continue to encourage cessation Chronic stable conditions: HLDatorvastatin HTNdiltiazem Dependent edemahold Bumex for now, patient reports only takes 2-3 times per week LAMAR-CPAP HS Patient discharged home 10/24. Admission HPI Per Admitting Provider Felix is a pleasant 69-year-old male with PMH of atrial fibrillation (on Eliquis), chronic respiratory failure with hypoxia and hypercapnia, COPD, pulmonary hypertension, chronic bronchitis, T2DM, and COPD. He presented on 10/22 for productive cough and SOB/dyspnea x 3 to 4 days. Patient symptoms started on 10/19. He endorses new onset MCMILLAN and productive cough that has been cream-colored. He denies SOB at rest orthopnea. Patient wears CPAP at night with supplemental oxygen (2L NC). He does not believe he has required increased oxygen at home over the past few days, and he does have a home pulse ox, but reports it is difficult to read as he was gets a different number on each finger; reports it has been in the mid 80% range at times. He has been using nebulizer treatments at home, which helps his symptoms temporarily. No prior history of DVT/PE. No hemoptysis or pleuritic CP. He reports good compliance with taking his Eliquis. Patient took his regular morning medicine today; no recent change in medications. He takes Bumex 2-3 times a week for fluid buildup in his legs. Patient is a current everyday tobacco cigarette smoker; 6 cigarettes/day. He denies chewing tobacco or recent alcohol use. No sick contacts to his knowledge. 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 Patient is mildly tachypneic at 25 RPM at time admission; SpO2 90% on oxy mask 4L. ED course: DuoNeb 3 mL x 3 Solu-Medrol 40 mg IV NSS 1000 mL IV ROS: Patient endorses MCMILLAN and productive cough (cream colored). Patient denies fever, chills, night-sweats, dizziness, lightheadedness, LINDSEY, rashes, tick bites, chest pain, chest palpitations, pleuritic CP, SOB at rest, hemoptysis, abdominal pain, N/V/D, changes in urinary/bowel habits, blood in the urine/stool, or numbness/tingling/swelling in the arms or legs. Discharge Exam Constitutional WD/WN, vitals as above Eyes PERRL, conjunctivae normal, anicteric sclerae Respiratory diminished throughout but clear Cardiovascular RRR, no murmur, no edema Musculoskeletal moves all extremities Psychiatric A+Ox3, euthymic affect Discharge Plan Discharge Items Patient Disposition: Home - Self-Care Reason For Visit: PARAINFLUENZA, HYPYOXIA Discharge Diagnosis: Parainfluneza, COPD exacerbation Activity: Resume your previous activity Non-emergency contact: Primary Care Provider Call non-emergency contact if: you have any medication questions and your symptoms worsen Follow-up/Referrals: Aristeo Vicente MD [Primary Care Provider] - Diet: Carb Consistent or DM2 Addtl Attending Provider Instructions: Mr. Gaytan, You were recently hospitalized for a cough and shortness of breath. You tested positive for the parainfluenza virus and were found to be in a COPD exacerbation. Please see recommendations below regarding discharge. 1. Please take your prednisone taper as prescribed. Your first dose of steroids at home will be on 10/25. 2. Please take Azithromycin once daily for the next 3 days. Your first dose at home will be on 10/25. 3. Please use 4L of oxygen with activity and 2L of oxygen at rest. An updated oxygen script has been filled out for you. 4. Please resume the remainder of your outpatient medications upon discharge. 5. Please follow up with your PCP within 1-2 weeks of discharge. if you develop any worsening shortness of breath, cough, chest pain, fever, chills please report back to the ER for further care. Sincerely, Kaci Spring PA-C Pending Studies at Discharge: No Stand-Alone Forms: My [facility] [place], Smoking Cessation Medications and DC Order Prescriptions: New azithromycin 500 mg tablet 500 mg PO DAILY Qty: 3 0RF prednisone 10 mg tablet 10 mg PO DIRECTED Qty: 26 0RF Rx Instructions: Please take 4 tablets by mouth for 2 days then 3 tablets by mouth for 3 days then 2 tablets by mouth for 3 days then 1 tablet by mouth for 3 days. Continued Trelegy Ellipta 100-62.5-25 mcg blister with device 1 inh INH DAILY Qty: 3 3RF Eliquis 5 mg tablet 5 mg PO BID Qty: 180 3RF montelukast [Singulair] 10 mg tablet 10 mg PO HS Qty: 90 3RF ipratropium-albuterol 0.5 mg-3 mg(2.5 mg base)/3 mL solution for nebulization 3 ml INHALATION QID PRN (Reason: Shortness Of Breath Or Wheezing) Qty: 360 6RF atorvastatin [Lipitor] 40 mg tablet 40 mg PO HS Qty: 90 3RF diltiazem HCl 360 mg tablet extended release 24 hr 360 mg PO DAILY Qty: 90 3RF metformin 500 mg tablet extended release 24 hr 1,000 mg PO BID Qty: 360 3RF albuterol sulfate 90 mcg/actuation HFA aerosol inhaler 2 puff inhalation Q6H PRN (Reason: Shortness Of Breath Or Wheezing) Qty: 18 4RF guaifenesin [Mucinex] 600 mg tablet extended release 12hr 600 mg PO BID PRN (Reason: congestion) Qty: 60 3RF Rx Instructions: Unable to verify OTC meds at this date/time. clobetasol 0.05 % cream 1 applic Topical BID PRN (Reason: Rash) Qty: 15 0RF mecobalamin (vitamin B12) 1,000 mcg tablet,chewable 1,000 mcg PO DAILY Qty: 30 0RF Rx Instructions: Unable to verify OTC meds at this date/time. roflumilast 500 mcg tablet 500 mcg PO DAILY bumetanide 1 mg tablet 1 mg PO QAM Qty: 30 5RF omega-3 fatty acids 1,000 mg Capsule 1,000 mg PO BID Rx Instructions: Unable to verify OTC meds at this date/time. multivitamin with minerals Tablet 1 tab PO DAILY Rx Instructions: Unable to verify OTC meds at this date/time. No Action (DME) nebulizers misc See Dose Instructions [id number] .MEDSUPPLY Qty: 1 0RF Dose Instruction: As directed Rx Instructions: As directed (DME) nebulizers [Aeroneb Go Nebulizer] Misc See Rx Instructions .MEDSUPPLY Qty: 1 0RF Rx Instructions: With tubing and supplies. J44.9. J45.9. (DME) CPAP Machine Misc See Rx Instructions .ROUTE .MEDSUPPLY Qty: 1 0RF Rx Instructions: CHANGE BIPAP PRESSURE TO 13/7. CARE PLUS O2 (DME) Portable Oxygen Misc See Rx Instructions .MEDSUPPLY Qty: 1 0RF Rx Instructions: Oxygen 3 liters continuous via nasal cannula on exertion with portable concentrator. SEJAL 99 (DME) Flutter Valve Device See Rx Instructions .MEDSUPPLY Qty: 1 0RF Rx Instructions: Use it every 6 hours when awake. (DME) BiPap Supplies Misc See Dose Instructions .ROUTE .MEDSUPPLY Qty: 1 0RF Dose Instruction: As directed Rx Instructions: new bipap mask Discharge Orders: Discharge Order (Routine); Ordered 10/24/24 Ordered By: Kaci Rangel/Other Patient Handouts: COPD Quit Smoking, Discharge Instructions: COPD Admission Data Admit Date/Time: 10/22/24 14:14 Attending Provider: Zaire Mcpherson Admit Provider: Zaire Mcpherson Primary Care Provider: Aristeo Vicente Other Providers: Zaire Mcpherson Other Interventions: Discharge Summary Assessment (RN) Last Done: 10/24/24 11:40 Hospital Stay Data Consultations 10/22/24 14:27 ED Decision to Admit Stat Pending Results Patient Have Any Pending Studies at Discharge: No Discharge Instructions Given to Patient (Per Discharging Provider) Mr. Gaytan, You were recently hospitalized for a cough and shortness of breath. You tested positive for the parainfluenza virus and were found to be in a COPD exacerbation. Please see recommendations below regarding discharge. 1. Please take your prednisone taper as prescribed. Your first dose of steroids at home will be on 10/25. 2. Please take Azithromycin once daily for the next 3 days. Your first dose at home will be on 10/25. 3. Please use 4L of oxygen with activity and 2L of oxygen at rest. An updated oxygen script has been filled out for you. 4. Please resume the remainder of your outpatient medications upon discharge. 5. Please follow up with your PCP within 1-2 weeks of discharge. if you develop any worsening shortness of breath, cough, chest pain, fever, chills please report back to the ER for further care. Sincerely, Kaci Spring PA-C Total Time Total Time Spent Total Time Spent (In Minutes): 50 Total Time Includes: Examination of the Patient, Discharge Planning and Medication Reconciliation Coding Level of Care Code 83106 INP/OBS DISCH >30 MIN Diagnoses Influenza A J10.1 Acute and chronic respiratory failure with hypoxia J96.21
--- NOTE | 2024-10-25 16:41 | Electrocardiogram Report ---
Test Reason : Blood Pressure : */* mmHG Vent. Rate : 96 BPM Atrial Rate : * BPM P-R Int : * ms QRS Dur : 134 ms QT Int : 330 ms P-R-T Axes : * 25 18 degrees QTcB Int : 416 ms Atrial fibrillation Right bundle branch block Septal infarct (cited on or before 18-Aug-2023) Abnormal ECG When compared with ECG of 21-Aug-2024 11:21, No significant change was found Confirmed by Seun Irwin ([id number]) on 10/25/2024 4:41:19 PM Referred By: REFERRED SELF Confirmed By: Seun Irwin
== END 2024-10-24 12:25 | disposition home or self-care (01) | DRG 193 ==
LOC: SUATTDRO → ED 10:06 → 3E 14:14